=== PATIENT | male | born 1955 | race Caucasian/White ===

== ENCOUNTER 2016-08-04 16:43 | Inpatient (IN) | payer OTHER ==
[2016-08-04 18:07] LABS: Hematocrit 35 % (42-52); Hemoglobin 11.7 g/dl (14.0-18.0); Mean Corpuscular HGB Conc 34 g/dl (31-36); Mean Corpuscular Hemoglobin 32 pg (27-31); Mean Corpuscular Volume 94 fL (80-94); Mean Platelet Volume 9 um3 (7.4-10.4); Red Blood Count 3.69 10^6/ul (4.0-5.4); Red Cell Distribution Width 13 % (10.5-15); White Blood Count 7.7 10^3/ul (3.5-10.8)
[2016-08-04 18:10] LABS: Urine Bilirubin Negative (Negative); Urine Glucose 3+(>=500 mg/dL) (Negative); Urine Nitrite Negative (Negative)
[2016-08-04 18:18] LABS: ALT 22 U/L (7-52); Albumin 4.3 g/dL (3.2-5.2); Alkaline Phosphatase 81 U/L (34-104); BUN/Creatinine Ratio 24.7 (8-20); Blood Urea Nitrogen 20 mg/dL (6-24); CO2 Carbon Dioxide 20 mmol/L (22-32); Chloride 103 mmol/L (101-111); EGFR African American 123.8 (>60); EGFR Non-African American 96.2 (>60); Globulin 2.8 g/dL (2-4); Glucose 410 mg/dL (70-100); Sodium 131 mmol/L (133-145); Total Protein 7.1 g/dL (6.4-8.9)
[2016-08-04 18:26] LABS: Benzodiazepine Urine Screen None Detected (None Detect)
[2016-08-04 18:43] LABS: Acetaminophen < 15 mcg/mL; Alcohol < 10 mg/dL (<10); Salicylate < 2.50 mg/dL (<30)
[2016-08-04 18:53] LABS: TSH (Thyroid Stimulating Horm) 1.73 mcIU/mL (0.34-5.60)
[2016-08-04] MEDS ORDERED: Ziprasidone IM INJ* 20 MG/ML VIAL ONE (20:10)
[2016-08-04] MEDS ORDERED: Ziprasidone IM INJ* 20 MG/ML VIAL IM ONE (20:44)
--- NOTE | 2016-08-04 22:17 | ED ---
Nikolai Blas Billy, scribed for Audie Agustin MD on 08/04/16 at 1849 . Psychiatric Complaint - HPI Summary HPI Summary: Patient is a 61 year-old male BIBA to [facility] after the police were called on him due to his manic behavior. He complains of insomnia and believes he needs to have his medication adjusted. No SI/HI. - History Of Current Complaint Chief Complaint: EDMentalHealth Time Seen by Provider: 08/04/16 16:47 Hx Obtained From: Patient, EMS Onset/Duration: Still Present Timing: Constant Severity Initially: Moderate Severity Currently: Moderate Character: Manic Aggravating Factor(s): Nothing Alleviating Factor(s): Nothing Associated Signs And Symptoms: Positive: Sleep Disturbance Has Suicidal: Denies: Thoughts, With A Plan Has Homicidal: Denies: Thoughts, With A Plan - Allergies/Home Medications Allergies/Adverse Reactions: Allergies Allergy/AdvReac Type Severity Reaction Status Date / Time Benztropine Allergy Unknown Unknown Verified 07/29/15 08:01 Reaction Details Bupropion Allergy Unknown Unknown Verified 07/29/15 08:01 Reaction Details Diazepam Allergy Unknown Unknown Verified 07/29/15 08:01 Reaction Details Fluoxetine Allergy Unknown Unknown Verified 07/29/15 08:01 Reaction Details Fluphenazine Allergy Unknown Unknown Verified 07/29/15 08:01 Reaction Details Haloperidol Allergy Unknown Unknown Verified 07/29/15 08:01 Reaction Details Thiothixene Allergy Unknown Unknown Verified 07/29/15 08:01 Reaction Details Trihexyphenidyl Allergy Unknown Unknown Verified 07/29/15 08:01 Reaction Details Carbamazepine AdvReac Unknown Unknown Verified 07/29/15 08:01 Reaction Details PMH/Surg Hx/FS Hx/Imm Hx Endocrine/Hematology History: Reports: Hx Diabetes, Other Endocrine/ Hematological Disorders - Impaired fasting glucose Denies: Hx Anticoagulant Therapy, Hx Thyroid Disease Cardiovascular History: Reports: Hx Angina, Hx Hypertension Denies: Hx Pacemaker/ICD Respiratory History: Denies: Hx Asthma, Hx Chronic Obstructive Pulmonary Disease (COPD) GI History: Reports: Hx Gastroesophageal Reflux Disease Denies: Hx Ulcer Comment Only: Other GI Disorders - Chronic constipation History: Reports: Hx Acute Renal Failure - secondary to lithium carbonate, Hx Benign Prostatic Hyperplasia, Other Problems/Disorders - Urinary incontinence Denies: Hx Renal Disease Musculoskeletal History: Denies: Hx Gout Sensory History: Denies: Hx Hearing Aid Neurological History: Reports: Hx Headaches, Hx Seizures - hx of medication induced seizures Denies: Hx Dementia Psychiatric History: Reports: Hx Depression, Hx Panic Disorder - sometimes, Hx Inpatient Treatment, Hx Community Mental Health Tx, Hx Schizophrenia, Hx Bipolar Disorder, Hx of Violent Episodes Against Others Denies: Hx Eating Disorder, Hx Substance Abuse - Surgical History Surgery Procedure, Year, and Place: RIGHT wrist, ring finger on right hand, penis as a baby. 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 Substance Use Type: Reports: None Smoking Status (MU): Light Every Day Tobacco Smoker Type: Cigarettes Amount Used/How Often: 4-5/day Have You Smoked in the Last Year: Yes - states that he smoked a cigarette a few days ago Review of Systems Neurological: Other - "insomnia" Positive: Other - manic All Other Systems Reviewed And Are Negative: Yes Physical Exam Triage Information Reviewed: Yes Vital Signs On Initial Exam: Vital Signs - On Arrival Temp Pulse Resp BP Pulse Ox 97.9 F 109 20 195/92 99 08/04/16 17:00 08/04/16 17:00 08/04/16 17:00 08/04/16 17:00 08/04/16 17:00 Vital Signs Reviewed: Yes Appearance: Positive: Well-Appearing, No Pain Distress Skin: Positive: Warm, Skin Color Reflects Adequate Perfusion, Dry Head/Face: Positive: Normal Head/Face Inspection Eyes: Positive: Normal ENT: Positive: Normal ENT inspection Neck: Positive: Supple, Nontender Respiratory/Lung Sounds: Positive: Clear to Auscultation, Breath Sounds Present Cardiovascular: Positive: RRR Abdomen Description: Positive: Nontender, Soft Musculoskeletal: Positive: Normal Neurological: Positive: Normal Psychiatric: Positive: Affect/Mood Appropriate Diagnostics - Vital Signs Vital Signs Temp Pulse Resp BP Pulse Ox 08/04/16 22:02 97.9 F 98 20 184/84 08/04/16 17:00 97.9 F 109 20 195/92 99 - Laboratory Lab Results: Lab Results 12/29/16 12/29/16 12/29/16 Range/Units 17:20 17:20 17:43 WBC 7.7 (3.5-10.8) 10^3/ul RBC 3.69 L (4.0-5.4) 10^6/ul Hgb 11.7 L (14.0-18.0) g/dl Hct 35 L (42-52) % MCV 94 (80-94) fL MCH 32 H (27-31) pg MCHC 34 (31-36) g/dl RDW 13 (10.5-15) % Plt Count 201 (150-450) 10^3/ul MPV 9 (7.4-10.4) um3 Neut % (Auto) 65.6 (38-83) % Lymph % (Auto) 22.4 L (25-47) % Mccormick % (Auto) 10.0 H (1-9) % Eos % (Auto) 1.4 (0-6) % Baso % (Auto) 0.6 (0-2) % Absolute Neuts (auto) 5.0 (1.5-7.7) 10^3/ul Absolute Lymphs (auto) 1.7 (1.0-4.8) 10^3/ul Absolute Monos (auto) 0.8 (0-0.8) 10^3/ul Absolute Eos (auto) 0.1 (0-0.6) 10^3/ul Absolute Basos (auto) 0 (0-0.2) 10^3/ul Absolute Nucleated RBC 0 10^3/ul Nucleated RBC % 0 Sodium (133-145) mmol/L Potassium Chloride (101-111) mmol/L Carbon Dioxide (22-32) mmol/L Anion Gap BUN (6-24) mg/dL Creatinine (0.67-1.17) mg/dL Est GFR ( Amer) (>60) Est GFR (Non-Af Amer) (>60) BUN/Creatinine Ratio (8-20) Glucose (70-100) mg/dL Calcium (8.6-10.3) mg/dL Total Bilirubin (0.2-1.0) mg/dL AST ALT (7-52) U/L Alkaline Phosphatase (34-104) U/L Total Protein (6.4-8.9) g/dL Albumin (3.2-5.2) g/dL Globulin (2-4) g/dL Albumin/Globulin Ratio (1-3) TSH Urine Color Yellow Urine Appearance Clear Urine pH 5.0 (5-9) Ur Specific [place] 1.020 (1.010-1.030) Urine Protein Negative (Negative) Urine Ketones Trace H (Negative) Urine Blood Negative (Negative) Urine Nitrate Negative (Negative) Urine Bilirubin Negative (Negative) Urine Urobilinogen Negative (Negative) Ur Leukocyte Esterase Negative (Negative) Urine Glucose 3+(>=500 mg/dl) H (Negative) Salicylates (<30) mg/dL Urine Opiates Screen None detected (None Detect) Acetaminophen mcg/mL Ur Barbiturates Screen None detected (None Detect) Ur Phencyclidine Scrn None detected (None Detect) Ur Amphetamines Screen None detected (None Detect) U Benzodiazepines Scrn None detected (None Detect) Urine Cocaine Screen None detected (None Detect) U Cannabinoids Screen None detected (None Detect) Serum Alcohol (<10) mg/dL 08/04/16 Range/Units 17:43 WBC (3.5-10.8) 10^3/ul RBC (4.0-5.4) 10^6/ul Hgb (14.0-18.0) g/dl Hct (42-52) % MCV (80-94) fL MCH (27-31) pg MCHC (31-36) g/dl RDW (10.5-15) % Plt Count (150-450) 10^3/ul MPV (7.4-10.4) um3 Neut % (Auto) (38-83) % Lymph % (Auto) (25-47) % Mccormick % (Auto) (1-9) % Eos % (Auto) (0-6) % Baso % (Auto) (0-2) % Absolute Neuts (auto) (1.5-7.7) 10^3/ul Absolute Lymphs (auto) (1.0-4.8) 10^3/ul Absolute Monos (auto) (0-0.8) 10^3/ul Absolute Eos (auto) (0-0.6) 10^3/ul Absolute Basos (auto) (0-0.2) 10^3/ul Absolute Nucleated RBC 10^3/ul Nucleated RBC % Sodium 131 L (133-145) mmol/L Potassium TNP Chloride 103 (101-111) mmol/L Carbon Dioxide 20 L (22-32) mmol/L Anion Gap TNP BUN 20 (6-24) mg/dL Creatinine 0.81 (0.67-1.17) mg/dL Est GFR ( Amer) 123.8 (>60) Est GFR (Non-Af Amer) 96.2 (>60) BUN/Creatinine Ratio 24.7 H (8-20) Glucose 410 H (70-100) mg/dL Calcium 9.0 (8.6-10.3) mg/dL Total Bilirubin 0.20 (0.2-1.0) mg/dL AST TNP ALT 22 (7-52) U/L Alkaline Phosphatase 81 (34-104) U/L Total Protein 7.1 (6.4-8.9) g/dL Albumin 4.3 (3.2-5.2) g/dL Globulin 2.8 (2-4) g/dL Albumin/Globulin Ratio 1.5 (1-3) TSH Pending Urine Color Urine Appearance Urine pH (5-9) Ur Specific [place] (1.010-1.030) Urine Protein (Negative) Urine Ketones (Negative) Urine Blood (Negative) Urine Nitrate (Negative) Urine Bilirubin (Negative) Urine Urobilinogen (Negative) Ur Leukocyte Esterase (Negative) Urine Glucose (Negative) Salicylates < 2.50 (<30) mg/dL Urine Opiates Screen (None Detect) Acetaminophen < 15 mcg/mL Ur Barbiturates Screen (None Detect) Ur Phencyclidine Scrn (None Detect) Ur Amphetamines Screen (None Detect) U Benzodiazepines Scrn (None Detect) Urine Cocaine Screen (None Detect) U Cannabinoids Screen (None Detect) Serum Alcohol < 10 (<10) mg/dL Result Diagrams: 08/04/16 17:43 08/04/16 19:25 Lab Statement: Any lab studies that have been ordered have been reviewed, and results considered in the medical decision making process. Course/Dx - Differential Dx/Clinical Impression Provider Diagnosis: Psychosis Discharge - Discharge Plan Condition: Stable Disposition: ADMITTED TO [facility] documentation as recorded by the Nikolai mercer Billy accurately reflects the service I personally performed and the decisions made by , Audie Agustin MD.
[2016-08-05] MEDS ORDERED: Acetaminophen TAB* 325 MG PO PRN (00:46)
[2016-08-05] MEDS ORDERED: Al Hydrox/Mg Hydrox/Simet LIQ* 30 ML UDC PO PRN (00:46)
[2016-08-05] MEDS ORDERED: Loperamide CAP* 2 MG PO PRN (01:26)
[2016-08-05] MEDS: amLODIPine TAB* 5 MG PO SCH (08:46)
[2016-08-05] MEDS: Atorvastatin* 20 MG TAB PO SCH (08:46)
[2016-08-05] MEDS: glipiZIDE TAB.XL* 5 MG PO SCH (08:47)
[2016-08-05] MEDS: Omeprazole CAP* 20 MG PO SCH (08:47)
[2016-08-05] MEDS: Lisinopril TAB* 10 MG PO SCH (08:47)
[2016-08-05] MEDS: Divalproex DR TAB(*) 500 MG PO SCH ×2 (08:47→20:15)
[2016-08-05] MEDS: Nicotine PATCH 14 MG/24 HR* PATCH TRANSDERM SCH (08:48)
[2016-08-05] MEDS: Vitamin THERAPEUTIC TAB PO SCH (08:48)
[2016-08-05] MEDS ORDERED: Sertraline* 50 MG TAB PO SCH (09:00)
[2016-08-05] MEDS ORDERED: Influenza VAC *QUAD* 2016-17* 0.5 ML SYRINGE IM ONE (09:00)
[2016-08-05] MEDS: Ibuprofen TAB* 600 MG PO PRN (14:25)
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
[2016-08-05] MEDS: clonazePAM TAB(*) 0.5 MG PO SCH (20:14)
[2016-08-05] MEDS: OLANzapine TAB* 2.5 MG PO SCH (20:15)
[2016-08-05] MEDS: CloZAPine TAB* 100 MG TAB PO SCH (20:15)
[2016-08-05] MEDS ORDERED: CloZAPine TAB* 100 MG TAB PO SCH (21:00)
[2016-08-05] MEDS: Nicotine Patch Removal NOTE PATCH OFF SCH (22:22)
[2016-08-06] MEDS: Nicotine PATCH 14 MG/24 HR* PATCH TRANSDERM SCH (08:25)
[2016-08-06] MEDS: Vitamin THERAPEUTIC TAB PO SCH (08:26)
[2016-08-06] MEDS: glipiZIDE TAB.XL* 5 MG PO SCH (08:26)
[2016-08-06] MEDS: amLODIPine TAB* 5 MG PO SCH (08:26)
[2016-08-06] MEDS: Atorvastatin* 20 MG TAB PO SCH (08:27)
[2016-08-06] MEDS: Lisinopril TAB* 10 MG PO SCH (08:27)
[2016-08-06] MEDS: Omeprazole CAP* 20 MG PO SCH (08:27)
[2016-08-06] MEDS: Divalproex DR TAB(*) 500 MG PO SCH ×2 (08:27→18:10)
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
[2016-08-06] MEDS: CloZAPine TAB* 100 MG TAB PO SCH (18:08)
[2016-08-06] MEDS: clonazePAM TAB(*) 0.5 MG PO SCH (18:09)
[2016-08-06] MEDS: OLANzapine TAB* 2.5 MG PO SCH (18:10)
[2016-08-06] MEDS: Nicotine Patch Removal NOTE PATCH OFF SCH (19:34)
[2016-08-06] MEDS: LORazepam TAB(*) 1 MG PO PRN (19:55)
[2016-08-06] MEDS ORDERED: LORazepam TAB(*) 1 MG ONE (19:56)
[2016-08-07] MEDS: Nicotine PATCH 14 MG/24 HR* PATCH TRANSDERM SCH (08:55)
[2016-08-07] MEDS: Divalproex DR TAB(*) 500 MG PO SCH ×3 (08:56→20:23)
[2016-08-07] MEDS: Lisinopril TAB* 10 MG PO SCH (08:57)
[2016-08-07] MEDS: Omeprazole CAP* 20 MG PO SCH (08:57)
[2016-08-07] MEDS: Atorvastatin* 20 MG TAB PO SCH (08:57)
[2016-08-07] MEDS: glipiZIDE TAB.XL* 5 MG PO SCH (08:57)
[2016-08-07] MEDS: amLODIPine TAB* 5 MG PO SCH (08:57)
[2016-08-07] MEDS: Vitamin THERAPEUTIC TAB PO SCH (08:57)
[2016-08-07] MEDS: clonazePAM TAB(*) 0.5 MG PO SCH ×2 (09:33→20:23)
[2016-08-07] MEDS: OLANzapine TAB* 2.5 MG PO SCH ×2 (09:34→20:23)
[2016-08-07] MEDS: CloZAPine TAB* 100 MG TAB PO SCH ×2 (09:34→20:23)
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
[2016-08-07] MEDS: Ibuprofen TAB* 600 MG PO PRN (17:36)
[2016-08-07] MEDS: Nicotine Patch Removal NOTE PATCH OFF SCH (21:01)
[2016-08-08] MEDS: Nicotine PATCH 14 MG/24 HR* PATCH TRANSDERM SCH (08:56)
[2016-08-08] MEDS: Omeprazole CAP* 20 MG PO SCH (08:57)
[2016-08-08] MEDS: amLODIPine TAB* 5 MG PO SCH (08:57)
[2016-08-08] MEDS: Divalproex DR TAB(*) 500 MG PO SCH ×2 (08:57→20:24)
[2016-08-08] MEDS: glipiZIDE TAB.XL* 5 MG PO SCH (08:57)
[2016-08-08] MEDS: Lisinopril TAB* 10 MG PO SCH (08:57)
[2016-08-08] MEDS: Vitamin THERAPEUTIC TAB PO SCH (08:57)
[2016-08-08] MEDS: Atorvastatin* 20 MG TAB PO SCH (08:57)
[2016-08-08] MEDS: Ibuprofen TAB* 600 MG PO PRN (13:33)
--- NOTE | 2016-08-08 15:03 | PN ---
Subjective - Subjective Service Type: 35511 Hosp care 15 min low complexity Subjective: Patient remains hyperverbal and non-sequitur, although less severely since admission. He has no evidence of violence or agitation since the weekend and appears to be tolerating his medications well. Objective - Appearance Appearance: Obese Dysmorphic Features: No Hygiene: Mal-odorous Grooming: Disheveled - Behavior Psychomotor Activities: Normal Exhibits Abnormal Movement: No - Attitude and Relatedness Attitude and Relatedness: Psychotically Related Eye Contact: Fair - Speech Quality: Pressured Latencies: Normal Quantity: Copious - Mood Patient's Decription of Mood: "Fine" - Affect Observed Affect: Labile Affect Consistent with: Dysphoria - Thought Process Patient's Thought Process: Loose Associations Thought Content: Yes Paranoid Ideation, No Passive Wish, No Suicidal Planning, No Homicidal Ideation - Sensorium Experiencing Hallucinations: No, Sensorium is Clear Type of Hallucinations: Visual: No, Auditory: No, Command: No - Level of Consciousness Level of Consciousness: Alert Orientation: Yes Intact, Yes Orientated to Time, Yes Orientated to Place, Yes Orientated to Person - Impulse Control Impulse Control: Poor - Insight and Judgement Insight and Judgement: Impaired - Group Participation Particating in Group Activities: Yes - Medication Management Medication Management Adherence: Yes Assessment - Assessment Merits Inpatient Hospitalization: For Immediate Safety, For Stabilization Inpatient DSM-IV Dx: Bipolar Kelsey, severe with psychotic features Clinical Impression: 61 y.o. single white male with a history of chronic and low-functioning bipolar disorder admitted due to increasing agitation and aggression in the likely context of some recent changes in his medication. Plan - Plan Treatment Plan: Name: LISANDRA MENDOZA Birthdate: 1955 [id number] We have resumed medication with some changes. Zoloft was discontinued and clozapine was increased from 400 to 500mg PO qhs. Depakote level (76) is therapeutic. Will need updated CBC tomorrow. For now we will discontinue olanzapine and increase clozapine to 600mg PO qhs. Await med effect. Continued Medication Management: Different Medication Medications: Current Medications Acetaminophen (Tylenol Tab*) 650 mg PO Q4H PRN PRN Reason: PAIN or TEMP > 101 F Al Hydrox/Mg Hydrox/Simethicone (Maalox Plus*) 30 ml PO Q4H PRN PRN Reason: INDIGESTION Amlodipine Besylate (Norvasc Tab*) 5 mg PO DAILY [facility] Last Admin: 08/08/16 08:57 Dose: 5 mg Atorvastatin Calcium (Lipitor*) 20 mg PO DAILY [facility] Last Admin: 08/08/16 08:57 Dose: 20 mg Clonazepam (Klonopin Tab(*)) 0.5 mg PO BEDTIME [facility] Last Admin: 08/07/16 20:23 Dose: 0.5 mg Divalproex Sodium (Depakote Dr Tab(*)) 1,000 mg PO BID [facility] Last Admin: 08/08/16 08:57 Dose: 1,000 mg Glipizide (Glucotrol Xl*) 5 mg PO DAILY [facility] Last Admin: 08/08/16 08:57 Dose: 5 mg Ibuprofen (Motrin Tab*) 600 mg PO Q8H PRN PRN Reason: PAIN Last Admin: 08/08/16 13:33 Dose: 600 mg Lisinopril (Prinivil Tab*) 20 mg PO QAM [facility] Last Admin: 08/08/16 08:57 Dose: 20 mg Loperamide HCl (Imodium Cap*) 2 mg PO DAILY PRN PRN Reason: DIARRHEA Lorazepam (Ativan Tab(*)) 2 mg PO Q6H PRN PRN Reason: AGITATION Last Admin: 08/06/16 19:55 Dose: 2 mg Multivitamins (Theragran Tab*) 1 tab PO DAILY [facility] Last Admin: 08/08/16 08:57 Dose: 1 tab Nicotine (Nicotine Patch 14 Mg/24 Hr*) 1 patch TRANSDERM DAILY [facility] Last Admin: 08/08/16 08:56 Dose: 1 patch Omeprazole (Prilosec Cap*) 40 mg PO DAILY [facility] Last Admin: 08/08/16 08:57 Dose: 40 mg Pharmacy Profile Note (Nicotine Patch Removal Note*) 1 note PATCH OFF 2100 [facility] Last Admin: 08/07/16 21:01 Dose: 1 note - Discharge Plan Discharge Plan: Inpatient Hospitalization
[2016-08-08] MEDS: clonazePAM TAB(*) 0.5 MG PO SCH (20:24)
[2016-08-08] MEDS: Nicotine Patch Removal NOTE PATCH OFF SCH (20:27)
[2016-08-08] MEDS ORDERED: CloZAPine TAB* 100 MG TAB PO SCH (21:00)
[2016-08-09 08:19] LABS: Hematocrit 38 % (42-52); Hemoglobin 12.5 g/dl (14.0-18.0); Mean Corpuscular HGB Conc 33 g/dl (31-36); Mean Corpuscular Hemoglobin 31 pg (27-31); Mean Corpuscular Volume 94 fL (80-94); Mean Platelet Volume 9 um3 (7.4-10.4); Red Blood Count 4.02 10^6/ul (4.0-5.4); Red Cell Distribution Width 13 % (10.5-15)
[2016-08-09] MEDS: Divalproex DR TAB(*) 500 MG PO SCH ×2 (09:27→19:02)
[2016-08-09] MEDS: Atorvastatin* 20 MG TAB PO SCH (09:27)
[2016-08-09] MEDS: Omeprazole CAP* 20 MG PO SCH (09:27)
[2016-08-09] MEDS: Vitamin THERAPEUTIC TAB PO SCH (09:28)
[2016-08-09] MEDS: Lisinopril TAB* 10 MG PO SCH (09:28)
[2016-08-09] MEDS: amLODIPine TAB* 5 MG PO SCH (09:28)
[2016-08-09] MEDS: Nicotine PATCH 14 MG/24 HR* PATCH TRANSDERM SCH (11:13)
[2016-08-09] MEDS: glipiZIDE TAB.XL* 5 MG PO SCH (11:13)
--- NOTE | 2016-08-09 11:42 | PN ---
[facility]: Group Therapy Note - Service Type Service Type: 17893 Group Psychotherapy - Cognitive Behavioral Group Therapy ( CBT):Patient presented in CBT programming as disorganized and disruptive in discussion and needed repeated redirection to attend to presented materials.
--- NOTE | 2016-08-09 15:54 | PN ---
Subjective - Subjective Service Type: 58775 Hosp care 15 min low complexity Subjective: The patient remains disorganized and disruptive on the unit but there hasn't been any further violence. He appears to be tolerating the recent changes in his medications well. I exchanged voicemail messages with Dr. Vinicio Duran, the patient's outpatient psychiatrist, who indicates that they had been weening him off olanzapine due to increases recently in his HgbA1c. Objective - Appearance Appearance: Obese Dysmorphic Features: No Hygiene: Dirty Grooming: Disheveled - Behavior Psychomotor Activities: Normal Exhibits Abnormal Movement: No - Attitude and Relatedness Attitude and Relatedness: Psychotically Related Eye Contact: Good - Speech Quality: Pressured Latencies: Short Quantity: Copious - Mood Patient's Decription of Mood: "Great" - Affect Observed Affect: Labile Affect Consistent with: Dysphoria - Thought Process Patient's Thought Process: Disorganized Thought Content: Yes Paranoid Ideation, No Passive Wish, No Suicidal Planning, No Homicidal Ideation - Sensorium Experiencing Hallucinations: Yes Type of Hallucinations: Visual: No, Auditory: Yes, Command: No - Level of Consciousness Level of Consciousness: Alert Orientation: Yes Intact, Yes Orientated to Time, Yes Orientated to Place, Yes Orientated to Person - Impulse Control Impulse Control: Poor - Insight and Judgement Insight and Judgement: Impaired - Group Participation Particating in Group Activities: Yes - Medication Management Medication Management Adherence: Yes Assessment - Assessment Merits Inpatient Hospitalization: For Immediate Safety, For Stabilization Inpatient DSM-IV Dx: Bipolar Kelsey, severe with psychotic features Clinical Impression: 61 y.o. single white male with a history of chronic and low-functioning bipolar disorder admitted due to increasing agitation and aggression in the likely context of some recent changes in his medication. Plan - Plan Treatment Plan: Name: LISANDRA MENDOZA Birthdate: 1955 [id number] We have resumed medication with some changes. Zoloft and olanzapine were discontinued and clozapine was increased from 400 to 600mg PO qhs. Depakote level (76) is therapeutic. Will check HgbA1c, lipid panel and fasting glucose tomorrow AM. Await med effect. Continued Medication Management: Different Medication Medications: Current Medications Acetaminophen (Tylenol Tab*) 650 mg PO Q4H PRN PRN Reason: PAIN or TEMP > 101 F Al Hydrox/Mg Hydrox/Simethicone (Maalox Plus*) 30 ml PO Q4H PRN PRN Reason: INDIGESTION Amlodipine Besylate (Norvasc Tab*) 5 mg PO DAILY [facility] Last Admin: 08/09/16 09:28 Dose: 5 mg Atorvastatin Calcium (Lipitor*) 20 mg PO DAILY [facility] Last Admin: 08/09/16 09:27 Dose: 20 mg Clonazepam (Klonopin Tab(*)) 0.5 mg PO BEDTIME [facility] Last Admin: 08/08/16 20:24 Dose: 0.5 mg Clozapine (Clozapine Tab*) 600 mg PO BEDTIME [facility] Last Admin: 08/08/16 20:24 Dose: 600 mg Divalproex Sodium (Depakote Dr Tab(*)) 1,000 mg PO BID [facility] Last Admin: 08/09/16 09:27 Dose: 1,000 mg Glipizide (Glucotrol Xl*) 5 mg PO DAILY [facility] Last Admin: 08/09/16 11:13 Dose: 5 mg Ibuprofen (Motrin Tab*) 600 mg PO Q8H PRN PRN Reason: PAIN Last Admin: 08/08/16 13:33 Dose: 600 mg Lisinopril (Prinivil Tab*) 20 mg PO QAM [facility] Last Admin: 08/09/16 09:28 Dose: 20 mg Loperamide HCl (Imodium Cap*) 2 mg PO DAILY PRN PRN Reason: DIARRHEA Lorazepam (Ativan Tab(*)) 2 mg PO Q6H PRN PRN Reason: AGITATION Last Admin: 08/06/16 19:55 Dose: 2 mg Multivitamins (Theragran Tab*) 1 tab PO DAILY [facility] Last Admin: 08/09/16 09:28 Dose: 1 tab Nicotine (Nicotine Patch 14 Mg/24 Hr*) 1 patch TRANSDERM DAILY [facility] Last Admin: 08/09/16 11:13 Dose: Not Given Omeprazole (Prilosec Cap*) 40 mg PO DAILY [facility] Last Admin: 08/09/16 09:27 Dose: 40 mg Pharmacy Profile Note (Nicotine Patch Removal Note*) 1 note PATCH OFF 2100 [facility] Last Admin: 08/08/16 20:27 Dose: 1 note Throat Lozenges (Chloraseptic Chong*) 1 chong PO Q6H PRN PRN Reason: SORE THROAT - Discharge Plan Discharge Plan: Inpatient Hospitalization Lab Results - Lab Results Lab Results: 08/09/16 08:10 WBC 9.0 RBC 4.02 Hgb 12.5 L Hct 38 L MCV 94 MCH 31 MCHC 33 RDW 13 Plt Count 193 MPV 9 Neut % (Auto) 63.6 Lymph % (Auto) 23.5 L [place] % (Auto) 10.3 H Eos % (Auto) 1.8 Baso % (Auto) 0.8 Absolute Neuts (auto) 5.7 Absolute Lymphs (auto) 2.1 Absolute Monos (auto) 0.9 H Absolute Eos (auto) 0.2 Absolute Basos (auto) 0.1 Absolute Nucleated RBC 0 Nucleated RBC % 0
[2016-08-09] MEDS: LORazepam TAB(*) 1 MG PO PRN (16:52)
[2016-08-09] MEDS: Nicotine Patch Removal NOTE PATCH OFF SCH (19:01)
[2016-08-09] MEDS: clonazePAM TAB(*) 0.5 MG PO SCH (19:01)
[2016-08-09] MEDS: CloZAPine TAB* 100 MG TAB PO SCH (19:02)
[2016-08-10] MEDS: glipiZIDE TAB.XL* 5 MG PO SCH (08:37)
[2016-08-10] MEDS: amLODIPine TAB* 5 MG PO SCH (08:37)
[2016-08-10] MEDS: Omeprazole CAP* 20 MG PO SCH (08:37)
[2016-08-10] MEDS: Lisinopril TAB* 10 MG PO SCH (08:37)
[2016-08-10] MEDS: Atorvastatin* 20 MG TAB PO SCH (08:38)
[2016-08-10] MEDS: Vitamin THERAPEUTIC TAB PO SCH (08:38)
[2016-08-10 08:43] LABS: Albumin 4.2 g/dL (3.2-5.2); BUN/Creatinine Ratio 33.3 (8-20); Calcium 9.4 mg/dL (8.6-10.3); EGFR African American 129.3 (>60); EGFR Non-African American 100.5 (>60); HDL Cholesterol 35.5 mg/dL; Potassium 4.6 mmol/L (3.5-5.0); Total Bilirubin 0.3 mg/dL (0.2-1.0); Total Protein 7.2 g/dL (6.4-8.9)
[2016-08-10] MEDS: Nicotine PATCH 14 MG/24 HR* PATCH TRANSDERM SCH (08:43)
[2016-08-10] MEDS: Divalproex DR TAB(*) 500 MG PO SCH ×2 (09:18→19:04)
--- NOTE | 2016-08-10 14:55 | PN ---
Subjective - Subjective Service Type: [id number] Hosp care 15 min low complexity Subjective: The patient continues to be disorganized and non-sequitur, although he has displayed no violence towards others. "I'm furiously angry at Minerva Langston. We call her Miss Stanley because she's so happy all the time." I am told that members of the [facility] staff, who know him possibly the best in the community, will be coming in to assess whether he has returned to baseline. Objective - Appearance Appearance: Obese Dysmorphic Features: No Hygiene: Mal-odorous Grooming: Disheveled - Behavior Psychomotor Activities: Normal Exhibits Abnormal Movement: Yes - Attitude and Relatedness Attitude and Relatedness: Psychotically Related Eye Contact: Fair - Speech Quality: Pressured Latencies: Short Quantity: Copious - Mood Patient's Decription of Mood: "Okay" - Affect Observed Affect: Labile Affect Consistent with: Dysphoria - Thought Process Patient's Thought Process: Loose Associations Thought Content: Yes Paranoid Ideation, No Passive Wish, No Suicidal Planning, No Homicidal Ideation - Sensorium Experiencing Hallucinations: No, Sensorium is Clear Type of Hallucinations: Visual: No, Auditory: No, Command: No - Level of Consciousness Level of Consciousness: Alert Orientation: Yes Intact, Yes Orientated to Time, Yes Orientated to Place, Yes Orientated to Person - Impulse Control Impulse Control: Impaired - Insight and Judgement Insight and Judgement: Poor - Group Participation Particating in Group Activities: Yes - Medication Management Medication Management Adherence: Yes Assessment - Assessment Merits Inpatient Hospitalization: For Immediate Safety, For Stabilization Inpatient DSM-IV Dx: Bipolar Kelsey, severe with psychotic features Clinical Impression: 61 y.o. single white male with a history of chronic and low-functioning bipolar disorder admitted due to increasing agitation and aggression in the likely context of some recent changes in his medication. Plan - Plan Treatment Plan: Name: LISANDRA MENDOZA Birthdate: 1955 [id number] We have resumed medication with some changes. Zoloft and olanzapine were discontinued and clozapine was increased to 600mg PO qhs. Depakote level (76) is therapeutic. Await med effect. Continued Medication Management: Different Medication Medications: Current Medications Acetaminophen (Tylenol Tab*) 650 mg PO Q4H PRN PRN Reason: PAIN or TEMP > 101 F Al Hydrox/Mg Hydrox/Simethicone (Maalox Plus*) 30 ml PO Q4H PRN PRN Reason: INDIGESTION Amlodipine Besylate (Norvasc Tab*) 5 mg PO DAILY [facility] Last Admin: 08/10/16 08:37 Dose: 5 mg Atorvastatin Calcium (Lipitor*) 20 mg PO DAILY [facility] Last Admin: 08/10/16 08:38 Dose: 20 mg Clonazepam (Klonopin Tab(*)) 0.5 mg PO 1914 [facility] Last Admin: 08/09/16 19:01 Dose: 0.5 mg Clozapine (Clozapine Tab*) 600 mg PO 1914 [facility] Last Admin: 08/09/16 19:02 Dose: 600 mg Divalproex Sodium (Depakote Dr Tab(*)) 1,000 mg PO [facility] Last Admin: 08/10/16 09:18 Dose: 1,000 mg Glipizide (Glucotrol Xl*) 5 mg PO DAILY [facility] Last Admin: 08/10/16 08:37 Dose: 5 mg Ibuprofen (Motrin Tab*) 600 mg PO Q8H PRN PRN Reason: PAIN Last Admin: 08/08/16 13:33 Dose: 600 mg Lisinopril (Prinivil Tab*) 20 mg PO QAM [facility] Last Admin: 08/10/16 08:37 Dose: 20 mg Loperamide HCl (Imodium Cap*) 2 mg PO DAILY PRN PRN Reason: DIARRHEA Lorazepam (Ativan Tab(*)) 2 mg PO Q6H PRN PRN Reason: AGITATION Last Admin: 08/09/16 16:52 Dose: 2 mg Multivitamins (Theragran Tab*) 1 tab PO DAILY [facility] Last Admin: 08/10/16 08:38 Dose: 1 tab Nicotine (Nicotine Patch 14 Mg/24 Hr*) 1 patch TRANSDERM DAILY [facility] Last Admin: 08/10/16 08:43 Dose: Not Given Omeprazole (Prilosec Cap*) 40 mg PO DAILY [facility] Last Admin: 08/10/16 08:37 Dose: 40 mg Pharmacy Profile Note (Nicotine Patch Removal Note*) 1 note PATCH OFF 2100 [facility] Last Admin: 08/09/16 19:01 Dose: Not Given Throat Lozenges (Chloraseptic Chong*) 1 chong PO Q6H PRN PRN Reason: SORE THROAT - Discharge Plan Discharge Plan: Inpatient Hospitalization Lab Results - Lab Results Lab Results: 08/09/16 08/10/16 08/10/16 08:10 08:14 08:14 WBC 9.0 RBC 4.02 Hgb 12.5 L Hct 38 L MCV 94 MCH 31 MCHC 33 RDW 13 Plt Count 193 MPV 9 Neut % (Auto) 63.6 Lymph % (Auto) 23.5 L [place] % (Auto) 10.3 H Eos % (Auto) 1.8 Baso % (Auto) 0.8 Absolute Neuts (auto) 5.7 Absolute Lymphs (auto) 2.1 Absolute Monos (auto) 0.9 H Absolute Eos (auto) 0.2 Absolute Basos (auto) 0.1 Absolute Nucleated RBC 0 Nucleated RBC % 0 Sodium 135 Potassium 4.6 Chloride 104 Carbon Dioxide 22 Anion Gap 9 BUN 26 H Creatinine 0.78 Est GFR ( Amer) 129.3 Est GFR (Non-Af Amer) 100.5 BUN/Creatinine Ratio 33.3 H Glucose 141 H Hemoglobin A1c 7.5 H Calcium 9.4 Total Bilirubin 0.30 AST 14 ALT 21 Alkaline Phosphatase 72 Total Protein 7.2 Albumin 4.2 Globulin 3.0 Albumin/Globulin Ratio 1.4 Triglycerides 268 Cholesterol 149 LDL Cholesterol 60 HDL Cholesterol 35.5
[2016-08-10] MEDS: Ibuprofen TAB* 600 MG PO PRN (15:29)
[2016-08-10] MEDS: LORazepam TAB(*) 1 MG PO PRN (17:59)
[2016-08-10] MEDS: CloZAPine TAB* 100 MG TAB PO SCH (19:05)
[2016-08-10] MEDS: clonazePAM TAB(*) 0.5 MG PO SCH (19:06)
[2016-08-10] MEDS: Nicotine Patch Removal NOTE PATCH OFF SCH (20:18)
[2016-08-11] MEDS: Benzocaine/Menthol LOZ* 1 LOZENGE PO PRN (04:49)
[2016-08-11] MEDS: Omeprazole CAP* 20 MG PO SCH (08:28)
[2016-08-11] MEDS: Vitamin THERAPEUTIC TAB PO SCH (08:28)
[2016-08-11] MEDS: glipiZIDE TAB.XL* 5 MG PO SCH (08:28)
[2016-08-11] MEDS: Nicotine PATCH 14 MG/24 HR* PATCH TRANSDERM SCH ×2 (08:28→08:41)
[2016-08-11] MEDS: Lisinopril TAB* 10 MG PO SCH (08:29)
[2016-08-11] MEDS: amLODIPine TAB* 5 MG PO SCH (08:29)
[2016-08-11] MEDS: Atorvastatin* 20 MG TAB PO SCH (08:29)
[2016-08-11] MEDS: Divalproex DR TAB(*) 500 MG PO SCH ×2 (08:31→18:54)
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
[2016-08-11] MEDS: CloZAPine TAB* 100 MG TAB PO SCH ×2 (17:07→18:55)
[2016-08-11] MEDS: clonazePAM TAB(*) 0.5 MG PO SCH (18:56)
[2016-08-11] MEDS: Ibuprofen TAB* 600 MG PO PRN (18:57)
[2016-08-11] MEDS: LORazepam TAB(*) 1 MG PO PRN (18:58)
[2016-08-12] MEDS: Nicotine Patch Removal NOTE PATCH OFF SCH ×2 (01:47→20:30)
[2016-08-12] MEDS: Vitamin THERAPEUTIC TAB PO SCH (09:24)
[2016-08-12] MEDS: Lisinopril TAB* 10 MG PO SCH (09:25)
[2016-08-12] MEDS: Atorvastatin* 20 MG TAB PO SCH (09:25)
[2016-08-12] MEDS: Omeprazole CAP* 20 MG PO SCH (09:25)
[2016-08-12] MEDS: CloZAPine TAB* 100 MG TAB PO SCH ×2 (09:26→18:44)
[2016-08-12] MEDS: glipiZIDE TAB.XL* 5 MG PO SCH (09:27)
[2016-08-12] MEDS: Nicotine PATCH 14 MG/24 HR* PATCH TRANSDERM SCH (09:27)
[2016-08-12] MEDS: amLODIPine TAB* 5 MG PO SCH (10:00)
[2016-08-12] MEDS: Divalproex DR TAB(*) 500 MG PO SCH ×2 (10:02→18:44)
--- NOTE | 2016-08-12 13:07 | PN ---
Subjective - Subjective Service Type: [id number] Hosp care 15 min low complexity Subjective: Patient received a visit from a [place] [employer] representative yesterday afternoon but we have not yet heard how that went. He appears to be under behavioral control on our unit, albeit with continued hyperverbal, disorganized presentation. Objective - Appearance Appearance: Obese Dysmorphic Features: No Hygiene: Dirty Grooming: Disheveled - Behavior Psychomotor Activities: Normal Exhibits Abnormal Movement: No - Attitude and Relatedness Attitude and Relatedness: Cooperative Eye Contact: Fair - Speech Quality: Pressured Latencies: Short Quantity: Copious - Mood Patient's Decription of Mood: "Great" - Affect Observed Affect: Expansive Affect Consistent with: Euphoria - Thought Process Patient's Thought Process: Loose Associations Thought Content: Yes Paranoid Ideation, No Passive Wish, No Suicidal Planning, No Homicidal Ideation - Sensorium Experiencing Hallucinations: No, Sensorium is Clear Type of Hallucinations: Visual: No, Auditory: Yes, Command: No - Level of Consciousness Level of Consciousness: Alert Orientation: Yes Intact, Yes Orientated to Time, Yes Orientated to Place, Yes Orientated to Person - Impulse Control Impulse Control: Poor - Insight and Judgement Insight and Judgement: Impaired - Group Participation Particating in Group Activities: Yes - Medication Management Medication Management Adherence: Yes Assessment - Assessment Merits Inpatient Hospitalization: Consolidate Improvements, Pending Safe DC Plan Inpatient DSM-IV Dx: Bipolar Kelsey, severe with psychotic features Clinical Impression: 61 y.o. single white male with a history of chronic and low-functioning bipolar disorder admitted due to increasing agitation and aggression in the likely context of some recent changes in his medication. Plan - Plan Treatment Plan: Name: LISANDRA MENDOZA Birthdate: 1955 [id number] Patient still not at baseline. Now on increased clozapine 100mg PO qam and 600mg PO qhs. [place] to visit on Monday, 08/15. Continued Medication Management: Different Medication Medications: Current Medications Acetaminophen (Tylenol Tab*) 650 mg PO Q4H PRN PRN Reason: PAIN or TEMP > 101 F Al Hydrox/Mg Hydrox/Simethicone (Maalox Plus*) 30 ml PO Q4H PRN PRN Reason: INDIGESTION Amlodipine Besylate (Norvasc Tab*) 5 mg PO DAILY [facility] Last Admin: 08/12/16 10:00 Dose: 5 mg Atorvastatin Calcium (Lipitor*) 20 mg PO DAILY [facility] Last Admin: 08/12/16 09:25 Dose: 20 mg Clonazepam (Klonopin Tab(*)) 0.5 mg PO 1914 [facility] Last Admin: 08/11/16 18:56 Dose: 0.5 mg Clozapine (Clozapine Tab*) 600 mg PO 1914 [facility] Last Admin: 08/11/16 18:55 Dose: 600 mg Clozapine (Clozapine Tab*) 100 mg PO DAILY [facility] Last Admin: 08/12/16 09:26 Dose: 100 mg Divalproex Sodium (Depakote Dr Tab(*)) 1,000 mg PO 799,1914 [facility] Last Admin: 08/12/16 10:02 Dose: 1,000 mg Glipizide (Glucotrol Xl*) 5 mg PO DAILY [facility] Last Admin: 08/12/16 09:27 Dose: 5 mg Ibuprofen (Motrin Tab*) 600 mg PO Q8H PRN PRN Reason: PAIN Last Admin: 08/11/16 18:57 Dose: 600 mg Lisinopril (Prinivil Tab*) 20 mg PO [facility] Last Admin: 08/12/16 09:25 Dose: 20 mg Loperamide HCl (Imodium Cap*) 2 mg PO DAILY PRN PRN Reason: DIARRHEA Lorazepam (Ativan Tab(*)) 2 mg PO Q6H PRN PRN Reason: AGITATION Last Admin: 08/11/16 18:58 Dose: 2 mg Multivitamins (Theragran Tab*) 1 tab PO DAILY [facility] Last Admin: 08/12/16 09:24 Dose: 1 tab Nicotine (Nicotine Patch 14 Mg/24 Hr*) 1 patch TRANSDERM DAILY [facility] Last Admin: 08/12/16 09:27 Dose: 1 patch Omeprazole (Prilosec Cap*) 40 mg PO DAILY [facility] Last Admin: 08/12/16 09:25 Dose: 40 mg Pharmacy Profile Note (Nicotine Patch Removal Note*) 1 note PATCH OFF 2099 [facility] Last Admin: 08/12/16 01:47 Dose: Not Given Throat Lozenges (Chloraseptic Chong*) 1 chong PO Q6H PRN PRN Reason: SORE THROAT Last Admin: 08/11/16 04:49 Dose: 1 chong - Discharge Plan Discharge Plan: Inpatient Hospitalization
[2016-08-12] MEDS: clonazePAM TAB(*) 0.5 MG PO SCH (18:44)
[2016-08-12] MEDS: Ibuprofen TAB* 600 MG PO PRN (19:53)
[2016-08-12] MEDS: Benzocaine/Menthol LOZ* 1 LOZENGE PO PRN (20:29)
[2016-08-13] MEDS: Benzocaine/Menthol LOZ* 1 LOZENGE PO PRN (08:21)
[2016-08-13] MEDS: Nicotine PATCH 14 MG/24 HR* PATCH TRANSDERM SCH (09:27)
[2016-08-13] MEDS: Lisinopril TAB* 10 MG PO SCH (09:28)
[2016-08-13] MEDS: Atorvastatin* 20 MG TAB PO SCH (09:28)
[2016-08-13] MEDS: Vitamin THERAPEUTIC TAB PO SCH (09:28)
[2016-08-13] MEDS: amLODIPine TAB* 5 MG PO SCH (09:28)
[2016-08-13] MEDS: glipiZIDE TAB.XL* 5 MG PO SCH (09:29)
[2016-08-13] MEDS: Omeprazole CAP* 20 MG PO SCH (09:29)
[2016-08-13] MEDS: CloZAPine TAB* 100 MG TAB PO SCH ×2 (09:29→21:40)
[2016-08-13] MEDS: Divalproex DR TAB(*) 500 MG PO SCH ×2 (09:31→21:41)
[2016-08-13] MEDS: Ibuprofen TAB* 600 MG PO PRN (12:39)
[2016-08-13] MEDS: Nicotine Patch Removal NOTE PATCH OFF SCH (19:12)
[2016-08-13] MEDS: clonazePAM TAB(*) 0.5 MG PO SCH (21:41)
[2016-08-14] MEDS: Benzocaine/Menthol LOZ* 1 LOZENGE PO PRN ×2 (05:33→12:42)
[2016-08-14] MEDS: Nicotine PATCH 14 MG/24 HR* PATCH TRANSDERM SCH (09:16)
[2016-08-14] MEDS: Vitamin THERAPEUTIC TAB PO SCH (09:18)
[2016-08-14] MEDS: CloZAPine TAB* 100 MG TAB PO SCH ×2 (09:18→19:58)
[2016-08-14] MEDS: amLODIPine TAB* 5 MG PO SCH (09:19)
[2016-08-14] MEDS: glipiZIDE TAB.XL* 5 MG PO SCH (09:19)
[2016-08-14] MEDS: Omeprazole CAP* 20 MG PO SCH (09:20)
[2016-08-14] MEDS: Atorvastatin* 20 MG TAB PO SCH (09:20)
[2016-08-14] MEDS: Lisinopril TAB* 10 MG PO SCH (09:21)
[2016-08-14] MEDS: Divalproex DR TAB(*) 500 MG PO SCH ×2 (09:28→19:59)
[2016-08-14] MEDS: clonazePAM TAB(*) 0.5 MG PO SCH (19:58)
[2016-08-14] MEDS: Nicotine Patch Removal NOTE PATCH OFF SCH (20:30)
[2016-08-15] MEDS: Benzocaine/Menthol LOZ* 1 LOZENGE PO PRN ×2 (02:15→02:16)
[2016-08-15] MEDS: Nicotine Patch Removal NOTE PATCH OFF SCH ×2 (03:49→20:32)
[2016-08-15] MEDS: Nicotine PATCH 14 MG/24 HR* PATCH TRANSDERM SCH (08:24)
[2016-08-15] MEDS: Omeprazole CAP* 20 MG PO SCH (08:25)
[2016-08-15] MEDS: amLODIPine TAB* 5 MG PO SCH (08:25)
[2016-08-15] MEDS: Atorvastatin* 20 MG TAB PO SCH (08:25)
[2016-08-15] MEDS: Vitamin THERAPEUTIC TAB PO SCH (08:26)
[2016-08-15] MEDS: Lisinopril TAB* 10 MG PO SCH (08:26)
[2016-08-15] MEDS: CloZAPine TAB* 100 MG TAB PO SCH ×2 (08:26→20:34)
[2016-08-15] MEDS: glipiZIDE TAB.XL* 5 MG PO SCH (08:26)
[2016-08-15] MEDS: Divalproex DR TAB(*) 500 MG PO SCH ×2 (10:47→20:32)
--- NOTE | 2016-08-15 13:43 | PN ---
Subjective - Subjective Service Type: [id number] Hosp care 15 min low complexity Subjective: The patient continues to be edgy. Over the weekend he is alleged to have told staff at the nurse's station that he would be destructive on the unit if he didn 't receive a cough drop and a Q-tip. Today he remains hyperverbal, non- sequitur and irritable at times. He smells incontinent of urine. Objective - Appearance Appearance: Obese Dysmorphic Features: No Hygiene: Dirty Grooming: Disheveled - Behavior Psychomotor Activities: Normal Exhibits Abnormal Movement: No - Attitude and Relatedness Attitude and Relatedness: Irritable Eye Contact: Fair - Speech Quality: Pressured Latencies: Short Quantity: Copious - Mood Patient's Decription of Mood: "Irritable" - Affect Observed Affect: Labile Affect Consistent with: Dysphoria - Thought Process Patient's Thought Process: Loose Associations Thought Content: Yes Paranoid Ideation, No Passive Wish, No Suicidal Planning, No Homicidal Ideation - Sensorium Experiencing Hallucinations: Yes Type of Hallucinations: Visual: No, Auditory: Yes, Command: No - Level of Consciousness Level of Consciousness: Alert Orientation: Yes Intact, Yes Orientated to Time, Yes Orientated to Place, Yes Orientated to Person - Impulse Control Impulse Control: Impaired - Insight and Judgement Insight and Judgement: Poor - Group Participation Particating in Group Activities: No - Medication Management Medication Management Adherence: Yes Assessment - Assessment Merits Inpatient Hospitalization: For Immediate Safety, For Stabilization Inpatient DSM-IV Dx: Bipolar Kelsey, severe with psychotic features Clinical Impression: 61 y.o. single white male with a history of chronic and low-functioning bipolar disorder admitted due to increasing agitation and aggression in the likely context of some recent changes in his medication. Plan - Plan Treatment Plan: Name: LISANDRA MENDOZA Birthdate: 1955 [id number] Patient still not at baseline. We will increase clozapine to 200mg PO qam and 600mg PO qhs. [place] to visit this week. Continued Medication Management: Continue Outpt Medication Medications: Current Medications Acetaminophen (Tylenol Tab*) 650 mg PO Q4H PRN PRN Reason: PAIN or TEMP > 101 F Al Hydrox/Mg Hydrox/Simethicone (Maalox Plus*) 30 ml PO Q4H PRN PRN Reason: INDIGESTION Amlodipine Besylate (Norvasc Tab*) 5 mg PO DAILY [facility] Last Admin: 08/15/16 08:25 Dose: 5 mg Atorvastatin Calcium (Lipitor*) 20 mg PO DAILY [facility] Last Admin: 08/15/16 08:25 Dose: 20 mg Clonazepam (Klonopin Tab(*)) 0.5 mg PO 1914 [facility] Last Admin: 08/14/16 19:58 Dose: 0.5 mg Clozapine (Clozapine Tab*) 600 mg PO 1914 [facility] Last Admin: 08/14/16 19:58 Dose: 600 mg Clozapine (Clozapine Tab*) 100 mg PO DAILY [facility] Last Admin: 08/15/16 08:26 Dose: 100 mg Divalproex Sodium (Depakote Dr Tab(*)) 1,000 mg PO 799,1914 [facility] Last Admin: 08/15/16 10:47 Dose: 1,000 mg Glipizide (Glucotrol Xl*) 5 mg PO DAILY [facility] Last Admin: 08/15/16 08:26 Dose: 5 mg Ibuprofen (Motrin Tab*) 600 mg PO Q8H PRN PRN Reason: PAIN Last Admin: 08/13/16 12:39 Dose: 600 mg Lisinopril (Prinivil Tab*) 20 mg PO QAM [facility] Last Admin: 08/15/16 08:26 Dose: 20 mg Loperamide HCl (Imodium Cap*) 2 mg PO DAILY PRN PRN Reason: DIARRHEA Lorazepam (Ativan Tab(*)) 2 mg PO Q6H PRN PRN Reason: AGITATION Last Admin: 08/11/16 18:58 Dose: 2 mg Multivitamins (Theragran Tab*) 1 tab PO DAILY [facility] Last Admin: 08/15/16 08:26 Dose: 1 tab Nicotine (Nicotine Patch 14 Mg/24 Hr*) 1 patch TRANSDERM DAILY [facility] Last Admin: 08/15/16 08:24 Dose: 1 patch Omeprazole (Prilosec Cap*) 40 mg PO DAILY [facility] Last Admin: 08/15/16 08:25 Dose: 40 mg Pharmacy Profile Note (Nicotine Patch Removal Note*) 1 note PATCH OFF 2099 [facility] Last Admin: 08/14/16 20:30 Dose: 1 note Throat Lozenges (Chloraseptic Chong*) 1 chong PO Q6H PRN PRN Reason: SORE THROAT Last Admin: 08/15/16 02:15 Dose: 1 chong - Discharge Plan Discharge Plan: Inpatient Hospitalization
[2016-08-15] MEDS: Ibuprofen TAB* 600 MG PO PRN (16:39)
[2016-08-15] MEDS: clonazePAM TAB(*) 0.5 MG PO SCH (20:33)
[2016-08-16] MEDS: Atorvastatin* 20 MG TAB PO SCH (09:10)
[2016-08-16] MEDS: CloZAPine TAB* 100 MG TAB PO SCH ×2 (09:10→19:37)
[2016-08-16] MEDS: Omeprazole CAP* 20 MG PO SCH (09:11)
[2016-08-16] MEDS: amLODIPine TAB* 5 MG PO SCH (09:11)
[2016-08-16] MEDS: LORazepam TAB(*) 1 MG PO PRN (09:11)
[2016-08-16] MEDS: Nicotine PATCH 14 MG/24 HR* PATCH TRANSDERM SCH (09:11)
[2016-08-16] MEDS: Vitamin THERAPEUTIC TAB PO SCH (09:12)
[2016-08-16] MEDS: Lisinopril TAB* 10 MG PO SCH (09:12)
[2016-08-16] MEDS: glipiZIDE TAB.XL* 5 MG PO SCH (09:12)
[2016-08-16] MEDS: Divalproex DR TAB(*) 500 MG PO SCH ×2 (09:14→19:37)
[2016-08-16] MEDS: Benzocaine/Menthol LOZ* 1 LOZENGE PO PRN ×2 (09:46→17:32)
--- NOTE | 2016-08-16 12:32 | PN ---
Subjective - Subjective Service Type: [id number] Hosp care 15 min low complexity Subjective: The patient remains overtalkative and hypomanic, talking me about largely irrelevant topics from his past and saluting me while singing loudly in Yoruba. He appears to be tolerating his recent med changes well. Objective - Appearance Appearance: Obese Dysmorphic Features: No Hygiene: Mal-odorous Grooming: Disheveled - Behavior Psychomotor Activities: Normal Exhibits Abnormal Movement: No - Attitude and Relatedness Attitude and Relatedness: Cooperative Eye Contact: Fair - Speech Quality: Pressured Latencies: Short Quantity: Copious - Mood Patient's Decription of Mood: "Great" - Affect Observed Affect: Labile Affect Consistent with: Euphoria - Thought Process Patient's Thought Process: Disorganized Thought Content: No Passive Wish, No Suicidal Planning, No Homicidal Ideation, No Paranoid Ideation - Sensorium Type of Hallucinations: Visual: No, Auditory: No, Command: No - Level of Consciousness Level of Consciousness: Alert Orientation: Yes Intact, Yes Orientated to Time, Yes Orientated to Place, Yes Orientated to Person - Impulse Control Impulse Control: Tenuous - Insight and Judgement Insight and Judgement: Fair - Group Participation Particating in Group Activities: Yes - Medication Management Medication Management Adherence: Yes Assessment - Assessment Merits Inpatient Hospitalization: Consolid[facility] Improvements, For Discharge Planning Inpatient DSM-IV Dx: Bipolar Kelsey, severe with psychotic features Clinical Impression: 61 y.o. single white male with a history of chronic and low-functioning bipolar disorder admitted due to increasing agitation and aggression in the likely context of some recent changes in his medication. Plan - Plan Treatment Plan: Name: LISANDRA MENDOZA Birthdate: 1955 [id number] Patient remains somewhat hypomanic. We have increased clozapine to 200mg PO qam and 600mg PO qhs and will check a CBC today. [place] to visit this week so we can determine his baseline. Continued Medication Management: Continue Outpt Medication Medications: Current Medications Acetaminophen (Tylenol Tab*) 650 mg PO Q4H PRN PRN Reason: PAIN or TEMP > 101 F Al Hydrox/Mg Hydrox/Simethicone (Maalox Plus*) 30 ml PO Q4H PRN PRN Reason: INDIGESTION Amlodipine Besylate (Norvasc Tab*) 5 mg PO DAILY [facility] Last Admin: 08/16/16 09:11 Dose: 5 mg Atorvastatin Calcium (Lipitor*) 20 mg PO DAILY [facility] Last Admin: 08/16/16 09:10 Dose: 20 mg Clonazepam (Klonopin Tab(*)) 0.5 mg PO 1914 [facility] Last Admin: 08/15/16 20:33 Dose: 0.5 mg Clozapine (Clozapine Tab*) 600 mg PO 1914 [facility] Last Admin: 08/15/16 20:34 Dose: 600 mg Clozapine (Clozapine Tab*) 200 mg PO DAILY [facility] Last Admin: 08/16/16 09:10 Dose: 200 mg Divalproex Sodium (Depakote Dr Tab(*)) 1,000 mg PO 799,1914 [facility] Last Admin: 08/16/16 09:14 Dose: 1,000 mg Glipizide (Glucotrol Xl*) 5 mg PO DAILY [facility] Last Admin: 08/16/16 09:12 Dose: 5 mg Ibuprofen (Motrin Tab*) 600 mg PO Q8H PRN PRN Reason: PAIN Last Admin: 08/15/16 16:39 Dose: 600 mg Lisinopril (Prinivil Tab*) 20 mg PO [facility] Last Admin: 08/16/16 09:12 Dose: 20 mg Loperamide HCl (Imodium Cap*) 2 mg PO DAILY PRN PRN Reason: DIARRHEA Lorazepam (Ativan Tab(*)) 2 mg PO Q6H PRN PRN Reason: AGITATION Last Admin: 08/16/16 09:11 Dose: 2 mg Multivitamins (Theragran Tab*) 1 tab PO DAILY [facility] Last Admin: 08/16/16 09:12 Dose: 1 tab Nicotine (Nicotine Patch 14 Mg/24 Hr*) 1 patch TRANSDERM DAILY [facility] Last Admin: 08/16/16 09:11 Dose: 1 patch Omeprazole (Prilosec Cap*) 40 mg PO DAILY [facility] Last Admin: 08/16/16 09:11 Dose: 40 mg Pharmacy Profile Note (Nicotine Patch Removal Note*) 1 note PATCH OFF 2099 [facility] Last Admin: 08/15/16 20:32 Dose: 1 note Throat Lozenges (Chloraseptic Chong*) 1 chong PO Q6H PRN PRN Reason: SORE THROAT Last Admin: 08/16/16 09:46 Dose: 1 chong - Discharge Plan Discharge Plan: Inpatient Hospitalization
[2016-08-16 13:02] LABS: Hematocrit 38 % (42-52); Hemoglobin 12.4 g/dl (14.0-18.0); Mean Corpuscular HGB Conc 33 g/dl (31-36); Mean Corpuscular Hemoglobin 31 pg (27-31); Mean Corpuscular Volume 95 fL (80-94); Mean Platelet Volume 10 um3 (7.4-10.4); Red Cell Distribution Width 13 % (10.5-15); White Blood Count 8.7 10^3/ul (3.5-10.8)
[2016-08-16 13:05] LABS: Add Diff/Slide Review? Slide Review Added; Comments Flag Yes
[2016-08-16] MEDS: clonazePAM TAB(*) 0.5 MG PO SCH (20:10)
[2016-08-16] MEDS: Nicotine Patch Removal NOTE PATCH OFF SCH (20:51)
[2016-08-17] MEDS: Lisinopril TAB* 10 MG PO SCH (08:30)
[2016-08-17] MEDS: Atorvastatin* 20 MG TAB PO SCH (08:30)
[2016-08-17] MEDS: Nicotine PATCH 14 MG/24 HR* PATCH TRANSDERM SCH (08:30)
[2016-08-17] MEDS: Omeprazole CAP* 20 MG PO SCH (08:30)
[2016-08-17] MEDS: CloZAPine TAB* 100 MG TAB PO SCH ×2 (08:31→19:16)
[2016-08-17] MEDS: Vitamin THERAPEUTIC TAB PO SCH (08:31)
[2016-08-17] MEDS: glipiZIDE TAB.XL* 5 MG PO SCH (08:31)
[2016-08-17] MEDS: amLODIPine TAB* 5 MG PO SCH (08:31)
[2016-08-17] MEDS: Divalproex DR TAB(*) 500 MG PO SCH ×2 (08:37→19:16)
[2016-08-17] MEDS: Benzocaine/Menthol LOZ* 1 LOZENGE PO PRN (10:14)
--- NOTE | 2016-08-17 14:44 | PN ---
Subjective - Subjective Service Type: [id number] Hosp care 35 min high complexity Subjective: The patient is seen in a meeting along with [place] sales representative metals Audie, and inpatient SW Karyn. He presents as irritable, paranoid and overtalkative and Audie indicates that this is not the patient's baseline. The patient makes a number of comments that are concerning over the course of the session, including his belief that his outpatient psychiatrist, Dr. Duran, wants to have him imprisoned in correction. The assembled clinicians agree that discharge to home would not be in the patient's best interests and Audie agrees to come in next week to do a similar assessment. Objective - Appearance Appearance: Obese Dysmorphic Features: No Hygiene: Mal-odorous Grooming: Disheveled - Behavior Psychomotor Activities: Normal Exhibits Abnormal Movement: No - Attitude and Relatedness Attitude and Relatedness: Irritable Eye Contact: Poor - Speech Quality: Pressured Latencies: Short Quantity: Copious - Mood Patient's Decription of Mood: "Irritable" - Affect Observed Affect: Labile Affect Consistent with: Dysphoria - Thought Process Patient's Thought Process: Loose Associations Thought Content: Yes Paranoid Ideation, No Passive Wish, No Suicidal Planning, No Homicidal Ideation - Sensorium Experiencing Hallucinations: No, Sensorium is Clear Type of Hallucinations: Visual: No, Auditory: No, Command: No - Level of Consciousness Level of Consciousness: Alert Orientation: Yes Intact, Yes Orientated to Time, Yes Orientated to Place, Yes Orientated to Person - Impulse Control Impulse Control: Poor - Insight and Judgement Insight and Judgement: Impaired - Group Participation Particating in Group Activities: Yes - Medication Management Medication Management Adherence: Yes Assessment - Assessment Merits Inpatient Hospitalization: For Immediate Safety, For Stabilization Inpatient DSM-IV Dx: Bipolar Kelsey, severe with psychotic features Clinical Impression: 61 y.o. single white male with a history of chronic and low-functioning bipolar disorder admitted due to increasing agitation and aggression in the likely context of some recent changes in his medication. Plan - Plan Treatment Plan: Name: LISANDRA MENDOZA Birthdate: 1955 [id number] The patient remains paranoid and hypomanic. We will again increase clozapine, this time to 300mg PO qam and 600mg PO qhs and monitor for signs of improvement. [place] will revisit next week so we can determine whether he truly is improving. Continued Medication Management: Continue Outpt Medication Medications: Current Medications Acetaminophen (Tylenol Tab*) 650 mg PO Q4H PRN PRN Reason: PAIN or TEMP > 101 F Al Hydrox/Mg Hydrox/Simethicone (Maalox Plus*) 30 ml PO Q4H PRN PRN Reason: INDIGESTION Amlodipine Besylate (Norvasc Tab*) 5 mg PO DAILY [facility] Last Admin: 08/17/16 08:31 Dose: 5 mg Atorvastatin Calcium (Lipitor*) 20 mg PO DAILY [facility] Last Admin: 08/17/16 08:30 Dose: 20 mg Clonazepam (Klonopin Tab(*)) 0.5 mg PO 1914 [facility] Last Admin: 08/16/16 20:10 Dose: 0.5 mg Clozapine (Clozapine Tab*) 600 mg PO 1914 [facility] Last Admin: 08/16/16 19:37 Dose: 600 mg Clozapine (Clozapine Tab*) 300 mg PO DAILY [facility] Divalproex Sodium (Depakote Dr Tab(*)) 1,000 mg PO [facility] Last Admin: 08/17/16 08:37 Dose: 1,000 mg Glipizide (Glucotrol Xl*) 5 mg PO DAILY [facility] Last Admin: 08/17/16 08:31 Dose: 5 mg Ibuprofen (Motrin Tab*) 600 mg PO Q8H PRN PRN Reason: PAIN Last Admin: 08/15/16 16:39 Dose: 600 mg Lisinopril (Prinivil Tab*) 20 mg PO QAM [facility] Last Admin: 08/17/16 08:30 Dose: 20 mg Loperamide HCl (Imodium Cap*) 2 mg PO DAILY PRN PRN Reason: DIARRHEA Lorazepam (Ativan Tab(*)) 2 mg PO Q6H PRN PRN Reason: AGITATION Last Admin: 08/16/16 09:11 Dose: 2 mg Multivitamins (Theragran Tab*) 1 tab PO DAILY [facility] Last Admin: 08/17/16 08:31 Dose: 1 tab Nicotine (Nicotine Patch 14 Mg/24 Hr*) 1 patch TRANSDERM DAILY [facility] Last Admin: 08/17/16 08:30 Dose: 1 patch Omeprazole (Prilosec Cap*) 40 mg PO DAILY [facility] Last Admin: 08/17/16 08:30 Dose: 40 mg Pharmacy Profile Note (Nicotine Patch Removal Note*) 1 note PATCH OFF 2100 [facility] Last Admin: 08/16/16 20:51 Dose: 1 note Throat Lozenges (Chloraseptic Chong*) 1 chong PO Q6H PRN PRN Reason: SORE THROAT Last Admin: 08/17/16 10:14 Dose: 1 chong - Discharge Plan Discharge Plan: Inpatient Hospitalization
[2016-08-17] MEDS ORDERED: Magnesium Hydroxide LIQ* 30 ML UDC PO PRN (14:45)
[2016-08-17] MEDS: clonazePAM TAB(*) 0.5 MG PO SCH (19:16)
[2016-08-17] MEDS: Nicotine Patch Removal NOTE PATCH OFF SCH (23:20)
[2016-08-18] MEDS: Omeprazole CAP* 20 MG PO SCH (08:50)
[2016-08-18] MEDS: Lisinopril TAB* 10 MG PO SCH (08:51)
[2016-08-18] MEDS: Atorvastatin* 20 MG TAB PO SCH (08:51)
[2016-08-18] MEDS: CloZAPine TAB* 100 MG TAB PO SCH ×2 (08:51→19:20)
[2016-08-18] MEDS: amLODIPine TAB* 5 MG PO SCH (08:51)
[2016-08-18] MEDS: Vitamin THERAPEUTIC TAB PO SCH (08:52)
[2016-08-18] MEDS: LORazepam TAB(*) 1 MG PO PRN (08:52)
[2016-08-18] MEDS: Benzocaine/Menthol LOZ* 1 LOZENGE PO PRN (08:52)
[2016-08-18] MEDS: Nicotine PATCH 14 MG/24 HR* PATCH TRANSDERM SCH (08:52)
[2016-08-18] MEDS: glipiZIDE TAB.XL* 5 MG PO SCH (08:52)
[2016-08-18] MEDS: Divalproex DR TAB(*) 500 MG PO SCH ×2 (08:57→19:20)
--- NOTE | 2016-08-18 10:54 | PN ---
Subjective - Subjective Service Type: [id number] Hosp care 15 min low complexity Subjective: Patient continues to be irritable, hyperverbal and paranoid. Is tolerating clozapine increase without side effects thus far. Today is found laying down in his room after receiving a dose of prn oral ativan for agitated feelings this morning. The patient is disappointed that he was not discharged home after yesterdays meeting with [place]. Objective - Appearance Appearance: Obese Dysmorphic Features: No Hygiene: Dirty Grooming: Disheveled - Behavior Psychomotor Activities: Normal Exhibits Abnormal Movement: No - Attitude and Relatedness Attitude and Relatedness: Irritable Eye Contact: Poor - Speech Quality: Pressured Latencies: Short Quantity: Copious - Mood Patient's Decription of Mood: "Angry" - Affect Observed Affect: Labile Affect Consistent with: Dysphoria - Thought Process Patient's Thought Process: Loose Associations Thought Content: Yes Paranoid Ideation, No Passive Wish, No Suicidal Planning, No Homicidal Ideation - Sensorium Experiencing Hallucinations: Yes Type of Hallucinations: Visual: No, Auditory: Yes, Command: No - Level of Consciousness Level of Consciousness: Agitated Orientation: Yes Intact, Yes Orientated to Time, Yes Orientated to Place, Yes Orientated to Person - Impulse Control Impulse Control: Poor - Insight and Judgement Insight and Judgement: Impaired - Group Participation Particating in Group Activities: No - Medication Management Medication Management Adherence: Yes Assessment - Assessment Merits Inpatient Hospitalization: For Immediate Safety, For Stabilization Inpatient DSM-IV Dx: Bipolar Kelsey, severe with psychotic features Clinical Impression: 61 y.o. single white male with a history of chronic and low-functioning bipolar disorder admitted due to increasing agitation and aggression in the likely context of some recent changes in his medication. Plan - Plan Treatment Plan: Name: LISANDRA MENDOZA Birthdate: 1955 [id number] The patient remains paranoid and hypomanic. His clozapine dose stands at 300mg PO qam and 600mg PO qhs, having been increased yesterday, and we will continue to titrate this. [place] will revisit next week so we can determine whether he truly is improving. If no improvement noted by then we may be obligated to refer to the [facility]. Continued Medication Management: Different Medication Medications: Current Medications Acetaminophen (Tylenol Tab*) 650 mg PO Q4H PRN PRN Reason: PAIN or TEMP > 101 F Al Hydrox/Mg Hydrox/Simethicone (Maalox Plus*) 30 ml PO Q4H PRN PRN Reason: INDIGESTION Amlodipine Besylate (Norvasc Tab*) 5 mg PO DAILY [facility] Last Admin: 08/18/16 08:51 Dose: 5 mg Atorvastatin Calcium (Lipitor*) 20 mg PO DAILY [facility] Last Admin: 08/18/16 08:51 Dose: 20 mg Clonazepam (Klonopin Tab(*)) 0.5 mg PO 1914 [facility] Last Admin: 08/17/16 19:16 Dose: 0.5 mg Clozapine (Clozapine Tab*) 600 mg PO 1914 [facility] Last Admin: 08/17/16 19:16 Dose: 600 mg Clozapine (Clozapine Tab*) 300 mg PO DAILY [facility] Last Admin: 08/18/16 08:51 Dose: 300 mg Divalproex Sodium (Depakote Dr Tab(*)) 1,000 mg PO 799,1914 [facility] Last Admin: 08/18/16 08:57 Dose: 1,000 mg Glipizide (Glucotrol Xl*) 5 mg PO DAILY [facility] Last Admin: 08/18/16 08:52 Dose: 5 mg Ibuprofen (Motrin Tab*) 600 mg PO Q8H PRN PRN Reason: PAIN Last Admin: 08/15/16 16:39 Dose: 600 mg Lisinopril (Prinivil Tab*) 20 mg PO QAM [facility] Last Admin: 08/18/16 08:51 Dose: 20 mg Loperamide HCl (Imodium Cap*) 2 mg PO DAILY PRN PRN Reason: DIARRHEA Lorazepam (Ativan Tab(*)) 2 mg PO Q6H PRN PRN Reason: AGITATION Last Admin: 08/18/16 08:52 Dose: 2 mg Magnesium Hydroxide (Milk Of Magnesia Liq*) 30 ml PO Q6H PRN PRN Reason: CONSTIPATION Multivitamins (Theragran Tab*) 1 tab PO DAILY [facility] Last Admin: 08/18/16 08:52 Dose: 1 tab Nicotine (Nicotine Patch 14 Mg/24 Hr*) 1 patch TRANSDERM DAILY [facility] Last Admin: 08/18/16 08:52 Dose: 1 patch Omeprazole (Prilosec Cap*) 40 mg PO DAILY [facility] Last Admin: 08/18/16 08:50 Dose: 40 mg Pharmacy Profile Note (Nicotine Patch Removal Note*) 1 note PATCH OFF 2099 [facility] Last Admin: 08/17/16 23:20 Dose: Not Given Throat Lozenges (Chloraseptic Chong*) 1 chong PO Q6H PRN PRN Reason: SORE THROAT Last Admin: 08/18/16 08:52 Dose: 1 chong - Discharge Plan Discharge Plan: Inpatient Hospitalization
[2016-08-18] MEDS: clonazePAM TAB(*) 0.5 MG PO SCH (19:19)
[2016-08-18] MEDS: Nicotine Patch Removal NOTE PATCH OFF SCH (21:27)
[2016-08-19] MEDS: Vitamin THERAPEUTIC TAB PO SCH (09:37)
[2016-08-19] MEDS: amLODIPine TAB* 5 MG PO SCH (09:37)
[2016-08-19] MEDS: Lisinopril TAB* 10 MG PO SCH (09:38)
[2016-08-19] MEDS: Atorvastatin* 20 MG TAB PO SCH (09:38)
[2016-08-19] MEDS: glipiZIDE TAB.XL* 5 MG PO SCH (09:38)
[2016-08-19] MEDS: Omeprazole CAP* 20 MG PO SCH (09:38)
[2016-08-19] MEDS: CloZAPine TAB* 100 MG TAB PO SCH ×2 (09:39→18:48)
[2016-08-19] MEDS: Nicotine PATCH 14 MG/24 HR* PATCH TRANSDERM SCH (09:39)
[2016-08-19] MEDS: Divalproex DR TAB(*) 500 MG PO SCH ×2 (10:04→18:47)
[2016-08-19] MEDS: Benzocaine/Menthol LOZ* 1 LOZENGE PO PRN (11:23)
--- NOTE | 2016-08-19 12:07 | PN ---
Subjective - Subjective Service Type: [id number] Hosp care 15 min low complexity Subjective: The patient is hypomanic and telling me about various people in his life, including when he saw a childhood friend's mother naked in a pool and got sent home when he was a kid. His ramblings are non-sequential and largely irrelevant to our conversation. He continues to display urinary incontinence, having soiled several chairs and couches in the day area. Objective - Appearance Appearance: Obese Dysmorphic Features: No Hygiene: Mal-odorous Grooming: Disheveled - Behavior Psychomotor Activities: Normal Exhibits Abnormal Movement: No - Attitude and Relatedness Attitude and Relatedness: Psychotically Related Eye Contact: Good - Speech Quality: Pressured Latencies: Short Quantity: Copious - Mood Patient's Decription of Mood: "Okay" - Affect Observed Affect: Labile Affect Consistent with: Dysphoria - Thought Process Patient's Thought Process: Loose Associations Thought Content: Yes Paranoid Ideation, No Passive Wish, No Suicidal Planning, No Homicidal Ideation - Sensorium Experiencing Hallucinations: Yes Type of Hallucinations: Visual: No, Auditory: Yes, Command: No - Level of Consciousness Level of Consciousness: Alert Orientation: Yes Intact, Yes Orientated to Time, Yes Orientated to Place, Yes Orientated to Person - Impulse Control Impulse Control: Poor - Insight and Judgement Insight and Judgement: Impaired - Group Participation Particating in Group Activities: No - Medication Management Medication Management Adherence: Yes Assessment - Assessment Merits Inpatient Hospitalization: For Immediate Safety, For Stabilization Inpatient DSM-IV Dx: Bipolar Kelsey, severe with psychotic features Clinical Impression: 61 y.o. single white male with a history of chronic and low-functioning bipolar disorder admitted due to increasing agitation and aggression in the likely context of some recent changes in his medication. Plan - Plan Treatment Plan: Name: LISANDRA MENDOZA Birthdate: 1955 [id number] The patient remains paranoid and hypomanic. His clozapine dose stands at 300mg PO qam and 600mg PO qhs. We will increase clonazepam to 1mg PO BID. [place] will revisit next week so we can determine whether he truly is improving. If no improvement noted by then we may be obligated to refer to the [facility]. Continued Medication Management: Start Medication Medications: Current Medications Acetaminophen (Tylenol Tab*) 650 mg PO Q4H PRN PRN Reason: PAIN or TEMP > 101 F Al Hydrox/Mg Hydrox/Simethicone (Maalox Plus*) 30 ml PO Q4H PRN PRN Reason: INDIGESTION Amlodipine Besylate (Norvasc Tab*) 5 mg PO DAILY [facility] Last Admin: 08/19/16 09:37 Dose: 5 mg Atorvastatin Calcium (Lipitor*) 20 mg PO DAILY [facility] Last Admin: 08/19/16 09:38 Dose: 20 mg Clozapine (Clozapine Tab*) 600 mg PO 1914 [facility] Last Admin: 08/18/16 19:20 Dose: 600 mg Clozapine (Clozapine Tab*) 300 mg PO DAILY [facility] Last Admin: 08/19/16 09:39 Dose: 300 mg Divalproex Sodium (Depakote Dr Tab(*)) 1,000 mg PO 799,1914 [facility] Last Admin: 08/19/16 10:04 Dose: 1,000 mg Glipizide (Glucotrol Xl*) 5 mg PO DAILY [facility] Last Admin: 08/19/16 09:38 Dose: 5 mg Ibuprofen (Motrin Tab*) 600 mg PO Q8H PRN PRN Reason: PAIN Last Admin: 08/15/16 16:39 Dose: 600 mg Lisinopril (Prinivil Tab*) 20 mg PO QAM [facility] Last Admin: 08/19/16 09:38 Dose: 20 mg Loperamide HCl (Imodium Cap*) 2 mg PO DAILY PRN PRN Reason: DIARRHEA Lorazepam (Ativan Tab(*)) 2 mg PO Q6H PRN PRN Reason: AGITATION Last Admin: 08/18/16 08:52 Dose: 2 mg Magnesium Hydroxide (Milk Of Magnesia Liq*) 30 ml PO Q6H PRN PRN Reason: CONSTIPATION Multivitamins (Theragran Tab*) 1 tab PO DAILY [facility] Last Admin: 08/19/16 09:37 Dose: 1 tab Nicotine (Nicotine Patch 14 Mg/24 Hr*) 1 patch TRANSDERM DAILY [facility] Last Admin: 08/19/16 09:39 Dose: 1 patch Omeprazole (Prilosec Cap*) 40 mg PO DAILY [facility] Last Admin: 08/19/16 09:38 Dose: 40 mg Pharmacy Profile Note (Nicotine Patch Removal Note*) 1 note PATCH OFF 2099 [facility] Last Admin: 08/18/16 21:27 Dose: Not Given Throat Lozenges (Chloraseptic Chong*) 1 chong PO Q6H PRN PRN Reason: SORE THROAT Last Admin: 08/19/16 11:23 Dose: 1 chong - Discharge Plan Discharge Plan: Inpatient Hospitalization
[2016-08-19] MEDS: Nicotine Patch Removal NOTE PATCH OFF SCH (21:21)
[2016-08-19] MEDS: clonazePAM TAB(*) 1 MG PO SCH (21:35)
[2016-08-20] MEDS: Omeprazole CAP* 20 MG PO SCH (07:21)
[2016-08-20] MEDS: Divalproex DR TAB(*) 500 MG PO SCH ×2 (08:26→19:06)
[2016-08-20] MEDS: CloZAPine TAB* 100 MG TAB PO SCH ×2 (08:26→19:06)
[2016-08-20] MEDS: Atorvastatin* 20 MG TAB PO SCH (08:27)
[2016-08-20] MEDS: Vitamin THERAPEUTIC TAB PO SCH (08:28)
[2016-08-20] MEDS: glipiZIDE TAB.XL* 5 MG PO SCH (08:28)
[2016-08-20] MEDS: amLODIPine TAB* 5 MG PO SCH (08:28)
[2016-08-20] MEDS: Lisinopril TAB* 10 MG PO SCH (08:30)
[2016-08-20] MEDS: clonazePAM TAB(*) 1 MG PO SCH ×2 (08:33→19:07)
[2016-08-20] MEDS: Benzocaine/Menthol LOZ* 1 LOZENGE PO PRN (08:33)
[2016-08-20] MEDS: Ibuprofen TAB* 600 MG PO PRN (08:33)
[2016-08-20] MEDS: Nicotine PATCH 14 MG/24 HR* PATCH TRANSDERM SCH (08:34)
[2016-08-20] MEDS: Nicotine Patch Removal NOTE PATCH OFF SCH (19:14)
[2016-08-21] MEDS: Benzocaine/Menthol LOZ* 1 LOZENGE PO PRN ×2 (06:39→09:46)
[2016-08-21] MEDS: Divalproex DR TAB(*) 500 MG PO SCH ×2 (07:41→19:20)
[2016-08-21] MEDS: CloZAPine TAB* 100 MG TAB PO SCH ×2 (09:43→19:20)
[2016-08-21] MEDS: clonazePAM TAB(*) 1 MG PO SCH ×2 (09:44→20:52)
[2016-08-21] MEDS: Atorvastatin* 20 MG TAB PO SCH (09:44)
[2016-08-21] MEDS: Vitamin THERAPEUTIC TAB PO SCH (09:44)
[2016-08-21] MEDS: Omeprazole CAP* 20 MG PO SCH (09:44)
[2016-08-21] MEDS: Lisinopril TAB* 10 MG PO SCH (09:44)
[2016-08-21] MEDS: amLODIPine TAB* 5 MG PO SCH (09:44)
[2016-08-21] MEDS: glipiZIDE TAB.XL* 5 MG PO SCH (09:45)
[2016-08-21] MEDS: Nicotine PATCH 14 MG/24 HR* PATCH TRANSDERM SCH (09:48)
[2016-08-21] MEDS: Ibuprofen TAB* 600 MG PO PRN (13:30)
[2016-08-21] MEDS: LORazepam TAB(*) 1 MG PO PRN (19:21)
--- NOTE | 2016-08-22 08:04 | PN ---
Subjective - Subjective Service Type: [id number] Hosp care 15 min low complexity Subjective: Natacha says something marginally inappropriate every time I walk by. On interview he rambles, making comments like "you should win a [employer] prize." He asked about his blood test and talked about having a special blood type and being an organ donor. Objective - Appearance Appearance: Obese Hygiene: Mal-odorous Grooming: Fairly Well Kept - Behavior Psychomotor Activities: Normal - Attitude and Relatedness Attitude and Relatedness: Psychotically Related Eye Contact: Good - Speech Quality: Unpressured Latencies: Normal Quantity: Appropriate - Mood Patient's Decription of Mood: "Good" - Affect Observed Affect: Expansive Affect Consistent with: Euthymia - Thought Process Patient's Thought Process: Disorganized Thought Content: No Passive Wish, No Suicidal Planning, No Homicidal Ideation, No Paranoid Ideation - Sensorium Experiencing Hallucinations: No, Sensorium is Clear - Level of Consciousness Level of Consciousness: Alert - Impulse Control Impulse Control: Tenuous - Insight and Judgement Insight and Judgement: Poor Assessment - Assessment Merits Inpatient Hospitalization: For Stabilization, To Initiate Treatment, For Ongoing Evaluation, Consolidate Improvements, For Discharge Planning Inpatient DSM-IV Dx: Bipolar Kelsey, severe with psychotic features Clinical Impression: 61 y/o male with history of Bipolar disorder, psychosis, suicidal behavior and violence, with multiple prior psychiatric admissions. He was admitted due to concern over apparently decompensated manic symptoms with psychosis, agitation and aggression. Patient is low functioning at baseline but disorganization and intrusiveness may still point to decompensation. Medmgt. is with clozapine, Depakote, and benzodiazepines. Plan - Plan Treatment Plan: Name: NATACHA MENDOZA Birthdate: 1955 [id number] Medications: Current Medications Acetaminophen (Tylenol Tab*) 650 mg PO Q4H PRN PRN Reason: PAIN or TEMP > 101 F Last Admin: 08/20/16 15:28 Dose: 650 mg Al Hydrox/Mg Hydrox/Simethicone (Maalox Plus*) 30 ml PO Q4H PRN PRN Reason: INDIGESTION Amlodipine Besylate (Norvasc Tab*) 5 mg PO DAILY [facility] Last Admin: 08/21/16 09:44 Dose: 5 mg Atorvastatin Calcium (Lipitor*) 20 mg PO DAILY [facility] Last Admin: 08/21/16 09:44 Dose: 20 mg Clonazepam (Klonopin Tab(*)) 1 mg PO BID [facility] Last Admin: 08/21/16 20:52 Dose: 1 mg Clozapine (Clozapine Tab*) 600 mg PO 1914 [facility] Last Admin: 08/21/16 19:20 Dose: 600 mg Clozapine (Clozapine Tab*) 300 mg PO DAILY [facility] Last Admin: 08/21/16 09:43 Dose: 300 mg Divalproex Sodium (Depakote Dr Tab(*)) 1,000 mg PO 799,1914 [facility] Last Admin: 08/21/16 19:20 Dose: 1,000 mg Glipizide (Glucotrol Xl*) 5 mg PO DAILY [facility] Last Admin: 08/21/16 09:45 Dose: 5 mg Ibuprofen (Motrin Tab*) 600 mg PO Q8H PRN PRN Reason: PAIN Last Admin: 08/21/16 13:30 Dose: 600 mg Lisinopril (Prinivil Tab*) 20 mg PO QAM [facility] Last Admin: 08/21/16 09:44 Dose: 20 mg Loperamide HCl (Imodium Cap*) 2 mg PO DAILY PRN PRN Reason: DIARRHEA Lorazepam (Ativan Tab(*)) 2 mg PO Q6H PRN PRN Reason: AGITATION Last Admin: 08/21/16 19:21 Dose: 2 mg Magnesium Hydroxide (Milk Of Magnesia Liq*) 30 ml PO Q6H PRN PRN Reason: CONSTIPATION Multivitamins (Theragran Tab*) 1 tab PO DAILY [facility] Last Admin: 08/21/16 09:44 Dose: 1 tab Nicotine (Nicotine Patch 14 Mg/24 Hr*) 1 patch TRANSDERM DAILY [facility] Last Admin: 08/21/16 09:48 Dose: 1 patch Omeprazole (Prilosec Cap*) 40 mg PO DAILY [facility] Last Admin: 08/21/16 09:44 Dose: 40 mg Pharmacy Profile Note (Nicotine Patch Removal Note*) 1 note PATCH OFF 2099 [facility] Last Admin: 08/20/16 19:14 Dose: 1 note Throat Lozenges (Chloraseptic Chong*) 1 chong PO Q6H PRN PRN Reason: SORE THROAT Last Admin: 08/21/16 09:46 Dose: 1 chong - Discharge Plan Discharge Plan: Consider Longer Term Tx
[2016-08-22] MEDS: Nicotine PATCH 14 MG/24 HR* PATCH TRANSDERM SCH (08:52)
[2016-08-22] MEDS: Omeprazole CAP* 20 MG PO SCH (08:53)
[2016-08-22] MEDS: glipiZIDE TAB.XL* 5 MG PO SCH (08:53)
[2016-08-22] MEDS: clonazePAM TAB(*) 1 MG PO SCH ×2 (08:53→19:59)
[2016-08-22] MEDS: Lisinopril TAB* 10 MG PO SCH (08:53)
[2016-08-22] MEDS: amLODIPine TAB* 5 MG PO SCH (08:53)
[2016-08-22] MEDS: Atorvastatin* 20 MG TAB PO SCH (08:54)
[2016-08-22] MEDS: LORazepam TAB(*) 1 MG PO PRN (08:54)
[2016-08-22] MEDS: CloZAPine TAB* 100 MG TAB PO SCH ×2 (08:54→19:58)
[2016-08-22] MEDS: Divalproex DR TAB(*) 500 MG PO SCH ×2 (08:56→19:57)
[2016-08-22] MEDS: Vitamin THERAPEUTIC TAB PO SCH (10:16)
[2016-08-22] MEDS: Benzocaine/Menthol LOZ* 1 LOZENGE PO PRN (10:24)
[2016-08-22] MEDS: Nicotine Patch Removal NOTE PATCH OFF SCH (20:02)
[2016-08-23] MEDS: Benzocaine/Menthol LOZ* 1 LOZENGE PO PRN ×2 (05:14→16:48)
[2016-08-23] MEDS: Nicotine PATCH 14 MG/24 HR* PATCH TRANSDERM SCH (08:00)
[2016-08-23] MEDS: Lisinopril TAB* 10 MG PO SCH (08:00)
[2016-08-23] MEDS: Vitamin THERAPEUTIC TAB PO SCH (08:01)
[2016-08-23] MEDS: CloZAPine TAB* 100 MG TAB PO SCH ×2 (08:01→19:33)
[2016-08-23] MEDS: glipiZIDE TAB.XL* 5 MG PO SCH (08:01)
[2016-08-23] MEDS: Atorvastatin* 20 MG TAB PO SCH (08:01)
[2016-08-23] MEDS: Omeprazole CAP* 20 MG PO SCH (08:01)
[2016-08-23] MEDS: clonazePAM TAB(*) 1 MG PO SCH ×2 (08:01→19:33)
[2016-08-23] MEDS: amLODIPine TAB* 5 MG PO SCH (08:02)
[2016-08-23] MEDS: Divalproex DR TAB(*) 500 MG PO SCH ×2 (08:04→19:33)
--- NOTE | 2016-08-23 10:51 | PN ---
Subjective - Subjective Service Type: [id number] Hosp care 15 min low complexity Subjective: Natacha remains irritable and poorly organized, incontinent of urine and malodorous. Objective - Appearance Appearance: Obese Dysmorphic Features: No Hygiene: Mal-odorous Grooming: Disheveled - Behavior Psychomotor Activities: Normal Exhibits Abnormal Movement: No - Attitude and Relatedness Attitude and Relatedness: Psychotically Related Eye Contact: Poor - Speech Quality: Pressured Latencies: Short Quantity: Copious - Mood Patient's Decription of Mood: "Great" - Affect Observed Affect: Labile Affect Consistent with: Dysphoria - Thought Process Patient's Thought Process: Loose Associations Thought Content: Yes Paranoid Ideation, No Passive Wish, No Suicidal Planning, No Homicidal Ideation - Sensorium Experiencing Hallucinations: No, Sensorium is Clear Type of Hallucinations: Visual: No, Auditory: No, Command: No - Level of Consciousness Level of Consciousness: Alert Orientation: Yes Intact, Yes Orientated to Time, Yes Orientated to Place, Yes Orientated to Person - Impulse Control Impulse Control: Poor - Insight and Judgement Insight and Judgement: Impaired - Group Participation Particating in Group Activities: No - Medication Management Medication Management Adherence: Yes Assessment - Assessment Merits Inpatient Hospitalization: For Immediate Safety, For Stabilization Inpatient DSM-IV Dx: Bipolar Kelsey, severe with psychotic features Clinical Impression: 61 y.o. single white male with a history of chronic and low-functioning bipolar disorder admitted due to increasing agitation and aggression in the likely context of some recent changes in his medication. Plan - Plan Treatment Plan: Name: NATACHA MENDOZA Birthdate: 1955 [id number] The patient remains paranoid and hypomanic. We will increase clozapine to 400mg PO qAM and 600mg PO qhs. We'll check a routine CBC and a clozapine therapeutic blood level in the AM. [place] will revisit next week so we can determine whether he truly is improving. If no improvement noted by then we may be obligated to refer to the [facility]. Continued Medication Management: Different Medication Medications: Current Medications Acetaminophen (Tylenol Tab*) 650 mg PO Q4H PRN PRN Reason: PAIN or TEMP > 101 F Last Admin: 08/20/16 15:28 Dose: 650 mg Al Hydrox/Mg Hydrox/Simethicone (Maalox Plus*) 30 ml PO Q4H PRN PRN Reason: INDIGESTION Amlodipine Besylate (Norvasc Tab*) 5 mg PO DAILY [facility] Last Admin: 08/23/16 08:02 Dose: 5 mg Atorvastatin Calcium (Lipitor*) 20 mg PO DAILY [facility] Last Admin: 08/23/16 08:01 Dose: 20 mg Clonazepam (Klonopin Tab(*)) 1 mg PO BID [facility] Last Admin: 08/23/16 08:01 Dose: 1 mg Clozapine (Clozapine Tab*) 600 mg PO 1914 [facility] Last Admin: 08/22/16 19:58 Dose: 600 mg Clozapine (Clozapine Tab*) 400 mg PO DAILY [facility] Divalproex Sodium (Depakote Dr Tab(*)) 1,000 mg PO 799,1914 [facility] Last Admin: 08/23/16 08:04 Dose: 1,000 mg Glipizide (Glucotrol Xl*) 5 mg PO DAILY [facility] Last Admin: 08/23/16 08:01 Dose: 5 mg Ibuprofen (Motrin Tab*) 600 mg PO Q8H PRN PRN Reason: PAIN Last Admin: 08/21/16 13:30 Dose: 600 mg Lisinopril (Prinivil Tab*) 20 mg PO QAM [facility] Last Admin: 08/23/16 08:00 Dose: 20 mg Loperamide HCl (Imodium Cap*) 2 mg PO DAILY PRN PRN Reason: DIARRHEA Lorazepam (Ativan Tab(*)) 2 mg PO Q6H PRN PRN Reason: AGITATION Last Admin: 08/22/16 08:54 Dose: 2 mg Magnesium Hydroxide (Milk Of Magnesia Liq*) 30 ml PO Q6H PRN PRN Reason: CONSTIPATION Multivitamins (Theragran Tab*) 1 tab PO DAILY [facility] Last Admin: 08/23/16 08:01 Dose: 1 tab Nicotine (Nicotine Patch 14 Mg/24 Hr*) 1 patch TRANSDERM DAILY [facility] Last Admin: 08/23/16 08:00 Dose: 1 patch Omeprazole (Prilosec Cap*) 40 mg PO DAILY [facility] Last Admin: 08/23/16 08:01 Dose: 40 mg Pharmacy Profile Note (Nicotine Patch Removal Note*) 1 note PATCH OFF 2100 [facility] Last Admin: 08/22/16 20:02 Dose: 1 note Throat Lozenges (Chloraseptic Chong*) 1 chong PO Q6H PRN PRN Reason: SORE THROAT Last Admin: 08/23/16 05:14 Dose: 1 chong - Discharge Plan Discharge Plan: Inpatient Hospitalization
[2016-08-23] MEDS ORDERED: Divalproex ER TAB(*) 500 MG ONE (19:29)
[2016-08-23] MEDS: Nicotine Patch Removal NOTE PATCH OFF SCH ×2 (19:30→19:35)
[2016-08-24] MEDS: Nicotine Patch Removal NOTE PATCH OFF SCH ×2 (08:09→21:51)
[2016-08-24 08:17] LABS: Hematocrit 35 % (42-52); Hemoglobin 11.5 g/dl (14.0-18.0); Mean Corpuscular HGB Conc 33 g/dl (31-36); Mean Corpuscular Hemoglobin 31 pg (27-31); Mean Corpuscular Volume 94 fL (80-94); Mean Platelet Volume 10 um3 (7.4-10.4); Red Blood Count 3.71 10^6/ul (4.0-5.4); Red Cell Distribution Width 13 % (10.5-15); White Blood Count 9.1 10^3/ul (3.5-10.8)
[2016-08-24 08:18] LABS: Add Diff/Slide Review? Slide Review Added; Comments Flag Yes
[2016-08-24] MEDS: Omeprazole CAP* 20 MG PO SCH (09:00)
[2016-08-24] MEDS ORDERED: CloZAPine TAB* 100 MG TAB PO SCH (09:00)
[2016-08-24] MEDS: Atorvastatin* 20 MG TAB PO SCH (09:00)
[2016-08-24] MEDS: Vitamin THERAPEUTIC TAB PO SCH (09:01)
[2016-08-24] MEDS: Lisinopril TAB* 10 MG PO SCH (09:01)
[2016-08-24] MEDS: clonazePAM TAB(*) 1 MG PO SCH ×2 (09:01→21:54)
[2016-08-24] MEDS: glipiZIDE TAB.XL* 5 MG PO SCH (09:01)
[2016-08-24] MEDS: amLODIPine TAB* 5 MG PO SCH (09:01)
[2016-08-24] MEDS: Divalproex DR TAB(*) 500 MG PO SCH ×2 (09:05→21:54)
[2016-08-24] MEDS: Benzocaine/Menthol LOZ* 1 LOZENGE PO PRN ×2 (09:07→15:17)
[2016-08-24] MEDS: Nicotine PATCH 14 MG/24 HR* PATCH TRANSDERM SCH (10:22)
--- NOTE | 2016-08-24 13:52 | PN ---
Subjective - Subjective Service Type: [id number] Hosp care 15 min low complexity Subjective: Patient remains intrusive, knocking on the door of our morning treatment team and shouting things in Bahamian as he held his fingers up in a bilateral "Victory " sign as he looked through the glass. He complains of dizziness and sedation today and is noticeably hypersalivating. Objective - Appearance Appearance: Obese Dysmorphic Features: No Hygiene: Dirty Grooming: Disheveled - Behavior Psychomotor Activities: Abnormal-Increased Exhibits Abnormal Movement: No - Attitude and Relatedness Attitude and Relatedness: Psychotically Related Eye Contact: Good - Speech Quality: Pressured Latencies: Short Quantity: Copious - Mood Patient's Decription of Mood: "Upset" - Affect Observed Affect: Labile Affect Consistent with: Dysphoria - Thought Process Patient's Thought Process: Filght of Ideas Thought Content: Yes Paranoid Ideation, No Passive Wish, No Suicidal Planning, No Homicidal Ideation - Sensorium Experiencing Hallucinations: Yes Type of Hallucinations: Visual: No, Auditory: Yes, Command: No - Level of Consciousness Level of Consciousness: Alert Orientation: Yes Intact, Yes Orientated to Time, Yes Orientated to Place, Yes Orientated to Person - Impulse Control Impulse Control: Poor - Insight and Judgement Insight and Judgement: Impaired - Group Participation Particating in Group Activities: No - Medication Management Medication Management Adherence: Yes Assessment - Assessment Merits Inpatient Hospitalization: For Immediate Safety, For Stabilization Inpatient DSM-IV Dx: Bipolar Kelsey, severe with psychotic features Clinical Impression: 61 y.o. single white male with a history of chronic and low-functioning bipolar disorder admitted due to increasing agitation and aggression in the likely context of some recent changes in his medication. Plan - Plan Treatment Plan: Name: LISANDRA MENDOZA Birthdate: 1955 [id number] The patient remains paranoid and hypomanic. He is not tolerating clozapine and we will decrease this back down to 300mg PO qAM and 600mg PO qhs. We await the clozapine therapeutic blood level drawn this AM. [place] will revisit tomorrow (08/25) so we can determine whether he truly is improving. If no improvement noted by then we may be obligated to refer to the [facility]. Continued Medication Management: Different Medication Medications: Current Medications Acetaminophen (Tylenol Tab*) 650 mg PO Q4H PRN PRN Reason: PAIN or TEMP > 101 F Last Admin: 08/20/16 15:28 Dose: 650 mg Al Hydrox/Mg Hydrox/Simethicone (Maalox Plus*) 30 ml PO Q4H PRN PRN Reason: INDIGESTION Amlodipine Besylate (Norvasc Tab*) 5 mg PO DAILY [facility] Last Admin: 08/24/16 09:01 Dose: 5 mg Atorvastatin Calcium (Lipitor*) 20 mg PO DAILY [facility] Last Admin: 08/24/16 09:00 Dose: 20 mg Clonazepam (Klonopin Tab(*)) 1 mg PO BID [facility] Last Admin: 08/24/16 09:01 Dose: 1 mg Clozapine (Clozapine Tab*) 600 mg PO 1914 [facility] Last Admin: 08/23/16 19:33 Dose: 600 mg Clozapine (Clozapine Tab*) 300 mg PO DAILY [facility] Divalproex Sodium (Depakote Dr Tab(*)) 1,000 mg PO 0800,1914 [facility] Last Admin: 08/24/16 09:05 Dose: 1,000 mg Glipizide (Glucotrol Xl*) 5 mg PO DAILY [facility] Last Admin: 08/24/16 09:01 Dose: 5 mg Ibuprofen (Motrin Tab*) 600 mg PO Q8H PRN PRN Reason: PAIN Last Admin: 08/21/16 13:30 Dose: 600 mg Lisinopril (Prinivil Tab*) 20 mg PO QAM [facility] Last Admin: 08/24/16 09:01 Dose: 20 mg Loperamide HCl (Imodium Cap*) 2 mg PO DAILY PRN PRN Reason: DIARRHEA Lorazepam (Ativan Tab(*)) 2 mg PO Q6H PRN PRN Reason: AGITATION Last Admin: 08/22/16 08:54 Dose: 2 mg Magnesium Hydroxide (Milk Of Magnesia Liq*) 30 ml PO Q6H PRN PRN Reason: CONSTIPATION Multivitamins (Theragran Tab*) 1 tab PO DAILY [facility] Last Admin: 08/24/16 09:01 Dose: 1 tab Nicotine (Nicotine Patch 14 Mg/24 Hr*) 1 patch TRANSDERM DAILY [facility] Last Admin: 08/24/16 10:22 Dose: 1 patch Omeprazole (Prilosec Cap*) 40 mg PO DAILY [facility] Last Admin: 08/24/16 09:00 Dose: 40 mg Pharmacy Profile Note (Nicotine Patch Removal Note*) 1 note PATCH OFF 2100 [facility] Last Admin: 08/24/16 08:09 Dose: Not Given Throat Lozenges (Chloraseptic Chong*) 1 chong PO Q6H PRN PRN Reason: SORE THROAT Last Admin: 08/24/16 09:07 Dose: 1 chong - Discharge Plan Discharge Plan: Inpatient Hospitalization Lab Results - Lab Results Lab Results: 08/24/16 08:01 WBC 9.1 RBC 3.71 L Hgb 11.5 L Hct 35 L MCV 94 MCH 31 MCHC 33 RDW 13 Plt Count 206 MPV 10 Neut % (Auto) 65.1 Lymph % (Auto) 23.8 L Imperial % (Auto) 8.6 Eos % (Auto) 2.0 Baso % (Auto) 0.5 Absolute Neuts (auto) 5.9 Absolute Lymphs (auto) 2.2 Absolute Monos (auto) 0.8 Absolute Eos (auto) 0.2 Absolute Basos (auto) 0.1 Absolute Nucleated RBC 0 Nucleated RBC % 0
[2016-08-24] MEDS: CloZAPine TAB* 100 MG TAB PO SCH (21:54)
[2016-08-25] MEDS: Atorvastatin* 20 MG TAB PO SCH (09:18)
[2016-08-25] MEDS: Omeprazole CAP* 20 MG PO SCH (09:19)
[2016-08-25] MEDS: Vitamin THERAPEUTIC TAB PO SCH (09:19)
[2016-08-25] MEDS: clonazePAM TAB(*) 1 MG PO SCH ×2 (09:20→20:29)
[2016-08-25] MEDS: CloZAPine TAB* 100 MG TAB PO SCH ×2 (09:20→20:29)
[2016-08-25] MEDS: Lisinopril TAB* 10 MG PO SCH (09:21)
[2016-08-25] MEDS: amLODIPine TAB* 5 MG PO SCH (09:22)
[2016-08-25] MEDS: Divalproex DR TAB(*) 500 MG PO SCH ×2 (09:23→20:28)
[2016-08-25] MEDS: Nicotine PATCH 14 MG/24 HR* PATCH TRANSDERM SCH (09:24)
[2016-08-25] MEDS: glipiZIDE TAB.XL* 5 MG PO SCH (09:24)
[2016-08-25] MEDS: Benzocaine/Menthol LOZ* 1 LOZENGE PO PRN ×2 (09:26→16:26)
--- NOTE | 2016-08-25 12:37 | PN ---
Subjective - Subjective Service Type: [id number] Hosp care 15 min low complexity Subjective: The patient appears less tremulous and less hypersalivating today. He reports a decrease in dizziness since lowering clozapine. He remains somewhat intrusive on the unit and hyperverbal, awaiting a meeting with his outpatient employment evaluator/case manager to assess whether he is back at baseline. Objective - Appearance Appearance: Obese Dysmorphic Features: No Hygiene: Dirty Grooming: Disheveled - Behavior Psychomotor Activities: Abnormal-Decreased Exhibits Abnormal Movement: No - Attitude and Relatedness Attitude and Relatedness: Cooperative Eye Contact: Good - Speech Quality: Pressured Latencies: Short Quantity: Copious - Mood Patient's Decription of Mood: "Great" - Affect Observed Affect: Euphoric Affect Consistent with: Euphoria - Thought Process Patient's Thought Process: Loose Associations, Tangential Thought Content: Yes Paranoid Ideation, No Passive Wish, No Suicidal Planning, No Homicidal Ideation - Sensorium Experiencing Hallucinations: No, Sensorium is Clear Type of Hallucinations: Visual: No, Auditory: No, Command: No - Level of Consciousness Level of Consciousness: Alert Orientation: Yes Intact, Yes Orientated to Time, Yes Orientated to Place, Yes Orientated to Person - Impulse Control Impulse Control: Poor - Insight and Judgement Insight and Judgement: Impaired - Group Participation Particating in Group Activities: No - Medication Management Medication Management Adherence: Yes Assessment - Assessment Merits Inpatient Hospitalization: For Immediate Safety, For Stabilization Inpatient DSM-IV Dx: Bipolar Kelsey, severe with psychotic features Clinical Impression: 61 y.o. single white male with a history of chronic and low-functioning bipolar disorder admitted due to increasing agitation and aggression in the likely context of some recent changes in his medication. Plan - Plan Treatment Plan: Name: LISANDRA MENDOZA Birthdate: 1955 [id number] The patient remains paranoid and hypomanic. Clozapine dose is at 300mg PO qAM and 600mg PO qhs. We await the clozapine therapeutic blood level drawn on . [place] will revisit today (08/25) so we can determine whether he truly is improving. If no improvement noted by then we may be obligated to refer to the [facility]. Continued Medication Management: Continue Outpt Medication Medications: Current Medications Acetaminophen (Tylenol Tab*) 650 mg PO Q4H PRN PRN Reason: PAIN or TEMP > 101 F Last Admin: 08/20/16 15:28 Dose: 650 mg Al Hydrox/Mg Hydrox/Simethicone (Maalox Plus*) 30 ml PO Q4H PRN PRN Reason: INDIGESTION Amlodipine Besylate (Norvasc Tab*) 5 mg PO DAILY [facility] Last Admin: 08/25/16 09:22 Dose: 5 mg Atorvastatin Calcium (Lipitor*) 20 mg PO DAILY [facility] Last Admin: 08/25/16 09:18 Dose: 20 mg Clonazepam (Klonopin Tab(*)) 1 mg PO BID [facility] Last Admin: 08/25/16 09:20 Dose: 1 mg Clozapine (Clozapine Tab*) 600 mg PO 1914 [facility] Last Admin: 08/24/16 21:54 Dose: 600 mg Clozapine (Clozapine Tab*) 300 mg PO DAILY [facility] Last Admin: 08/25/16 09:20 Dose: 300 mg Divalproex Sodium (Depakote Dr Tab(*)) 1,000 mg PO 799,1914 [facility] Last Admin: 08/25/16 09:23 Dose: 1,000 mg Glipizide (Glucotrol Xl*) 5 mg PO DAILY [facility] Last Admin: 08/25/16 09:24 Dose: 5 mg Ibuprofen (Motrin Tab*) 600 mg PO Q8H PRN PRN Reason: PAIN Last Admin: 08/21/16 13:30 Dose: 600 mg Lisinopril (Prinivil Tab*) 20 mg PO QAM [facility] Last Admin: 08/25/16 09:21 Dose: 20 mg Loperamide HCl (Imodium Cap*) 2 mg PO DAILY PRN PRN Reason: DIARRHEA Lorazepam (Ativan Tab(*)) 2 mg PO Q6H PRN PRN Reason: AGITATION Last Admin: 08/22/16 08:54 Dose: 2 mg Magnesium Hydroxide (Milk Of Magnesia Liq*) 30 ml PO Q6H PRN PRN Reason: CONSTIPATION Multivitamins (Theragran Tab*) 1 tab PO DAILY [facility] Last Admin: 08/25/16 09:19 Dose: 1 tab Nicotine (Nicotine Patch 14 Mg/24 Hr*) 1 patch TRANSDERM DAILY [facility] Last Admin: 08/25/16 09:24 Dose: 1 patch Omeprazole (Prilosec Cap*) 40 mg PO DAILY [facility] Last Admin: 08/25/16 09:19 Dose: 40 mg Pharmacy Profile Note (Nicotine Patch Removal Note*) 1 note PATCH OFF 2099 [facility] Last Admin: 08/24/16 21:51 Dose: Not Given Throat Lozenges (Chloraseptic Chong*) 1 chong PO Q6H PRN PRN Reason: SORE THROAT Last Admin: 08/25/16 09:26 Dose: 1 chong - Discharge Plan Discharge Plan: Inpatient Hospitalization
[2016-08-25] MEDS: Nicotine Patch Removal NOTE PATCH OFF SCH (20:30)
[2016-08-26] MEDS: Nicotine PATCH 14 MG/24 HR* PATCH TRANSDERM SCH (09:15)
[2016-08-26] MEDS: Atorvastatin* 20 MG TAB PO SCH (09:16)
[2016-08-26] MEDS: Omeprazole CAP* 20 MG PO SCH (09:16)
[2016-08-26] MEDS: Vitamin THERAPEUTIC TAB PO SCH (09:17)
[2016-08-26] MEDS: Lisinopril TAB* 10 MG PO SCH (09:17)
[2016-08-26] MEDS: amLODIPine TAB* 5 MG PO SCH (09:17)
[2016-08-26] MEDS: CloZAPine TAB* 100 MG TAB PO SCH ×2 (09:17→19:48)
[2016-08-26] MEDS: clonazePAM TAB(*) 1 MG PO SCH ×2 (09:17→21:25)
[2016-08-26] MEDS: glipiZIDE TAB.XL* 5 MG PO SCH (09:18)
[2016-08-26] MEDS: Divalproex DR TAB(*) 500 MG PO SCH ×2 (09:20→19:48)
--- NOTE | 2016-08-26 12:08 | PN ---
Subjective - Subjective Service Type: 68570 Hosp care 15 min low complexity Subjective: Patient is awake and alert. He appears irritable and accuses me initially of threatening to send him to the [facility]. Later he becomes jovial and vigorously shakes my hand. He does understand that there is a possibility for d /c back to [facility] on Monday (08/29) if his behavior stays on track and he states that he will work on this. Objective - Appearance Appearance: Obese Dysmorphic Features: No Hygiene: Dirty Grooming: Disheveled - Behavior Psychomotor Activities: Normal Exhibits Abnormal Movement: No - Attitude and Relatedness Attitude and Relatedness: Irritable Eye Contact: Fair - Speech Quality: Pressured Latencies: Short Quantity: Copious - Mood Patient's Decription of Mood: "Irritable" - Affect Observed Affect: Labile Affect Consistent with: Dysphoria - Thought Process Patient's Thought Process: Tangential Thought Content: No Passive Wish, No Suicidal Planning, No Homicidal Ideation, No Paranoid Ideation - Sensorium Experiencing Hallucinations: No, Sensorium is Clear Type of Hallucinations: Visual: No, Auditory: No, Command: No - Level of Consciousness Level of Consciousness: Alert Orientation: Yes Intact, Yes Orientated to Time, Yes Orientated to Place, Yes Orientated to Person - Impulse Control Impulse Control: Poor - Insight and Judgement Insight and Judgement: Impaired - Group Participation Particating in Group Activities: Yes - Medication Management Medication Management Adherence: Yes Assessment - Assessment Merits Inpatient Hospitalization: For Immediate Safety, For Stabilization Inpatient DSM-IV Dx: Bipolar Kelsey, severe with psychotic features Clinical Impression: 61 y.o. single white male with a history of chronic and low-functioning bipolar disorder admitted due to increasing agitation and aggression in the likely context of some recent changes in his medication. Plan - Plan Treatment Plan: Name: LISANDRA MENDOZA Birthdate: 1955 [id number] The patient remains paranoid and hypomanic. Clozapine dose is at 300mg PO qAM and 600mg PO qhs. We await the clozapine therapeutic blood level drawn on . [facility] is willing to accept him home on Monday (08/29) as long as he remains in behavioral control over the weekend. Continued Medication Management: Continue Outpt Medication Medications: Current Medications Acetaminophen (Tylenol Tab*) 650 mg PO Q4H PRN PRN Reason: PAIN or TEMP > 101 F Last Admin: 08/20/16 15:28 Dose: 650 mg Al Hydrox/Mg Hydrox/Simethicone (Maalox Plus*) 30 ml PO Q4H PRN PRN Reason: INDIGESTION Amlodipine Besylate (Norvasc Tab*) 5 mg PO DAILY [facility] Last Admin: 08/26/16 09:17 Dose: 5 mg Atorvastatin Calcium (Lipitor*) 20 mg PO DAILY [facility] Last Admin: 08/26/16 09:16 Dose: 20 mg Clonazepam (Klonopin Tab(*)) 1 mg PO BID [facility] Last Admin: 08/26/16 09:17 Dose: 1 mg Clozapine (Clozapine Tab*) 600 mg PO 1914 [facility] Last Admin: 08/25/16 20:29 Dose: 600 mg Clozapine (Clozapine Tab*) 300 mg PO DAILY [facility] Last Admin: 08/26/16 09:17 Dose: 300 mg Divalproex Sodium (Depakote Dr Tab(*)) 1,000 mg PO 0800,1914 [facility] Last Admin: 08/26/16 09:20 Dose: 1,000 mg Glipizide (Glucotrol Xl*) 5 mg PO DAILY [facility] Last Admin: 08/26/16 09:18 Dose: 5 mg Ibuprofen (Motrin Tab*) 600 mg PO Q8H PRN PRN Reason: PAIN Last Admin: 08/21/16 13:30 Dose: 600 mg Lisinopril (Prinivil Tab*) 20 mg PO QAM [facility] Last Admin: 08/26/16 09:17 Dose: 20 mg Loperamide HCl (Imodium Cap*) 2 mg PO DAILY PRN PRN Reason: DIARRHEA Lorazepam (Ativan Tab(*)) 2 mg PO Q6H PRN PRN Reason: AGITATION Last Admin: 08/22/16 08:54 Dose: 2 mg Magnesium Hydroxide (Milk Of Magnesia Liq*) 30 ml PO Q6H PRN PRN Reason: CONSTIPATION Multivitamins (Theragran Tab*) 1 tab PO DAILY [facility] Last Admin: 08/26/16 09:17 Dose: 1 tab Nicotine (Nicotine Patch 14 Mg/24 Hr*) 1 patch TRANSDERM DAILY [facility] Last Admin: 08/26/16 09:15 Dose: 1 patch Omeprazole (Prilosec Cap*) 40 mg PO DAILY [facility] Last Admin: 08/26/16 09:16 Dose: 40 mg Pharmacy Profile Note (Nicotine Patch Removal Note*) 1 note PATCH OFF 2099 [facility] Last Admin: 08/25/16 20:30 Dose: Not Given Throat Lozenges (Chloraseptic Chong*) 1 chong PO Q6H PRN PRN Reason: SORE THROAT Last Admin: 08/25/16 16:26 Dose: 1 chong - Discharge Plan Discharge Plan: Inpatient Hospitalization
--- NOTE | 2016-08-26 13:21 | PN ---
MHU: Group Therapy Note - Service Type Service Type: [id number] Group Psychotherapy - Cognitive Behavioral Group Therapy ( CBT):Patient presented in CBT programming as disorganized and disruptive in discussion and needed repeated redirection to attend to presented materials.
[2016-08-26] MEDS: Benzocaine/Menthol LOZ* 1 LOZENGE PO PRN ×2 (15:54→21:26)
[2016-08-26] MEDS: Nicotine Patch Removal NOTE PATCH OFF SCH (21:26)
[2016-08-27] MEDS: Nicotine PATCH 14 MG/24 HR* PATCH TRANSDERM SCH (08:49)
[2016-08-27] MEDS: Omeprazole CAP* 20 MG PO SCH (08:50)
[2016-08-27] MEDS: Vitamin THERAPEUTIC TAB PO SCH (08:50)
[2016-08-27] MEDS: Atorvastatin* 20 MG TAB PO SCH (08:51)
[2016-08-27] MEDS: CloZAPine TAB* 100 MG TAB PO SCH ×2 (08:51→19:32)
[2016-08-27] MEDS: amLODIPine TAB* 5 MG PO SCH (08:51)
[2016-08-27] MEDS: clonazePAM TAB(*) 1 MG PO SCH ×2 (08:51→19:32)
[2016-08-27] MEDS: Lisinopril TAB* 10 MG PO SCH (08:52)
[2016-08-27] MEDS: glipiZIDE TAB.XL* 5 MG PO SCH (08:52)
[2016-08-27] MEDS: Benzocaine/Menthol LOZ* 1 LOZENGE PO PRN ×2 (08:54→14:23)
[2016-08-27] MEDS: Divalproex DR TAB(*) 500 MG PO SCH ×2 (09:22→19:31)
[2016-08-27] MEDS: Nicotine Patch Removal NOTE PATCH OFF SCH (19:33)
[2016-08-28 03:42] LABS: Clozapine 1330 ng/mL (>350); Norclozapine 375 ng/mL
[2016-08-28] MEDS: Benzocaine/Menthol LOZ* 1 LOZENGE PO PRN (07:17)
[2016-08-28] MEDS: Nicotine PATCH 14 MG/24 HR* PATCH TRANSDERM SCH (09:32)
[2016-08-28] MEDS: CloZAPine TAB* 100 MG TAB PO SCH ×2 (09:33→19:25)
[2016-08-28] MEDS: Lisinopril TAB* 10 MG PO SCH (09:33)
[2016-08-28] MEDS: glipiZIDE TAB.XL* 5 MG PO SCH (09:33)
[2016-08-28] MEDS: Omeprazole CAP* 20 MG PO SCH (09:33)
[2016-08-28] MEDS: amLODIPine TAB* 5 MG PO SCH (09:34)
[2016-08-28] MEDS: Vitamin THERAPEUTIC TAB PO SCH (09:34)
[2016-08-28] MEDS: Atorvastatin* 20 MG TAB PO SCH (09:34)
[2016-08-28] MEDS: clonazePAM TAB(*) 1 MG PO SCH ×2 (09:34→19:28)
[2016-08-28] MEDS: Divalproex DR TAB(*) 500 MG PO SCH ×2 (09:37→19:25)
[2016-08-28] MEDS: Nicotine Patch Removal NOTE PATCH OFF SCH (22:37)
[2016-08-29] MEDS: Benzocaine/Menthol LOZ* 1 LOZENGE PO PRN (05:40)
[2016-08-29 07:43] VITALS: BP 134/73
[2016-08-29] MEDS: Divalproex DR TAB(*) 500 MG PO SCH (09:08)
[2016-08-29] MEDS: Omeprazole CAP* 20 MG PO SCH (09:08)
[2016-08-29] MEDS: amLODIPine TAB* 5 MG PO SCH (09:09)
[2016-08-29] MEDS: clonazePAM TAB(*) 1 MG PO SCH (09:09)
[2016-08-29] MEDS: Atorvastatin* 20 MG TAB PO SCH (09:10)
[2016-08-29] MEDS: Lisinopril TAB* 10 MG PO SCH (09:10)
[2016-08-29] MEDS: Vitamin THERAPEUTIC TAB PO SCH (09:11)
[2016-08-29] MEDS: glipiZIDE TAB.XL* 5 MG PO SCH (09:12)
[2016-08-29] MEDS: Nicotine PATCH 14 MG/24 HR* PATCH TRANSDERM SCH (09:55)
[2016-08-29] MEDS: CloZAPine TAB* 100 MG TAB PO SCH (10:46)
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
== END 2016-08-29 14:00 | disposition home or self-care (01) | DRG 753 ==
LOC: ED 16:43 → BSU 21:56
PROVIDERS: ADMIT Psychiatry & Neurology Psychiatry; ATTEND Psychiatry & Neurology Psychiatry
PROC: GZHZZZZ Group Psychotherapy (ICD-10-PCS; principal; 2016-08-04)
DX: F30.2 Manic episode, severe with psychotic symptoms (principal); I10 Essential (primary) hypertension; E11.9 Type 2 diabetes mellitus without complications; Z78.1 Physical restraint status; E78.5 Hyperlipidemia, unspecified; D64.9 Anemia, unspecified; E66.9 Obesity, unspecified; K21.9 Gastro-esophageal reflux disease without esophagitis; Z79.84 Long term (current) use of oral hypoglycemic drugs; Z88.8 Allergy status to other drugs, medicaments and biological substances; Z81.8 Family history of other mental and behavioral disorders; Z56.0 Unemployment, unspecified; F41.0 Panic disorder [episodic paroxysmal anxiety]; Z82.49 Family history of ischemic heart disease and other diseases of the circulatory system; F17.210 Nicotine dependence, cigarettes, uncomplicated; N40.1 Benign prostatic hyperplasia with lower urinary tract symptoms; N39.498 Other specified urinary incontinence; Z68.31 Body mass index [BMI] 31.0-31.9, adult
CPT/HCPCS: 36415; 80053; 80061; 80159; 80164; 80301; 80320; 80329; 81003; 83036; 84443; 85025; 90686; 90853; 99222; 99231; 99232; 99233; 99238; 99406; A9270-GY; G0479; G0480; J3486

== ENCOUNTER 2016-09-02 11:46 | Inpatient (IN) | payer OTHER ==
[2016-09-02] MEDS ORDERED: Acetaminophen TAB* 325 MG PO ONE (12:06)
[2016-09-02] MEDS: NS 0.9% 1000 ML* 3,000 ML IV ONE ×3 (12:23→15:11)
[2016-09-02 12:39] LABS: Hematocrit 35 % (42-52); Hemoglobin 11.3 g/dl (14.0-18.0); Mean Corpuscular HGB Conc 33 g/dl (31-36); Mean Corpuscular Hemoglobin 31 pg (27-31); Mean Corpuscular Volume 94 fL (80-94); Mean Platelet Volume 10 um3 (7.4-10.4); Red Blood Count 3.67 10^6/ul (4.0-5.4); Red Cell Distribution Width 13 % (10.5-15)
[2016-09-02 12:40] LABS: Add Diff/Slide Review? Slide Review Added; Comments Flag Yes
[2016-09-02] MEDS ORDERED: Levofloxacin 750 MG IVPREMIX(* 750 MG/150 ML BAG IVPB ONE (12:42)
[2016-09-02 12:43] LABS: Urine Bilirubin Negative (Negative); Urine Glucose 3+(>=500 mg/dL) (Negative); Urine Nitrite Negative (Negative)
[2016-09-02 13:04] LABS: Troponin I 0.01 ng/mL (<0.04)
[2016-09-02 13:06] LABS: Albumin 4.3 g/dL (3.2-5.2); BUN/Creatinine Ratio 18.2 (8-20); C Reactive Protein 152.9 mg/L (< 5.00); Calcium 9.4 mg/dL (8.6-10.3); EGFR African American 112.5 (>60); EGFR Non-African American 87.5 (>60); Globulin 3.1 g/dL (2-4); Potassium 3.9 mmol/L (3.5-5.0); Total Bilirubin 0.4 mg/dL (0.2-1.0); Total Protein 7.4 g/dL (6.4-8.9)
--- NOTE | 2016-09-02 14:01 | RAD ---
INDICATION: Cough. Pneumonia. COMPARISON: March 10, 2016 TECHNIQUE: AP seated and lateral views were obtained. FINDINGS: Bones/Soft Tissues: There are no acute bony findings. Cardiomediastinal: The cardiomediastinal silhouette is normal. Lungs: There are no definitive infiltrates. The examination is mildly expiratory Pleura: There are no pleural effusions. Other: None IMPRESSION: MILD EXPIRATORY EXAMINATION. NO DEFINITIVE INFILTRATES.
[2016-09-02 14:03] LABS: Erythrocyte Sed Rate 33 mm/Hr (0-20)
--- NOTE | 2016-09-02 14:37 | ED ---
Luis Fernando Blas SooYoung, scribed for Braden Black MD on 09/02/16 at 1223 . Neurological HPI - HPI Summary HPI Summary: A 61 y/o M ADY presents to ED with c/o generalized weakness since July. Associated sx: diaphoresis, productive cough, incontinence, fever. Denies sore throat. Pt states on 07/30/16, he came to ED because he was diaphoretic and weak. Occasional smoker. Former EtOH. No drugs. He was also recently hospitalized for mental illness. - History of Current Complaint Chief Complaint: EDWeakness Stated Complaint: GENERAL WEAKNESS Hx Obtained From: Patient Onset/Duration: Still Present Timing: Constant Pain Intensity: 3 Pain Scale Used: 0-10 Numeric - Additional Pertinent History Primary Care Physician: CHANELLE - Allergy/Home Medications Allergies/Adverse Reactions: Allergies Allergy/AdvReac Type Severity Reaction Status Date / Time Benztropine Allergy Unknown Unknown Verified 08/15/16 17:06 Reaction Details Bupropion Allergy Unknown Unknown Verified 08/15/16 17:06 Reaction Details Fluoxetine Allergy Unknown Unknown Verified 08/15/16 17:06 Reaction Details Fluphenazine Allergy Unknown Unknown Verified 08/15/16 17:06 Reaction Details Haloperidol Allergy Unknown Unknown Verified 08/15/16 17:06 Reaction Details Thiothixene Allergy Unknown Unknown Verified 08/15/16 17:06 Reaction Details Trihexyphenidyl Allergy Unknown Unknown Verified 08/15/16 17:06 Reaction Details Diazepam AdvReac Mild See Comment Verified 08/15/16 17:06 Carbamazepine AdvReac Unknown Unknown Verified 08/15/16 17:06 Reaction Details Home Medications: Home Medications CloZAPine TAB* 300 mg PO QAM 09/02/16 [History Confirmed 09/02/16] CloZAPine TAB* 500 mg PO BEDTIME 09/02/16 [History Confirmed 09/02/16] PMH/Surg Hx/FS Hx/Imm Hx Previously Healthy: No Endocrine/Hematology History: Reports: Hx Diabetes, Other Endocrine/ Hematological Disorders - Impaired fasting glucose Denies: Hx Anticoagulant Therapy, Hx Thyroid Disease Cardiovascular History: Reports: Hx Angina, Hx Hypertension Denies: Hx Pacemaker/ICD Respiratory History: Denies: Hx Asthma, Hx Chronic Obstructive Pulmonary Disease (COPD) GI History: Reports: Hx Gastroesophageal Reflux Disease Denies: Hx Ulcer Comment Only: Other GI Disorders - Chronic constipation History: Reports: Hx Acute Renal Failure - secondary to lithium carbonate, Hx Benign Prostatic Hyperplasia, Other Problems/Disorders - Urinary incontinence Denies: Hx Renal Disease Musculoskeletal History: Denies: Hx Gout Sensory History: Denies: Hx Hearing Aid Neurological History: Reports: Hx Developmental Delay, Hx Headaches, Hx Seizures - hx of medication induced seizures Denies: Hx Dementia Psychiatric History: Reports: Hx Depression, Hx Panic Disorder, Hx Inpatient Treatment, Hx Community Mental Health Tx, Hx Schizophrenia, Hx Bipolar Disorder , Hx Suicide Attempt, Hx of Violent Episodes Against Others Denies: Hx Eating Disorder, Hx Substance Abuse - Surgical History Surgery Procedure, Year, and Place: RIGHT wrist, ring finger on right hand, penis as a baby. - Immunization History Date of Tetanus Vaccine: UNK Date of Influenza Vaccine: Fall 2011 Infectious Disease History: No Infectious Disease History: Denies: Hx Hepatitis, Hx Human Immunodeficiency Virus (HIV), History Other Infectious Disease, Traveled Outside the [place] in Last 30 Days - Family History Known Family History: Positive: Hypertension - Social History Occupation: Disabled Lives: Assisted Living Alcohol Use: None Substance Use Type: Reports: None Smoking Status (MU): Light Every Day Tobacco Smoker Type: Cigarettes Amount Used/How Often: 4-5/day Have You Smoked in the Last Year: Yes - states that he smoked a cigarette a few days ago Review of Systems Positive: Fever Negative: Sore Throat Positive: Cough Positive: Weakness All Other Systems Reviewed And Are Negative: Yes Physical Exam - Summary Physical Exam Summary: The patient is OBESE and in no acute distress and in no acute pain. The skin is warm and DIAPHORETIC and DECREASED SKIN TURGOR. HEENT: The head is normocephalic and atraumatic. The pupils are equal and reactive. The conjunctivae are clear and without drainage. Nares are patent and without drainage. Mouth reveals moist mucous membranes and the throat is without erythema and exudate. The external ears are intact. The ear canals are patent and without drainage. The tympanic membranes are intact. Neck is supple with full range of motion and non-tender. There are no carotid bruits. There is no neck vein distension. Respiratory: Chest is non-tender. RHONCHI AND WHEEZING. Cardiovascular: TACHYCARDIC. There is no murmur or rub auscultated. There is no peripheral edema and pulses are symmetrical and equal. Abdomen: The abdomen is soft and non-tender. There are normal bowel sounds heard in all four quadrants and there is no organomegaly palpated. Musculoskeletal: There is no back pain noted. Extremities are non-tender with full range of motion. 2 SEC CAPILLARY REFILL. There is no peripheral edema or calf tenderness elicited. Neurological: Patient is alert and oriented to person, place and time. The patient has symmetrical motor strength in all four extremities. Cranial nerves are grossly intact. Deep tendon reflexes are symmetrical and equal in all four extremities. Psychiatric: The patient has an appropriate affect and does not exhibit any anxiety or depression. Triage Information Reviewed: Yes Vital Signs On Initial Exam: Initial Vitals Temp Pulse Resp BP Pulse Ox 101.1 F 105 20 119/56 97 09/02/16 11:56 09/02/16 11:56 09/02/16 11:56 09/02/16 11:56 09/02/16 11:56 Vital Signs Reviewed: Yes Diagnostics - Vital Signs Vital Signs Temp Pulse Resp BP Pulse Ox 09/02/16 11:56 101.1 F 105 20 119/56 97 - Laboratory Lab Results: Lab Results 09/02/16 09/02/16 09/02/16 Range/Units 12:15 12:15 12:15 WBC 18.0 H (3.5-10.8) 10^3/ul RBC 3.67 L (4.0-5.4) 10^6/ul Hgb 11.3 L (14.0-18.0) g/dl Hct 35 L (42-52) % MCV 94 (80-94) fL MCH 31 (27-31) pg MCHC 33 (31-36) g/dl RDW 13 (10.5-15) % Plt Count 177 (150-450) 10^3/ul MPV 10 (7.4-10.4) um3 Neut % (Auto) 82.5 (38-83) % Lymph % (Auto) 8.5 L (25-47) % [place] % (Auto) 8.1 (1-9) % Eos % (Auto) 0 (0-6) % Baso % (Auto) 0.9 (0-2) % Absolute Neuts (auto) 14.9 H (1.5-7.7) 10^3/ul Absolute Lymphs (auto) 1.5 (1.0-4.8) 10^3/ul Absolute Monos (auto) 1.5 H (0-0.8) 10^3/ul Absolute Eos (auto) 0 (0-0.6) 10^3/ul Absolute Basos (auto) 0.2 (0-0.2) 10^3/ul Absolute Nucleated RBC 0 10^3/ul Nucleated RBC % 0 ESR 33 H (0-20) mm/Hr INR (Anticoag Therapy) 0.98 (0.89-1.11) APTT 27.5 (26.0-36.3) seconds Sodium (133-145) mmol/L Potassium (3.5-5.0) mmol/L Chloride (101-111) mmol/L Carbon Dioxide (22-32) mmol/L Anion Gap (2-11) mmol/L BUN (6-24) mg/dL Creatinine (0.67-1.17) mg/dL Est GFR ( Amer) (>60) Est GFR (Non-Af Amer) (>60) BUN/Creatinine Ratio (8-20) Glucose (70-100) mg/dL Lactic Acid (0.5-2.0) mmol/L Calcium (8.6-10.3) mg/dL Total Bilirubin (0.2-1.0) mg/dL AST (13-39) U/L ALT (7-52) U/L Alkaline Phosphatase (34-104) U/L Troponin I (<0.04) ng/mL C-Reactive Protein (< 5.00) mg/L Total Protein (6.4-8.9) g/dL Albumin (3.2-5.2) g/dL Globulin (2-4) g/dL Albumin/Globulin Ratio (1-3) Procalcitonin (<0.6) ng/mL Urine Color Yellow Urine Appearance Clear Urine pH 6.0 (5-9) Ur Specific [place] 1.010 (1.010-1.030) Urine Protein Negative (Negative) Urine Ketones Trace H (Negative) Urine Blood Negative (Negative) Urine Nitrate Negative (Negative) Urine Bilirubin Negative (Negative) Urine Urobilinogen Negative (Negative) Ur Leukocyte Esterase Negative (Negative) Urine Glucose 3+(>=500 mg/dl) H (Negative) Valproic Acid (50-100) mcg/mL 09/02/16 09/02/16 09/02/16 Range/Units 12:15 12:15 12:15 WBC (3.5-10.8) 10^3/ul RBC (4.0-5.4) 10^6/ul Hgb (14.0-18.0) g/dl Hct (42-52) % MCV (80-94) fL MCH (27-31) pg MCHC (31-36) g/dl RDW (10.5-15) % Plt Count (150-450) 10^3/ul MPV (7.4-10.4) um3 Neut % (Auto) (38-83) % Lymph % (Auto) (25-47) % [place] % (Auto) (1-9) % Eos % (Auto) (0-6) % Baso % (Auto) (0-2) % Absolute Neuts (auto) (1.5-7.7) 10^3/ul Absolute Lymphs (auto) (1.0-4.8) 10^3/ul Absolute Monos (auto) (0-0.8) 10^3/ul Absolute Eos (auto) (0-0.6) 10^3/ul Absolute Basos (auto) (0-0.2) 10^3/ul Absolute Nucleated RBC 10^3/ul Nucleated RBC % ESR (0-20) mm/Hr INR (Anticoag Therapy) (0.89-1.11) APTT (26.0-36.3) seconds Sodium 134 (133-145) mmol/L Potassium 3.9 (3.5-5.0) mmol/L Chloride 101 (101-111) mmol/L Carbon Dioxide 24 (22-32) mmol/L Anion Gap 9 (2-11) mmol/L BUN 16 (6-24) mg/dL Creatinine 0.88 (0.67-1.17) mg/dL Est GFR ( Amer) 112.5 (>60) Est GFR (Non-Af Amer) 87.5 (>60) BUN/Creatinine Ratio 18.2 (8-20) Glucose 163 H (70-100) mg/dL Lactic Acid 2.8 H* (0.5-2.0) mmol/L Calcium 9.4 (8.6-10.3) mg/dL Total Bilirubin 0.40 (0.2-1.0) mg/dL AST 14 (13-39) U/L ALT 22 (7-52) U/L Alkaline Phosphatase 61 (34-104) U/L Troponin I 0.01 (<0.04) ng/mL C-Reactive Protein 152.90 H (< 5.00) mg/L Total Protein 7.4 (6.4-8.9) g/dL Albumin 4.3 (3.2-5.2) g/dL Globulin 3.1 (2-4) g/dL Albumin/Globulin Ratio 1.4 (1-3) Procalcitonin 2.3 H (<0.6) ng/mL Urine Color Urine Appearance Urine pH (5-9) Ur Specific [place] (1.010-1.030) Urine Protein (Negative) Urine Ketones (Negative) Urine Blood (Negative) Urine Nitrate (Negative) Urine Bilirubin (Negative) Urine Urobilinogen (Negative) Ur Leukocyte Esterase (Negative) Urine Glucose (Negative) Valproic Acid 149.0 H (50-100) mcg/mL Result Diagrams: 09/02/16 12:15 09/02/16 12:15 Lab Statement: Any lab studies that have been ordered have been reviewed, and results considered in the medical decision making process. - Radiology CXR Xray Interpretation: No Acute Changes - IMPRESSION: MILD EXPIRATORY EXAM, NO DEFINITIVE INFILTRATES. Radiology Interpretation Completed By: Radiologist - EKG 1 EKG Rhythm: Atrial Fibrillation ST Segment: Non-Specific EKG Interpretation: nml axis Course/Dx - Course Assessment/Plan: MDM: Pt is a 61 y/o M with c/o general weakness. Associated sx : cough, diaphoresis, incontinence. Pt is afebrile, temp 101.6. Pt given fluids , APAP. UA results look normal, high urine glucose. Sinus tachy. Trop at 1215 is 0.01. Lactic acid is 2.8. CXR shows no acute findings. Consulted with hospitalist, will admit. - Differential Dx Differential Diagnoses Neuro: Positive: Hypovolemia, Metabolic Abnormality, Viral Syndrome, Other - pneumonia, valproic toxicity, uti, influenza, - Diagnoses Provider Diagnoses: Fever, Bronchitis, Valproic acid toxicity - Physician Notifications Discussed Care of Patient With: Spoke with Dr. Bah, hospitalist, will admit. Time Discussed With Above Provider: 14:27 Instructed by Provider To: Admit As Inpatient Discharge - Discharge Plan Condition: Stable Disposition: ADMITTED TO [facility] Referrals: No Primary Care Phys,NOPCP [Primary Care Provider] - The documentation as recorded by the Luis Fernando mercer SooYoung accurately reflects the service I personally performed and the decisions made by me, Braden Black MD.
[2016-09-02] MEDS ORDERED: Acetaminophen TAB* 325 MG PO PRN (15:18)
[2016-09-02] MEDS ORDERED: NS 0.9% 1000 ML* 1,000 ML IV SCH (15:30)
[2016-09-02] MEDS ORDERED: Dextrose 50% Syringe 50 ML* 25 GM/50 ML SYRINGE IV PUSH PRN (15:32)
[2016-09-02] MEDS: Azithromycin IV(*) 500 MG in NS 0.9% 250 ML* 250 ML IVPB SCH (16:16)
[2016-09-02] MEDS: cefTRIAXone VIAL(*) 1,000 MG in NS 0.9% 50 ML* 50 ML IVPB SCH (16:16)
[2016-09-02] MEDS: Insulin LISPRO* 1 UNITS UNIT SUBCUT SCH (18:28)
[2016-09-02] MEDS: Enoxaparin(*) 40 MG/0.4 ML SYR SUBCUT SCH (19:01)
[2016-09-02] MEDS: clonazePAM TAB(*) 1 MG PO SCH (20:28)
[2016-09-02] MEDS: CloZAPine TAB* 100 MG TAB PO SCH (20:29)
--- NOTE | 2016-09-02 22:23 | HP ---
ADMISSION HISTORY AND PHYSICAL: DATE OF ADMISSION: 09/02/16 PRIMARY CARE PROVIDER: Unknown. ADMITTING PROVIDER: ELIA Mendoza SUPERVISING PHYSICIAN: Taylor Bah DO * (DICTATED BY ELIA MENDOZA) CHIEF COMPLAINT: Cough and generalized weakness. HISTORY OF PRESENT ILLNESS: This is a 61-year-old gentleman with history of psychotic disorder, cxo-mfwbagv-requkmqqy diabetes, some cognitive impairment, chronic urinary incontinence, hypertension, and BPH who presented to the emergency department with complaints of generalized weakness and productive cough. The patient reports that his cough has been present for approximately 4 weeks. According to nursing notes at his residence, he has been more lethargic over the last couple of days. The patient denies abdominal pain, nausea, vomiting, or diarrhea. Denies any dyspnea. Denies urinary complaints. Again, he does have some chronic incontinence, sounds like mostly at nighttime and this is not a new complaint for him. He denies chest pain or palpitations. The patient was [facility] . He was admitted there for bipolar disorder with manic episode and severe psychotic features. The patient was admitted for approximately 3 weeks. There is no mention in discharge summary of any acute illness that occurred during his hospitalization. PAST MEDICAL HISTORY: 1. Cdu-iojebqu-wdufhymwf diabetes. 2. Chronic psychotic disorder secondary to bipolar disorder with frequent manic episodes. 3. Cognitive impairment. 4. Urinary incontinence. 5. Hypertension. 6. BPH. PAST SURGICAL HISTORY: None. HOME MEDICATIONS: 1. Lipitor 20 mg p.o. daily. 2. Clozapine 300 mg in the morning and 500 mg at bedtime. 3. Depakote 1000 mg p.o. b.i.d. 4. Ibuprofen 600 mg p.o. q.8 hours as needed. 5. Lisinopril 20 mg p.o. daily. 6. Imodium 2 mg p.o. daily as needed. 7. Multivitamin 1 tablet p.o. daily. 8. Nicotine patch 14 mg for 24 hours, apply transdermally daily. 9. Omeprazole 40 mg p.o. daily. 10. Amlodipine 5 mg p.o. daily. 11. Clonazepam 1 mg p.o. b.i.d. 12. Glipizide 5 mg p.o. daily. SOCIAL HISTORY: The patient is a resident at [facility]. He is a 1 pack per day smoker with a greater than 50-pack year smoking history. Denies regular alcohol consumption or illicit drug use. REVIEW OF SYSTEMS: As noted above in the HPI and otherwise negative. PHYSICAL EXAMINATION GENERAL: This is a 61-year-old gentleman who is in no acute distress. Slightly inappropriate in interaction. INITIAL VITAL SIGNS: Temperature 101.1 degrees Fahrenheit, pulse 105 beats per minute, respiratory rate 20 per minute, oxygen saturation 97% on room air, and blood pressure 119/56 mmHg. HEENT: Head is normocephalic, atraumatic. Mucous membranes are pink and moist. RESPIRATORY: The patient has some subtle rhonchorous sounds appreciated best in the right lower lobe of his lungs. No specific wheezing or crackles appreciated. CARDIOVASCULAR: Heart has regular rate and rhythm without murmurs, rubs, or gallops. ABDOMEN: Abdomen is soft and nontender to palpation. EXTREMITIES: No lower extremity edema. SKIN: Limited exam shows no concerning rashes or lesions. PSYCH: The patient is alert and appropriately oriented. Again, slightly inappropriate in conversation, but tangential in his thought. LABORATORY DATA: CBC shows a white blood cell count of 18,000; hemoglobin 11.3 g/dL; and a platelet count of 177,000. INR of 0.98 and PTT of 27.5. Comprehensive metabolic panel is largely unremarkable. Sodium of 134 mmol/L, potassium 3.9 mmol/L, serum bicarb of 24, BUN of 16, creatinine of 0.88, and estimated GFR of 87. Random glucose of 163 mg/dL. Lactic acid elevated at 2.8. Transaminases and total bilirubin are within normal limits. Troponin negative at 0.01. CRP elevated at 152. Procalcitonin is also elevated at 2.3. Urinalysis shows trace ketones and positive for glucose. Valproic acid level is significantly elevated at 149. DIAGNOSTIC STUDIES/IMAGING: EKG shows normal sinus rhythm, QTc of 450 milliseconds. Chest x-rays are of poor quality film. It looks like there maybe subtle right lower lobe infiltrates. ASSESSMENT AND PLAN: This is a 61-year-old gentleman with history of bipolar disorder and chronic psychosis as well as cognitive impairment and non-insulin- dependent diabetes who presents with cough and lethargy. Clinical evidence suggests pneumonia. 1. Presumed pneumonia - chest x-ray is of poor quality, but based on exam and personal review of chest x-ray, the patient likely has a right lower lobe pneumonia. We will empirically treat with ceftriaxone and azithromycin. Quinolones are avoided in an attempt to avoid QTc prolongation in the setting of multiple psychiatric medications. The patient is not hypoxic. Provide maintenance fluids. Plan to repeat lactic acid at the 4-hour bayron. Repeat CBC in the morning. 2. Valproic acid toxicity - the patient does not appear to be symptomatic. Valproic acid levels are at 150. We will plan to hold his valproic acid at this time. Repeat levels in the morning and resume at a lower dose. We will also plan to check serum clozapine levels as well. Ordered serum ammonia level. The patient does not appear acutely encephalopathic. He was slightly inappropriate in conversation, but I believe this is near his baseline, but regardless we will ensure that he does not have elevated ammonia levels associated with this elevated valproic acid. 3. Dzl-zgeudyc-cqtidcvff diabetes - check hemoglobin A1c. Hold glipizide during his hospitalization and cover with sliding scale lispro. 4. Chronic psychotic disorder secondary to bipolar disorder, manic type: Plan to continue his outpatient psychiatric medications with the exception of his Depakote, which will be held at this time, but plan to resume at a lower dose once serum levels fall. 5. Hypertension - continue antihypertensives at this time. 6. Benign prostatic hyperplasia with chronic urinary incontinence. 7. Code status - the patient is full code. 8. DVT prophylaxis - the patient is at moderate risk for DVT and will be placed on Lovenox subcu daily. 9. Health care proxy is listed as Tony Kenyon, who lives in [place]. DISPOSITION: The patient is being admitted for presumed pneumonia. ANTICIPATED LENGTH OF STAY: To be greater than 2 midnights. ELIA MENDOZA [id number]/[facility] #: [id number] LUIS
[2016-09-03 07:54] LABS: Hematocrit 30 % (42-52); Hemoglobin 9.9 g/dl (14.0-18.0); Mean Corpuscular HGB Conc 33 g/dl (31-36); Mean Corpuscular Hemoglobin 31 pg (27-31); Mean Corpuscular Volume 94 fL (80-94); Mean Platelet Volume 9 um3 (7.4-10.4); Red Blood Count 3.18 10^6/ul (4.0-5.4); Red Cell Distribution Width 13 % (10.5-15); White Blood Count 12.5 10^3/ul (3.5-10.8)
[2016-09-03 08:06] LABS: BUN/Creatinine Ratio 17.7 (8-20); Calcium 8.5 mg/dL (8.6-10.3); EGFR African American 127.4 (>60); EGFR Non-African American 99.1 (>60); Potassium 3.9 mmol/L (3.5-5.0)
[2016-09-03] MEDS: Insulin LISPRO* 1 UNITS UNIT SUBCUT SCH ×3 (08:37→17:42)
[2016-09-03] MEDS: clonazePAM TAB(*) 1 MG PO SCH ×2 (08:38→21:09)
[2016-09-03] MEDS: Omeprazole CAP* 20 MG PO SCH (08:40)
[2016-09-03] MEDS: Lisinopril TAB* 10 MG PO SCH (08:40)
[2016-09-03] MEDS: amLODIPine TAB* 5 MG PO SCH (08:40)
[2016-09-03] MEDS: Atorvastatin* 20 MG TAB PO SCH (08:41)
[2016-09-03] MEDS: CloZAPine TAB* 100 MG TAB PO SCH ×2 (08:41→21:11)
[2016-09-03] MEDS: Nicotine PATCH 14 MG/24 HR* PATCH TRANSDERM SCH (08:42)
[2016-09-03] MEDS: Divalproex DR TAB(*) 500 MG PO SCH ×2 (10:04→21:09)
[2016-09-03] MEDS: Albuterol/Ipratropium NEB.SOL* Albuterol 2.5 MG/Ipratropium 0.5 MG 3 ML INH SCH ×2 (14:45→19:08)
--- NOTE | 2016-09-03 15:42 | PN ---
Subjective Date of Service: 09/03/16 Interval History: pt feels "weak". c/o coughing a lot. Objective Active Medications: Acetaminophen (Tylenol Tab*) 650 mg PO Q4H PRN PRN Reason: FEVER/PAIN Albuterol/Ipratropium (Duoneb Neb.Mandy*) 1 neb INH [id number] AWAKE [facility] Last Admin: 09/03/16 14:45 Dose: 1 neb Amlodipine Besylate (Norvasc Tab*) 5 mg PO DAILY [facility] Last Admin: 09/03/16 08:40 Dose: 5 mg Atorvastatin Calcium (Lipitor*) 20 mg PO DAILY [facility] Last Admin: 09/03/16 08:41 Dose: 20 mg Clonazepam (Klonopin Tab(*)) 1 mg PO BID [facility] Last Admin: 09/03/16 08:38 Dose: 1 mg Clozapine (Clozapine Tab*) 300 mg PO QAM [facility] Last Admin: 09/03/16 08:41 Dose: 300 mg Clozapine (Clozapine Tab*) 500 mg PO BEDTIME [facility] Last Admin: 09/02/16 20:29 Dose: 500 mg Dextrose (D50w Syringe 50 Ml*) 12.5 gm IV PUSH .FOR FS < 60 - SS PRN PRN Reason: FS < 60 Divalproex Sodium (Depakote Dr Tab(*)) 1,000 mg PO BID [facility] Last Admin: 09/03/16 10:04 Dose: 1,000 mg Enoxaparin Sodium (Lovenox(*)) 40 mg SUBCUT Q24H [facility] Last Admin: 09/02/16 19:01 Dose: 40 mg Sodium Chloride (Ns 0.9% 1000 Ml*) 1,000 mls @ 100 mls/hr IV PER RATE [facility] Last Admin: 09/02/16 19:00 Dose: 100 mls/hr Ceftriaxone Sodium 1,000 mg/ (Sodium Chloride) 50 mls @ 200 mls/hr IVPB Q24H [facility] Last Admin: 09/02/16 16:16 Dose: 200 mls/hr Azithromycin 500 mg/ Sodium (Chloride) 250 mls @ 250 mls/hr IVPB Q24H [facility] Last Admin: 09/02/16 16:16 Dose: 250 mls/hr Insulin Human Lispro (Humalog*) 0 units SUBCUT [facility] PRN Reason: Protocol Last Admin: 09/03/16 11:51 Dose: Not Given Lisinopril (Prinivil Tab*) 20 mg PO QAM [facility] Last Admin: 09/03/16 08:40 Dose: 20 mg Nicotine (Nicotine Patch 14 Mg/24 Hr*) 1 patch TRANSDERM DAILY [facility] Last Admin: 09/03/16 08:42 Dose: 1 patch Omeprazole (Prilosec Cap*) 40 mg PO DAILY [facility] Last Admin: 09/03/16 08:40 Dose: 40 mg Pharmacy Profile Note (Nicotine Patch Removal Note*) 1 note PATCH OFF 2099 [facility] Vital Signs 09/02/16 09/02/16 09/02/16 16:00 16:30 17:00 Temperature Pulse Rate 89 89 90 Respiratory 17 19 17 Rate Blood Pressure 129/77 124/72 117/73 (mmHg) O2 Sat by Pulse 96 97 96 Oximetry 09/02/16 09/02/16 09/02/16 17:33 18:26 20:00 Temperature 99.8 F 98.4 F Pulse Rate 95 Respiratory 20 22 Rate Blood Pressure 81/29 (mmHg) O2 Sat by Pulse 98 90 Oximetry 09/02/16 09/02/16 09/02/16 20:28 22:28 23:51 Temperature 99.1 F Pulse Rate 100 Respiratory 18 22 36 Rate Blood Pressure 97/50 (mmHg) O2 Sat by Pulse 90 Oximetry 09/03/16 09/03/16 09/03/16 00:35 04:02 07:12 Temperature 97.8 F 98.5 F 98.0 F Pulse Rate 95 92 Respiratory 22 24 16 Rate Blood Pressure 132/71 136/66 (mmHg) O2 Sat by Pulse 94 93 Oximetry 09/03/16 09/03/16 09/03/16 08:00 08:38 10:38 Temperature Pulse Rate Respiratory 18 18 18 Rate Blood Pressure (mmHg) O2 Sat by Pulse 94 Oximetry 09/03/16 09/03/16 11:38 14:49 Temperature Pulse Rate 102 104 Respiratory 20 Rate Blood Pressure 126/56 (mmHg) O2 Sat by Pulse 91 94 Oximetry Oxygen Devices in Use Now: None Appearance: 61 yo M in nAd, aAox2, poor historian Eyes: No Scleral Icterus, PERRLA Ears/Nose/Mouth/Throat: NL Teeth, Lips, Gums, Mucous Membranes Moist Neck: NL Appearance and Movements; NL JVP, Trachea Midline Respiratory: Symmetrical Chest Expansion and Respiratory Effort, - - diffuse mid lung rhonchi and wheezes Cardiovascular: NL Sounds; No Murmurs; No JVD, RRR Abdominal: NL Sounds; No Tenderness; No Distention, No Hepatosplenomegaly Lymphatic: No Cervical Adenopathy Extremities: No Edema, No Clubbing, Cyanosis Skin: No Rash or Ulcers, No Nodules or Sclerosis Neurological: NL Muscle Strength and Tone Result Diagrams: 09/03/16 07:33 09/03/16 07:33 Additional Lab and Data: Lab Results 09/02/16 09/02/16 09/02/16 Range/Units 12:15 12:15 12:15 WBC 18.0 H (3.5-10.8) 10^3/ul RBC 3.67 L (4.0-5.4) 10^6/ul Hgb 11.3 L (14.0-18.0) g/dl Hct 35 L (42-52) % MCV 94 (80-94) fL MCH 31 (27-31) pg MCHC 33 (31-36) g/dl RDW 13 (10.5-15) % Plt Count 177 (150-450) 10^3/ul MPV 10 (7.4-10.4) um3 Neut % (Auto) 82.5 (38-83) % Lymph % (Auto) 8.5 L (25-47) % Tillman % (Auto) 8.1 (1-9) % Eos % (Auto) 0 (0-6) % Baso % (Auto) 0.9 (0-2) % Absolute Neuts (auto) 14.9 H (1.5-7.7) 10^3/ul Absolute Lymphs (auto) 1.5 (1.0-4.8) 10^3/ul Absolute Monos (auto) 1.5 H (0-0.8) 10^3/ul Absolute Eos (auto) 0 (0-0.6) 10^3/ul Absolute Basos (auto) 0.2 (0-0.2) 10^3/ul Absolute Nucleated RBC 0 10^3/ul Nucleated RBC % 0 ESR 33 H (0-20) mm/Hr INR (Anticoag Therapy) 0.98 (0.89-1.11) APTT 27.5 (26.0-36.3) seconds Sodium (133-145) mmol/L Potassium (3.5-5.0) mmol/L Chloride (101-111) mmol/L Carbon Dioxide (22-32) mmol/L Anion Gap (2-11) mmol/L BUN (6-24) mg/dL Creatinine (0.67-1.17) mg/dL Est GFR ( Amer) (>60) Est GFR (Non-Af Amer) (>60) BUN/Creatinine Ratio (8-20) Glucose (70-100) mg/dL Lactic Acid (0.5-2.0) mmol/L Calcium (8.6-10.3) mg/dL Total Bilirubin (0.2-1.0) mg/dL AST (13-39) U/L ALT (7-52) U/L Alkaline Phosphatase (34-104) U/L Troponin I (<0.04) ng/mL C-Reactive Protein (< 5.00) mg/L Total Protein (6.4-8.9) g/dL Albumin (3.2-5.2) g/dL Globulin (2-4) g/dL Albumin/Globulin Ratio (1-3) Procalcitonin (<0.6) ng/mL Urine Color Yellow Urine Appearance Clear Urine pH 6.0 (5-9) Ur Specific [place] 1.010 (1.010-1.030) Urine Protein Negative (Negative) Urine Ketones Trace H (Negative) Urine Blood Negative (Negative) Urine Nitrate Negative (Negative) Urine Bilirubin Negative (Negative) Urine Urobilinogen Negative (Negative) Ur Leukocyte Esterase Negative (Negative) Urine Glucose 3+(>=500 mg/dl) H (Negative) Valproic Acid (50-100) mcg/mL 09/02/16 09/02/16 09/02/16 Range/Units 12:15 12:15 12:15 WBC (3.5-10.8) 10^3/ul RBC (4.0-5.4) 10^6/ul Hgb (14.0-18.0) g/dl Hct (42-52) % MCV (80-94) fL MCH (27-31) pg MCHC (31-36) g/dl RDW (10.5-15) % Plt Count (150-450) 10^3/ul MPV (7.4-10.4) um3 Neut % (Auto) (38-83) % Lymph % (Auto) (25-47) % Tillman % (Auto) (1-9) % Eos % (Auto) (0-6) % Baso % (Auto) (0-2) % Absolute Neuts (auto) (1.5-7.7) 10^3/ul Absolute Lymphs (auto) (1.0-4.8) 10^3/ul Absolute Monos (auto) (0-0.8) 10^3/ul Absolute Eos (auto) (0-0.6) 10^3/ul Absolute Basos (auto) (0-0.2) 10^3/ul Absolute Nucleated RBC 10^3/ul Nucleated RBC % ESR (0-20) mm/Hr INR (Anticoag Therapy) (0.89-1.11) APTT (26.0-36.3) seconds Sodium 134 (133-145) mmol/L Potassium 3.9 (3.5-5.0) mmol/L Chloride 101 (101-111) mmol/L Carbon Dioxide 24 (22-32) mmol/L Anion Gap 9 (2-11) mmol/L BUN 16 (6-24) mg/dL Creatinine 0.88 (0.67-1.17) mg/dL Est GFR ( Amer) 112.5 (>60) Est GFR (Non-Af Amer) 87.5 (>60) BUN/Creatinine Ratio 18.2 (8-20) Glucose 163 H (70-100) mg/dL Lactic Acid 2.8 H* (0.5-2.0) mmol/L Calcium 9.4 (8.6-10.3) mg/dL Total Bilirubin 0.40 (0.2-1.0) mg/dL AST 14 (13-39) U/L ALT 22 (7-52) U/L Alkaline Phosphatase 61 (34-104) U/L Troponin I 0.01 (<0.04) ng/mL C-Reactive Protein 152.90 H (< 5.00) mg/L Total Protein 7.4 (6.4-8.9) g/dL Albumin 4.3 (3.2-5.2) g/dL Globulin 3.1 (2-4) g/dL Albumin/Globulin Ratio 1.4 (1-3) Procalcitonin 2.3 H (<0.6) ng/mL Urine Color Urine Appearance Urine pH (5-9) Ur Specific [place] (1.010-1.030) Urine Protein (Negative) Urine Ketones (Negative) Urine Blood (Negative) Urine Nitrate (Negative) Urine Bilirubin (Negative) Urine Urobilinogen (Negative) Ur Leukocyte Esterase (Negative) Urine Glucose (Negative) Valproic Acid 149.0 H (50-100) mcg/mL Microbiology and Other Data: Microbiology 09/02/16 17:50 Influenza Types A,B Antigen (HERBERT) - Final Nasopharyngeal Specimen received for Influenza A/B Molecular testing Assess/Plan/Problems-Billing Assessment: Mr Blake is a 60 yo M with h/o psychosis, DM2, seizures and HTN who lives in a [facility] for pt's with chronic psychiatric problems presented to the ER with c/o SOB. - Patient Problems (1) Pneumonia Comment: with fever, leukocytosis and bronchospasm. cont Azithro/Ceftriaxone cont duoneb (2) DM type 2 (diabetes mellitus, type 2) Comment: cont glipizide Cont ISS (3) HTN (hypertension) Status: Chronic Comment: BP has been under fair control. Continue current medication regimen. (4) Psychotic disorder Comment: Stable- Continue clozapine (5) Seizure disorder Comment: Depakote level was high- suspect because it as checked 4 hrs after the last PO dose, will restart it at 1000 mg BID, get a level in aM (6) DVT prophylaxis Comment: lovenox
[2016-09-03] MEDS: cefTRIAXone VIAL(*) 1,000 MG in NS 0.9% 50 ML* 50 ML IVPB SCH (15:44)
[2016-09-03] MEDS: Enoxaparin(*) 40 MG/0.4 ML SYR SUBCUT SCH (16:40)
[2016-09-03] MEDS: Azithromycin IV(*) 500 MG in NS 0.9% 250 ML* 250 ML IVPB SCH (16:42)
[2016-09-03] MEDS: glipiZIDE TAB.XL* 5 MG PO SCH (19:29)
[2016-09-03] MEDS: Nicotine Patch Removal NOTE PATCH OFF SCH (21:17)
[2016-09-04] MEDS: Albuterol/Ipratropium NEB.SOL* Albuterol 2.5 MG/Ipratropium 0.5 MG 3 ML INH SCH ×4 (01:22→19:16)
[2016-09-04] MEDS: amLODIPine TAB* 5 MG PO SCH (08:46)
[2016-09-04] MEDS: Lisinopril TAB* 10 MG PO SCH (08:46)
[2016-09-04] MEDS: clonazePAM TAB(*) 1 MG PO SCH ×2 (08:46→20:56)
[2016-09-04] MEDS: Divalproex DR TAB(*) 500 MG PO SCH ×2 (08:46→20:57)
[2016-09-04] MEDS: CloZAPine TAB* 100 MG TAB PO SCH ×2 (08:47→20:55)
[2016-09-04] MEDS: Atorvastatin* 20 MG TAB PO SCH (08:47)
[2016-09-04] MEDS: Omeprazole CAP* 20 MG PO SCH (08:48)
[2016-09-04] MEDS: Insulin LISPRO* 1 UNITS UNIT SUBCUT SCH ×3 (08:48→17:47)
[2016-09-04] MEDS: glipiZIDE TAB.XL* 5 MG PO SCH (08:48)
[2016-09-04] MEDS: Nicotine PATCH 14 MG/24 HR* PATCH TRANSDERM SCH (09:12)
--- NOTE | 2016-09-04 13:43 | PN ---
Subjective Date of Service: 09/04/16 Interval History: pt is sitting in a chair, c/o feeling very tired. SOB and cough are better Objective Active Medications: Acetaminophen (Tylenol Tab*) 650 mg PO Q4H PRN PRN Reason: FEVER/PAIN Albuterol/Ipratropium (Duoneb Neb.Mandy*) 1 neb INH [id number] AWAKE [facility] Last Admin: 09/04/16 12:15 Dose: 1 neb Amlodipine Besylate (Norvasc Tab*) 5 mg PO DAILY [facility] Last Admin: 09/04/16 08:46 Dose: 5 mg Atorvastatin Calcium (Lipitor*) 20 mg PO DAILY [facility] Last Admin: 09/04/16 08:47 Dose: 20 mg Clonazepam (Klonopin Tab(*)) 1 mg PO BID [facility] Last Admin: 09/04/16 08:46 Dose: 1 mg Clozapine (Clozapine Tab*) 300 mg PO QAM [facility] Last Admin: 09/04/16 08:47 Dose: 300 mg Clozapine (Clozapine Tab*) 500 mg PO BEDTIME [facility] Last Admin: 09/03/16 21:11 Dose: 500 mg Dextrose (D50w Syringe 50 Ml*) 12.5 gm IV PUSH .FOR FS < 60 - SS PRN PRN Reason: FS < 60 Divalproex Sodium (Depakote Dr Tab(*)) 1,000 mg PO BID [facility] Last Admin: 09/04/16 08:46 Dose: 1,000 mg Enoxaparin Sodium (Lovenox(*)) 40 mg SUBCUT Q24H [facility] Last Admin: 09/03/16 16:40 Dose: 40 mg Glipizide (Glucotrol Xl*) 5 mg PO DAILY WITH MEAL [facility] Last Admin: 09/04/16 08:48 Dose: 5 mg Ceftriaxone Sodium 1,000 mg/ (Sodium Chloride) 50 mls @ 200 mls/hr IVPB Q24H [facility] Last Admin: 09/03/16 15:44 Dose: 200 mls/hr Azithromycin 500 mg/ Sodium (Chloride) 250 mls @ 250 mls/hr IVPB Q24H [facility] Last Admin: 09/03/16 16:42 Dose: 250 mls/hr Insulin Human Lispro (Humalog*) 0 units SUBCUT AC [facility] PRN Reason: Protocol Last Admin: 09/04/16 12:59 Dose: 1 units Lisinopril (Prinivil Tab*) 20 mg PO QAM [facility] Last Admin: 09/04/16 08:46 Dose: 20 mg Nicotine (Nicotine Patch 14 Mg/24 Hr*) 1 patch TRANSDERM DAILY [facility] Last Admin: 09/04/16 09:12 Dose: 1 patch Omeprazole (Prilosec Cap*) 40 mg PO DAILY [facility] Last Admin: 09/04/16 08:48 Dose: 40 mg Pharmacy Profile Note (Nicotine Patch Removal Note*) 1 note PATCH OFF 2100 [facility] Last Admin: 09/03/16 21:17 Dose: 1 note Vital Signs 09/03/16 09/03/16 09/03/16 14:49 15:27 19:11 Temperature 98.1 F Pulse Rate 104 105 108 Respiratory 20 24 20 Rate Blood Pressure 137/73 (mmHg) O2 Sat by Pulse 94 94 97 Oximetry 09/03/16 09/03/16 09/03/16 19:31 20:00 21:09 Temperature 98.0 F Pulse Rate 107 Respiratory 20 20 20 Rate Blood Pressure 136/69 (mmHg) O2 Sat by Pulse 96 96 Oximetry 09/03/16 09/03/16 09/04/16 23:09 23:38 02:16 Temperature 97.9 F 98.8 F Pulse Rate 98 88 Respiratory 26 28 30 Rate Blood Pressure 129/65 129/73 (mmHg) O2 Sat by Pulse 93 97 Oximetry 09/04/16 09/04/16 09/04/16 04:55 07:19 08:29 Temperature Pulse Rate 90 87 86 Respiratory 27 16 14 Rate Blood Pressure 124/71 (mmHg) O2 Sat by Pulse 95 93 99 Oximetry 09/04/16 09/04/16 09/04/16 08:46 10:46 12:17 Temperature Pulse Rate 90 Respiratory 18 16 18 Rate Blood Pressure (mmHg) O2 Sat by Pulse 100 Oximetry 09/04/16 12:46 Temperature Pulse Rate Respiratory 22 Rate Blood Pressure (mmHg) O2 Sat by Pulse Oximetry Oxygen Devices in Use Now: Nasal Cannula - at 3 L Appearance: 61 yo m in NAD, appears fatigued, in NAD, poor historian, but AAOx3 Eyes: No Scleral Icterus, PERRLA Ears/Nose/Mouth/Throat: NL Teeth, Lips, Gums, Mucous Membranes Moist Neck: NL Appearance and Movements; NL JVP, Trachea Midline Respiratory: Symmetrical Chest Expansion and Respiratory Effort, - - scant b/l mid lung wheezes, upper lobes rhonchi-mild Cardiovascular: NL Sounds; No Murmurs; No JVD Abdominal: NL Sounds; No Tenderness; No Distention Lymphatic: No Cervical Adenopathy Extremities: No Edema Skin: No Rash or Ulcers, No Nodules or Sclerosis Neurological: Alert and Oriented x 3, NL Muscle Strength and Tone, - - gebe= neralized weakness Result Diagrams: 09/03/16 07:33 09/03/16 07:33 Additional Lab and Data: Lab Results 09/02/16 09/02/16 09/02/16 Range/Units 12:15 12:15 12:15 WBC 18.0 H (3.5-10.8) 10^3/ul RBC 3.67 L (4.0-5.4) 10^6/ul Hgb 11.3 L (14.0-18.0) g/dl Hct 35 L (42-52) % MCV 94 (80-94) fL MCH 31 (27-31) pg MCHC 33 (31-36) g/dl RDW 13 (10.5-15) % Plt Count 177 (150-450) 10^3/ul MPV 10 (7.4-10.4) um3 Neut % (Auto) 82.5 (38-83) % Lymph % (Auto) 8.5 L (25-47) % Baker % (Auto) 8.1 (1-9) % Eos % (Auto) 0 (0-6) % Baso % (Auto) 0.9 (0-2) % Absolute Neuts (auto) 14.9 H (1.5-7.7) 10^3/ul Absolute Lymphs (auto) 1.5 (1.0-4.8) 10^3/ul Absolute Monos (auto) 1.5 H (0-0.8) 10^3/ul Absolute Eos (auto) 0 (0-0.6) 10^3/ul Absolute Basos (auto) 0.2 (0-0.2) 10^3/ul Absolute Nucleated RBC 0 10^3/ul Nucleated RBC % 0 ESR 33 H (0-20) mm/Hr INR (Anticoag Therapy) 0.98 (0.89-1.11) APTT 27.5 (26.0-36.3) seconds Sodium (133-145) mmol/L Potassium (3.5-5.0) mmol/L Chloride (101-111) mmol/L Carbon Dioxide (22-32) mmol/L Anion Gap (2-11) mmol/L BUN (6-24) mg/dL Creatinine (0.67-1.17) mg/dL Est GFR ( Amer) (>60) Est GFR (Non-Af Amer) (>60) BUN/Creatinine Ratio (8-20) Glucose (70-100) mg/dL Lactic Acid (0.5-2.0) mmol/L Calcium (8.6-10.3) mg/dL Total Bilirubin (0.2-1.0) mg/dL AST (13-39) U/L ALT (7-52) U/L Alkaline Phosphatase (34-104) U/L Troponin I (<0.04) ng/mL C-Reactive Protein (< 5.00) mg/L Total Protein (6.4-8.9) g/dL Albumin (3.2-5.2) g/dL Globulin (2-4) g/dL Albumin/Globulin Ratio (1-3) Procalcitonin (<0.6) ng/mL Urine Color Yellow Urine Appearance Clear Urine pH 6.0 (5-9) Ur Specific [place] 1.010 (1.010-1.030) Urine Protein Negative (Negative) Urine Ketones Trace H (Negative) Urine Blood Negative (Negative) Urine Nitrate Negative (Negative) Urine Bilirubin Negative (Negative) Urine Urobilinogen Negative (Negative) Ur Leukocyte Esterase Negative (Negative) Urine Glucose 3+(>=500 mg/dl) H (Negative) Valproic Acid (50-100) mcg/mL 09/02/16 09/02/16 09/02/16 Range/Units 12:15 12:15 12:15 WBC (3.5-10.8) 10^3/ul RBC (4.0-5.4) 10^6/ul Hgb (14.0-18.0) g/dl Hct (42-52) % MCV (80-94) fL MCH (27-31) pg MCHC (31-36) g/dl RDW (10.5-15) % Plt Count (150-450) 10^3/ul MPV (7.4-10.4) um3 Neut % (Auto) (38-83) % Lymph % (Auto) (25-47) % Baker % (Auto) (1-9) % Eos % (Auto) (0-6) % Baso % (Auto) (0-2) % Absolute Neuts (auto) (1.5-7.7) 10^3/ul Absolute Lymphs (auto) (1.0-4.8) 10^3/ul Absolute Monos (auto) (0-0.8) 10^3/ul Absolute Eos (auto) (0-0.6) 10^3/ul Absolute Basos (auto) (0-0.2) 10^3/ul Absolute Nucleated RBC 10^3/ul Nucleated RBC % ESR (0-20) mm/Hr INR (Anticoag Therapy) (0.89-1.11) APTT (26.0-36.3) seconds Sodium 134 (133-145) mmol/L Potassium 3.9 (3.5-5.0) mmol/L Chloride 101 (101-111) mmol/L Carbon Dioxide 24 (22-32) mmol/L Anion Gap 9 (2-11) mmol/L BUN 16 (6-24) mg/dL Creatinine 0.88 (0.67-1.17) mg/dL Est GFR ( Amer) 112.5 (>60) Est GFR (Non-Af Amer) 87.5 (>60) BUN/Creatinine Ratio 18.2 (8-20) Glucose 163 H (70-100) mg/dL Lactic Acid 2.8 H* (0.5-2.0) mmol/L Calcium 9.4 (8.6-10.3) mg/dL Total Bilirubin 0.40 (0.2-1.0) mg/dL AST 14 (13-39) U/L ALT 22 (7-52) U/L Alkaline Phosphatase 61 (34-104) U/L Troponin I 0.01 (<0.04) ng/mL C-Reactive Protein 152.90 H (< 5.00) mg/L Total Protein 7.4 (6.4-8.9) g/dL Albumin 4.3 (3.2-5.2) g/dL Globulin 3.1 (2-4) g/dL Albumin/Globulin Ratio 1.4 (1-3) Procalcitonin 2.3 H (<0.6) ng/mL Urine Color Urine Appearance Urine pH (5-9) Ur Specific [place] (1.010-1.030) Urine Protein (Negative) Urine Ketones (Negative) Urine Blood (Negative) Urine Nitrate (Negative) Urine Bilirubin (Negative) Urine Urobilinogen (Negative) Ur Leukocyte Esterase (Negative) Urine Glucose (Negative) Valproic Acid 149.0 H (50-100) mcg/mL Microbiology and Other Data: Microbiology 09/02/16 17:50 Influenza Types A,B Antigen (HERBERT) - Final Nasopharyngeal Specimen received for Influenza A/B Molecular testing Assess/Plan/Problems-Billing Assessment: Mr Blake is a 60 yo M with h/o psychosis, DM2, seizures and HTN who lives in a structured community for pt's with chronic psychiatric problems presented to the ER with c/o SOB. - Patient Problems (1) Pneumonia Comment: with fever, leukocytosis and bronchospasm. cont Azithro/Ceftriaxone cont duoneb (2) DM type 2 (diabetes mellitus, type 2) Comment: cont glipizide Cont ISS (3) HTN (hypertension) Comment: BP has been under fair control. Continue current medication regimen. (4) Psychotic disorder Comment: Stable- Continue clozapine d/w pt's nurse that pt appears lethargic. He is AAOx3, but does appear tired. his valproic acid levels were WNL in AM. I suspect pt may be just tired due to his ongoing illness. there are no focal neuro deficits, ammonia was 32 on . (5) Seizure disorder Comment: Depakote level was high at admission- suspect because it as checked 4 hrs after the last PO dose. this aM levels back to norm. Cont Depakote BID at 1000 mg (6) DVT prophylaxis Comment: lovenox
[2016-09-04] MEDS: Enoxaparin(*) 40 MG/0.4 ML SYR SUBCUT SCH (15:45)
[2016-09-04] MEDS: Azithromycin IV(*) 500 MG in NS 0.9% 250 ML* 250 ML IVPB SCH (15:45)
[2016-09-04] MEDS: cefTRIAXone VIAL(*) 1,000 MG in NS 0.9% 50 ML* 50 ML IVPB SCH (17:46)
[2016-09-04] MEDS: Nicotine Patch Removal NOTE PATCH OFF SCH (21:00)
[2016-09-05] MEDS: Albuterol/Ipratropium NEB.SOL* Albuterol 2.5 MG/Ipratropium 0.5 MG 3 ML INH SCH ×2 (01:05→07:28)
[2016-09-05 07:10] LABS: Hematocrit 30 % (42-52); Mean Corpuscular HGB Conc 34 g/dl (31-36); Mean Corpuscular Hemoglobin 31 pg (27-31); Mean Corpuscular Volume 93 fL (80-94); Mean Platelet Volume 9 um3 (7.4-10.4); Red Cell Distribution Width 13 % (10.5-15)
[2016-09-05 07:24] LABS: BUN/Creatinine Ratio 17.5 (8-20); EGFR African American 125.6 (>60); EGFR Non-African American 97.6 (>60); Potassium 4.2 mmol/L (3.5-5.0)
[2016-09-05] MEDS: Insulin LISPRO* 1 UNITS UNIT SUBCUT SCH ×3 (09:57→17:08)
[2016-09-05] MEDS: CloZAPine TAB* 100 MG TAB PO SCH ×2 (10:04→21:13)
[2016-09-05] MEDS: Divalproex DR TAB(*) 500 MG PO SCH ×2 (10:04→21:12)
[2016-09-05] MEDS: Omeprazole CAP* 20 MG PO SCH (10:04)
[2016-09-05] MEDS: clonazePAM TAB(*) 1 MG PO SCH ×2 (10:04→21:12)
[2016-09-05] MEDS: amLODIPine TAB* 5 MG PO SCH (10:05)
[2016-09-05] MEDS: glipiZIDE TAB.XL* 5 MG PO SCH (10:05)
[2016-09-05] MEDS: Lisinopril TAB* 10 MG PO SCH (10:05)
[2016-09-05] MEDS: Atorvastatin* 20 MG TAB PO SCH (10:05)
[2016-09-05] MEDS ORDERED: Albuterol 2.5 MG/3 ML NEB.SOL* (0.083%) INH PRN (10:07)
[2016-09-05] MEDS: Nicotine PATCH 14 MG/24 HR* PATCH TRANSDERM SCH (10:08)
[2016-09-05] MEDS ORDERED: Senna TAB PO PRN (11:20)
[2016-09-05] MEDS ORDERED: Docusate CAP* 100 MG PO PRN (11:20)
[2016-09-05] MEDS: Polyethylene Glycol 3350* 17 GM PACKET PO SCH (13:05)
--- NOTE | 2016-09-05 13:59 | PN ---
Subjective Date of Service: 09/05/16 Interval History: Patient seen this morning. Says overall he is continuing to improve. Breathing easier. Still with productive cough. Has not felt fever/chills. Moved bowels this morning. Eating OK. Family History: Unchanged from Admission Social History: Unchanged from Admission Past Medical History: Unchanged from Admission Objective Active Medications: Acetaminophen (Tylenol Tab*) 650 mg PO Q4H PRN Albuterol (Ventolin 2.5 Mg/3 Ml Neb.Mandy*) 2.5 mg INH Q4H PRN Amlodipine Besylate (Norvasc Tab*) 5 mg PO DAILY [facility] Atorvastatin Calcium (Lipitor*) 20 mg PO DAILY [facility] Clonazepam (Klonopin Tab(*)) 1 mg PO BID [facility] Clozapine (Clozapine Tab*) 300 mg PO QAM [facility] Clozapine (Clozapine Tab*) 500 mg PO BEDTIME [facility] Dextrose (D50w Syringe 50 Ml*) 12.5 gm IV PUSH .FOR FS < 60 - SS PRN Divalproex Sodium (Depakote Dr Tab(*)) 1,000 mg PO BID [facility] Docusate Sodium (Colace Cap*) 100 mg PO BID PRN Enoxaparin Sodium (Lovenox(*)) 40 mg SUBCUT Q24H [facility] Glipizide (Glucotrol Xl*) 5 mg PO DAILY WITH MEAL [facility] Ceftriaxone Sodium 1,000 mg/ (Sodium Chloride) 50 mls @ 200 mls/hr IVPB Q24H [facility] Insulin Human Lispro (Humalog*) 0 units SUBCUT AC [facility] Lisinopril (Prinivil Tab*) 20 mg PO QAM [facility] Nicotine (Nicotine Patch 14 Mg/24 Hr*) 1 patch TRANSDERM DAILY [facility] Omeprazole (Prilosec Cap*) 40 mg PO DAILY [facility] Pharmacy Profile Note (Nicotine Patch Removal Note*) 1 note PATCH OFF 2100 [facility] Polyethylene Glycol/Electrolytes (Miralax*) 17 gm PO DAILY [facility] Senna (Senokot Tab*) 1 tab PO DAILY PRN Vital Signs 09/04/16 09/04/16 09/04/16 14:46 16:07 16:46 Temperature 97.8 F Pulse Rate 97 Respiratory 16 18 18 Rate Blood Pressure 132/64 (mmHg) O2 Sat by Pulse 96 Oximetry 09/04/16 09/04/16 09/05/16 22:56 23:55 07:34 Temperature 98.2 F Pulse Rate 94 91 Respiratory 22 24 20 Rate Blood Pressure 132/68 (mmHg) O2 Sat by Pulse 96 98 Oximetry 09/05/16 09/05/16 09/05/16 08:00 08:11 10:04 Temperature 98.4 F Pulse Rate 89 Respiratory 16 17 16 Rate Blood Pressure 135/70 (mmHg) O2 Sat by Pulse 97 97 Oximetry Oxygen Devices in Use Now: Nasal Cannula - at 3 L Appearance: Middle-aged, M, sitting in chair in NAD Eyes: No Scleral Icterus Ears/Nose/Mouth/Throat: Mucous Membranes Moist Neck: NL Appearance and Movements; NL JVP Respiratory: Symmetrical Chest Expansion and Respiratory Effort, - - BS somewhat distant throughout, do not appreciate and wheezes or rales Cardiovascular: NL Sounds; No Murmurs; No JVD, RRR Abdominal: NL Sounds; No Tenderness; No Distention Lymphatic: No Cervical Adenopathy Extremities: No Edema Skin: No Rash or Ulcers Neurological: Alert and Oriented x 3 Result Diagrams: 09/05/16 06:34 09/05/16 06:34 Microbiology and Other Data: Assess/Plan/Problems-Billing Assessment: Mr Blake is a 60 yo M with h/o psychosis, DM2, seizures and HTN who lives in a structured community for pt's with chronic psychiatric problems presented to the ER with c/o SOB found to have PNA - Patient Problems (1) Pneumonia Current Visit: Yes Comment: with fever, leukocytosis and bronchospasm. cont Ceftriaxone S/P 1.5 g Azithromycin, will stop cont duoneb Wean o2 (2) DM type 2 (diabetes mellitus, type 2) Current Visit: No Comment: cont glipizide Cont ISS (3) HTN (hypertension) Current Visit: No Comment: BP has been under fair control. Continue current medication regimen. (4) Psychotic disorder Current Visit: No Comment: Stable- Continue clozapine (5) Seizure disorder Current Visit: No Comment: Depakote level was high at admission- suspect because it as checked 4 hrs after the last PO dose. 09/04 recheck WNL. Cont Depakote BID at 1000 mg (6) DVT prophylaxis Current Visit: No Comment: lovenox
[2016-09-05] MEDS: Enoxaparin(*) 40 MG/0.4 ML SYR SUBCUT SCH (16:56)
[2016-09-05] MEDS: cefTRIAXone VIAL(*) 1,000 MG in NS 0.9% 50 ML* 50 ML IVPB SCH (16:56)
[2016-09-05] MEDS: Nicotine Patch Removal NOTE PATCH OFF SCH (21:16)
[2016-09-06 07:47] LABS: 7-Aminoclonazepam 28.5 ng/mL; Clonazepam 10.1 ng/mL
[2016-09-06] MEDS: Nicotine PATCH 14 MG/24 HR* PATCH TRANSDERM SCH (08:13)
[2016-09-06] MEDS: CloZAPine TAB* 100 MG TAB PO SCH ×2 (08:13→21:12)
[2016-09-06] MEDS: Divalproex DR TAB(*) 500 MG PO SCH ×2 (08:13→21:10)
[2016-09-06] MEDS: Lisinopril TAB* 10 MG PO SCH (08:14)
[2016-09-06] MEDS: Omeprazole CAP* 20 MG PO SCH (08:14)
[2016-09-06] MEDS: clonazePAM TAB(*) 1 MG PO SCH ×2 (08:14→21:10)
[2016-09-06] MEDS: glipiZIDE TAB.XL* 5 MG PO SCH (08:14)
[2016-09-06] MEDS: Atorvastatin* 20 MG TAB PO SCH (08:14)
[2016-09-06] MEDS: amLODIPine TAB* 5 MG PO SCH (08:14)
[2016-09-06] MEDS: Polyethylene Glycol 3350* 17 GM PACKET PO SCH (08:16)
[2016-09-06] MEDS: Insulin LISPRO* 1 UNITS UNIT SUBCUT SCH ×3 (09:01→16:55)
[2016-09-06 13:25] LABS: PCO2 Arterial 33 mmHg (35-45)
--- NOTE | 2016-09-06 14:40 | PN ---
Subjective Date of Service: 09/06/16 Interval History: Patient seen this morning. More lethargic today. Able to answer questions. Speech slightly more slurred than baseline. Falling asleep at times during interview. Reports cough and breathing is stable. No fever or chills. Family History: Unchanged from Admission Social History: Unchanged from Admission Past Medical History: Unchanged from Admission Objective Active Medications: Acetaminophen (Tylenol Tab*) 650 mg PO Q4H PRN PRN Reason: FEVER/PAIN Albuterol (Ventolin 2.5 Mg/3 Ml Neb.Mandy*) 2.5 mg INH Q4H PRN PRN Reason: SOB/WHEEZING Amlodipine Besylate (Norvasc Tab*) 5 mg PO DAILY [facility] Last Admin: 09/06/16 08:14 Dose: 5 mg Atorvastatin Calcium (Lipitor*) 20 mg PO DAILY [facility] Last Admin: 09/06/16 08:14 Dose: 20 mg Clonazepam (Klonopin Tab(*)) 1 mg PO BID [facility] Last Admin: 09/06/16 08:14 Dose: 1 mg Clozapine (Clozapine Tab*) 300 mg PO QAM [facility] Last Admin: 09/06/16 08:13 Dose: 300 mg Clozapine (Clozapine Tab*) 500 mg PO BEDTIME [facility] Last Admin: 09/05/16 21:13 Dose: 500 mg Dextrose (D50w Syringe 50 Ml*) 12.5 gm IV PUSH .FOR FS < 60 - SS PRN PRN Reason: FS < 60 Divalproex Sodium (Depakote Dr Tab(*)) 1,000 mg PO BID [facility] Last Admin: 09/06/16 08:13 Dose: 1,000 mg Docusate Sodium (Colace Cap*) 100 mg PO BID PRN PRN Reason: CONSTIPATION Enoxaparin Sodium (Lovenox(*)) 40 mg SUBCUT Q24H [facility] Last Admin: 09/05/16 16:56 Dose: 40 mg Glipizide (Glucotrol Xl*) 5 mg PO DAILY WITH MEAL [facility] Last Admin: 09/06/16 08:14 Dose: 5 mg Ceftriaxone Sodium 1,000 mg/ (Sodium Chloride) 50 mls @ 200 mls/hr IVPB Q24H [facility] Last Admin: 09/05/16 16:56 Dose: 200 mls/hr Insulin Human Lispro (Humalog*) 0 units SUBCUT AC [facility] PRN Reason: Protocol Last Admin: 09/06/16 12:28 Dose: 2 units Lisinopril (Prinivil Tab*) 20 mg PO QAM [facility] Last Admin: 09/06/16 08:14 Dose: 20 mg Nicotine (Nicotine Patch 14 Mg/24 Hr*) 1 patch TRANSDERM DAILY [facility] Last Admin: 09/06/16 08:13 Dose: 1 patch Omeprazole (Prilosec Cap*) 40 mg PO DAILY [facility] Last Admin: 09/06/16 08:14 Dose: 40 mg Pharmacy Profile Note (Nicotine Patch Removal Note*) 1 note PATCH OFF 2100 [facility] Last Admin: 09/05/16 21:16 Dose: 1 note Polyethylene Glycol/Electrolytes (Miralax*) 17 gm PO DAILY [facility] Last Admin: 09/06/16 08:16 Dose: Not Given Senna (Senokot Tab*) 1 tab PO DAILY PRN PRN Reason: CONSTIPATION Vital Signs 09/05/16 09/05/16 09/05/16 15:20 16:57 21:12 Temperature 96.7 F Pulse Rate 94 Respiratory 20 20 Rate Blood Pressure 133/66 (mmHg) O2 Sat by Pulse 97 98 Oximetry 09/05/16 09/05/16 09/06/16 23:12 23:26 02:58 Temperature Pulse Rate 103 Respiratory 18 24 18 Rate Blood Pressure 137/62 (mmHg) O2 Sat by Pulse 93 Oximetry 09/06/16 09/06/16 09/06/16 07:23 08:00 08:14 Temperature 99.6 F Pulse Rate 108 Respiratory 20 18 18 Rate Blood Pressure 134/56 (mmHg) O2 Sat by Pulse 93 93 Oximetry 09/06/16 09/06/16 09/06/16 08:48 10:14 11:27 Temperature Pulse Rate 88 108 Respiratory 16 16 Rate Blood Pressure (mmHg) O2 Sat by Pulse 94 93 Oximetry Oxygen Devices in Use Now: None Appearance: Middle-aged, M, laying in bed, lethargic but arousable Eyes: No Scleral Icterus Ears/Nose/Mouth/Throat: Mucous Membranes Moist Neck: NL Appearance and Movements; NL JVP Respiratory: Symmetrical Chest Expansion and Respiratory Effort, Clear to Auscultation Cardiovascular: NL Sounds; No Murmurs; No JVD, RRR Abdominal: NL Sounds; No Tenderness; No Distention Lymphatic: No Cervical Adenopathy Extremities: No Edema Skin: No Rash or Ulcers Neurological: - - Lethargic, arousable and answers questions appropriately, no focal deficits Result Diagrams: 09/05/16 06:34 09/05/16 06:34 Additional Lab and Data: Microbiology and Other Data: Assess/Plan/Problems-Billing Assessment: Mr Blake is a 60 yo M with h/o psychosis, DM2, seizures and HTN who lives in a structured community for pt's with chronic psychiatric problems presented to the ER with c/o SOB found to have PNA - Patient Problems (1) Pneumonia Current Visit: Yes Comment: with fever, leukocytosis and bronchospasm. cont Ceftriaxone S/P 1.5 g Azithromycin cont duoneb Wean o2 (2) Lethargy Current Visit: Yes Comment: ABG does not show CO2 retention. Previous lab work this admission normal. Spoke with Audie wylie Verden who expressed concerns about the patient's psych medication regimen from last admission contributing to lethargy. Spoke with Dr. Sky who will evaluate the patient in AM. Requested that we continue current dosing for now. (3) DM type 2 (diabetes mellitus, type 2) Current Visit: No Comment: cont glipizide Cont ISS (4) HTN (hypertension) Current Visit: No Comment: BP has been under fair control. Continue current medication regimen. (5) Psychotic disorder Current Visit: No Comment: Stable- Continue clozapine as above (6) Seizure disorder Current Visit: No Comment: Depakote level was high at admission- suspect because it as checked 4 hrs after the last PO dose. 09/04 recheck WNL. Cont Depakote BID at 1000 mg (7) DVT prophylaxis Current Visit: No Comment: lovenox
[2016-09-06] MEDS: cefTRIAXone VIAL(*) 1,000 MG in NS 0.9% 50 ML* 50 ML IVPB SCH (16:11)
[2016-09-06] MEDS: Enoxaparin(*) 40 MG/0.4 ML SYR SUBCUT SCH (16:12)
[2016-09-06] MEDS: Nicotine Patch Removal NOTE PATCH OFF SCH (21:14)
[2016-09-07] MEDS: Insulin LISPRO* 1 UNITS UNIT SUBCUT SCH ×3 (07:48→17:49)
[2016-09-07] MEDS: Polyethylene Glycol 3350* 17 GM PACKET PO SCH (08:15)
[2016-09-07] MEDS: clonazePAM TAB(*) 1 MG PO SCH (08:22)
[2016-09-07] MEDS: Omeprazole CAP* 20 MG PO SCH (08:22)
[2016-09-07] MEDS: amLODIPine TAB* 5 MG PO SCH (08:22)
[2016-09-07] MEDS: Nicotine PATCH 14 MG/24 HR* PATCH TRANSDERM SCH (08:23)
[2016-09-07] MEDS: Divalproex DR TAB(*) 500 MG PO SCH ×2 (08:23→22:40)
[2016-09-07] MEDS: Lisinopril TAB* 10 MG PO SCH (08:23)
[2016-09-07] MEDS: glipiZIDE TAB.XL* 5 MG PO SCH (08:23)
[2016-09-07] MEDS: Atorvastatin* 20 MG TAB PO SCH (08:23)
[2016-09-07] MEDS: CloZAPine TAB* 100 MG TAB PO SCH ×2 (08:23→22:40)
--- NOTE | 2016-09-07 10:46 | PN ---
Subjective Date of Service: 09/07/16 Interval History: Patient seen this morning. Still very lethargic. Says he feels a bit SOB and still coughing up "globs of white". No fever or chills. Had breakfast this morning. Family History: Unchanged from Admission Social History: Unchanged from Admission Past Medical History: Unchanged from Admission Objective Active Medications: Acetaminophen (Tylenol Tab*) 650 mg PO Q4H PRN Albuterol (Ventolin 2.5 Mg/3 Ml Neb.Mandy*) 2.5 mg INH Q4H PRN Amlodipine Besylate (Norvasc Tab*) 5 mg PO DAILY [facility] Atorvastatin Calcium (Lipitor*) 20 mg PO DAILY [facility] Clonazepam (Klonopin Tab(*)) 1 mg PO BID [facility] Clozapine (Clozapine Tab*) 300 mg PO QAM [facility] Clozapine (Clozapine Tab*) 500 mg PO BEDTIME [facility] Dextrose (D50w Syringe 50 Ml*) 12.5 gm IV PUSH .FOR FS < 60 - SS PRN Divalproex Sodium (Depakote Dr Tab(*)) 1,000 mg PO BID [facility] Docusate Sodium (Colace Cap*) 100 mg PO BID PRN Enoxaparin Sodium (Lovenox(*)) 40 mg SUBCUT Q24H [facility] Glipizide (Glucotrol Xl*) 5 mg PO DAILY WITH MEAL [facility] Ceftriaxone Sodium 1,000 mg/ (Sodium Chloride) 50 mls @ 200 mls/hr IVPB Q24H [facility] Insulin Human Lispro (Humalog*) 0 units SUBCUT AC [facility] Lisinopril (Prinivil Tab*) 20 mg PO QAM [facility] Nicotine (Nicotine Patch 14 Mg/24 Hr*) 1 patch TRANSDERM DAILY [facility] Omeprazole (Prilosec Cap*) 40 mg PO DAILY [facility] Pharmacy Profile Note (Nicotine Patch Removal Note*) 1 note PATCH OFF 2100 [facility] Polyethylene Glycol/Electrolytes (Miralax*) 17 gm PO DAILY [facility] Senna (Senokot Tab*) 1 tab PO DAILY PRN Vital Signs 09/06/16 09/06/16 09/06/16 11:27 15:57 21:10 Temperature 97.2 F Pulse Rate 108 107 Respiratory 20 18 Rate Blood Pressure 133/66 (mmHg) O2 Sat by Pulse 93 94 Oximetry 09/06/16 09/06/16 09/07/16 23:06 23:10 00:20 Temperature 98.8 F Pulse Rate 110 100 Respiratory 20 18 24 Rate Blood Pressure 124/56 (mmHg) O2 Sat by Pulse 95 97 Oximetry 09/07/16 09/07/16 09/07/16 01:15 06:42 07:13 Temperature 97.4 F Pulse Rate 97 Respiratory 18 22 18 Rate Blood Pressure 128/71 (mmHg) O2 Sat by Pulse 97 Oximetry Oxygen Devices in Use Now: None Appearance: Middle-aged, M, sitting in chair, slumped to the R, arousable Eyes: No Scleral Icterus Ears/Nose/Mouth/Throat: Mucous Membranes Moist Neck: NL Appearance and Movements; NL JVP Respiratory: Symmetrical Chest Expansion and Respiratory Effort, - - Somewhat diminished in bases but otherwise clear, no wheezing or ronchi Cardiovascular: NL Sounds; No Murmurs; No JVD, RRR Abdominal: NL Sounds; No Tenderness; No Distention Lymphatic: No Cervical Adenopathy Extremities: No Edema Skin: No Rash or Ulcers Neurological: - - Lethargic but arousable, oriented x3, no focal deficits Result Diagrams: 09/05/16 06:34 09/05/16 06:34 Additional Lab and Data: Microbiology and Other Data: Assess/Plan/Problems-Billing Assessment: Mr Blake is a 60 yo M with h/o psychosis, DM2, seizures and HTN who lives in a structured community for pt's with chronic psychiatric problems presented to the ER with c/o SOB found to have PNA - Patient Problems (1) Pneumonia Current Visit: Yes Comment: with fever, leukocytosis and bronchospasm. cont Ceftriaxone (Day 6) S/P 1.5 g Azithromycin cont duoneb Off O2 (2) Lethargy Current Visit: Yes Comment: Continues to be lethargic today. Psych to evaluate need for medication adjustments. (3) DM type 2 (diabetes mellitus, type 2) Current Visit: No Comment: cont glipizide Cont ISS (4) HTN (hypertension) Current Visit: No Comment: BP has been under fair control. Continue current medication regimen. (5) Psychotic disorder Current Visit: No Comment: Stable- Continue clozapine as above (6) Seizure disorder Current Visit: No Comment: Depakote level was high at admission- suspect because it as checked 4 hrs after the last PO dose. 09/04 recheck WNL. Cont Depakote BID at 1000 mg (7) DVT prophylaxis Current Visit: No Comment: lovenox
--- NOTE | 2016-09-07 11:57 | CONSULT ---
Identification - Patient Identification Reason for Psychiatric Consultation: Other - Obtunded behavior -: Patient is a 61 year old, M admitted on 09/02/16. - MHU Identification Employment Status: Disabled Hx Psychiatric Hospitalization: Yes History - Objective HPI: The patient is a 61 y.o. single, white, disabled male with a history of chronic bipolarity, recently treated on the [facility] for acute sangita, who is seen for consultation on the 4-N unit, where he is currently hospitalized for acute pneumonia, due to concerns for somnolent, obtunded cognitive status. The primary team is aware that we recently increased his clozapine and clonazepam due to his manic presentation and they are concerned these medications may be contributing to his low levels of arousal. At the time of his recent discharge , on August 29, 2016, his clozapine dose was 300mg in the morning and 600mg at night, while his clonazepam was 1mg PO BID. Dr. Vinicio Duran, the patient's psychiatrist at [facility], reduced evening clozapine to 500mg, presumably due to sedation. On exam the patient is asleep in a chair. He is easily arousable and greets me by name, demonstrating an intact short-term memory. He states "This pneumonia has really kicked my butt. I can hardly walk. Have you talked to Melisa [his mother]?" The patient denies AH, VH, SI or HI. He says he returned to the [facility] after his recent discharge and started feeling ill shortly thereafter. He denies any formal mental health complaints at this time. Lab Results: Laboratory Tests 09/02/16 09/02/16 09/02/16 16:00 17:00 17:55 WBC RBC Hgb Hct MCV MCH MCHC RDW Plt Count MPV Neut % (Auto) Lymph % (Auto) Mccracken % (Auto) Eos % (Auto) Baso % (Auto) Absolute Neuts (auto) Absolute Lymphs (auto) Absolute Monos (auto) Absolute Eos (auto) Absolute Basos (auto) Absolute Nucleated RBC Nucleated RBC % ABG pH ABG pCO2 ABG pO2 ABG HCO3 ABG O2 Saturation ABG Base Excess Sodium Potassium Chloride Carbon Dioxide Anion Gap BUN Creatinine Est GFR ( Amer) Est GFR (Non-Af Amer) BUN/Creatinine Ratio Glucose POC Glucose (mg/dL) Lactic Acid 1.0 Calcium Ammonia 32 Valproic Acid Influenza A (Rapid) Negative Influenza B (Rapid) Negative 09/02/16 09/03/16 09/03/16 18:19 07:33 07:33 WBC 12.5 H RBC 3.18 L Hgb 9.9 L Hct 30 L MCV 94 MCH 31 MCHC 33 RDW 13 Plt Count 154 MPV 9 Neut % (Auto) 79.1 Lymph % (Auto) 11.7 L Mccracken % (Auto) 8.4 Eos % (Auto) 0.7 Baso % (Auto) 0.1 Absolute Neuts (auto) 9.9 H Absolute Lymphs (auto) 1.5 Absolute Monos (auto) 1.0 H Absolute Eos (auto) 0.1 Absolute Basos (auto) 0 Absolute Nucleated RBC 0 Nucleated RBC % 0 ABG pH ABG pCO2 ABG pO2 ABG HCO3 ABG O2 Saturation ABG Base Excess Sodium 138 Potassium 3.9 Chloride 109 Carbon Dioxide 20 L Anion Gap 9 BUN 14 Creatinine 0.79 Est GFR ( Amer) 127.4 Est GFR (Non-Af Amer) 99.1 BUN/Creatinine Ratio 17.7 Glucose 140 H POC Glucose (mg/dL) 102 Lactic Acid Calcium 8.5 L Ammonia Valproic Acid 50.0 Influenza A (Rapid) Influenza B (Rapid) 09/03/16 09/03/16 09/03/16 07:41 11:28 17:08 WBC RBC Hgb Hct MCV MCH MCHC RDW Plt Count MPV Neut % (Auto) Lymph % (Auto) Mccracken % (Auto) Eos % (Auto) Baso % (Auto) Absolute Neuts (auto) Absolute Lymphs (auto) Absolute Monos (auto) Absolute Eos (auto) Absolute Basos (auto) Absolute Nucleated RBC Nucleated RBC % ABG pH ABG pCO2 ABG pO2 ABG HCO3 ABG O2 Saturation ABG Base Excess Sodium Potassium Chloride Carbon Dioxide Anion Gap BUN Creatinine Est GFR ( Amer) Est GFR (Non-Af Amer) BUN/Creatinine Ratio Glucose POC Glucose (mg/dL) 158 H 138 H 153 H Lactic Acid Calcium Ammonia Valproic Acid Influenza A (Rapid) Influenza B (Rapid) 09/04/16 09/04/16 09/04/16 05:43 07:39 11:31 WBC RBC Hgb Hct MCV MCH MCHC RDW Plt Count MPV Neut % (Auto) Lymph % (Auto) Mccracken % (Auto) Eos % (Auto) Baso % (Auto) Absolute Neuts (auto) Absolute Lymphs (auto) Absolute Monos (auto) Absolute Eos (auto) Absolute Basos (auto) Absolute Nucleated RBC Nucleated RBC % ABG pH ABG pCO2 ABG pO2 ABG HCO3 ABG O2 Saturation ABG Base Excess Sodium Potassium Chloride Carbon Dioxide Anion Gap BUN Creatinine Est GFR ( Amer) Est GFR (Non-Af Amer) BUN/Creatinine Ratio Glucose POC Glucose (mg/dL) 155 H 172 H Lactic Acid Calcium Ammonia Valproic Acid 79.0 Influenza A (Rapid) Influenza B (Rapid) 09/04/16 09/05/16 09/05/16 17:38 06:34 06:34 WBC 8.0 RBC 3.20 L Hgb 10.0 L Hct 30 L MCV 93 MCH 31 MCHC 34 RDW 13 Plt Count 185 MPV 9 Neut % (Auto) Lymph % (Auto) Mccracken % (Auto) Eos % (Auto) Baso % (Auto) Absolute Neuts (auto) Absolute Lymphs (auto) Absolute Monos (auto) Absolute Eos (auto) Absolute Basos (auto) Absolute Nucleated RBC Nucleated RBC % ABG pH ABG pCO2 ABG pO2 ABG HCO3 ABG O2 Saturation ABG Base Excess Sodium 142 Potassium 4.2 Chloride 111 Carbon Dioxide 25 Anion Gap 6 BUN 14 Creatinine 0.80 Est GFR ( Amer) 125.6 Est GFR (Non-Af Amer) 97.6 BUN/Creatinine Ratio 17.5 Glucose 130 H POC Glucose (mg/dL) 119 H Lactic Acid Calcium 9.0 Ammonia Valproic Acid Influenza A (Rapid) Influenza B (Rapid) 09/05/16 09/05/16 09/05/16 07:41 12:04 16:59 WBC RBC Hgb Hct MCV MCH MCHC RDW Plt Count MPV Neut % (Auto) Lymph % (Auto) Mccracken % (Auto) Eos % (Auto) Baso % (Auto) Absolute Neuts (auto) Absolute Lymphs (auto) Absolute Monos (auto) Absolute Eos (auto) Absolute Basos (auto) Absolute Nucleated RBC Nucleated RBC % ABG pH ABG pCO2 ABG pO2 ABG HCO3 ABG O2 Saturation ABG Base Excess Sodium Potassium Chloride Carbon Dioxide Anion Gap BUN Creatinine Est GFR ( Amer) Est GFR (Non-Af Amer) BUN/Creatinine Ratio Glucose POC Glucose (mg/dL) 148 H 168 H 150 H Lactic Acid Calcium Ammonia Valproic Acid Influenza A (Rapid) Influenza B (Rapid) 09/06/16 09/06/16 09/06/16 08:13 12:00 13:10 WBC RBC Hgb Hct MCV MCH MCHC RDW Plt Count MPV Neut % (Auto) Lymph % (Auto) Mccracken % (Auto) Eos % (Auto) Baso % (Auto) Absolute Neuts (auto) Absolute Lymphs (auto) Absolute Monos (auto) Absolute Eos (auto) Absolute Basos (auto) Absolute Nucleated RBC Nucleated RBC % ABG pH 7.46 H ABG pCO2 33 L ABG pO2 64 L ABG HCO3 24.9 ABG O2 Saturation 91.6 L ABG Base Excess 0.2 Sodium Potassium Chloride Carbon Dioxide Anion Gap BUN Creatinine Est GFR ( Amer) Est GFR (Non-Af Amer) BUN/Creatinine Ratio Glucose POC Glucose (mg/dL) 238 H 215 H Lactic Acid Calcium Ammonia Valproic Acid Influenza A (Rapid) Influenza B (Rapid) 09/06/16 09/07/16 16:20 07:41 WBC RBC Hgb Hct MCV MCH MCHC RDW Plt Count MPV Neut % (Auto) Lymph % (Auto) Mccracken % (Auto) Eos % (Auto) Baso % (Auto) Absolute Neuts (auto) Absolute Lymphs (auto) Absolute Monos (auto) Absolute Eos (auto) Absolute Basos (auto) Absolute Nucleated RBC Nucleated RBC % ABG pH ABG pCO2 ABG pO2 ABG HCO3 ABG O2 Saturation ABG Base Excess Sodium Potassium Chloride Carbon Dioxide Anion Gap BUN Creatinine Est GFR ( Amer) Est GFR (Non-Af Amer) BUN/Creatinine Ratio Glucose POC Glucose (mg/dL) 171 H 141 H Lactic Acid Calcium Ammonia Valproic Acid Influenza A (Rapid) Influenza B (Rapid) Exam Appearance: Well Developed/Nourished Hygiene: Normal Grooming: Disheveled Psychomotor Activities: Abnormal-Decreased Exhibits Abnormal Movement: No Attitude and Relatedness: Cooperative Eye Contact: Good - Speech Quality: Unpressured Latencies: Normal Quantity: Terse Patient's Decription of Mood: "Fine" Observed Affect: Fair Affect Consistent with: Euthymia Patient's Thought Process: Coherent Thought Content: No Passive Wish, No Suicidal Planning, No Homicidal Ideation, No Paranoid Ideation Experiencing Hallucinations: No, Sensorium is Clear Type of Hallucinations: Visual: No, Auditory: No, Command: No Level of Consciousness: Lethargic Orientation: Yes Intact, Yes Orientated to Time, Yes Orientated to Place, Yes Orientated to Person Impulse Control: Intact Insight and Judgement: Fair Impression - Impression Clinical Impression: 61 y.o. single, white, disabled male with a history of chronic bipolar disorder , recently discharged from the [facility] on 08/29/16 following several weeks of inpatient stabilization for acute sangita, who is now hospitalized medically for pneumonia. The patient appears overly sedated and lethargic. He is pending rehab placement. Merits Inpatient Hospitalization: No Plan - Treatment Plan Treatment Plan: We recommend decrease in Klonopin and Clozaril dosing. Clonazepam is reduced to 0.5mg PO BID and clozapine is reduced to 200mg PO qam and 500mg PO qhs. Psychiatry is in support of plan to transfer to rehab. He would not benefit from psychiatric inpatient treatment at this time. Patient's outpatient psychiatric care remains in place at [facility]. Continued Medication Management: Continue Outpt Medication Medications: Current Medications Acetaminophen (Tylenol Tab*) 650 mg PO Q4H PRN PRN Reason: FEVER/PAIN Albuterol (Ventolin 2.5 Mg/3 Ml Neb.Mandy*) 2.5 mg INH Q4H PRN PRN Reason: SOB/WHEEZING Amlodipine Besylate (Norvasc Tab*) 5 mg PO DAILY [facility] Last Admin: 09/07/16 08:22 Dose: 5 mg Atorvastatin Calcium (Lipitor*) 20 mg PO DAILY [facility] Last Admin: 09/07/16 08:23 Dose: 20 mg Clonazepam (Klonopin Tab(*)) 1 mg PO BID [facility] Last Admin: 09/07/16 08:22 Dose: 1 mg Clozapine (Clozapine Tab*) 300 mg PO QAM [facility] Last Admin: 09/07/16 08:23 Dose: 300 mg Clozapine (Clozapine Tab*) 500 mg PO BEDTIME [facility] Last Admin: 09/06/16 21:12 Dose: 500 mg Dextrose (D50w Syringe 50 Ml*) 12.5 gm IV PUSH .FOR FS < 60 - SS PRN PRN Reason: FS < 60 Divalproex Sodium (Depakote Dr Tab(*)) 1,000 mg PO BID [facility] Last Admin: 09/07/16 08:23 Dose: 1,000 mg Docusate Sodium (Colace Cap*) 100 mg PO BID PRN PRN Reason: CONSTIPATION Enoxaparin Sodium (Lovenox(*)) 40 mg SUBCUT Q24H [facility] Last Admin: 09/06/16 16:12 Dose: 40 mg Glipizide (Glucotrol Xl*) 5 mg PO DAILY WITH MEAL [facility] Last Admin: 09/07/16 08:23 Dose: 5 mg Ceftriaxone Sodium 1,000 mg/ (Sodium Chloride) 50 mls @ 200 mls/hr IVPB Q24H [facility] Last Admin: 09/06/16 16:11 Dose: 200 mls/hr Insulin Human Lispro (Humalog*) 0 units SUBCUT AC [facility] PRN Reason: Protocol Last Admin: 09/07/16 07:48 Dose: Not Given Lisinopril (Prinivil Tab*) 20 mg PO QAM [facility] Last Admin: 09/07/16 08:23 Dose: 20 mg Nicotine (Nicotine Patch 14 Mg/24 Hr*) 1 patch TRANSDERM DAILY [facility] Last Admin: 09/07/16 08:23 Dose: 1 patch Omeprazole (Prilosec Cap*) 40 mg PO DAILY [facility] Last Admin: 09/07/16 08:22 Dose: 40 mg Pharmacy Profile Note (Nicotine Patch Removal Note*) 1 note PATCH OFF 2100 [facility] Last Admin: 09/06/16 21:14 Dose: 1 note Polyethylene Glycol/Electrolytes (Miralax*) 17 gm PO DAILY [facility] Last Admin: 09/07/16 08:15 Dose: Not Given Senna (Senokot Tab*) 1 tab PO DAILY PRN PRN Reason: CONSTIPATION - Discharge Plan Discharge Plan: Outpatient Follow Up Outpatient Program: [facility]
[2016-09-07 12:49] LABS: Clozapine 1990 ng/mL (>350); Norclozapine 431 ng/mL
[2016-09-07] MEDS: cefTRIAXone VIAL(*) 1,000 MG in NS 0.9% 50 ML* 50 ML IVPB SCH (16:23)
[2016-09-07] MEDS: Enoxaparin(*) 40 MG/0.4 ML SYR SUBCUT SCH (16:23)
[2016-09-07] MEDS: clonazePAM TAB(*) 0.5 MG PO SCH (22:40)
[2016-09-07] MEDS: Nicotine Patch Removal NOTE PATCH OFF SCH (22:46)
[2016-09-08] MEDS: Insulin LISPRO* 1 UNITS UNIT SUBCUT SCH ×3 (07:55→17:12)
[2016-09-08] MEDS: Nicotine PATCH 14 MG/24 HR* PATCH TRANSDERM SCH (08:48)
[2016-09-08] MEDS: Divalproex DR TAB(*) 500 MG PO SCH ×2 (08:49→21:43)
[2016-09-08] MEDS: Atorvastatin* 20 MG TAB PO SCH (08:49)
[2016-09-08] MEDS: clonazePAM TAB(*) 0.5 MG PO SCH ×2 (08:49→21:43)
[2016-09-08] MEDS: Polyethylene Glycol 3350* 17 GM PACKET PO SCH ×2 (08:49→08:56)
[2016-09-08] MEDS: Omeprazole CAP* 20 MG PO SCH (08:49)
[2016-09-08] MEDS: Lisinopril TAB* 10 MG PO SCH (08:49)
[2016-09-08] MEDS: CloZAPine TAB* 100 MG TAB PO SCH ×2 (08:50→21:42)
[2016-09-08] MEDS: amLODIPine TAB* 5 MG PO SCH (08:50)
[2016-09-08] MEDS: glipiZIDE TAB.XL* 5 MG PO SCH (08:50)
--- NOTE | 2016-09-08 09:58 | DCNOTE ---
Patient seen this morning. Mentation much improved. Evaluated by Dr. Sky yesterday. Still with mild cough, no fever, chills or SOB. On exam, talkative, alert, RRR, s1 and s2 present, no m/g/r, lungs CTA B/L, no w /r/r Called patient's residence and left a message for Audie who was not available. Discharge to [facility] today.
[2016-09-08] MEDS: cefTRIAXone VIAL(*) 1,000 MG in NS 0.9% 50 ML* 50 ML IVPB SCH (10:37)
--- NOTE | 2016-09-08 10:49 | DS ---
DATE OF ADMISSION: 09/02/2016. DATE OF DISCHARGE: 09/08/2016. PRIMARY CARE PHYSICIAN: Unknown. PRINCIPAL DISCHARGE DIAGNOSIS: Community-acquired pneumonia. SECONDARY DIAGNOSES: Bipolar disease with frequent manic episodes, diabetes, cognitive impairment, urinary incontinence, hypertension, benign prostatic hypertrophy. STUDIES DURING HOSPITALIZATION: Chest x-ray: Impression: Mild expiratory examination. No definit bran infiltrates. DISCHARGE MEDICATION REGIMEN: 1. Clozapine 200 mg by mouth in the morning, 500 mg by mouth at bedtime. 2. Colace 100 mg by mouth two times daily as needed for constipation. 3. Clonazepam 0.5 mg by mouth two times daily. 4. Atorvastatin 20 mg by mouth daily. 5. Loperamide 2 mg by mouth daily as needed for diarrhea. 6. Depakote 1000 mg by mouth two times daily. 7. Ibuprofen 600 mg by mouth every 8 hours as needed for pain. 8. Lisinopril 20 mg by mouth daily. 9. Multivitamin one tab daily. 10. Nicotine patch 14 mg transdermal daily. 11. Omeprazole 40 mg by mouth daily. 12. Amlodipine 5 mg by mouth daily. 13. Glipizide 5 mg by mouth daily. CONSULTANTS DURING HOSPITALIZATION: Dr. Elder Sky, Psychiatry. HISTORY OF PRESENT ILLNESS AND HOSPITAL SUMMARY: Please see the full history and physical by ELIA Sinclair for full details. Briefly, Mr. Blake is a 61-year- old male with a past medical histo ry as above who presented to the hospital with weakness and productive cough. He was found to be feb rile with a leukocytosis here and was diagnosed with pneumonia. He was started on IV antibiotics janeth huerta received his full course in the hospital. His respiratory symptoms improved. He was able to be w eaned off of oxygen and his white count normalized. On the days toward the end of the hospitalizati on, he became more lethargic. I spoke with one of the staff at [facility] named Audie huerta was concerned about recent psychiatric medication changes on his last admission. Dr. Sky was co nsulted and evaluated the patient and decreased his Clozapine from a total of 800 mg daily to 700 mg daily, and also decreased his Clonazepam from 1 mg by mouth two times daily to 0.5 mg by mouth two times daily. The patient's lethargy resolved. His seemed back to his baseline. He will be dischar wally to rehab facility for subacute rehab. Total time spent on this discharge was 45 minutes. This is a summary of the hospitalization, please see the full medical record for further details. [id number]/CPS #: [id number]
[2016-09-08] MEDS: Enoxaparin(*) 40 MG/0.4 ML SYR SUBCUT SCH (17:14)
[2016-09-08] MEDS: Nicotine Patch Removal NOTE PATCH OFF SCH (21:44)
[2016-09-09] MEDS: Atorvastatin* 20 MG TAB PO SCH (07:50)
[2016-09-09] MEDS: CloZAPine TAB* 100 MG TAB PO SCH (07:50)
[2016-09-09] MEDS: Lisinopril TAB* 10 MG PO SCH (07:51)
[2016-09-09] MEDS: Omeprazole CAP* 20 MG PO SCH (07:51)
[2016-09-09] MEDS: clonazePAM TAB(*) 0.5 MG PO SCH (07:51)
[2016-09-09] MEDS: glipiZIDE TAB.XL* 5 MG PO SCH (07:51)
[2016-09-09] MEDS: Divalproex DR TAB(*) 500 MG PO SCH (07:51)
[2016-09-09] MEDS: amLODIPine TAB* 5 MG PO SCH (07:51)
[2016-09-09] MEDS: Nicotine PATCH 14 MG/24 HR* PATCH TRANSDERM SCH (07:55)
[2016-09-09] MEDS: Polyethylene Glycol 3350* 17 GM PACKET PO SCH (07:59)
[2016-09-09] MEDS: Insulin LISPRO* 1 UNITS UNIT SUBCUT SCH (08:00)
[2016-09-09 08:09] VITALS: BP 149/80
[2016-09-09] MEDS: cefTRIAXone VIAL(*) 1,000 MG in NS 0.9% 50 ML* 50 ML IVPB SCH (09:17)
== END 2016-09-09 11:05 | DRG 139 ==
LOC: ED 11:46 → UNDOADMIN 15:18 → MED 15:18
PROVIDERS: ADMIT Hospitalist; ATTEND Hospitalist
DX: J18.8 Other pneumonia, unspecified organism (principal); F31.89 Other bipolar disorder; I10 Essential (primary) hypertension; E11.9 Type 2 diabetes mellitus without complications; G31.84 Mild cognitive impairment of uncertain or unknown etiology; N40.1 Benign prostatic hyperplasia with lower urinary tract symptoms; N39.498 Other specified urinary incontinence; F17.210 Nicotine dependence, cigarettes, uncomplicated; T42.6X5A Adverse effect of other antiepileptic and sedative-hypnotic drugs, initial encounter; Y92.239 Unspecified place in hospital as the place of occurrence of the external cause; G40.909 Epilepsy, unspecified, not intractable, without status epilepticus; Z79.1 Long term (current) use of non-steroidal anti-inflammatories (NSAID); Z79.899 Other long term (current) drug therapy; Z79.84 Long term (current) use of oral hypoglycemic drugs
CPT/HCPCS: 36415; 36600; 71020; 80048; 80053; 80159; 80164; 80346; 81003; 82140; 82803; 83036; 83605; 84145; 84484; 85025; 85027; 85610; 85652; 85730; 86140; 87040; 87502; 93005; 94640; 94760; 99406; A9270-GY; G0480; J0456; J0696; J1650

== ENCOUNTER 2016-11-24 02:15 | Emergency (ER) | payer OTHER ==
[2016-11-24 05:51] VITALS: BP 140/75
[2016-11-24 06:38] LABS: Red Blood Count 3.48 10^6/ul (4.0-5.4); White Blood Count 7.2 10^3/ul (3.5-10.8)
[2016-11-24 06:39] LABS: Hematocrit 33 % (42-52); Hemoglobin 10.9 g/dl (14.0-18.0); Mean Corpuscular HGB Conc 34 g/dl (31-36); Mean Corpuscular Hemoglobin 31 pg (27-31); Mean Corpuscular Volume 94 fL (80-94); Mean Platelet Volume 10 um3 (7.4-10.4); Red Cell Distribution Width 14 % (10.5-15)
[2016-11-24 06:50] LABS: BUN/Creatinine Ratio 23.5 (8-20); EGFR African American 117.1 (>60); Potassium 4.3 mmol/L (3.5-5.0)
[2016-11-24 06:51] LABS: Albumin 4.2 g/dL (3.2-5.2); Calcium 9.2 mg/dL (8.6-10.3); Globulin 2.5 g/dL (2-4); Magnesium 2.1 mg/dL (1.9-2.7); Phosphorus 4.1 mg/dL (2.5-5.0); Total Protein 6.7 g/dL (6.4-8.9)
[2016-11-24 06:52] LABS: HDL Cholesterol 33.8 mg/dL; Total Bilirubin 0.3 mg/dL (0.2-1.0)
--- NOTE | 2016-12-06 15:55 | ED ---
Roopa, DoctorCharmaine, scribed for Yesenia Caldwell MD on 11/24/16 at 0522 . HPI Chest Pain - HPI Summary HPI Summary: 61 year old male arrived to [facility] with chest pain starting 2-3 hours [employer]. Was given NTG x 1 and ASA by EMS, pain now 2/10. Pt is also unable to urinate and is experiencing chills; no PMHx of SC. - History of Current Complaint Hx Obtained From: Patient Onset/Duration: Started Hours Ago, Resolved Timing: Constant Initial Severity: Moderate Pain Intensity: 2 Pain Scale Used: 0-10 Numeric Chest Pain Location: Diffuse Chest Pain Radiates: No Character: Burning Aggravating Factor(s): Nothing Alleviating Factor(s): Nothing Associated Signs and Symptoms: Positive: Chest Pain, Chills, Other: - unable to urinate - Additional Pertinent History Primary Care Physician: [id number] - Allergy/Home Medications Allergies/Adverse Reactions: Allergies Allergy/AdvReac Type Severity Reaction Status Date / Time Benztropine Allergy Unknown Unknown Verified 08/15/16 17:06 Reaction Details Bupropion Allergy Unknown Unknown Verified 08/15/16 17:06 Reaction Details Fluoxetine Allergy Unknown Unknown Verified 08/15/16 17:06 Reaction Details Fluphenazine Allergy Unknown Unknown Verified 08/15/16 17:06 Reaction Details Haloperidol Allergy Unknown Unknown Verified 08/15/16 17:06 Reaction Details Thiothixene Allergy Unknown Unknown Verified 08/15/16 17:06 Reaction Details Trihexyphenidyl Allergy Unknown Unknown Verified 08/15/16 17:06 Reaction Details Diazepam AdvReac Mild See Comment Verified 08/15/16 17:06 Carbamazepine AdvReac Unknown Unknown Verified 08/15/16 17:06 Reaction Details PMH/Surg Hx/FS Hx/Imm Hx Endocrine/Hematology History: Reports: Hx Diabetes Denies: Hx Anticoagulant Therapy, Hx Thyroid Disease Cardiovascular History: Reports: Hx Angina, Hx Hypertension Denies: Hx Pacemaker/ICD Respiratory History: Denies: Hx Asthma, Hx Chronic Obstructive Pulmonary Disease (COPD) GI History: Reports: Hx Gastroesophageal Reflux Disease Denies: Hx Ulcer Comment Only: Other GI Disorders - Chronic constipation History: Reports: Hx Acute Renal Failure - secondary to lithium carbonate, Hx Benign Prostatic Hyperplasia, Other Problems/Disorders - Urinary incontinence Denies: Hx Renal Disease Musculoskeletal History: Denies: Hx Gout Sensory History: Denies: Hx Hearing Aid Neurological History: Reports: Hx Developmental Delay, Hx Headaches, Hx Seizures - hx of medication induced seizures Denies: Hx Dementia Psychiatric History: Reports: Hx Depression, Hx Panic Disorder, Hx Inpatient Treatment, Hx Community Mental Health Tx, Hx Schizophrenia, Hx Bipolar Disorder , Hx Suicide Attempt, Hx of Violent Episodes Against Others Denies: Hx Eating Disorder, Hx Substance Abuse - Surgical History Surgery Procedure, Year, and Place: RIGHT wrist, ring finger on right hand, penis as a baby. - Immunization History Date of Tetanus Vaccine: UNK Date of Influenza Vaccine: Fall 2011 Infectious Disease History: Denies: Hx Hepatitis, Hx Human Immunodeficiency Virus (HIV), History Other Infectious Disease, Traveled Outside the [place] in Last 30 Days - Family History Known Family History: Positive: Hypertension, Other - Alcoholism - Social History Alcohol Use: unk Substance Use Type: Reports: None Smoking Status (MU): Light Every Day Tobacco Smoker Type: Cigarettes Amount Used/How Often: 4-5/day Have You Smoked in the Last Year: Yes - states that he smoked a cigarette a few days ago Review of Systems Positive: Chills. Negative: Fever Positive: Chest Pain Respiratory: Negative Positive: other - unable to urinate Neurological: Negative Psychological: Normal All Other Systems Reviewed And Are Negative: Yes Physical Exam Triage Information Reviewed: Yes Vital Signs On Initial Exam: Initial Vitals Temp Pulse Resp BP 97.9 F 90 16 140/75 11/24/16 05:50 11/24/16 05:50 11/24/16 05:50 11/24/16 05:50 Vital Signs Reviewed: Yes Appearance: Positive: No Pain Distress, Well-Nourished, Ill-Appearing Skin: Positive: Warm, Skin Color Reflects Adequate Perfusion, Dry Head/Face: Positive: Normal Head/Face Inspection ENT: Positive: Normal ENT inspection, Hearing grossly normal. Negative: Muffled /hoarse voice Neck: Positive: Supple, Nontender Respiratory/Lung Sounds: Positive: Clear to Auscultation, Breath Sounds Present Cardiovascular: Positive: RRR, Pulses are Symmetrical in both Upper and Lower Extremities. Negative: Murmur Abdomen Description: Positive: Nontender, Soft. Negative: Distended, Guarding Bowel Sounds: Positive: Present Musculoskeletal: Positive: Normal, Strength/ROM Intact. Negative: Edema Left, Edema Right Neurological: Positive: Sensory/Motor Intact, Alert, Oriented to Person Place, Time. Negative: Facial Droop, Focal Deficit @, Slurred Speech Psychiatric: Positive: Normal Diagnostics - Vital Signs Vital Signs Temp Pulse Resp BP 11/24/16 05:50 97.9 F 90 16 140/75 - Laboratory Lab Results: Lab Results 11/24/16 11/24/16 11/24/16 Range/Units 02:35 02:35 02:35 WBC 7.2 (3.5-10.8) 10^3/ul RBC 3.48 L (4.0-5.4) 10^6/ul Hgb 10.9 L (14.0-18.0) g/dl Hct 33 L (42-52) % MCV 94 (80-94) fL MCH 31 (27-31) pg MCHC 34 (31-36) g/dl RDW 14 (10.5-15) % Plt Count 173 (150-450) 10^3/ul MPV 10 (7.4-10.4) um3 Neut % (Auto) 51.1 (38-83) % Lymph % (Auto) 37.1 (25-47) % Dukes % (Auto) 9.7 H (1-9) % Eos % (Auto) 1.6 (0-6) % Baso % (Auto) 0.5 (0-2) % Absolute Neuts (auto) 3.7 (1.5-7.7) 10^3/ul Absolute Lymphs (auto) 2.7 (1.0-4.8) 10^3/ul Absolute Monos (auto) 0.7 (0-0.8) 10^3/ul Absolute Eos (auto) 0.1 (0-0.6) 10^3/ul Absolute Basos (auto) 0 (0-0.2) 10^3/ul Absolute Nucleated RBC 0 10^3/ul Nucleated RBC % 0.2 INR (Anticoag Therapy) 0.98 (0.89-1.11) APTT 30.0 (26.0-36.3) seconds Sodium 136 (133-145) mmol/L Potassium 4.3 (3.5-5.0) mmol/L Chloride 105 (101-111) mmol/L Carbon Dioxide 22 (22-32) mmol/L Anion Gap 9 (2-11) mmol/L BUN 20 (6-24) mg/dL Creatinine 0.85 (0.67-1.17) mg/dL Est GFR ( Amer) 117.1 (>60) Est GFR (Non-Af Amer) 91.0 (>60) BUN/Creatinine Ratio 23.5 H (8-20) Glucose 108 H (70-100) mg/dL Calcium 9.2 (8.6-10.3) mg/dL Phosphorus 4.1 (2.5-5.0) mg/dL Magnesium 2.1 (1.9-2.7) mg/dL Total Bilirubin 0.30 (0.2-1.0) mg/dL AST 15 (13-39) U/L ALT 17 (7-52) U/L Alkaline Phosphatase 60 (34-104) U/L Lactate Dehydrogenase 158 (140-271) U/L Troponin I 0.00 (<0.04) ng/mL Total Protein 6.7 (6.4-8.9) g/dL Albumin 4.2 (3.2-5.2) g/dL Globulin 2.5 (2-4) g/dL Albumin/Globulin Ratio 1.7 (1-3) Triglycerides 272 mg/dL Cholesterol 116 mg/dL LDL Cholesterol 28 mg/dL HDL Cholesterol 33.8 mg/dL Result Diagrams: 11/24/16 02:35 11/24/16 02:35 Lab Statement: Any lab studies that have been ordered have been reviewed, and results considered in the medical decision making process. - EKG 0233 EKG Rhythm: Sinus Rhythm EKG Interpretation: normal SHALA CT, normal axis 22, no acute changes Re-Evaluation - Re-Evaluation First Eval Re-Evaluation Time: 05:00 Change: Improved - chest pain resolved, able to urinate. Pt wants to go home. Troponin neg. Chest Pain Course/Dx - Course Course Of Treatment: pt with CP, relieved with NTG, flat troponin, stable angina , hx GERD, hx chills, CXR neg, EKG unchanged. Had inability to urinate on psychiatric meds, able to urinate in ED. Lives in supervised setting. Stable for discharge, and agrees with discharge. - Chest Pain Differential Diagnosis/HQI/PQRI: Acute SC, Angina, Chest Wall, GI Disease, Lower Respiratory Infection - Diagnoses Provider Diagnoses: Chest pain - Critical Care Time Critical Care Time: 30-74 min - 30 mins Discharge - Discharge Plan Condition: Stable Disposition: HOME Referrals: No Primary Care Phys,NOPCP [Primary Care Provider] - [facility] [Outside] The documentation as recorded by the Doctor mercer Tahera accurately reflects the service I personally performed and the decisions made by , Yesenia Caldwell MD.
== END 2016-11-24 05:50 | disposition home or self-care (01) ==
LOC: ED 02:15
DX: R07.9 Chest pain, unspecified (principal); F17.210 Nicotine dependence, cigarettes, uncomplicated; E11.9 Type 2 diabetes mellitus without complications
CPT/HCPCS: 36415; 80053; 80061; 83615; 83735; 84100; 84484; 85025; 85610; 85730; 93005; 99284

== ENCOUNTER 2017-02-19 18:34 | Inpatient (IN) | payer OTHER ==
[2017-02-19 19:10] LABS: Urine Bilirubin Negative (Negative); Urine Glucose Negative (Negative); Urine Nitrite Negative (Negative)
[2017-02-19 19:28] LABS: Benzodiazepine Urine Screen None Detected (None Detect)
[2017-02-19 19:38] LABS: Hematocrit 35 % (42-52); Hemoglobin 11.7 g/dl (14.0-18.0); Mean Corpuscular HGB Conc 33 g/dl (31-36); Mean Corpuscular Hemoglobin 32 pg (27-31); Mean Corpuscular Volume 96 fL (80-94); Mean Platelet Volume 9 um3 (7.4-10.4); Red Blood Count 3.66 10^6/ul (4.0-5.4); Red Cell Distribution Width 13 % (10.5-15); White Blood Count 8.8 10^3/ul (3.5-10.8)
[2017-02-19 19:59] LABS: ALT 17 U/L (7-52); AST 11 U/L (13-39); Albumin 4.8 g/dL (3.2-5.2); Alkaline Phosphatase 64 U/L (34-104); Anion Gap 9 mmol/L (2-11); BUN/Creatinine Ratio 26.8 (8-20); Blood Urea Nitrogen 22 mg/dL (6-24); CO2 Carbon Dioxide 25 mmol/L (22-32); Calcium 9.9 mg/dL (8.6-10.3); Chloride 102 mmol/L (101-111); EGFR Non-African American 94.9 (>60); Glucose 109 mg/dL (70-100); Potassium 4.2 mmol/L (3.5-5.0); Sodium 136 mmol/L (133-145); Total Protein 7.8 g/dL (6.4-8.9)
[2017-02-19 20:07] LABS: Acetaminophen < 15 mcg/mL; Alcohol < 10 mg/dL (<10); Salicylate < 2.50 mg/dL (<30)
[2017-02-19 20:18] LABS: TSH (Thyroid Stimulating Horm) 2.87 mcIU/mL (0.34-5.60)
[2017-02-19] MEDS ORDERED: Calcium Carbonate CHEW TAB* 500 MG (TUMS) PO ONE (20:55)
[2017-02-19] MEDS ORDERED: LORazepam INJ* 2 MG/ML 1 ML VIAL IM ONE (22:02)
[2017-02-19] MEDS ORDERED: Haloperidol INJ IV/IM* 5 MG/ML AMP IM ONE (22:02)
[2017-02-19] MEDS ORDERED: diPHENhydraMINE IV* 50 MG/ML 1 ml VIAL (BENADRYL) IM ONE (22:02)
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
[2017-02-20] MEDS ORDERED: Nicotine GUM* 2 MG PO PRN (03:28)
[2017-02-20] MEDS ORDERED: Mouth Piece, Nicotine* 1 EACH CARTRIDGE INH SCH (03:28)
[2017-02-20] MEDS ORDERED: Acetaminophen TAB* 325 MG PO PRN (03:28)
[2017-02-20] MEDS ORDERED: Al Hydrox/Mg Hydrox/Simet LIQ* 30 ML UDC PO PRN (03:28)
[2017-02-20] MEDS ORDERED: Nicotine Inhaler* 10 MG AMP INH PRN (03:28)
[2017-02-20] MEDS ORDERED: Docusate CAP* 100 MG PO PRN (03:33)
[2017-02-20] MEDS: Ibuprofen TAB* 600 MG PO PRN ×2 (04:08→15:24)
[2017-02-20] MEDS: Omeprazole CAP* 20 MG PO SCH (09:28)
[2017-02-20] MEDS: Atorvastatin* 20 MG TAB PO SCH (09:29)
[2017-02-20] MEDS: CloZAPine TAB* 100 MG TAB PO SCH ×2 (09:29→21:28)
[2017-02-20] MEDS: glipiZIDE TAB* 5 MG PO SCH (09:29)
[2017-02-20] MEDS: amLODIPine TAB* 5 MG PO SCH (09:29)
[2017-02-20] MEDS: Divalproex DR TAB(*) 500 MG PO SCH ×2 (09:29→21:27)
[2017-02-20] MEDS: Vitamin THERAPEUTIC TAB PO SCH (09:30)
[2017-02-20] MEDS: Nicotine PATCH 21 MG/24 HR* PATCH TRANSDERM SCH (09:30)
[2017-02-20] MEDS ORDERED: chlorproMAZINE INJ* 25 MG/ML 2 ML (50 MG) IM ONE (16:28)
[2017-02-20] MEDS ORDERED: LORazepam INJ* 2 MG/ML 1 ML VIAL IM ONE (16:35)
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
[2017-02-20] MEDS: clonazePAM TAB(*) 0.5 MG PO SCH (21:27)
[2017-02-20] MEDS: Nicotine Patch Removal NOTE PATCH OFF SCH (21:33)
[2017-02-21] MEDS: Nicotine PATCH 21 MG/24 HR* PATCH TRANSDERM SCH (09:57)
[2017-02-21] MEDS: Omeprazole CAP* 20 MG PO SCH (09:58)
[2017-02-21] MEDS: glipiZIDE TAB* 5 MG PO SCH (09:59)
[2017-02-21] MEDS: CloZAPine TAB* 100 MG TAB PO SCH ×2 (09:59→21:19)
[2017-02-21] MEDS: Vitamin THERAPEUTIC TAB PO SCH (10:01)
[2017-02-21] MEDS: Divalproex DR TAB(*) 500 MG PO SCH ×2 (10:01→21:19)
[2017-02-21] MEDS: Atorvastatin* 20 MG TAB PO SCH (10:02)
[2017-02-21] MEDS: amLODIPine TAB* 5 MG PO SCH (10:02)
[2017-02-21] MEDS: clonazePAM TAB(*) 0.5 MG PO SCH ×2 (10:03→21:19)
[2017-02-21] MEDS: Ibuprofen TAB* 600 MG PO PRN ×2 (10:48→19:46)
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
[2017-02-21] MEDS: Nicotine Patch Removal NOTE PATCH OFF SCH (21:18)
[2017-02-22] MEDS: Omeprazole CAP* 20 MG PO SCH (07:14)
[2017-02-22 09:17] LABS: HDL Cholesterol 40.7 mg/dL
[2017-02-22] MEDS: Nicotine PATCH 21 MG/24 HR* PATCH TRANSDERM SCH (09:32)
[2017-02-22] MEDS: amLODIPine TAB* 5 MG PO SCH (09:32)
[2017-02-22] MEDS: CloZAPine TAB* 100 MG TAB PO SCH ×2 (09:33→20:18)
[2017-02-22] MEDS: Vitamin THERAPEUTIC TAB PO SCH (09:33)
[2017-02-22] MEDS: Divalproex DR TAB(*) 500 MG PO SCH ×2 (09:33→20:18)
[2017-02-22] MEDS: Atorvastatin* 20 MG TAB PO SCH (09:33)
[2017-02-22] MEDS: clonazePAM TAB(*) 0.5 MG PO SCH ×2 (09:34→20:18)
[2017-02-22] MEDS: glipiZIDE TAB* 5 MG PO SCH (09:34)
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
[2017-02-22] MEDS: Ibuprofen TAB* 600 MG PO PRN (14:50)
[2017-02-22] MEDS: Nicotine Patch Removal NOTE PATCH OFF SCH (20:19)
[2017-02-23] MEDS: Omeprazole CAP* 20 MG PO SCH (07:40)
[2017-02-23] MEDS: Nicotine PATCH 21 MG/24 HR* PATCH TRANSDERM SCH (07:41)
[2017-02-23] MEDS: Divalproex DR TAB(*) 500 MG PO SCH (09:28)
[2017-02-23] MEDS: Vitamin THERAPEUTIC TAB PO SCH (09:29)
[2017-02-23] MEDS: Atorvastatin* 20 MG TAB PO SCH (09:29)
[2017-02-23] MEDS: amLODIPine TAB* 5 MG PO SCH (09:29)
[2017-02-23] MEDS: clonazePAM TAB(*) 0.5 MG PO SCH (09:29)
[2017-02-23] MEDS: glipiZIDE TAB* 5 MG PO SCH (09:29)
[2017-02-23] MEDS: CloZAPine TAB* 100 MG TAB PO SCH (09:30)
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
[2017-02-24] MEDS: Divalproex DR TAB(*) 500 MG PO SCH ×2 (01:01→08:21)
[2017-02-24] MEDS: clonazePAM TAB(*) 0.5 MG PO SCH ×2 (01:02→08:21)
[2017-02-24] MEDS: CloZAPine TAB* 100 MG TAB PO SCH ×2 (01:02→08:21)
[2017-02-24] MEDS: Nicotine Patch Removal NOTE PATCH OFF SCH (01:03)
[2017-02-24 07:42] VITALS: BP 134/75
[2017-02-24] MEDS: Atorvastatin* 20 MG TAB PO SCH (08:20)
[2017-02-24] MEDS: Omeprazole CAP* 20 MG PO SCH (08:21)
[2017-02-24] MEDS: amLODIPine TAB* 5 MG PO SCH (08:22)
[2017-02-24] MEDS: glipiZIDE TAB* 5 MG PO SCH (08:22)
[2017-02-24] MEDS: Vitamin THERAPEUTIC TAB PO SCH (08:22)
[2017-02-24] MEDS: Nicotine PATCH 21 MG/24 HR* PATCH TRANSDERM SCH (08:22)
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
== END 2017-02-24 12:00 | disposition home or self-care (01) | DRG 750 ==
LOC: ED 18:34 → BSU 02-20 02:27
PROVIDERS: ADMIT Psychiatry & Neurology Psychiatry; ATTEND Psychiatry & Neurology Psychiatry
DX: F25.0 Schizoaffective disorder, bipolar type (principal); I10 Essential (primary) hypertension; E11.9 Type 2 diabetes mellitus without complications; D64.9 Anemia, unspecified; E78.5 Hyperlipidemia, unspecified; F31.9 Bipolar disorder, unspecified; N40.1 Benign prostatic hyperplasia with lower urinary tract symptoms; K21.9 Gastro-esophageal reflux disease without esophagitis; R32 Unspecified urinary incontinence; F41.0 Panic disorder [episodic paroxysmal anxiety]; Z91.5 Personal history of self-harm; R62.50 Unspecified lack of expected normal physiological development in childhood; Z82.49 Family history of ischemic heart disease and other diseases of the circulatory system; Z79.84 Long term (current) use of oral hypoglycemic drugs; Z72.0 Tobacco use; Z88.5 Allergy status to narcotic agent; Z88.8 Allergy status to other drugs, medicaments and biological substances; Z81.8 Family history of other mental and behavioral disorders; Z56.0 Unemployment, unspecified; Z81.1 Family history of alcohol abuse and dependence
CPT/HCPCS: 36415; 80053; 80061; 80164; 80307; 80320; 80329; 81003; 83036; 84443; 85025; 86703; 99222; 99231; 99238; A9270-GY; G0480; J1200; J1630; J2060

== ENCOUNTER 2017-04-24 10:19 | Emergency (ER) | payer OTHER ==
[2017-04-24] MEDS ORDERED: NS 0.9% 1000 ML* 1,000 ML IV ONE (11:00)
[2017-04-24 11:09] LABS: Hematocrit 32 % (42-52); Hemoglobin 10.6 g/dl (14.0-18.0); Mean Corpuscular HGB Conc 34 g/dl (31-36); Mean Corpuscular Hemoglobin 32 pg (27-31); Mean Corpuscular Volume 96 fL (80-94); Mean Platelet Volume 9 um3 (7.4-10.4); Red Cell Distribution Width 13 % (10.5-15); White Blood Count 9.2 10^3/ul (3.5-10.8)
[2017-04-24 11:12] LABS: Add Diff/Slide Review? Slide Review Added; Comments Flag Yes
[2017-04-24 11:28] LABS: ALT 13 U/L (7-52); AST 12 U/L (13-39); Albumin 4.3 g/dL (3.2-5.2); Alkaline Phosphatase 69 U/L (34-104); BUN/Creatinine Ratio 33.7 (8-20); Blood Urea Nitrogen 32 mg/dL (6-24); C Reactive Protein 3.57 mg/L (< 5.00); CO2 Carbon Dioxide 22 mmol/L (22-32); Calcium 9.5 mg/dL (8.6-10.3); Chloride 105 mmol/L (101-111); Creatine Kinase 92 U/L (10-223); EGFR Non-African American 80.1 (>60); Globulin 2.8 g/dL (2-4); Glucose 162 mg/dL (70-100); Magnesium 2.3 mg/dL (1.9-2.7); Sodium 136 mmol/L (133-145); Total Protein 7.1 g/dL (6.4-8.9)
[2017-04-24 11:36] LABS: Anion Gap 9 mmol/L (2-11); Potassium 5.2 mmol/L (3.5-5.0)
[2017-04-24 11:51] LABS: Alcohol < 10 mg/dL (<10)
[2017-04-24 12:01] LABS: TSH (Thyroid Stimulating Horm) 1.41 mcIU/mL (0.34-5.60)
[2017-04-24 12:12] LABS: Urine Bilirubin Negative (Negative); Urine Glucose 1+(50 mg/dL) (Negative); Urine Nitrite Negative (Negative)
[2017-04-24 13:43] VITALS: BP 123/67
--- NOTE | 2017-04-24 13:49 | ED ---
Ana Blas Alfonso, scribed for Audie Agustin MD on 04/24/17 at 1103 . Syncope/Near Syncope - HPI Summary HPI Summary: This patient is a 61 year old M BIBA to [facility] s/p a syncopal episode earlier today. Per EMS, the [place] a heavy winter coat. The patient rates the pain 0/10 in severity. Symptoms alleviated by spontaneous resolution. EMS reports head trauma, and diaphoresis. Patient reports dizziness. PMHx includes bipolar disorder, schizophrenia, HTN, and DM. - History Of Current Complaint Chief Complaint: EDDizziness Time Seen by Provider: 04/24/17 10:39 Hx Obtained From: Patient, EMS Onset/Duration: Sudden Onset, Lasting Hours, Resolved Timing: Constant Activity At Onset: Exertion - walking to the post office in warm weather wearing a heavy winter coat. Associated Head Trauma: Yes Alleviating Factor(s): Spontaneous Resolution Associated Signs And Symptoms: Other - head trauma, diaphoresis, and dizziness Frequency: Episodes x___ - 1 - Allergies/Home Medications Allergies/Adverse Reactions: Allergies Allergy/AdvReac Type Severity Reaction Status Date / Time Benztropine Allergy Unknown Unknown Verified 04/24/17 10:25 Reaction Details Bupropion Allergy Unknown Unknown Verified 04/24/17 10:25 Reaction Details Fluoxetine Allergy Unknown Unknown Verified 04/24/17 10:25 Reaction Details Fluphenazine Allergy Unknown Unknown Verified 04/24/17 10:25 Reaction Details Haloperidol Allergy Unknown Unknown Verified 04/24/17 10:25 Reaction Details Thiothixene Allergy Unknown Unknown Verified 04/24/17 10:25 Reaction Details Trihexyphenidyl Allergy Unknown Unknown Verified 04/24/17 10:25 Reaction Details Diazepam AdvReac Mild See Comment Verified 04/24/17 10:25 Carbamazepine AdvReac Unknown Unknown Verified 04/24/17 10:25 Reaction Details PMH/Surg Hx/FS Hx/Imm Hx Endocrine/Hematology History: Reports: Hx Diabetes, Other Endocrine/ Hematological Disorders - Impaired fasting glucose Denies: Hx Anticoagulant Therapy, Hx Thyroid Disease Cardiovascular History: Reports: Hx Angina, Hx Hypertension Denies: Hx Pacemaker/ICD Respiratory History: Denies: Hx Asthma, Hx Chronic Obstructive Pulmonary Disease (COPD) GI History: Reports: Hx Gastroesophageal Reflux Disease Denies: Hx Ulcer Comment Only: Other GI Disorders - Chronic constipation History: Reports: Hx Acute Renal Failure - secondary to lithium carbonate, Hx Benign Prostatic Hyperplasia, Other Problems/Disorders - Urinary incontinence Denies: Hx Renal Disease Musculoskeletal History: Denies: Hx Gout Sensory History: Reports: Hx Contacts or Glasses Denies: Hx Hearing Aid Opthamlomology History: Reports: Hx Contacts or Glasses Neurological History: Reports: Hx Developmental Delay, Hx Headaches, Hx Seizures - hx of medication induced seizures Denies: Hx Dementia Psychiatric History: Reports: Hx Depression, Hx Panic Disorder, Hx Inpatient Treatment, Hx Community Mental Health Tx, Hx Schizophrenia, Hx Bipolar Disorder , Hx Suicide Attempt, Hx of Violent Episodes Against Others Denies: Hx Eating Disorder, Hx Substance Abuse - Surgical History Surgery Procedure, Year, and Place: RIGHT wrist, ring finger on right hand, penis as a baby. - Immunization History Date of Tetanus Vaccine: UNK Date of Influenza Vaccine: Fall 2011 Infectious Disease History: No Infectious Disease History: Denies: Hx Hepatitis, Hx Human Immunodeficiency Virus (HIV), History Other Infectious Disease, Traveled Outside the US in Last 30 Days - Family History Known Family History: Positive: Hypertension, Other - Alcoholism - Social History Alcohol Use: None Substance Use Type: Reports: None Smoking Status (MU): Light Every Day Tobacco Smoker Type: Cigarettes Amount Used/How Often: 4-5/day Have You Smoked in the Last Year: Yes Review of Systems Positive: Skin Diaphoresis. Negative: Fever Neurological: Other - dizziness, head trauma Positive: Syncope All Other Systems Reviewed And Are Negative: Yes Physical Exam Triage Information Reviewed: Yes Vital Signs On Initial Exam: Initial Vitals Temp Pulse Resp BP Pulse Ox 98.2 F 107 14 121/74 96 04/24/17 10:23 04/24/17 10:23 04/24/17 10:23 04/24/17 10:23 04/24/17 10:23 Vital Signs Reviewed: Yes Appearance: Positive: Well-Appearing, No Pain Distress Skin: Positive: Warm, Skin Color Reflects Adequate Perfusion, Dry Head/Face: Positive: Normal Head/Face Inspection Eyes: Positive: Normal, Other: - No nystagmus ENT: Positive: Normal ENT inspection Neck: Positive: Supple, Nontender Respiratory/Lung Sounds: Positive: Clear to Auscultation, Breath Sounds Present Cardiovascular: Positive: Tachycardia Abdomen Description: Positive: Nontender, Soft Bowel Sounds: Positive: Present Musculoskeletal: Positive: Normal Neurological: Positive: Normal, Sensory/Motor Intact, Alert, Oriented to Person Place, Time Psychiatric: Positive: Affect/Mood Appropriate Diagnostics - Vital Signs Vital Signs Temp Pulse Resp BP Pulse Ox 04/24/17 10:23 98.2 F 107 14 121/74 96 - Laboratory Lab Results: Lab Results 04/24/17 04/24/17 04/24/17 Range/Units 10:56 10:56 10:56 WBC 9.2 (3.5-10.8) 10^3/ul RBC 3.30 L (4.0-5.4) 10^6/ul Hgb 10.6 L (14.0-18.0) g/dl Hct 32 L (42-52) % MCV 96 H (80-94) fL MCH 32 H (27-31) pg MCHC 34 (31-36) g/dl RDW 13 (10.5-15) % Plt Count 189 (150-450) 10^3/ul MPV 9 (7.4-10.4) um3 Neut % (Auto) 69.7 (38-83) % Lymph % (Auto) 18.0 L (25-47) % Phillips % (Auto) 9.6 H (1-9) % Eos % (Auto) 2.1 (0-6) % Baso % (Auto) 0.6 (0-2) % Absolute Neuts (auto) 6.4 (1.5-7.7) 10^3/ul Absolute Lymphs (auto) 1.7 (1.0-4.8) 10^3/ul Absolute Monos (auto) 0.9 H (0-0.8) 10^3/ul Absolute Eos (auto) 0.2 (0-0.6) 10^3/ul Absolute Basos (auto) 0.1 (0-0.2) 10^3/ul Absolute Nucleated RBC 0 10^3/ul Nucleated RBC % 0 Sodium 136 (133-145) mmol/L Potassium 5.2 H (3.5-5.0) mmol/L Chloride 105 (101-111) mmol/L Carbon Dioxide 22 (22-32) mmol/L Anion Gap 9 (2-11) mmol/L BUN 32 H (6-24) mg/dL Creatinine 0.95 (0.67-1.17) mg/dL Est GFR ( Amer) 103.0 (>60) Est GFR (Non-Af Amer) 80.1 (>60) BUN/Creatinine Ratio 33.7 H (8-20) Glucose 162 H (70-100) mg/dL Lactic Acid 3.0 H* (0.5-2.0) mmol/L Calcium 9.5 (8.6-10.3) mg/dL Magnesium 2.3 (1.9-2.7) mg/dL Total Bilirubin 0.20 (0.2-1.0) mg/dL AST 12 L (13-39) U/L ALT 13 (7-52) U/L Alkaline Phosphatase 69 (34-104) U/L Total Creatine Kinase 92 (10-223) U/L Troponin I 0.00 (<0.04) ng/mL C-Reactive Protein 3.57 (< 5.00) mg/L Total Protein 7.1 (6.4-8.9) g/dL Albumin 4.3 (3.2-5.2) g/dL Globulin 2.8 (2-4) g/dL Albumin/Globulin Ratio 1.5 (1-3) TSH 1.41 (0.34-5.60) mcIU/mL Urine Color Urine Appearance Urine pH (5-9) Ur Specific [place] (1.010-1.030) Urine Protein (Negative) Urine Ketones (Negative) Urine Blood (Negative) Urine Nitrate (Negative) Urine Bilirubin (Negative) Urine Urobilinogen (Negative) Ur Leukocyte Esterase (Negative) Urine Glucose (Negative) Serum Alcohol < 10 (<10) mg/dL 04/24/17 Range/Units 11:47 WBC (3.5-10.8) 10^3/ul RBC (4.0-5.4) 10^6/ul Hgb (14.0-18.0) g/dl Hct (42-52) % MCV (80-94) fL MCH (27-31) pg MCHC (31-36) g/dl RDW (10.5-15) % Plt Count (150-450) 10^3/ul MPV (7.4-10.4) um3 Neut % (Auto) (38-83) % Lymph % (Auto) (25-47) % Phillips % (Auto) (1-9) % Eos % (Auto) (0-6) % Baso % (Auto) (0-2) % Absolute Neuts (auto) (1.5-7.7) 10^3/ul Absolute Lymphs (auto) (1.0-4.8) 10^3/ul Absolute Monos (auto) (0-0.8) 10^3/ul Absolute Eos (auto) (0-0.6) 10^3/ul Absolute Basos (auto) (0-0.2) 10^3/ul Absolute Nucleated RBC 10^3/ul Nucleated RBC % Sodium (133-145) mmol/L Potassium (3.5-5.0) mmol/L Chloride (101-111) mmol/L Carbon Dioxide (22-32) mmol/L Anion Gap (2-11) mmol/L BUN (6-24) mg/dL Creatinine (0.67-1.17) mg/dL Est GFR ( Amer) (>60) Est GFR (Non-Af Amer) (>60) BUN/Creatinine Ratio (8-20) Glucose (70-100) mg/dL Lactic Acid (0.5-2.0) mmol/L Calcium (8.6-10.3) mg/dL Magnesium (1.9-2.7) mg/dL Total Bilirubin (0.2-1.0) mg/dL AST (13-39) U/L ALT (7-52) U/L Alkaline Phosphatase (34-104) U/L Total Creatine Kinase (10-223) U/L Troponin I (<0.04) ng/mL C-Reactive Protein (< 5.00) mg/L Total Protein (6.4-8.9) g/dL Albumin (3.2-5.2) g/dL Globulin (2-4) g/dL Albumin/Globulin Ratio (1-3) TSH (0.34-5.60) mcIU/mL Urine Color Yellow Urine Appearance Clear Urine pH 6.0 (5-9) Ur Specific [place] 1.013 (1.010-1.030) Urine Protein Negative (Negative) Urine Ketones Trace H (Negative) Urine Blood Negative (Negative) Urine Nitrate Negative (Negative) Urine Bilirubin Negative (Negative) Urine Urobilinogen Negative (Negative) Ur Leukocyte Esterase Negative (Negative) Urine Glucose 1+(50 mg/dl) H (Negative) Serum Alcohol (<10) mg/dL Result Diagrams: 04/24/17 10:56 04/24/17 10:56 Lab Statement: Any lab studies that have been ordered have been reviewed, and results considered in the medical decision making process. - EKG 1125 Cardiac Rate: NL - BPM 99 EKG Rhythm: Sinus Rhythm EKG Interpretation: NAD Course/Dx Course Of Treatment: Mr. Blake presented to the ED by EMS after fainting. It is a hot day and he was ealking to the store wearing a heavy jacket. He was found to be dehydrated and was rehydrated with improvement in his vitals (he had been tachycardic). He is clearly pretty manic here today but he is at his baseline. - Diagnoses Provider Diagnoses: Dehydration, Syncope Discharge - Discharge Plan Condition: Stable Disposition: HOME Patient Education Materials: Dehydration (ED) Referrals: [facility] [place] [facility]IAN REFERRAL [Outside] - 3 Days The documentation as recorded by the Ana mercer Alfonso accurately reflects the service I personally performed and the decisions made by me, Audie Agustin MD.
== END 2017-04-24 13:43 | disposition home or self-care (01) ==
LOC: ED 10:19
DX: E86.0 Dehydration (principal); R55 Syncope and collapse; F17.210 Nicotine dependence, cigarettes, uncomplicated
CPT/HCPCS: 36415; 80053; 80320; 81003; 82550; 83605; 83735; 84443; 84484; 85025; 86140; 93005; 96360; 99284; G0480

== ENCOUNTER 2017-06-23 15:25 | Emergency (ER) | payer OTHER ==
[2017-06-23 15:32] VITALS: BP 134/68
[2017-06-23 16:47] LABS: Hematocrit 35 % (42-52); Hemoglobin 12.1 g/dl (14.0-18.0); Mean Corpuscular HGB Conc 34 g/dl (31-36); Mean Corpuscular Hemoglobin 32 pg (27-31); Mean Corpuscular Volume 94 fL (80-94); Mean Platelet Volume 9 um3 (7.4-10.4); Red Blood Count 3.76 10^6/ul (4.0-5.4); Red Cell Distribution Width 13 % (10.5-15); White Blood Count 9.3 10^3/ul (3.5-10.8)
[2017-06-23 16:53] LABS: Urine Bilirubin Negative (Negative); Urine Glucose Negative (Negative); Urine Nitrite Negative (Negative)
[2017-06-23 17:00] LABS: ALT 17 U/L (7-52); AST 13 U/L (13-39); Alkaline Phosphatase 59 U/L (34-104); Anion Gap 8 mmol/L (2-11); BUN/Creatinine Ratio 18.1 (8-20); Blood Urea Nitrogen 25 mg/dL (6-24); CO2 Carbon Dioxide 22 mmol/L (22-32); Calcium 9.5 mg/dL (8.6-10.3); Chloride 103 mmol/L (101-111); EGFR African American 66.9 (>60); Glucose 128 mg/dL (70-100); Potassium 4.1 mmol/L (3.5-5.0); Sodium 133 mmol/L (133-145); Total Protein 7.3 g/dL (6.4-8.9)
[2017-06-23 17:03] LABS: Benzodiazepine Urine Screen None Detected (None Detect)
[2017-06-23 17:25] LABS: Acetaminophen < 15 mcg/mL; Alcohol < 10 mg/dL (<10); Salicylate < 2.50 mg/dL (<30)
[2017-06-23 17:40] LABS: TSH (Thyroid Stimulating Horm) 1.65 mcIU/mL (0.34-5.60)
[2017-06-23 18:37] LABS: Albumin 4.6 g/dL (3.2-5.2); Globulin 2.7 g/dL (2-4); Lipase 25 U/L (11.0-82.0)
--- NOTE | 2017-06-23 20:41 | ED ---
Vel Blas Gabriel, scribed for Perico Jewell MD on 06/23/17 at 1557 . Psychiatric Complaint - HPI Summary HPI Summary: This patient is a 61 year old M BIBA to [facility] for a mental health evaluation. He states he is hearing space voices and that the president has been sending him letters. He denies any SI. LEVEL 5 CAVEAT: HPI limited due to patient being delusional and responding irrationally. - History Of Current Complaint Chief Complaint: EDMentalHealth Time Seen by Provider: 06/23/17 15:35 Hx Obtained From: Patient, EMS Onset/Duration: Still Present Timing: Constant Has Suicidal: Denies: Thoughts - Allergies/Home Medications Allergies/Adverse Reactions: Allergies Allergy/AdvReac Type Severity Reaction Status Date / Time Benztropine Allergy Unknown Unknown Verified 04/24/17 10:25 Reaction Details Bupropion Allergy Unknown Unknown Verified 04/24/17 10:25 Reaction Details Fluoxetine Allergy Unknown Unknown Verified 04/24/17 10:25 Reaction Details Fluphenazine Allergy Unknown Unknown Verified 04/24/17 10:25 Reaction Details Haloperidol Allergy Unknown Unknown Verified 04/24/17 10:25 Reaction Details Thiothixene Allergy Unknown Unknown Verified 04/24/17 10:25 Reaction Details Trihexyphenidyl Allergy Unknown Unknown Verified 04/24/17 10:25 Reaction Details Diazepam AdvReac Mild See Comment Verified 04/24/17 10:25 Carbamazepine AdvReac Unknown Unknown Verified 04/24/17 10:25 Reaction Details Home Medications: Home Medications Al Hydrox/Mg Hydrox/Simet LIQ* [Maalox Plus*] 30 ml PO Q6H PRN 06/23/17 [ History Confirmed 06/23/17] CloZAPine TAB* 100 mg PO QAM 06/23/17 [History Confirmed 06/23/17] Lisinopril TAB* [Prinivil TAB*] 20 mg PO DAILY 06/23/17 [History Confirmed 06/23] Nicotine PATCH 14 MG/24 HR* 14 mg TRANSDERM DAILY 06/23/17 [History Confirmed ] Omeprazole CAP* [Prilosec CAP* 20 MG] 40 mg PO QAM 06/23/17 [History Confirmed 06/23/17] PMH/Surg Hx/FS Hx/Imm Hx Previously Healthy: No Endocrine/Hematology History: Reports: Hx Diabetes, Other Endocrine/ Hematological Disorders - Impaired fasting glucose Denies: Hx Anticoagulant Therapy, Hx Thyroid Disease Cardiovascular History: Reports: Hx Angina, Hx Hypertension Denies: Hx Pacemaker/ICD Respiratory History: Denies: Hx Asthma, Hx Chronic Obstructive Pulmonary Disease (COPD) GI History: Reports: Hx Gastroesophageal Reflux Disease Denies: Hx Ulcer Comment Only: Other GI Disorders - Chronic constipation History: Reports: Hx Acute Renal Failure - secondary to lithium carbonate, Hx Benign Prostatic Hyperplasia, Other Problems/Disorders - Urinary incontinence Denies: Hx Renal Disease Musculoskeletal History: Denies: Hx Gout Sensory History: Reports: Hx Contacts or Glasses Denies: Hx Hearing Aid Opthamlomology History: Reports: Hx Contacts or Glasses Neurological History: Reports: Hx Developmental Delay, Hx Headaches, Hx Seizures - hx of medication induced seizures Denies: Hx Dementia Psychiatric History: Reports: Hx Depression, Hx Panic Disorder, Hx Inpatient Treatment, Hx Community Mental Health Tx, Hx Schizophrenia, Hx Bipolar Disorder , Hx Suicide Attempt, Hx of Violent Episodes Against Others Denies: Hx Eating Disorder, Hx Substance Abuse - Surgical History Surgery Procedure, Year, and Place: RIGHT wrist, ring finger on right hand, penis as a baby. - Immunization History Date of Tetanus Vaccine: UNK Date of Influenza Vaccine: Fall 2011 Infectious Disease History: No Infectious Disease History: Denies: Hx Hepatitis, Hx Human Immunodeficiency Virus (HIV), History Other Infectious Disease, Traveled Outside the [place] in Last 30 Days - Family History Known Family History: Positive: None, Hypertension, Other - Alcoholism - Social History Alcohol Use: None Substance Use Type: Reports: None Smoking Status (MU): Light Every Day Tobacco Smoker Type: Cigarettes Amount Used/How Often: 4-5/day Have You Smoked in the Last Year: Yes - Additional Comments History Additional Comments: LEVEL 5 CAVEAT: Medical history limited due to patient being delusional and responding irrationally Review of Systems - ROS Summary Review of Systems Summary: LEVEL 5 CAVEAT: ROS limited due to patient being delusional and responding irrationally Negative: Fever Psychological: Other - NEGATIVE: SI All Other Systems Reviewed And Are Negative: No Physical Exam Triage Information Reviewed: Yes Vital Signs On Initial Exam: Initial Vitals Temp Pulse Resp BP Pulse Ox 98.1 F 110 20 134/68 98 06/23/17 15:28 06/23/17 15:28 06/23/17 15:28 06/23/17 15:28 06/23/17 15:28 Vital Signs Reviewed: Yes Completion Of Physical Exam Limited Due To: Level 5 Appearance: Positive: Well-Appearing, No Pain Distress Skin: Positive: Warm Head/Face: Positive: Normal Head/Face Inspection Eyes: Positive: EOMI ENT: Positive: Normal ENT inspection Respiratory/Lung Sounds: Positive: Clear to Auscultation, Breath Sounds Present Cardiovascular: Positive: RRR. Negative: Murmur Abdomen Description: Positive: Nontender Musculoskeletal: Positive: Strength/ROM Intact Neurological: Positive: Sensory/Motor Intact, Alert, Oriented to Person Place, Time, CN Intact II-III Psychiatric: Positive: Anxious, Other - The patient is very delusional with stating president camron is sending him letters x 3 and that he refused the letters so they came for him and brought him here. He is paranoid. Diagnostics - Vital Signs Vital Signs Temp Pulse Resp BP Pulse Ox 06/23/17 15:28 98.1 F 110 20 134/68 98 - Laboratory Result Diagrams: 06/23/17 16:35 06/23/17 16:35 Lab Statement: Any lab studies that have been ordered have been reviewed, and results considered in the medical decision making process. - EKG 16:53 Cardiac Rate: NL EKG Rhythm: Sinus Tachycardia - 102 BPM EKG Interpretation: Normal MA,QRS, QT, No STEMI Course/Dx - Course Course Of Treatment: 61 yr old with UTI, and cleared medically by Internal medicine consult. They do not feel she needs medical admisison. She is psychotic, talking to things and behaving bizzare fashion. psych eval pending. - Differential Dx/Clinical Impression Provider Diagnosis: UTI (urinary tract infection), Psychosis Discharge - Discharge Plan Condition: Good Disposition: HOME Patient Education Materials: Schizoaffective Disorder (ED) Referrals: Abdulaziz Carranza MD [Primary Care Provider] - Additional Instructions: Per completion of a mental health evaluation, you are cleared for release and do not require inpatient psychiatric hospitalization at this time. Please go to nearest emergency room or call 911 if safety concerns arise or condition worsens. Important Phone Numbers: [facility]~~ ph:[phone] Suicide Prevention and Crisis Services~~~~~~~~~~~~~~~~~~~~~~~ ph:[phone] National Suicide Prevention Lifeline~~~~~~~~~~~~~~~~~~~~~~~ ~~ ph:800-273- TALK (8255) [facility]~~~~~~~~~~~~~~~~~~ ~~ ph:[phone] Alcoholics Anonymous~~~~~~~~~~~~~~~~~~~~~~~~~~~~~~~~~~~~~~~~~~~~~~~~~ ph: [facility]~~~~~~ ~~ ph:[phone] [facility] ph:[phone] Pt is to continue care with [facility] and [facility] services. The documentation as recorded by the Vel mercer Gabriel accurately reflects the service I personally performed and the decisions made by Best chavez Walter, MD.
== END 2017-06-23 19:56 | disposition home or self-care (01) ==
LOC: ED 15:25
DX: N39.0 Urinary tract infection, site not specified (principal); F29 Unspecified psychosis not due to a substance or known physiological condition; Z88.8 Allergy status to other drugs, medicaments and biological substances; E11.9 Type 2 diabetes mellitus without complications; J44.9 Chronic obstructive pulmonary disease, unspecified; I20.9 Angina pectoris, unspecified; I10 Essential (primary) hypertension; Z79.899 Other long term (current) drug therapy; F17.210 Nicotine dependence, cigarettes, uncomplicated
CPT/HCPCS: 36415; 80053; 80307; 80320; 80329; 81003; 83690; 84443; 84484; 85025; 93005; 99285; G0480

== ENCOUNTER 2017-07-05 09:37 | Emergency (ER) | payer OTHER ==
[2017-07-05 10:58] LABS: Urine Bacteria Absent (Absent); Urine Bilirubin Negative (Negative); Urine Glucose 2+(150 mg/dL) (Negative); Urine Nitrite Negative (Negative)
[2017-07-05 11:10] LABS: Hematocrit 34 % (42-52); Hemoglobin 11.2 g/dl (14.0-18.0); Mean Corpuscular HGB Conc 33 g/dl (31-36); Mean Corpuscular Hemoglobin 32 pg (27-31); Mean Corpuscular Volume 95 fL (80-94); Mean Platelet Volume 9 um3 (7.4-10.4); Red Blood Count 3.52 10^6/ul (4.0-5.4); Red Cell Distribution Width 14 % (10.5-15); White Blood Count 7.2 10^3/ul (3.5-10.8)
[2017-07-05 11:26] LABS: ALT 15 U/L (7-52); AST 15 U/L (13-39); Albumin 4.3 g/dL (3.2-5.2); Alkaline Phosphatase 59 U/L (34-104); Anion Gap 5 mmol/L (2-11); BUN/Creatinine Ratio 26.3 (8-20); Blood Urea Nitrogen 21 mg/dL (6-24); CO2 Carbon Dioxide 25 mmol/L (22-32); Calcium 9.4 mg/dL (8.6-10.3); Chloride 105 mmol/L (101-111); EGFR African American 125.6 (>60); EGFR Non-African American 97.6 (>60); Globulin 2.8 g/dL (2-4); Glucose 126 mg/dL (70-100); Potassium 4.7 mmol/L (3.5-5.0); Sodium 135 mmol/L (133-145); Total Protein 7.1 g/dL (6.4-8.9)
[2017-07-05 11:27] LABS: Acetaminophen < 15 mcg/mL; Alcohol < 10 mg/dL (<10); Salicylate < 2.50 mg/dL (<30)
[2017-07-05 11:39] LABS: TSH (Thyroid Stimulating Horm) 1.98 mcIU/mL (0.34-5.60)
[2017-07-05] MEDS ORDERED: LORazepam TAB(*) 1 MG PO ONE (11:46)
[2017-07-05] MEDS ORDERED: diPHENhydraMINE PO* 25 MG PO ONE (11:47)
[2017-07-05 11:48] LABS: Benzodiazepine Urine Screen None Detected (None Detect)
[2017-07-05] MEDS: Haloperidol TAB* 5 MG PO ONE ×2 (11:54→11:56)
[2017-07-05] MEDS ORDERED: Ziprasidone IM INJ* 20 MG/ML VIAL IM ONE (12:30)
[2017-07-05] MEDS ORDERED: Ibuprofen TAB* 600 MG PO ONE (20:08)
--- NOTE | 2017-07-05 20:22 | ED ---
Campbell Blas Nilda, scribed for Kaylie Jefferson MD on 07/05/17 at 1121 . Psychiatric Complaint - HPI Summary HPI Summary: This patient is a 61 year old M BIBA to [facility] accompanied by security with a chief complaint of constant auditory hallucinations today. Per security, pt has been depressed about fathers . Symptoms aggravated by recent stressor and alleviated by nothing. Patient reports feeling shaky, and that voices are incomprehensible. PMHx includes Schizoaffective Disorder, paranoia, and epileptic seizures. - History Of Current Complaint Chief Complaint: EDMentalHealth Hx Obtained From: Patient, Other: - security Onset/Duration: Sudden Onset, Still Present Timing: Constant Character: Depressed Aggravating Factor(s): Recent Stress Alleviating Factor(s): Nothing Associated Signs And Symptoms: Positive: Hallucinating - auditory Related History: Positive For: Prior Psychiatric Issues - Schizo Affective Disorder, paranoia, epileptic seizures - Allergies/Home Medications Allergies/Adverse Reactions: Allergies Allergy/AdvReac Type Severity Reaction Status Date / Time Benztropine Allergy Unknown Unknown Verified 04/24/17 10:25 Reaction Details Bupropion Allergy Unknown Unknown Verified 04/24/17 10:25 Reaction Details Fluoxetine Allergy Unknown Unknown Verified 04/24/17 10:25 Reaction Details Fluphenazine Allergy Unknown Unknown Verified 04/24/17 10:25 Reaction Details Haloperidol Allergy Unknown Unknown Verified 04/24/17 10:25 Reaction Details Thiothixene Allergy Unknown Unknown Verified 04/24/17 10:25 Reaction Details Trihexyphenidyl Allergy Unknown Unknown Verified 04/24/17 10:25 Reaction Details Diazepam AdvReac Mild See Comment Verified 04/24/17 10:25 Carbamazepine AdvReac Unknown Unknown Verified 04/24/17 10:25 Reaction Details Home Medications: Home Medications Ibuprofen TAB* [Motrin TAB* 600 MG] 600 mg PO Q6HR 07/05/17 [History Confirmed 07/05/17] PMH/Surg Hx/FS Hx/Imm Hx Endocrine/Hematology History: Reports: Hx Diabetes, Other Endocrine/ Hematological Disorders - Impaired fasting glucose Denies: Hx Anticoagulant Therapy, Hx Thyroid Disease Cardiovascular History: Reports: Hx Angina, Hx Hypertension Denies: Hx Pacemaker/ICD Respiratory History: Denies: Hx Asthma, Hx Chronic Obstructive Pulmonary Disease (COPD) GI History: Reports: Hx Gastroesophageal Reflux Disease Denies: Hx Ulcer Comment Only: Other GI Disorders - Chronic constipation History: Reports: Hx Acute Renal Failure - secondary to lithium carbonate, Hx Benign Prostatic Hyperplasia, Other Problems/Disorders - Urinary incontinence Denies: Hx Renal Disease Musculoskeletal History: Denies: Hx Gout Sensory History: Reports: Hx Contacts or Glasses Denies: Hx Hearing Aid Opthamlomology History: Reports: Hx Contacts or Glasses Neurological History: Reports: Hx Developmental Delay, Hx Headaches, Hx Seizures - hx of medication induced seizures Denies: Hx Dementia Psychiatric History: Reports: Hx Depression, Hx Panic Disorder, Hx Inpatient Treatment, Hx Community Mental Health Tx, Hx Schizophrenia, Hx Bipolar Disorder , Hx Suicide Attempt, Hx of Violent Episodes Against Others Denies: Hx Eating Disorder, Hx Substance Abuse - Surgical History Surgery Procedure, Year, and Place: RIGHT wrist, ring finger on right hand, penis as a baby. - Immunization History Date of Tetanus Vaccine: UNK Date of Influenza Vaccine: Fall 2011 Infectious Disease History: No Infectious Disease History: Denies: Hx Hepatitis, Hx Human Immunodeficiency Virus (HIV), History Other Infectious Disease, Traveled Outside the US in Last 30 Days - Family History Known Family History: Positive: None, Hypertension, Other - Alcoholism - Social History Alcohol Use: None Substance Use Type: Reports: None Smoking Status (MU): Current Some Day Smoker Type: Cigarettes Amount Used/How Often: 4-5/day Have You Smoked in the Last Year: Yes Review of Systems Neurological: Other - feeling "shaky" Psychological: Other - auditory hallucinations Positive: Depressed All Other Systems Reviewed And Are Negative: Yes Physical Exam - Summary Physical Exam Summary: General: Well appearing, no pain distress Skin: Warm, Skin Color Reflects Adequate Perfusion, Dry Eyes: EOMI, GALINDO ENT: Pharynx normal, TMs normal Neck: Supple, nontender Respiratory: CTA, breath sounds present, no rhonchi, no wheezes, no rales Cardiovascular: RRR, no murmur, no rub, no gallop Abdomen: Soft, nontender, Non-distended, no guarding, no rebound Bowel: Present Musculoskeletal: JULIENNE, No edema Neuro: Sensory/motor intact, A&Ox3, CN intact 2-12 Psych: Tangential affect Triage Information Reviewed: Yes Vital Signs On Initial Exam: Initial Vitals Temp Pulse Resp BP Pulse Ox 98.5 F 103 16 149/84 98 07/05/17 10:08 07/05/17 10:08 07/05/17 10:08 07/05/17 10:08 07/05/17 10:08 Vital Signs Reviewed: Yes - [place] Coma Scale Coma Scale Total: 15 Diagnostics - Vital Signs Vital Signs Temp Pulse Resp BP Pulse Ox 07/05/17 10:08 98.5 F 103 16 149/84 98 - Laboratory Lab Results: Lab Results 07/05/17 07/05/17 Range/Units 10:04 10:52 WBC 7.2 (3.5-10.8) 10^3/ul RBC 3.52 L (4.0-5.4) 10^6/ul Hgb 11.2 L (14.0-18.0) g/dl Hct 34 L (42-52) % MCV 95 H (80-94) fL MCH 32 H (27-31) pg MCHC 33 (31-36) g/dl RDW 14 (10.5-15) % Plt Count 200 (150-450) 10^3/ul MPV 9 (7.4-10.4) um3 Neut % (Auto) 64.5 (38-83) % Lymph % (Auto) 20.9 L (25-47) % [place] % (Auto) 12.5 H (1-9) % Eos % (Auto) 1.3 (0-6) % Baso % (Auto) 0.8 (0-2) % Absolute Neuts (auto) 4.7 (1.5-7.7) 10^3/ul Absolute Lymphs (auto) 1.5 (1.0-4.8) 10^3/ul Absolute Monos (auto) 0.9 H (0-0.8) 10^3/ul Absolute Eos (auto) 0.1 (0-0.6) 10^3/ul Absolute Basos (auto) 0.1 (0-0.2) 10^3/ul Absolute Nucleated RBC 0.01 10^3/ul Nucleated RBC % 0.1 Urine Color Yellow Urine Appearance Clear Urine pH 7.0 (5-9) Ur Specific [place] 1.013 (1.010-1.030) Urine Protein Negative (Negative) Urine Ketones Negative (Negative) Urine Blood 2+ H (Negative) Urine Nitrate Negative (Negative) Urine Bilirubin Negative (Negative) Urine Urobilinogen Negative (Negative) Ur Leukocyte Esterase Negative (Negative) Urine WBC (Auto) Trace(0-5/hpf) (Absent) Urine RBC (Auto) Trace(0-2/hpf) (Absent) Urine Bacteria Absent (Absent) Urine Glucose 2+(150 mg/dl) H (Negative) Result Diagrams: 07/05/17 10:52 07/05/17 10:52 Lab Statement: Any lab studies that have been ordered have been reviewed, and results considered in the medical decision making process. Course/Dx - Course Assessment/Plan: Pt is medically cleared for [facility] at 11:00. Pt is s/o pending shift change awaiting [facility]. pt is awaiting either transfer or a bed opening at [facility] [place], case will be signed out to Dr. Schofield - Differential Dx/Clinical Impression Provider Diagnosis: Psychotic disorder Discharge - Discharge Plan Condition: Stable Disposition: OTHER Discharge Disposition Comment: s/o pending MHE. Referrals: Abdulaziz Carranza MD [Primary Care Provider] - The documentation as recorded by the Campbell mercer Nilda accurately reflects the service I personally performed and the decisions made by , Kaylie Jefferson MD.
[2017-07-06] MEDS ORDERED: Nicotine PATCH 14 MG/24 HR* PATCH TRANSDERM ONE (01:27)
[2017-07-06] MEDS ORDERED: diPHENhydraMINE PO* 50 MG PO ONE (01:28)
[2017-07-06] MEDS ORDERED: LORazepam TAB(*) 1 MG PO ONE (03:06)
[2017-07-06] MEDS ORDERED: LORazepam TAB(*) 1 MG ONE (03:09)
[2017-07-06] MEDS ORDERED: CloZAPine TAB* 100 MG TAB PO ONE (03:16)
[2017-07-06] MEDS ORDERED: Divalproex DR TAB(*) 500 MG PO ONE (03:17)
[2017-07-06 10:03] VITALS: BP 128/56
[2017-07-06] MEDS ORDERED: Haloperidol TAB* 5 MG PO ONE (11:25)
[2017-07-06] MEDS ORDERED: ALPRAZolam TAB* 0.5 MG PO ONE (11:25)
--- NOTE | 2017-07-06 12:27 | PN ---
ED Flex Patient Progress Note Subjective: This is a 61 year-old M who is pending transfer to another [facility] secondary to ____psychosis . Pt offers no complaints at this time. Just finished lunch w/o difficulty. Objective: Vitals: General NAD, Alert and oriented Heart: S1/S2, rrr Lungs: CTA B/L, breathing easily HEENT: oral mucosa moist AB: soft, + BS, NTTP SUZETTE: FROM UE's and LE's NEURO: CN II-XII grossly intact PSYCH: tangential thoughts, paranoid comments - "President Brandy sent me three letters about mail tampering", comfortable and in good spirits Assessment: Psychosis Plan: Pending [facility] Vital Signs Temp Pulse Resp BP Pulse Ox 97.8 F 88 16 128/56 99 07/06/17 10:02 07/06/17 10:02 07/06/17 10:02 07/06/17 10:02 07/06/17 10:02 Lab Results - Entire Visit 07/05/17 07/05/17 07/05/17 10:52 10:52 10:04 WBC 7.2 RBC 3.52 L Hgb 11.2 L Hct 34 L MCV 95 H MCH 32 H MCHC 33 RDW 14 Plt Count 200 MPV 9 Neut % (Auto) 64.5 Lymph % (Auto) 20.9 L [place] % (Auto) 12.5 H Eos % (Auto) 1.3 Baso % (Auto) 0.8 Absolute Neuts (auto) 4.7 Absolute Lymphs (auto) 1.5 Absolute Monos (auto) 0.9 H Absolute Eos (auto) 0.1 Absolute Basos (auto) 0.1 Absolute Nucleated RBC 0.01 Nucleated RBC % 0.1 Sodium 135 Potassium 4.7 Chloride 105 Carbon Dioxide 25 Anion Gap 5 BUN 21 Creatinine 0.80 Est GFR ( Amer) 125.6 Est GFR (Non-Af Amer) 97.6 BUN/Creatinine Ratio 26.3 H Glucose 126 H Calcium 9.4 Total Bilirubin 0.30 AST 15 ALT 15 Alkaline Phosphatase 59 Total Protein 7.1 Albumin 4.3 Globulin 2.8 Albumin/Globulin Ratio 1.5 TSH 1.98 Urine Color Yellow Urine Appearance Clear Urine pH 7.0 Ur Specific [place] 1.013 Urine Protein Negative Urine Ketones Negative Urine Blood 2+ H Urine Nitrate Negative Urine Bilirubin Negative Urine Urobilinogen Negative Ur Leukocyte Esterase Negative Urine WBC (Auto) Trace(0-5/hpf) Urine RBC (Auto) Trace(0-2/hpf) Urine Bacteria Absent Urine Glucose 2+(150 mg/dl) H Salicylates < 2.50 Urine Opiates Screen Acetaminophen < 15 Ur Barbiturates Screen Ur Phencyclidine Scrn Ur Amphetamines Screen U Benzodiazepines Scrn Urine Cocaine Screen U Cannabinoids Screen Serum Alcohol < 10 07/05/17 10:04 WBC RBC Hgb Hct MCV MCH MCHC RDW Plt Count MPV Neut % (Auto) Lymph % (Auto) [place] % (Auto) Eos % (Auto) Baso % (Auto) Absolute Neuts (auto) Absolute Lymphs (auto) Absolute Monos (auto) Absolute Eos (auto) Absolute Basos (auto) Absolute Nucleated RBC Nucleated RBC % Sodium Potassium Chloride Carbon Dioxide Anion Gap BUN Creatinine Est GFR ( Amer) Est GFR (Non-Af Amer) BUN/Creatinine Ratio Glucose Calcium Total Bilirubin AST ALT Alkaline Phosphatase Total Protein Albumin Globulin Albumin/Globulin Ratio TSH Urine Color Urine Appearance Urine pH Ur Specific [place] Urine Protein Urine Ketones Urine Blood Urine Nitrate Urine Bilirubin Urine Urobilinogen Ur Leukocyte Esterase Urine WBC (Auto) Urine RBC (Auto) Urine Bacteria Urine Glucose Salicylates Urine Opiates Screen None detected Acetaminophen Ur Barbiturates Screen None detected Ur Phencyclidine Scrn None detected Ur Amphetamines Screen None detected U Benzodiazepines Scrn None detected Urine Cocaine Screen None detected U Cannabinoids Screen None detected Serum Alcohol
== END 2017-07-06 12:24 | disposition home or self-care (01) ==
LOC: ED 09:37
DX: F23 Brief psychotic disorder (principal); R44.0 Auditory hallucinations
CPT/HCPCS: 36415; 80053; 80307; 80320; 80329; 81003; 81015; 84443; 85025; 93005; 96372; 99285; A9270-GY; G0480; J3486

== ENCOUNTER 2018-02-21 14:50 | Emergency (ER) | payer OTHER ==
--- NOTE | 2018-02-21 15:46 | ED ---
Dizziness - HPI Summary HPI Summary: This patient is a 62 year old M presenting to [facility] with a chief complaint of dizziness since 1400. Pt was in unge at [facility] when he experienced this dizzy spell. Pt denies CP, as well as smoking, and using drugs or alcohol. - History Of Current Complaint Chief Complaint: EDDizziness Stated Complaint: DIZZY Time Seen by Provider: 02/21/18 15:26 Hx Obtained From: Patient Onset/Duration: Still Present Timing: Constant Severity Initially: Mild Severity Currently: Mild Character: Dizzy Aggravating Factor(s): Nothing Alleviating Factor(s): Nothing Associated Signs And Symptoms: Positive: Unsteady Gait. Negative: Chest Pain - Allergies/Home Medications Allergies/Adverse Reactions: Allergies Allergy/AdvReac Type Severity Reaction Status Date / Time benztropine [From Cogentin] Allergy Unknown Verified 02/21/18 15:26 Reaction Details bupropion Allergy Unknown Verified 02/21/18 15:26 Reaction Details carbamazepine Allergy Unknown Verified 02/21/18 15:26 Reaction Details diazepam Allergy See Comment Verified 02/21/18 15:26 fluoxetine Allergy Unknown Verified 02/21/18 15:26 Reaction Details fluphenazine Allergy Unknown Verified 02/21/18 15:26 Reaction Details haloperidol Allergy Unknown Verified 02/21/18 15:26 Reaction Details thiothixene Allergy Unknown Verified 02/21/18 15:26 Reaction Details trihexyphenidyl Allergy Unknown Verified 02/21/18 15:26 Reaction Details MS Diazepam [Diazepam] AdvReac Mild See Comment Verified 04/24/17 10:25 MS Carbamazepine AdvReac Unknown Unknown Verified 04/24/17 10:25 [Carbamazepine] Reaction Details Home Medications: Home Medications Acetaminophen TAB* [Tylenol TAB*] 650 mg PO Q6H PRN 02/21/18 [History Confirmed 02/21/18] Aspirin EC TAB* [Ecotrin EC Low Dose 81 MG*] 81 mg PO DAILY 02/21/18 [History Confirmed 02/21/18] Atropine 1% OPHTH.SIGIFREDO* 2 drop SL BID 02/21/18 [History Confirmed 02/21/18] [place] Carbonate TAB* 300 mg PO BID 02/21/18 [History Confirmed 02/21/18] Oxybutynin XL TAB* [Ditropan XL TAB*] 5 mg PO DAILY 02/21/18 [History Confirmed 02/21/18] risperiDONE TAB* [RisperDAL*] 4 mg PO BEDTIME 02/21/18 [History Confirmed ] PMH/Surg Hx/FS Hx/Imm Hx Endocrine/Hematology History: Reports: Hx Diabetes, Other Endocrine/ Hematological Disorders - Impaired fasting glucose Denies: Hx Anticoagulant Therapy, Hx Thyroid Disease Cardiovascular History: Reports: Hx Angina, Hx Hypertension Denies: Hx Pacemaker/ICD Respiratory History: Denies: Hx Asthma, Hx Chronic Obstructive Pulmonary Disease (COPD) GI History: Reports: Hx Gastroesophageal Reflux Disease Denies: Hx Ulcer Comment Only: Other GI Disorders - Chronic constipation History: Reports: Hx Acute Renal Failure - secondary to lithium carbonate, Hx Benign Prostatic Hyperplasia, Other Problems/Disorders - Urinary incontinence Denies: Hx Renal Disease Musculoskeletal History: Denies: Hx Gout Sensory History: Reports: Hx Contacts or Glasses Denies: Hx Hearing Aid Opthamlomology History: Reports: Hx Contacts or Glasses Neurological History: Reports: Hx Developmental Delay, Hx Headaches, Hx Seizures - hx of medication induced seizures Denies: Hx Dementia Psychiatric History: Reports: Hx Depression, Hx Panic Disorder, Hx Inpatient Treatment, Hx Community Mental Health Tx, Hx Schizophrenia, Hx Bipolar Disorder , Hx Suicide Attempt, Hx of Violent Episodes Against Others Denies: Hx Eating Disorder, Hx Substance Abuse - Surgical History Surgery Procedure, Year, and Place: RIGHT wrist, ring finger on right hand, penis as a baby. - Immunization History Date of Tetanus Vaccine: UNK Date of Influenza Vaccine: Fall 2011 Infectious Disease History: No Infectious Disease History: Denies: Hx Hepatitis, Hx Human Immunodeficiency Virus (HIV), History Other Infectious Disease, Traveled Outside the [place] in Last 30 Days - Family History Known Family History: Positive: None, Hypertension, Other - Alcoholism - Social History Alcohol Use: None Substance Use Type: Reports: None Smoking Status (MU): Current Some Day Smoker Type: Cigarettes Amount Used/How Often: 4-5/day Have You Smoked in the Last Year: Yes Review of Systems Negative: Fever Negative: Chest Pain Positive: frequency Neurological: Other - dizziness All Other Systems Reviewed And Are Negative: Yes Physical Exam - Summary Physical Exam Summary: Appearance: Well appearing, no pain distress, tremors, unable to ambulate Skin: warm, dry, reflects adequate perfusion Head/face: normal Eyes: EOMI, GALINDO ENT: normal Neck: supple, non-tender Respiratory: CTA, breath sounds present Cardiovascular: RRR, pulses symmetrical Abdomen: non-tender, soft Bowel: present Musculoskeletal: normal, strength/ROM intact Neuro: normal, sensory motor intact, A&Ox3 Triage Information Reviewed: Yes Vital Signs On Initial Exam: Initial Vitals Temp Pulse Resp BP Pulse Ox 99 F 95 20 144/78 98 02/21/18 15:18 02/21/18 15:18 02/21/18 15:18 02/21/18 15:18 02/21/18 15:18 Vital Signs Reviewed: Yes Diagnostics - Vital Signs Vital Signs Temp Pulse Resp BP Pulse Ox 02/21/18 15:18 99 F 95 20 144/78 98 - Laboratory Result Diagrams: 02/21/18 17:09 02/21/18 17:09 Lab Statement: Any lab studies that have been ordered have been reviewed, and results considered in the medical decision making process. - Radiology CXR Xray Interpretation: No Acute Changes Radiology Interpretation Completed By: Radiologist - No active disease - CT Brain CT Interpretation: No Acute Changes CT Interpretation Completed By: Radiologist - Mild cortical atrophy. No acute intracranial findings. - EKG 1657 Cardiac Rate: NL - 93 EKG Rhythm: Sinus Rhythm ST Segment: Normal EKG Interpretation: no acute changes. EKG Comparison: No Significant Change Dizzy Course/Dx - Course Course Of Treatment: A 62-year-old M presents to the ED with a CC of dizziness since 1400. (+). (-). Background. A CXR was (-). An EKG reveals nl sinus rythym at 93 BPM, no acute changes. A CT brain showed mild cortical atrophy. In the ED course, pt was given - Diagnoses Provider Diagnoses: Dizziness Discharge - Sign-Out/Discharge Documenting (check all that apply): Patient Departure - discharge - Discharge Plan Condition: Stable Disposition: HOME Patient Education Materials: Dizziness (ED) Referrals: Abdulaziz Carranza MD [Primary Care Provider] - 3 Days Additional Instructions: Hold lithium for 3 days, then resume after consulting with PCP. RETURN TO THE EMERGENCY DEPARTMENT FOR ANY NEW OR WORSENING SYMPTOMS. - Billing Disposition and Condition Condition: STABLE Disposition: Home
--- NOTE | 2018-02-21 17:03 | RAD ---
INDICATION: Dizziness COMPARISON: MRI brain July 01, 2015 TECHNIQUE: Noncontrast axial source images were acquired from the skull base to the vertex. FINDINGS: Ventricles/sulci: There is cortical atrophy with compensatory dilatation of the CSF spaces. Brain parenchyma: There is no focal parenchymal finding, evidence of intracranial mass, or intracranial mass effect. Intracranial hemorrhage:None. Extra-axial spaces: There are no abnormal extra axial fluid collections or evidence of extra-axial mass. Calvarium: There is no calvarial fracture or other calvarial abnormality. Scalp: There is no evidence of scalp or extracalvarial soft tissue abnormality. Paranasal sinuses/mastoid: The paranasal sinuses and mastoid air cells are clear. Other: None. IMPRESSION: Mild cortical atrophy. No acute intracranial findings.
--- NOTE | 2018-02-21 17:04 | RAD ---
INDICATION: Dizziness COMPARISON: September 02, 2016 TECHNIQUE: PA and lateral dual-energy views were obtained. FINDINGS: Bones/Soft Tissues: There are no acute bony findings. Cardiomediastinal: The cardiomediastinal silhouette is normal. Lungs: There are no infiltrates. Pleura: There are no pleural effusions. Other: None IMPRESSION: NO ACTIVE DISEASE.
[2018-02-21 17:16] LABS: ABS Basophils 0 10^3/ul (0-0.2); ABS Eosinophils 0.1 10^3/ul (0-0.6); ABS Lymphocytes 2.2 10^3/ul (1.0-4.8); ABS Neutrophils 8.2 10^3/ul (1.5-7.7); ABS Nucleated RBC 0 10^3/ul; Eosinophil % 1.2 % (0-6); Hematocrit 34 % (42-52); Hemoglobin 11.3 g/dl (14.0-18.0); Lymphocyte % 18.9 % (25-47); Mean Corpuscular HGB Conc 33 g/dl (31-36); Mean Corpuscular Hemoglobin 32 pg (27-31); Mean Corpuscular Volume 97 fL (80-94); Mean Platelet Volume 8.4 um3 (7.4-10.4); Nucleated Red Blood Cells % 0.1; Platelet Count 223 10^3/ul (150-450); Red Blood Count 3.53 10^6/ul (4.00-5.40); Red Cell Distribution Width 13 % (10.5-15); White Blood Count 11.6 10^3/ul (3.5-10.8)
[2018-02-21 17:34] LABS: EGFR Non-African American 59.8 (>60)
[2018-02-21 17:38] LABS: Urine Appearance Clear; Urine Blood Negative (Negative); Urine Color Yellow; Urine Ketones Trace (Negative); Urine Protein Negative (Negative); Urine Red Blood Cell Trace(0-2/hpf) (Absent); Urine Specific Gravity 1.015 (1.010-1.030); Urine Urobilinogen Negative (Negative); Urine White Blood Cell Trace(0-5/hpf) (Absent)
[2018-02-21 18:03] LABS: Lithium 1.22 mmol/L (0.6-1.2)
[2018-02-21 20:06] VITALS: BP 138/82
== END 2018-02-21 20:05 | disposition home or self-care (01) ==
LOC: ED 14:50
DX: R42 Dizziness and giddiness (principal); F17.210 Nicotine dependence, cigarettes, uncomplicated; Z88.3 Allergy status to other anti-infective agents; Z88.8 Allergy status to other drugs, medicaments and biological substances
CPT/HCPCS: 36415; 70450; 71045; 80053; 80178; 81003; 81015; 82550; 83605; 83735; 83880; 84443; 84484; 85025; 85610; 85730; 87086; 93005; 99282

== ENCOUNTER 2018-03-31 13:59 | Emergency (ER) | payer OTHER ==
[2018-03-31 15:24] LABS: Hematocrit 34 % (42-52); Hemoglobin 11.6 g/dl (14.0-18.0); Mean Corpuscular HGB Conc 34 g/dl (31-36); Mean Corpuscular Hemoglobin 33 pg (27-31); Mean Corpuscular Volume 96 fL (80-94); Mean Platelet Volume 8.5 um3 (7.4-10.4); Platelet Count 241 10^3/ul (150-450); Red Blood Count 3.55 10^6/ul (4.00-5.40); Red Cell Distribution Width 13 % (10.5-15); White Blood Count 8.4 10^3/ul (3.5-10.8)
--- NOTE | 2018-03-31 15:33 | ED ---
HPI Chest Pain - HPI Summary HPI Summary: This patient is a 62 year old M BIBA to [facility] with a chief complaint of sharp constant chest pain and SOB since this morning. Patient reports left leg pain. Pain is 3/10 in severity. Denies history of blood clots. Denies recent stress test or echo. PMHx includes bipolar disorder. Patient states he is taking medication regularly. Patient given ASA and Nitro by EMS, according to triage note. - History of Current Complaint Chief Complaint: EDChestPainROMI Time Seen by Provider: 03/31/18 14:28 Hx Obtained From: Patient Onset/Duration: Started Hours Ago Timing: Constant Pain Intensity: 3 Pain Scale Used: 0-10 Numeric Character: Sharp/Stabbing Alleviating Factor(s): Nothing Associated Signs and Symptoms: Positive: Chest Pain, Shortness of Breath, Calf Pain/Swelling - Additional Pertinent History Primary Care Physician: CHANELLE - Allergy/Home Medications Allergies/Adverse Reactions: Allergies Allergy/AdvReac Type Severity Reaction Status Date / Time benztropine [From Cogentin] Allergy Unknown Verified 02/21/18 15:26 Reaction Details bupropion Allergy Unknown Verified 02/21/18 15:26 Reaction Details carbamazepine Allergy Unknown Verified 02/21/18 15:26 Reaction Details diazepam Allergy See Comment Verified 02/21/18 15:26 fluoxetine Allergy Unknown Verified 02/21/18 15:26 Reaction Details fluphenazine Allergy Unknown Verified 02/21/18 15:26 Reaction Details haloperidol Allergy Unknown Verified 02/21/18 15:26 Reaction Details metformin Allergy Unknown Verified 03/31/18 14:25 Reaction Details thiothixene Allergy Unknown Verified 02/21/18 15:26 Reaction Details trihexyphenidyl Allergy Unknown Verified 02/21/18 15:26 Reaction Details PMH/Surg Hx/FS Hx/Imm Hx Endocrine/Hematology History: Reports: Hx Diabetes, Other Endocrine/ Hematological Disorders - Impaired fasting glucose Denies: Hx Anticoagulant Therapy, Hx Thyroid Disease Cardiovascular History: Reports: Hx Angina, Hx Hypertension Denies: Hx Pacemaker/ICD Respiratory History: Denies: Hx Asthma, Hx Chronic Obstructive Pulmonary Disease (COPD) GI History: Reports: Hx Gastroesophageal Reflux Disease Denies: Hx Ulcer Comment Only: Other GI Disorders - Chronic constipation History: Reports: Hx Acute Renal Failure - secondary to lithium carbonate, Hx Benign Prostatic Hyperplasia, Other Problems/Disorders - Urinary incontinence Denies: Hx Renal Disease Musculoskeletal History: Denies: Hx Gout Sensory History: Reports: Hx Contacts or Glasses Denies: Hx Hearing Aid Opthamlomology History: Reports: Hx Contacts or Glasses Neurological History: Reports: Hx Developmental Delay, Hx Headaches, Hx Seizures - hx of medication induced seizures Denies: Hx Dementia Psychiatric History: Reports: Hx Depression, Hx Panic Disorder, Hx Inpatient Treatment, Hx Community Mental Health Tx, Hx Schizophrenia, Hx Bipolar Disorder , Hx Suicide Attempt, Hx of Violent Episodes Against Others Denies: Hx Eating Disorder, Hx Substance Abuse - Surgical History Surgery Procedure, Year, and Place: RIGHT wrist, ring finger on right hand, penis as a baby. - Immunization History Date of Tetanus Vaccine: UNK Date of Influenza Vaccine: Fall 2011 Infectious Disease History: No Infectious Disease History: Denies: Hx Hepatitis, Hx Human Immunodeficiency Virus (HIV), History Other Infectious Disease, Traveled Outside the [place] in Last 30 Days - Family History Known Family History: Positive: Hypertension, Other - Alcoholism - Social History Alcohol Use: None Substance Use Type: Reports: None Smoking Status (MU): Current Some Day Smoker Type: Cigarettes Amount Used/How Often: 4-5/day Have You Smoked in the Last Year: Yes Review of Systems Positive: Chest Pain Positive: Shortness Of Breath Positive: Myalgia - left leg, Edema All Other Systems Reviewed And Are Negative: Yes Physical Exam - Summary Physical Exam Summary: GENERAL: Patient is a well developed and nourished male who is lying comfortable in the stretcher. Patient is not in any acute respiratory distress. HEAD AND FACE: Normocephalic EYES: PERRLA, EOMI x 2. EARS: Hearing grossly intact. MOUTH: Oropharynx within normal limits. NECK: Supple, trachea is midline, no adenopathy, no JVD, no carotid bruit. CHEST: Symmetric, no tenderness at palpation LUNGS: Clear to auscultation bilaterally. No wheezing or crackles. CVS: Regular rate and rhythm, S1 and S2 present, no murmurs or gallops appreciated. ABDOMEN: Soft, non-tender. Bowel sounds are normal. No abdominal abnormal pulsations. EXTREMITIES: Full ROM in all major joints, no cyanosis or clubbing. Left leg is red, warm, tender and swollen, worse than right NEURO: Alert and oriented x 3. No acute neurological deficits. Speech is normal and follows commands. SKIN: Dry and warm Triage Information Reviewed: Yes Vital Signs On Initial Exam: Initial Vitals Pulse Resp BP Pulse Ox 108 28 142/73 99 03/31/18 14:14 03/31/18 14:14 03/31/18 14:14 03/31/18 14:14 Vital Signs Reviewed: Yes Diagnostics - Vital Signs Vital Signs Temp Pulse Resp BP Pulse Ox 03/31/18 15:14 27 156/80 03/31/18 15:00 19 03/31/18 14:44 14 134/85 03/31/18 14:25 98.9 F 98 20 142/73 97 03/31/18 14:14 108 28 142/73 99 - Laboratory Lab Results: Lab Results 03/31/18 Range/Units 15:13 WBC 8.4 (3.5-10.8) 10^3/ul RBC 3.55 L (4.00-5.40) 10^6/ul Hgb 11.6 L (14.0-18.0) g/dl Hct 34 L (42-52) % MCV 96 H (80-94) fL MCH 33 H (27-31) pg MCHC 34 (31-36) g/dl RDW 13 (10.5-15) % Plt Count 241 (150-450) 10^3/ul MPV 8.5 (7.4-10.4) um3 Neut % (Auto) Pending Lymph % (Auto) Pending [place] % (Auto) Pending Eos % (Auto) Pending Baso % (Auto) Pending Absolute Neuts (auto) Pending Absolute Lymphs (auto) Pending Absolute Monos (auto) Pending Absolute Eos (auto) Pending Absolute Basos (auto) Pending Absolute Nucleated RBC Pending Nucleated RBC % Pending Result Diagrams: 03/31/18 15:13 03/31/18 15:13 Lab Statement: Any lab studies that have been ordered have been reviewed, and results considered in the medical decision making process. - Radiology CXR Radiology Interpretation Completed By: Radiologist - No evidence for acute intrathoracic disease. ED Physician has reviewed this report. - EKG 1512 Cardiac Rate: NL - 95 BPM EKG Rhythm: Sinus Rhythm - Additional Comments Diagnostic Additional Comments: A Lower Extremity Venous Doppler reveals, as per radiologist: #. No visualized LEFT lower extremity deep venous thrombosis. Assessment of the peroneal calf veins is limited with only one of the peroneal veins visible. #. Small LEFT popliteal cyst. ED Physician has reviewed this report. Re-Evaluation - Re-Evaluation First Re-Evaluation Time: 18:34 Comment: Patient is still having chest pain. Chest Pain Course/Dx - Course Course Of Treatment: 62 year old M BIBA to [facility] with a chief complaint of sharp constant chest pain and SOB since this morning. patient was given ASA and Nitro by EMS. A CXR and EKG are unremarkable. Venous Doppler Study is negative for DVT, revealing a left popliteal cyst. Patient is given Toradol. Bloodwork is unremarkable two negative tropinin's are obtained. Patient will be signed out to Dr. Juarez awaiting a third troponin. - Diagnoses Provider Diagnoses: Chest pain Discharge - Sign-Out/Discharge Documenting (check all that apply): Sign-Out Patient Signing out patient TO: Audie Juarez - awaiting troponin - Discharge Plan Condition: Good Disposition: HOME Prescriptions: Famotidine TAB* [Pepcid 20 MG TAB*] 20 mg PO BID #20 tab Patient Education Materials: Gastroesophageal Reflux Disease (ED) Referrals: Abdulaziz Carranza MD [Primary Care Provider] - - Billing Disposition and Condition Condition: GOOD Disposition: Home - Attestation Statements Document Initiated by Scribe: Yes Documenting Scribe: Carla Santiago Provider For Whom Jagruti is Documenting (Include Credential): Amelia Starr MD Scribe Attestation: Carla Blas, scribed for Amelia Starr MD on 04/02/18 at 0747. Scribe Documentation Reviewed: Yes Provider Attestation: The documentation as recorded by the Carla mercer accurately reflects the service I personally performed and the decisions made by me, Amelia Starr MD
[2018-03-31 15:41] LABS: EGFR Non-African American 104.8 (>60)
[2018-03-31 15:50] LABS: ABS Basophils 0.1 10^3/ul (0-0.2); ABS Eosinophils 0.1 10^3/ul (0-0.6); ABS Monocytes 0.9 10^3/ul (0-0.8); ABS Neutrophils 5.3 10^3/ul (1.5-7.7); ABS Nucleated RBC 0 10^3/ul; Eosinophil % 1.1 % (0-6); Lymphocyte % 24.3 % (25-47); Nucleated Red Blood Cells % 0.2
--- NOTE | 2018-03-31 15:50 | RAD ---
Indication: Chest pain. Comparison: February 21, 2018 Technique: Upright AP 1506 hours Report: Clear lungs and pleural spaces. Negative for pneumothorax. The heart, pulmonary vasculature, and mediastinal contours are unremarkable. Unremarkable osseous structures and soft tissue contours. IMPRESSION: #. No evidence for acute intrathoracic disease.
--- NOTE | 2018-03-31 17:04 | RAD ---
INDICATION: LEFT lower extremity edema. COMPARISON: No relevant prior exams available on the [facility] PACS for comparison. TECHNIQUE: Cotto scale, color Doppler, and spectral analysis of the deep veins of the LEFT lower extremity. Vessel compression, phasicity, and augmentation assessed. REPORT: The LEFT common femoral, great saphenous, profunda femoral, femoral, popliteal, and posterior tibial veins are patent. Only one of the peroneal veins couldn't be visualized with flow demonstrated on color Doppler with normal venous waveform. The second peroneal vein could not be visualized limiting assessment. Small LEFT popliteal cyst visualized measuring up to 2.8 x 1.5 x 4.9 cm. Patency of the RIGHT common femoral vein documented. IMPRESSION: #. No visualized LEFT lower extremity deep venous thrombosis. Assessment of the peroneal calf veins is limited with only one of the peroneal veins visible. #. Small LEFT popliteal cyst.
[2018-03-31] MEDS ORDERED: Ketorolac INJ* 30 MG/ML 1 ML VIAL IV PUSH ONE (18:35)
[2018-03-31] MEDS ORDERED: Famotidine IV* 10 MG/ML 2 ML (20 mg) IV SLOW PU ONE (21:45)
[2018-03-31] MEDS ORDERED: Lidocaine 2% VISCOUS* 15 ML UDC PO ONE (21:46)
[2018-03-31] MEDS ORDERED: Al Hydrox/Mg Hydrox/Simet LIQ* 30 ML UDC PO ONE (21:46)
--- NOTE | 2018-04-01 00:58 | ED ---
Progress - Progress Note Progress Note: Patient was signed out from Dr. Starr to Dr. Juarez upon provider shift change pending 3rd troponin. Re-Evaluation - Re-Evaluation First Re-Evaluation Time: 18:34 Comment: Patient is still having chest pain. Course/Dx - Course Course Of Treatment: 62 year old M BIBA to [facility] with a chief complaint of sharp constant chest pain and SOB since this morning. patient was given ASA and Nitro by EMS. A CXR and EKG are unremarkable. Venous Doppler Study is negative for DVT, revealing a left popliteal cyst. Patient is given Toradol. Bloodwork is unremarkable two negative tropinin's are obtained. Patient will be signed out to Dr. Juarez awaiting a third troponin. - Diagnoses Provider Diagnoses: Chest pain Discharge - Sign-Out/Discharge Documenting (check all that apply): Patient Departure - Discharge Plan Condition: Good Disposition: HOME Prescriptions: Famotidine TAB* [Pepcid 20 MG TAB*] 20 mg PO BID #20 tab Patient Education Materials: Gastroesophageal Reflux Disease (ED) Referrals: Abdulaziz Carranza MD [Primary Care Provider] - - Attestation Statements Document Initiated by Scribe: Yes Documenting Scribe: Selin Keller Provider For Whom Scribe is Documenting (Include Credential): Audie Juarez MD Scribe Attestation: Selin Blas, scribed for Audie Juarez MD on 04/01/18 at 0057.
[2018-04-01 01:28] VITALS: BP 135/82
== END 2018-04-01 01:29 | disposition home or self-care (01) ==
LOC: ED 13:59
DX: R07.9 Chest pain, unspecified (principal); R06.02 Shortness of breath; M71.22 Synovial cyst of popliteal space [Baker], left knee; F17.210 Nicotine dependence, cigarettes, uncomplicated; Z88.8 Allergy status to other drugs, medicaments and biological substances
CPT/HCPCS: 36415; 71045; 80053; 83605; 83735; 83880; 84484; 85025; 85610; 85730; 93005; 96374; 96375; 99285; A9270-GY; J1885

== ENCOUNTER 2018-04-10 14:25 | Emergency (ER) | payer OTHER ==
--- NOTE | 2018-04-10 16:50 | ED ---
HPI Chest Pain - HPI Summary HPI Summary: This patient is a 62 year old M presenting to [facility] with a chief complaint of left-sided CP since 03/31/18. He endorses constipation, diffuse abd pain, and PMHx HTN. Pt started on Pepcid after his most recent ED visit last week. - History of Current Complaint Chief Complaint: EDChestPainROMI Time Seen by Provider: 04/10/18 16:14 Hx Obtained From: Patient Onset/Duration: Started Weeks Ago, Atraumatic, Still Present Timing: Constant Initial Severity: Severe Current Severity: Severe Pain Intensity: 10 Pain Scale Used: 0-10 Numeric Chest Pain Location: Left Anterior, Left Lateral Chest Pain Radiates: Yes Chest Pain Radiates To:: Epigastric Aggravating Factor(s): Nothing Alleviating Factor(s): Nothing Associated Signs and Symptoms: Positive: Chest Pain, Abdominal Pain, Other: - constipation. Negative: Fever - Additional Pertinent History Primary Care Physician: CHANELLE - Allergy/Home Medications Allergies/Adverse Reactions: Allergies Allergy/AdvReac Type Severity Reaction Status Date / Time benztropine [From Cogentin] Allergy Unknown Verified 02/21/18 15:26 Reaction Details bupropion Allergy Unknown Verified 02/21/18 15:26 Reaction Details carbamazepine Allergy Unknown Verified 02/21/18 15:26 Reaction Details diazepam Allergy See Comment Verified 02/21/18 15:26 fluoxetine Allergy Unknown Verified 02/21/18 15:26 Reaction Details fluphenazine Allergy Unknown Verified 02/21/18 15:26 Reaction Details haloperidol Allergy Unknown Verified 02/21/18 15:26 Reaction Details metformin Allergy Unknown Verified 03/31/18 14:25 Reaction Details thiothixene Allergy Unknown Verified 02/21/18 15:26 Reaction Details trihexyphenidyl Allergy Unknown Verified 02/21/18 15:26 Reaction Details PMH/Surg Hx/FS Hx/Imm Hx Endocrine/Hematology History: Reports: Hx Diabetes, Other Endocrine/ Hematological Disorders - Impaired fasting glucose Denies: Hx Anticoagulant Therapy, Hx Thyroid Disease Cardiovascular History: Reports: Hx Angina, Hx Hypertension Denies: Hx Pacemaker/ICD Respiratory History: Denies: Hx Asthma, Hx Chronic Obstructive Pulmonary Disease (COPD) GI History: Reports: Hx Gastroesophageal Reflux Disease Denies: Hx Ulcer Comment Only: Other GI Disorders - Chronic constipation History: Reports: Hx Acute Renal Failure - secondary to lithium carbonate, Hx Benign Prostatic Hyperplasia, Other Problems/Disorders - Urinary incontinence Denies: Hx Renal Disease Musculoskeletal History: Denies: Hx Gout Sensory History: Reports: Hx Contacts or Glasses Denies: Hx Hearing Aid Opthamlomology History: Reports: Hx Contacts or Glasses EENT History: Denies: Hx Deafness Neurological History: Reports: Hx Developmental Delay, Hx Headaches, Hx Seizures - hx of medication induced seizures Denies: Hx Dementia Psychiatric History: Reports: Hx Depression, Hx Panic Disorder, Hx Inpatient Treatment, Hx Community Mental Health Tx, Hx Schizophrenia, Hx Bipolar Disorder , Hx Suicide Attempt, Hx of Violent Episodes Against Others Denies: Hx Eating Disorder, Hx Substance Abuse - Surgical History Surgery Procedure, Year, and Place: RIGHT wrist, ring finger on right hand, penis as a baby. - Immunization History Date of Tetanus Vaccine: UNK Date of Influenza Vaccine: Fall 2011 Infectious Disease History: No Infectious Disease History: Denies: Hx Hepatitis, Hx Human Immunodeficiency Virus (HIV), History Other Infectious Disease, Traveled Outside the [place] in Last 30 Days - Family History Known Family History: Positive: Hypertension, Other - Alcoholism - Social History Occupation: Disabled Lives: Assisted Living Alcohol Use: None Substance Use Type: Reports: None Smoking Status (MU): Current Some Day Smoker Type: Cigarettes Amount Used/How Often: 4-5/day Have You Smoked in the Last Year: Yes Review of Systems Negative: Fever Positive: Chest Pain Positive: Abdominal Pain, Other - constipation Positive: no symptoms reported All Other Systems Reviewed And Are Negative: Yes Physical Exam - Summary Physical Exam Summary: Appearance: The patient is well-nourished in no acute distress and in no acute pain. Skin: The skin is warm and dry and skin color reflects adequate perfusion. HEENT: The head is normocephalic and atraumatic. The pupils are equal and reactive. The conjunctivae are clear and without drainage. Nares are patent and without drainage. Mouth reveals moist mucous membranes and the throat is without erythema and exudate. The external ears are intact. The ear canals are patent and without drainage. The tympanic membranes are intact. Neck: The neck is supple with full range of motion and non-tender. There are no carotid bruits. There is no neck vein distension. Respiratory: Chest is non-tender. Lungs are clear to auscultation and breath sounds are symmetrical and equal. Cardiovascular: Heart is regular rate and rhythm. There is no murmur or rub auscultated. There is no peripheral edema and pulses are symmetrical and equal. Abdomen: The abdomen is soft and non-tender. There are normal bowel sounds heard in all four quadrants and there is no organomegaly palpated. Musculoskeletal: There is no back tenderness noted. Extremities are non-tender with full range of motion. There is good capillary refill. There is no peripheral edema or calf tenderness elicited. Neurological: Patient is alert and oriented to person, place and time. The patient has symmetrical motor strength in all four extremities. Cranial nerves are grossly intact. Deep tendon reflexes are symmetrical and equal in all four extremities. Psychiatric: The patient has an appropriate affect and does not exhibit any anxiety or depression. The patient shows a pressured speech pattern. Triage Information Reviewed: Yes Vital Signs On Initial Exam: Initial Vitals Temp Pulse Resp BP Pulse Ox 98 F 111 20 163/87 100 04/10/18 14:30 04/10/18 14:30 04/10/18 14:30 04/10/18 14:30 04/10/18 14:30 Vital Signs Reviewed: Yes Diagnostics - Vital Signs Vital Signs Temp Pulse Resp BP Pulse Ox 04/10/18 14:30 98 F 111 20 163/87 100 - Laboratory Result Diagrams: 04/10/18 17:23 04/10/18 18:51 Lab Statement: Any lab studies that have been ordered have been reviewed, and results considered in the medical decision making process. - EKG 1436 Cardiac Rate: Tachycardia - 108 EKG Rhythm: Sinus Tachycardia ST Segment: Normal Ectopy: None EKG Interpretation: No STEMI Re-Evaluation - Re-Evaluation First Eval Re-Evaluation Time: 19:18 Change: Unchanged Comment: Pt notes his pain is no better. Asked about slurring speech, attributes it to his meds. Chest Pain Course/Dx - Course Course Of Treatment: Mr. Blake is well-known to me as a patient in the emergency department. He frequently presents complaining of chest pain as he did today. Today he is more vague complaining of breath abdominal pain and chest pain. His speech pattern is also different since the last time I've seen him and seems more pressured and perhaps slurred. When asked about this he states that this is his medications and it is not unusual. His workup as usual was unremarkable including a delayed troponin. I recommended a follow-up with his PCP. - Diagnoses Provider Diagnoses: Chest pain Discharge - Sign-Out/Discharge Documenting (check all that apply): Patient Departure - discharge - Discharge Plan Condition: Stable Disposition: HOME Patient Education Materials: Chest Pain (ED) Referrals: Abdulaziz Carranza MD [Primary Care Provider] - 3 Days Additional Instructions: Return to the emergency department for any new or worsening symptoms. - Billing Disposition and Condition Condition: STABLE Disposition: Home - Attestation Statements Document Initiated by Jagruti: Yes Documenting Scribe: Justice Gonzalez Provider For Whom Jagruti is Documenting (Include Credential): Dr. Audie Agustin MD Scribe Attestation: IJustice scribed for Dr. Audie Agustin MD on 04/10/18 at 2211. Scribe Documentation Reviewed: Yes Provider Attestation: The documentation as recorded by the Justice mercer accurately reflects the service I personally performed and the decisions made by me, Dr. Audie Agustin MD
[2018-04-10 17:01] LABS: Urine Appearance Clear; Urine Blood Negative (Negative); Urine Color Yellow; Urine Ketones Trace (Negative); Urine Protein Negative (Negative); Urine Red Blood Cell Absent (Absent); Urine Specific Gravity 1.013 (1.010-1.030); Urine Urobilinogen Negative (Negative); Urine White Blood Cell 1+(6-10/hpf) (Absent)
[2018-04-10 17:33] LABS: ABS Basophils 0 10^3/ul (0-0.2); ABS Eosinophils 0.1 10^3/ul (0-0.6); ABS Lymphocytes 2.1 10^3/ul (1.0-4.8); ABS Monocytes 0.9 10^3/ul (0-0.8); ABS Neutrophils 5.6 10^3/ul (1.5-7.7); ABS Nucleated RBC 0 10^3/ul; Hematocrit 36 % (42-52); Hemoglobin 12.3 g/dl (14.0-18.0); Mean Corpuscular HGB Conc 35 g/dl (31-36); Mean Corpuscular Hemoglobin 33 pg (27-31); Mean Corpuscular Volume 96 fL (80-94); Mean Platelet Volume 8.9 um3 (7.4-10.4); Nucleated Red Blood Cells % 0.1; Platelet Count 209 10^3/ul (150-450); Red Blood Count 3.74 10^6/ul (4.00-5.40); Red Cell Distribution Width 13 % (10.5-15); White Blood Count 8.7 10^3/ul (3.5-10.8)
[2018-04-10 22:21] VITALS: BP 138/90
== END 2018-04-10 22:20 | disposition home or self-care (01) ==
LOC: ED 14:25
DX: R07.9 Chest pain, unspecified (principal); R10.9 Unspecified abdominal pain; R00.0 Tachycardia, unspecified; I10 Essential (primary) hypertension; F17.210 Nicotine dependence, cigarettes, uncomplicated; Z79.899 Other long term (current) drug therapy
CPT/HCPCS: 36415; 80053; 80164; 80307; 80320; 80329; 81003; 81015; 84443; 84484; 85025; 87077; 87086; 93005; 99282; G0480

== ENCOUNTER 2018-05-03 11:08 | Emergency (ER) | payer OTHER ==
[2018-05-03] MEDS ORDERED: Tetan/Diph/Pertus SYR(Tdap)* 0.5 ML SYR(BOOSTRIX) use SYR IM ONE (12:01)
--- NOTE | 2018-05-03 12:05 | ED ---
Dizziness - HPI Summary HPI Summary: This patient is a 62 year old M presenting to [facility] with a chief complaint of fall and associated head injury this AM. Pt notes he fell secondary to dizziness. He notes a recent medication change. Per pts pharmacy, the patient has not refilled several of his meds in over 30 days and has thus run out or has not been taking them routinely. - History Of Current Complaint Chief Complaint: EDFacialInjury Stated Complaint: FALL Time Seen by Provider: 05/03/18 11:44 Hx Obtained From: Patient Onset/Duration: Still Present Timing: Constant Severity Initially: Mild Severity Currently: Mild Character: Dizzy Aggravating Factor(s): Nothing Alleviating Factor(s): Nothing Associated Signs And Symptoms: Positive: Unsteady Gait, Change In Medication, Other: - per pt pharmacy, med-noncompliance.. Negative: Fever - Allergies/Home Medications Allergies/Adverse Reactions: Allergies Allergy/AdvReac Type Severity Reaction Status Date / Time benztropine [From Cogentin] Allergy Unknown Verified 05/03/18 11:36 Reaction Details bupropion Allergy Unknown Verified 05/03/18 11:36 Reaction Details carbamazepine Allergy Unknown Verified 05/03/18 11:36 Reaction Details diazepam Allergy See Comment Verified 05/03/18 11:36 fluoxetine Allergy Unknown Verified 05/03/18 11:36 Reaction Details fluphenazine Allergy Unknown Verified 05/03/18 11:36 Reaction Details haloperidol Allergy Unknown Verified 05/03/18 11:36 Reaction Details metformin Allergy Unknown Verified 05/03/18 11:36 Reaction Details thiothixene Allergy Unknown Verified 05/03/18 11:36 Reaction Details trihexyphenidyl Allergy Unknown Verified 05/03/18 11:36 Reaction Details Home Medications: Home Medications Keflex 500 CAP* 1 tab PO TID 05/03/18 [History Confirmed 05/03/18] Trospium Chloride [Trospium Chloride ER] 20 mg PO BID 05/03/18 [History Confirmed 05/03/18] PMH/Surg Hx/FS Hx/Imm Hx Endocrine/Hematology History: Reports: Hx Diabetes, Other Endocrine/ Hematological Disorders - Impaired fasting glucose Denies: Hx Anticoagulant Therapy, Hx Thyroid Disease Cardiovascular History: Reports: Hx Angina, Hx Hypertension Denies: Hx Pacemaker/ICD Respiratory History: Denies: Hx Asthma, Hx Chronic Obstructive Pulmonary Disease (COPD) GI History: Reports: Hx Gastroesophageal Reflux Disease Denies: Hx Ulcer Comment Only: Other GI Disorders - Chronic constipation History: Reports: Hx Acute Renal Failure - secondary to lithium carbonate, Hx Benign Prostatic Hyperplasia, Other Problems/Disorders - Urinary incontinence Denies: Hx Renal Disease Musculoskeletal History: Denies: Hx Gout Sensory History: Reports: Hx Contacts or Glasses Denies: Hx Deafness, Hx Hearing Aid Opthamlomology History: Reports: Hx Contacts or Glasses Neurological History: Reports: Hx Developmental Delay, Hx Headaches, Hx Seizures - hx of medication induced seizures Denies: Hx Dementia Psychiatric History: Reports: Hx Depression, Hx Panic Disorder, Hx Inpatient Treatment, Hx Community Mental Health Tx, Hx Schizophrenia, Hx Bipolar Disorder , Hx Suicide Attempt, Hx of Violent Episodes Against Others Denies: Hx Eating Disorder, Hx Substance Abuse - Surgical History Surgery Procedure, Year, and Place: RIGHT wrist, ring finger on right hand, penis as a baby. - Immunization History Date of Tetanus Vaccine: UNK Date of Influenza Vaccine: Fall 2011 Infectious Disease History: No Infectious Disease History: Denies: Hx Hepatitis, Hx Human Immunodeficiency Virus (HIV), History Other Infectious Disease, Traveled Outside the [place] in Last 30 Days - Family History Known Family History: Positive: Hypertension, Other - Alcoholism - Social History Occupation: Disabled Alcohol Use: None Substance Use Type: Reports: None Smoking Status (MU): Current Some Day Smoker Type: Cigarettes Amount Used/How Often: 4-5/day Have You Smoked in the Last Year: Yes Review of Systems Negative: Fever Positive: no symptoms reported Positive: Other - abrasions to right side of face and forehead Neurological: Other - dizziness Positive: Headache - where abrasions are, Syncope - fall All Other Systems Reviewed And Are Negative: Yes Physical Exam - Summary Physical Exam Summary: Appearance: Well appearing, no pain distress Skin: warm, dry, reflects adequate perfusion. Abrasion over right side of face and right eyebrow. Head/face: normal Eyes: EOMI, GALINDO ENT: normal Neck: supple, non-tender Respiratory: CTA, breath sounds present Cardiovascular: RRR, pulses symmetrical Abdomen: non-tender, soft Bowel: present Musculoskeletal: normal, strength/ROM intact Neuro: normal, sensory motor intact, A&Ox3 Triage Information Reviewed: Yes Vital Signs On Initial Exam: Initial Vitals Temp Pulse Resp BP Pulse Ox 98 F 119 20 130/72 95 05/03/18 11:10 05/03/18 11:10 05/03/18 11:10 05/03/18 11:10 05/03/18 11:10 Vital Signs Reviewed: Yes Diagnostics - Vital Signs Vital Signs Temp Pulse Resp BP Pulse Ox 05/03/18 11:10 98 F 119 20 130/72 95 - Laboratory Result Diagrams: 05/03/18 12:08 05/03/18 12:08 Lab Statement: Any lab studies that have been ordered have been reviewed, and results considered in the medical decision making process. - CT Brain CT Interpretation Completed By: Radiologist - No CT evidence for traumatic brain injury. Mild involutional change. Dr. Ahmadi has reviewed this report. C-spine CT Interpretation Completed By: Radiologist - NO EVIDENCE FOR FRACTURE OR SUBLUXATION. MILD TO MODERATE CERVICAL SPONDYLOSIS. Dr. Ahmadi has reviewed this report. - EKG 1201 Cardiac Rate: Tachycardia - 106 EKG Rhythm: Sinus Tachycardia ST Segment: Normal Ectopy: None EKG Interpretation: No acute changes. Dizzy Course/Dx - Course Course Of Treatment: A 62-year-old M presents to the ED with a CC of dizziness and associated fall this AM. (+) dizziness, facial pain secondary to right sided facial and forehead abrasions. Fell while walking to his mailbox. He endorses recent med change. Per pt pharmacy, pt has been non-compliant with some of his meds and has not refilled them in over [address] brain reveals no CT evidence for traumatic brain injury. Mild involutional change. A CT C- spine reveals NO EVIDENCE FOR FRACTURE OR SUBLUXATION. MILD TO MODERATE CERVICAL SPONDYLOSIS. An EKG reveals sinus tachycardia at 106 BPM with no acute changes. In the ED course, pt had ct of head and labs wnl and will dc home. - Diagnoses Differential Diagnosis/HQI/PQRI: Other - fall/head injury Provider Diagnoses: Fall, Abrasion of face, Head injury Discharge - Sign-Out/Discharge Documenting (check all that apply): Patient Departure - discharge - Discharge Plan Condition: Stable Disposition: HOME Patient Education Materials: Fall Prevention for Older Adults (ED), Head Injury (ED), Abrasion (ED) Referrals: Abdulaziz Carranza MD [Primary Care Provider] - 3 Days Additional Instructions: Return to the emergency department for any new or worsening symptoms. - Billing Disposition and Condition Condition: STABLE Disposition: Home - Attestation Statements Document Initiated by Jagruti: Yes Documenting Scribe: Justice Gonzalez Provider For Whom Jagruti is Documenting (Include Credential): Dr. Fito Ahmadi MD Scribe Attestation: Justice Blas scribed for Dr. Fito Ahmadi MD on 05/03/18 at 1321. Scribe Documentation Reviewed: Yes Provider Attestation: The documentation as recorded by the Justice mercer accurately reflects the service I personally performed and the decisions made by me, Dr. Fito Ahmadi MD
[2018-05-03 12:22] LABS: ABS Basophils 0.1 10^3/ul (0-0.2); ABS Eosinophils 0.1 10^3/ul (0-0.6); ABS Lymphocytes 1.4 10^3/ul (1.0-4.8); ABS Monocytes 0.9 10^3/ul (0-0.8); ABS Neutrophils 5.6 10^3/ul (1.5-7.7); ABS Nucleated RBC 0 10^3/ul; Hematocrit 33 % (42-52); Hemoglobin 11.3 g/dl (14.0-18.0); Lymphocyte % 17.3 % (25-47); Mean Corpuscular HGB Conc 34 g/dl (31-36); Mean Corpuscular Hemoglobin 32 pg (27-31); Mean Corpuscular Volume 95 fL (80-94); Mean Platelet Volume 8.4 um3 (7.4-10.4); Nucleated Red Blood Cells % 0.1; Platelet Count 232 10^3/ul (150-450); Red Blood Count 3.53 10^6/ul (4.00-5.40); Red Cell Distribution Width 13 % (10.5-15); White Blood Count 8.1 10^3/ul (3.5-10.8)
--- NOTE | 2018-05-03 12:44 | RAD ---
Indication: Fall. Bruise to the RIGHT eye and cheek. Comparison: February 21, 2018 CT. Technique: Noncontrast CT vertex of skull through foramen magnum. Report: Mild prominence of the cerebral sulci and mild prominence of the cerebellar fissures. Unremarkable basal cisterns. Negative for tracy matter white matter obscuration, intra or extra-axial hemorrhage, or mass effect. Unremarkable orbital contents. Negative for calvarial or skull base fracture or suspicious focal osseous lesion. Mild soft tissue swelling at the RIGHT malar eminence. Unremarkable scalp. IMPRESSION: #. No CT evidence for traumatic brain injury. #. Mild involutional change.
[2018-05-03 12:46] LABS: EGFR Non-African American 98.7 (>60)
--- NOTE | 2018-05-03 12:47 | RAD ---
INDICATION: Trauma, fall. COMPARISON: Comparison is made with a prior CT of the cervical spine from June 30, 2015. TECHNIQUE: Contiguous axial sections were obtained from the skull base through the T1 vertebra. Images were reconstructed in the sagittal and coronal planes. FINDINGS: VERTEBRA: The vertebra are in normal alignment. No prevertebral soft tissue swelling or fracture is seen. C2-C3: No significant disc bulge or herniation is noted. No spinal canal or neural foraminal narrowing is seen. C3-C4: No significant disc bulge or herniation is noted. No spinal canal or neural foraminal narrowing is seen. C4-C5: There is mild posterior uncinate process spurring. No spinal canal narrowing is seen. There is mild neural foraminal narrowing on the left side. C5-C6: No significant disc bulge or herniation is noted. No spinal canal or neural foraminal narrowing is seen. C6-C7: There is osseous fusion of the C6 and C7 vertebral bodies with posterior uncinate process spurring causing mild to moderate spinal canal narrowing. There is mild neural foraminal narrowing on the right side and moderate neural foraminal narrowing on the left side. LUNG APICES: The lung apices appear clear. IMPRESSION: 1. NO EVIDENCE FOR FRACTURE OR SUBLUXATION. 2. MILD TO MODERATE CERVICAL SPONDYLOSIS DESCRIBED.
[2018-05-03 13:18] VITALS: BP 141/88
== END 2018-05-03 13:40 | disposition home or self-care (01) ==
LOC: ED 11:08
DX: S09.90XA Unspecified injury of head, initial encounter (principal); S00.81XA Abrasion of other part of head, initial encounter; W19.XXXA Unspecified fall, initial encounter; Y92.9 Unspecified place or not applicable; R42 Dizziness and giddiness; R00.0 Tachycardia, unspecified; M47.812 Spondylosis without myelopathy or radiculopathy, cervical region; F17.210 Nicotine dependence, cigarettes, uncomplicated; Z23 Encounter for immunization; Z79.899 Other long term (current) drug therapy; Z88.8 Allergy status to other drugs, medicaments and biological substances
CPT/HCPCS: 36415; 70450; 72125; 80053; 84484; 85025; 90471; 90715; 93005; 99282

== ENCOUNTER 2018-06-02 18:59 | Emergency (ER) | payer OTHER ==
--- NOTE | 2018-06-02 19:42 | ED ---
Head Injury - HPI Summary HPI Summary: The pt is a 62 y/o male presenting to [facility] c/o an occipital head injury s/p a fall from his bed today morning. He hit the floor injuring the back of his head and RUE. The pt notes a fever, chronic dental cavity, WRIGHT, RUE pain, and neck stiffness but denies LOC, N/V/D and new jaw or dental pain. - History Of Current Complaint Chief Complaint: EDHeadInjury Stated Complaint: FALL Time Seen by Provider: 06/02/18 19:16 Hx Obtained From: Patient Mechanism Of Injury: Fall From Height Of: - Bed Onset/Duration: Started Hours Ago, Still Present Severity Initially: Mild Pain Intensity: 2 Pain Scale Used: 0-10 Numeric Location of Head Injury: Occipital - Allergies/Home Medications Allergies/Adverse Reactions: Allergies Allergy/AdvReac Type Severity Reaction Status Date / Time benztropine [From Cogentin] Allergy Unknown Verified 05/03/18 11:36 Reaction Details bupropion Allergy Unknown Verified 05/03/18 11:36 Reaction Details carbamazepine Allergy Unknown Verified 05/03/18 11:36 Reaction Details diazepam Allergy See Comment Verified 05/03/18 11:36 fluoxetine Allergy Unknown Verified 05/03/18 11:36 Reaction Details fluphenazine Allergy Unknown Verified 05/03/18 11:36 Reaction Details haloperidol Allergy Unknown Verified 05/03/18 11:36 Reaction Details metformin Allergy Unknown Verified 05/03/18 11:36 Reaction Details thiothixene Allergy Unknown Verified 05/03/18 11:36 Reaction Details trihexyphenidyl Allergy Unknown Verified 05/03/18 11:36 Reaction Details PMH/Surg Hx/FS Hx/Imm Hx Previously Healthy: No Endocrine/Hematology History: Reports: Hx Diabetes, Other Endocrine/ Hematological Disorders - Impaired fasting glucose Denies: Hx Anticoagulant Therapy, Hx Thyroid Disease Cardiovascular History: Reports: Hx Angina, Hx Hypertension Denies: Hx Pacemaker/ICD Respiratory History: Denies: Hx Asthma, Hx Chronic Obstructive Pulmonary Disease (COPD) GI History: Reports: Hx Gastroesophageal Reflux Disease Denies: Hx Ulcer Comment Only: Other GI Disorders - Chronic constipation History: Reports: Hx Acute Renal Failure - secondary to lithium carbonate, Hx Benign Prostatic Hyperplasia, Other Problems/Disorders - Urinary incontinence Denies: Hx Renal Disease Musculoskeletal History: Denies: Hx Gout Sensory History: Reports: Hx Contacts or Glasses Denies: Hx Deafness, Hx Hearing Aid Opthamlomology History: Reports: Hx Contacts or Glasses Neurological History: Reports: Hx Developmental Delay, Hx Headaches, Hx Seizures - seizure d/o Denies: Hx Dementia Psychiatric History: Reports: Hx Depression, Hx Panic Disorder, Hx Inpatient Treatment, Hx Community Mental Health Tx, Hx Schizophrenia, Hx Bipolar Disorder , Hx Suicide Attempt, Hx of Violent Episodes Against Others Denies: Hx Eating Disorder, Hx Substance Abuse - Cancer History Cancer Type, Location and Year: None reported - Surgical History Surgery Procedure, Year, and Place: RIGHT wrist, ring finger on right hand, penis as a baby. - Immunization History Date of Tetanus Vaccine: UNK Date of Influenza Vaccine: Fall 2011 Infectious Disease History: No Infectious Disease History: Denies: Hx Hepatitis, Hx Human Immunodeficiency Virus (HIV), History Other Infectious Disease, Traveled Outside the in Last 30 Days - Family History Known Family History: Positive: Hypertension, Other - Alcoholism - Social History Occupation: Unemployed, Disabled Lives: Alone Alcohol Use: unable to determine Substance Use Type: Reports: None Smoking Status (MU): Current Some Day Smoker Type: Cigarettes Amount Used/How Often: 4-5/day Have You Smoked in the Last Year: Yes Review of Systems Constitutional: Negative - LOC Positive: Fever ENT: Negative - New dental or jaw pain, Other - Positive: Occipital Head injury , neck stiffness, chronic dental cavity Negative: Vomiting, Diarrhea, Nausea Musculoskeletal: Other - Positve: Fall, RUE pain All Other Systems Reviewed And Are Negative: Yes Physical Exam - Summary Physical Exam Summary: General: well-appearing, no pain distress Skin: warm, color reflects adequate perfusion, dry Head: Contusion on the occipital head Eyes: EOMI, GALINDO ENT: normal Neck: supple, nontender Respiratory: CTA, breath sounds present Cardiovascular: RRR Abdomen: soft, nontender Bowel: present Musculoskeletal: normal, strength/ROM intact Neurological: sensory/motor intact, A&O x3 Psychological: affect/mood appropriate GCS: 15 Triage Information Reviewed: Yes Vital Signs On Initial Exam: Initial Vitals Temp Pulse Resp BP Pulse Ox 98.3 F 96 18 114/71 97 06/02/18 19:10 06/02/18 19:10 06/02/18 19:10 06/02/18 19:10 06/02/18 19:10 Vital Signs Reviewed: Yes Diagnostics - Vital Signs Vital Signs Temp Pulse Resp BP Pulse Ox 06/02/18 19:10 98.3 F 96 18 114/71 97 - Laboratory Lab Statement: Any lab studies that have been ordered have been reviewed, and results considered in the medical decision making process. - CT Brain CT CT Interpretation Completed By: Radiologist - IMPRESSION: 1. No acute intracranial abnormality. 2. No change from the comparison study done on 2017. The ED physician reviewed this radiology report. Cervical Spine CT CT Interpretation Completed By: Radiologist - IMPRESSION: 1. Diffuse degenerative changes. 2. No acute fracture, subluxation, or aggressive osseous lesion. 3. No change from the comparison study done on 05/03/2018. The ED physician reviewed this radiology report. Head Injury Course/Dx Course Of Treatment: Medications reviewed. Allergies noted. DISCUSSED RESULTS WITH THE PATIENT. F/U PMD PRN; RETURN TO ED IF WORSE. - Diagnoses Provider Diagnoses: Head injury Discharge - Sign-Out/Discharge Documenting (check all that apply): Patient Departure - Discharge Plan Condition: Stable Disposition: HOME Patient Education Materials: Head Injury (ED) Referrals: Abdulaziz Carranza MD [Primary Care Provider] - Additional Instructions: FOLLOW UP WITH YOUR DOCTOR IF NOT COMPLETELY IMPROVED. RETURN TO THE EMERGENCY DEPARTMENT FOR ANY WORSENING OF YOUR CONDITION OR QUESTIONS OR CONCERNS. - Billing Disposition and Condition Condition: STABLE Disposition: Home - Attestation Statements Document Initiated by Jagruti: Yes Documenting Scribe: Josefina Almodovar Provider For Whom Jagruti is Documenting (Include Credential): Dr. Theodore Vigil MD Scribe Attestation: Josefina Blas scribed for Dr. Theodore Vigil MD on 06/02/18 at 2124. Scribe Documentation Reviewed: Yes Provider Attestation: The documentation as recorded by the Josefina mercer accurately reflects the service I personally performed and the decisions made by me, Dr. Theodore Vigil MD
--- NOTE | 2018-06-02 20:34 | RAD ---
EXAM: CT Head Without Intravenous Contrast EXAM DATE/TIME: 06/02/2018 7:49 PM CLINICAL HISTORY: 62 years old, male; Injury or trauma; Fall; Additional info: Feel, struck back of head TECHNIQUE: Axial computed tomography images of the head/brain without intravenous contrast. All CT scans at this facility use at least one of these dose optimization techniques: automated exposure control; mA and/or kV adjustment per patient size (includes targeted exams where dose is matched to clinical indication); or iterative reconstruction. COMPARISON: BRAIN WO CT BRAIN WO 05/03/2018 12:20 PM FINDINGS: Brain: Chronic ischemic changes. Diffuse atrophy. No mass, acute hemorrhage, or edema. Ventricles: Compensatory ventriculomegaly. Bones/joints: Normal. No acute fracture. Sinuses: Normal as visualized. No acute sinusitis. Mastoid air cells: Normal as visualized. No mastoid effusion. Soft tissues: Normal. IMPRESSION: 1. No acute intracranial abnormality. 2. No change from the comparison study. To contact [facility] with a general question: [facility] - [phone] For direct physician to physician contact: Physician Hotline - [phone] [facility] ([facility] Facility ID #[id number])
--- NOTE | 2018-06-02 20:38 | RAD ---
EXAM: CT Cervical Spine Without Intravenous Contrast EXAM DATE/TIME: 06/02/2018 7:50 PM CLINICAL HISTORY: 62 years old, male; Injury or trauma; Fall; Initial encounter; Abrasion TECHNIQUE: Axial computed tomography images of the cervical spine without intravenous contrast. All CT scans at this facility use at least one of these dose optimization techniques: automated exposure control; mA and/or kV adjustment per patient size (includes targeted exams where dose is matched to clinical indication); or iterative reconstruction. Coronal and sagittal reformatted images were created and reviewed. COMPARISON: FRANCO Archuleta WO CT SPINE CERVICAL W/O 05/03/2018 12:20 PM FINDINGS: Vertebrae: Degenerative changes of the cervical spine at multiple levels with prominent anterior osteophyte formation. Incomplete fusion of C6 and C7 with prominent posterior osteophyte. No acute fracture or subluxation. Discs/Spinal canal/Neural foramina: No spinal stenosis. No neural foraminal narrowing. Soft tissues: Unremarkable. Vasculature: Atherosclerotic calcification. IMPRESSION: 1. Diffuse degenerative changes. 2. No acute fracture, subluxation, or aggressive osseous lesion. 3. No change from the comparison study. To contact [facility] with a general question: Operations [facility] - [phone] For direct physician to physician contact: Physician Hotline - [phone] [facility] ([facility] Facility ID #[id number])
[2018-06-02 21:47] VITALS: BP 107/76
== END 2018-06-03 00:04 | disposition home or self-care (01) ==
LOC: ED 18:59
DX: S09.90XA Unspecified injury of head, initial encounter (principal); W06.XXXA Fall from bed, initial encounter; Y92.003 Bedroom of unspecified non-institutional (private) residence as the place of occurrence of the external cause; R50.9 Fever, unspecified; K02.9 Dental caries, unspecified; Z88.8 Allergy status to other drugs, medicaments and biological substances; Z72.0 Tobacco use
CPT/HCPCS: 70450; 72125; 99283

== ENCOUNTER 2018-07-04 17:39 | Inpatient (IN) | payer OTHER ==
[2018-07-04] MEDS ORDERED: Nicotine Inhaler* 10 MG AMP INH PRN (19:28)
[2018-07-04 19:51] LABS: ABS Basophils 0.1 10^3/ul (0-0.2); ABS Eosinophils 0.1 10^3/ul (0-0.6); ABS Lymphocytes 2.4 10^3/ul (1.0-4.8); ABS Monocytes 0.9 10^3/ul (0-0.8); ABS Neutrophils 4.6 10^3/ul (1.5-7.7); ABS Nucleated RBC 0 10^3/ul; Eosinophil % 1.2 %; Hematocrit 32 % (42-52); Hemoglobin 10.8 g/dl (14.0-18.0); Lymphocyte % 29.2 %; Mean Corpuscular HGB Conc 34 g/dl (31-36); Mean Corpuscular Hemoglobin 32 pg (27-31); Mean Corpuscular Volume 94 fL (80-94); Mean Platelet Volume 8.2 fL (7.4-10.4); Nucleated Red Blood Cells % 0.1; Platelet Count 227 10^3/ul (150-450); Red Blood Count 3.38 10^6/ul (4.00-5.40); Red Cell Distribution Width 14 % (10.5-15); White Blood Count 8.1 10^3/ul (3.5-10.8)
[2018-07-04 20:20] LABS: EGFR Non-African American 78.9 (>60)
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
[2018-07-04] MEDS ORDERED: LORazepam TAB(*) 1 MG PO ONE (21:42)
[2018-07-04] MEDS ORDERED: risperiDONE TAB* 1 MG PO ONE (21:42)
[2018-07-04] MEDS ORDERED: Acetaminophen TAB* 325 MG PO ONE (21:42)
--- NOTE | 2018-07-04 22:19 | ED ---
Progress - Progress Note Progress Note: Pt was signed out by Dr. Mancera to Dr. Juarez, awaiting mental health evaluation. Re-Evaluation - Re-Evaluation First Eval Re-Evaluation Time: 20:00 Change: Unchanged Comment: cleared for MHE. Course/Dx - Course Course Of Treatment: The patient was signed out by Dr. Mancera to Dr. Juarez awaiting MHE. The mental health photoresist contact printer stated that the patient will be discharged home. - Diagnoses Provider Diagnoses: Schizoaffective disorder, bipolar type - Provider Notifications Time Discussed With Above Provider: 21:30 Instructed by Provider To: Admit As Inpatient Discharge - Sign-Out/Discharge Documenting (check all that apply): Patient Departure - discharge, Receiving Sign-Out Signing out patient TO: Audie Juarez Receiving patient FROM: Abdi Mancera - Discharge Plan Condition: Improved Disposition: HOME - Billing Disposition and Condition Condition: IMPROVED Disposition: Home - Attestation Statements Document Initiated by Scribe: Yes Documenting Scribe: Ammon Reveles Provider For Whom Jagruti is Documenting (Include Credential): Audie Juarez MD Scribe Attestation: Ammon Blas scribed for Audie Juarez MD on 07/11/18 at 0955. Scribe Documentation Reviewed: Yes Provider Attestation: The documentation as recorded by the Ammon mercer accurately reflects the service I personally performed and the decisions made by Audie chavez MD Status of Scribe Document: Viewed
[2018-07-05] MEDS ORDERED: Mouth Piece, Nicotine* 1 EACH CARTRIDGE INH ONE ×2 (01:00→05:00)
[2018-07-05] MEDS ORDERED: Nicotine GUM* 2 MG PO PRN (04:22)
[2018-07-05] MEDS ORDERED: Nicotine Inhaler* 10 MG AMP INH PRN (04:22)
[2018-07-05] MEDS ORDERED: Al Hydrox/Mg Hydrox/Simet LIQ* 30 ML UDC PO PRN (04:22)
[2018-07-05] MEDS: Divalproex DR TAB(*) 500 MG PO SCH ×2 (09:37→22:43)
[2018-07-05] MEDS: Lisinopril TAB* 10 MG PO SCH (09:37)
[2018-07-05] MEDS: Vitamin THERAPEUTIC TAB PO SCH (09:38)
[2018-07-05] MEDS: Aspirin 81 mg CHEW TAB* 81 MG TAB.CHEW PO SCH (09:38)
[2018-07-05] MEDS: Omeprazole CAP* 20 MG PO SCH (09:38)
[2018-07-05] MEDS: Atorvastatin* 10 MG TAB PO SCH (09:38)
[2018-07-05] MEDS: Polyethylene Glycol 3350* 17 GM PACKET PO SCH (09:42)
[2018-07-05] MEDS: Acetaminophen TAB* 325 MG PO PRN (12:36)
[2018-07-05] MEDS: CloZAPine TAB* 100 MG TAB PO SCH ×2 (13:50→22:42)
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
[2018-07-05] MEDS: risperiDONE TAB* 2 MG PO SCH (22:43)
[2018-07-05] MEDS: Docusate CAP* 100 MG PO SCH (23:13)
[2018-07-06] MEDS: Lisinopril TAB* 10 MG PO SCH (09:22)
[2018-07-06] MEDS: Atorvastatin* 10 MG TAB PO SCH (09:22)
[2018-07-06] MEDS: CloZAPine TAB* 100 MG TAB PO SCH ×2 (09:22→20:58)
[2018-07-06] MEDS: Divalproex DR TAB(*) 500 MG PO SCH ×2 (09:22→20:54)
[2018-07-06] MEDS: Omeprazole CAP* 20 MG PO SCH (09:22)
[2018-07-06] MEDS: Vitamin THERAPEUTIC TAB PO SCH (09:23)
[2018-07-06] MEDS: Aspirin 81 mg CHEW TAB* 81 MG TAB.CHEW PO SCH (09:23)
[2018-07-06] MEDS: Polyethylene Glycol 3350* 17 GM PACKET PO SCH (09:25)
[2018-07-06] MEDS: Acetaminophen TAB* 325 MG PO PRN (11:52)
--- NOTE | 2018-07-06 14:16 | PN ---
Subjective - Subjective Date of Service: 07/06/18 Service Type: 41947 Hosp care 15 min low complexity Subjective: Lisandra is in good spirits and is holding court in the conference room, where his peers appear delighted by his charming nature. There have been no episodes of agitation or acting out since yesterday morning and he is tolerating the resumption of clozapine well. He denies SI or HI. His thought process is non- sequitur and easily changes from topic to unrelated topic. Objective - Appearance Appearance: Obese Dysmorphic Features: No Hygiene: Normal Grooming: Fairly Well Kept - Behavior Psychomotor Activities: Normal Exhibits Abnormal Movement: No - Attitude and Relatedness Attitude and Relatedness: Cooperative Eye Contact: Fair - Speech Quality: Unpressured Latencies: Normal Quantity: Copious - Mood Patient's Decription of Mood: "Good" - Affect Observed Affect: Good Affect Consistent with: Euthymia - Thought Process Patient's Thought Process: Over Inclusive Thought Content: Yes Paranoid Ideation, No Passive Wish, No Suicidal Planning, No Homicidal Ideation - Sensorium Experiencing Hallucinations: No, Sensorium is Clear Type of Hallucinations: Visual: No, Auditory: No, Command: No - Level of Consciousness Level of Consciousness: Alert Orientation: Yes Intact, Yes Orientated to Time, Yes Orientated to Place, Yes Orientated to Person - Impulse Control Impulse Control: Poor - Insight and Judgement Insight and Judgement: Impaired - Group Participation Particating in Group Activities: Yes - Medication Management Medication Management Adherence: Yes Assessment - Assessment Merits Inpatient Hospitalization: For Immediate Safety, For Stabilization Inpatient DSM-V Dx: F25.0 Clinical Impression: 62 y.o. single, white male with a history of schizoaffective disorder, bipolar type taken to the hospital involuntarily by residential staff at [place], where he was agitated, disorganized, paranoid and threatening in the context of recent discontinuation of clozapine therapy, perhaps one week earlier. It appears the stoppage of clozapine occurred for administrative reasons when the patient was discharged from [facility] one week ago, following several months of sub-acute rehabilitation. MHU: Problem List - Patient Problems (1) Schizoaffective disorder, bipolar type Current Visit: Yes Status: Acute Priority: High Code(s): F25.0 - SCHIZOAFFECTIVE DISORDER, BIPOLAR TYPE SNOMED Code(s): 12137562 Plan - Plan Treatment Plan: Name: LISANDRA MENDOZA Birthdate: 1955 [id number] The patient has been resumed on clozapine and the dose is currently 200mg PO BID. Target dose will be a return to 100mg PO qam and 400mg PO qhs. Will discharge patient back to [place] once psychiatrically stable. Continued Medication Management: Continue Outpt Medication Medications: Current Medications Acetaminophen (Tylenol Tab*) 650 mg PO Q4H PRN PRN Reason: PAIN or TEMP > 101 F Last Admin: 07/06/18 11:52 Dose: 650 mg Al Hydrox/Mg Hydrox/Simethicone (Maalox Plus*) 30 ml PO Q4H PRN PRN Reason: INDIGESTION Aspirin (Aspirin 81 Mg Chew Tab*) 81 mg PO DAILY [facility] Last Admin: 07/06/18 09:23 Dose: 81 mg Atorvastatin Calcium (Lipitor*) 30 mg PO DAILY [facility] Last Admin: 07/06/18 09:22 Dose: 30 mg Clozapine (Clozapine Tab*) 200 mg PO BID [facility] Divalproex Sodium (Depakote Dr Tab(*)) 1,000 mg PO BID [facility] Last Admin: 07/06/18 09:22 Dose: 1,000 mg Docusate Sodium (Colace Cap*) 200 mg PO BEDTIME [facility] Last Admin: 07/05/18 23:13 Dose: 200 mg Lisinopril (Prinivil Tab*) 20 mg PO DAILY [facility] Last Admin: 07/06/18 09:22 Dose: 20 mg Multivitamins (Theragran Tab*) 1 tab PO DAILY [facility] Last Admin: 07/06/18 09:23 Dose: 1 tab Nicotine (Nicotine Inhaler*) 10 mg INH Q2H PRN PRN Reason: CRAVING Nicotine Polacrilex (Nicotine Gum*) 2 mg PO Q2H PRN PRN Reason: CRAVING Omeprazole (Prilosec Cap*) 20 mg PO DAILY [facility] Last Admin: 07/06/18 09:22 Dose: 20 mg Polyethylene Glycol/Electrolytes (Miralax*) 17 gm PO DAILY [facility] Last Admin: 07/06/18 09:25 Dose: Not Given Risperidone (Risperdal*) 4 mg PO BEDTIME [facility] Last Admin: 07/05/18 22:43 Dose: 4 mg - Discharge Plan Discharge Plan: Inpatient Hospitalization Lab Results - Lab Results Lab Results: 07/04/18 07/04/18 07/04/18 19:41 19:41 19:41 WBC 8.1 RBC 3.38 L Hgb 10.8 L Hct 32 L MCV 94 MCH 32 H MCHC 34 RDW 14 Plt Count 227 MPV 8.2 Neut % (Auto) 57.4 Lymph % (Auto) 29.2 Coffee % (Auto) 11.0 Eos % (Auto) 1.2 Baso % (Auto) 1.2 Absolute Neuts (auto) 4.6 Absolute Lymphs (auto) 2.4 Absolute Monos (auto) 0.9 H Absolute Eos (auto) 0.1 Absolute Basos (auto) 0.1 Absolute Nucleated RBC 0 Nucleated RBC % 0.1 Sodium 137 Potassium 4.3 Chloride 105 Carbon Dioxide 22 Anion Gap 10 BUN 24 Creatinine 0.96 Est GFR ( Amer) 95.4 Est GFR (Non-Af Amer) 78.9 BUN/Creatinine Ratio 25.0 H Glucose 179 H Hemoglobin A1c 9.7 H Calcium 9.7 Total Bilirubin 0.30 AST 15 ALT 16 Alkaline Phosphatase 56 Total Protein 7.3 Albumin 4.5 Globulin 2.8 Albumin/Globulin Ratio 1.6 Triglycerides Cholesterol LDL Cholesterol HDL Cholesterol TSH 1.91 Salicylates < 2.50 Acetaminophen < 15 Serum Alcohol < 10 07/06/18 07/06/18 06:53 06:53 WBC RBC Hgb Hct MCV MCH MCHC RDW Plt Count MPV Neut % (Auto) Lymph % (Auto) Coffee % (Auto) Eos % (Auto) Baso % (Auto) Absolute Neuts (auto) Absolute Lymphs (auto) Absolute Monos (auto) Absolute Eos (auto) Absolute Basos (auto) Absolute Nucleated RBC Nucleated RBC % Sodium Potassium Chloride Carbon Dioxide Anion Gap BUN Creatinine Est GFR ( Amer) Est GFR (Non-Af Amer) BUN/Creatinine Ratio Glucose Hemoglobin A1c 9.1 H Calcium Total Bilirubin AST ALT Alkaline Phosphatase Total Protein Albumin Globulin Albumin/Globulin Ratio Triglycerides 258 Cholesterol 131 LDL Cholesterol 50 HDL Cholesterol 29.7 TSH Salicylates Acetaminophen Serum Alcohol
[2018-07-06] MEDS: Docusate CAP* 100 MG PO SCH (20:54)
[2018-07-06] MEDS: risperiDONE TAB* 2 MG PO SCH (20:55)
[2018-07-07] MEDS: Omeprazole CAP* 20 MG PO SCH (08:40)
[2018-07-07] MEDS: CloZAPine TAB* 100 MG TAB PO SCH ×2 (08:40→19:47)
[2018-07-07] MEDS: Lisinopril TAB* 10 MG PO SCH (08:40)
[2018-07-07] MEDS: Aspirin 81 mg CHEW TAB* 81 MG TAB.CHEW PO SCH (08:40)
[2018-07-07] MEDS: Polyethylene Glycol 3350* 17 GM PACKET PO SCH (08:41)
[2018-07-07] MEDS: Vitamin THERAPEUTIC TAB PO SCH (08:41)
[2018-07-07] MEDS: Atorvastatin* 10 MG TAB PO SCH (08:41)
[2018-07-07] MEDS: Divalproex DR TAB(*) 500 MG PO SCH ×2 (08:41→19:46)
--- NOTE | 2018-07-07 17:34 | PN ---
Subjective - Subjective Date of Service: 07/07/18 Service Type: [id number] Hosp care 15 min low complexity Subjective: Lisandra appears to be in good mood and bright today. Says he is feeling much better today. There was no reports or evidence of confusion or disorientation. Reports of experiencing both auditory and visual hallucinations without any specifications. However, he doesn't appear to be in any distress rather somewhat euphoric. Tolerating Clozapine titration well. Serum levels are still low. Objective - Appearance Appearance: Healthy Appearing Dysmorphic Features: No Hygiene: Mal-odorous Grooming: Disheveled - Behavior Psychomotor Activities: Normal Exhibits Abnormal Movement: No - Attitude and Relatedness Attitude and Relatedness: Cooperative Eye Contact: Good - Speech Quality: Pressured Latencies: Short Quantity: Copious - Mood Patient's Decription of Mood: "Great" - Affect Observed Affect: Euphoric Affect Consistent with: Euphoria - Thought Process Patient's Thought Process: Coherent, Loose Associations, Filght of Ideas, Circumstantial Thought Content: No Passive Wish, No Suicidal Planning, No Homicidal Ideation, No Paranoid Ideation - Sensorium Experiencing Hallucinations: Yes Type of Hallucinations: Visual: Yes, Auditory: Yes, Command: No - Level of Consciousness Level of Consciousness: Alert Orientation: Yes Intact, Yes Orientated to Time, Yes Orientated to Place, Yes Orientated to Person - Impulse Control Impulse Control: Tenuous - Insight and Judgement Insight and Judgement: Poor - Group Participation Particating in Group Activities: Yes - Medication Management Medication Management Adherence: Yes Assessment - Assessment Merits Inpatient Hospitalization: For Immediate Safety, For Stabilization, For Discharge Planning Inpatient DSM-V Dx: F25.0 Clinical Impression: 62 y.o. single, white male with a history of schizoaffective disorder, bipolar type taken to the hospital involuntarily by residential staff at [place], where he was agitated, disorganized, paranoid and threatening in the context of recent discontinuation of clozapine therapy, perhaps one week earlier. It appears the stoppage of clozapine occurred for administrative reasons when the patient was discharged from [facility] one week ago, following several months of sub-acute rehabilitation. Plan - Plan Treatment Plan: Name: LISANDRA MENDOZA Birthdate: 1955 [id number] The patient has been resumed on clozapine and the dose is currently 200mg PO BID. Target dose will be a return to 100mg PO qam and 400mg PO qhs. Will discharge patient back to [place] once psychiatrically stable. Continued Medication Management: Continue Outpt Medication Medications: Current Medications Acetaminophen (Tylenol Tab*) 650 mg PO Q4H PRN PRN Reason: PAIN or TEMP > 101 F Last Admin: 07/06/18 11:52 Dose: 650 mg Al Hydrox/Mg Hydrox/Simethicone (Maalox Plus*) 30 ml PO Q4H PRN PRN Reason: INDIGESTION Aspirin (Aspirin 81 Mg Chew Tab*) 81 mg PO DAILY [facility] Last Admin: 07/07/18 08:40 Dose: 81 mg Atorvastatin Calcium (Lipitor*) 30 mg PO DAILY [facility] Last Admin: 07/07/18 08:41 Dose: 30 mg Clozapine (Clozapine Tab*) 200 mg PO BID [facility] Last Admin: 07/07/18 08:40 Dose: 200 mg Divalproex Sodium (Depakote Dr Tab(*)) 1,000 mg PO BID [facility] Last Admin: 07/07/18 08:41 Dose: 1,000 mg Docusate Sodium (Colace Cap*) 200 mg PO BEDTIME [facility] Last Admin: 07/06/18 20:54 Dose: 200 mg Lisinopril (Prinivil Tab*) 20 mg PO DAILY [facility] Last Admin: 07/07/18 08:40 Dose: 20 mg Multivitamins (Theragran Tab*) 1 tab PO DAILY [facility] Last Admin: 07/07/18 08:41 Dose: 1 tab Nicotine (Nicotine Inhaler*) 10 mg INH Q2H PRN PRN Reason: CRAVING Nicotine Polacrilex (Nicotine Gum*) 2 mg PO Q2H PRN PRN Reason: CRAVING Omeprazole (Prilosec Cap*) 20 mg PO DAILY [facility] Last Admin: 07/07/18 08:40 Dose: 20 mg Polyethylene Glycol/Electrolytes (Miralax*) 17 gm PO DAILY [facility] Last Admin: 07/07/18 08:41 Dose: 17 gm Risperidone (Risperdal*) 4 mg PO BEDTIME [facility] Last Admin: 07/06/18 20:55 Dose: 4 mg - Discharge Plan Discharge Plan: Outpatient Follow Up Outpatient Program: [facility]
[2018-07-07] MEDS: Docusate CAP* 100 MG PO SCH (19:46)
[2018-07-07] MEDS: risperiDONE TAB* 2 MG PO SCH (19:47)
[2018-07-08] MEDS: Acetaminophen TAB* 325 MG PO PRN ×2 (06:39→15:56)
[2018-07-08] MEDS: Divalproex DR TAB(*) 500 MG PO SCH ×2 (08:46→20:14)
[2018-07-08] MEDS: Omeprazole CAP* 20 MG PO SCH (08:46)
[2018-07-08] MEDS: Aspirin 81 mg CHEW TAB* 81 MG TAB.CHEW PO SCH (08:46)
[2018-07-08] MEDS: Lisinopril TAB* 10 MG PO SCH (08:47)
[2018-07-08] MEDS: Atorvastatin* 10 MG TAB PO SCH (08:47)
[2018-07-08] MEDS: CloZAPine TAB* 100 MG TAB PO SCH ×2 (08:47→20:14)
[2018-07-08] MEDS: Vitamin THERAPEUTIC TAB PO SCH (08:47)
[2018-07-08] MEDS: Polyethylene Glycol 3350* 17 GM PACKET PO SCH (10:40)
[2018-07-08] MEDS: Docusate CAP* 100 MG PO SCH (20:13)
[2018-07-08] MEDS: risperiDONE TAB* 2 MG PO SCH (20:14)
[2018-07-09] MEDS: Polyethylene Glycol 3350* 17 GM PACKET PO SCH (09:19)
[2018-07-09] MEDS: Atorvastatin* 10 MG TAB PO SCH (09:19)
[2018-07-09] MEDS: Vitamin THERAPEUTIC TAB PO SCH (09:20)
[2018-07-09] MEDS: Omeprazole CAP* 20 MG PO SCH (09:21)
[2018-07-09] MEDS: Lisinopril TAB* 10 MG PO SCH (09:22)
[2018-07-09] MEDS: CloZAPine TAB* 100 MG TAB PO SCH (09:23)
[2018-07-09] MEDS: Divalproex DR TAB(*) 500 MG PO SCH ×2 (09:24→21:07)
[2018-07-09] MEDS: Aspirin 81 mg CHEW TAB* 81 MG TAB.CHEW PO SCH (09:25)
--- NOTE | 2018-07-09 16:38 | PN ---
Subjective - Subjective Date of Service: 07/09/18 Service Type: [id number] Hosp care 15 min low complexity Subjective: Lisandra is laughing, singing to peers in the milieu and in generally good overall spirits. He denies SI or HI or thoughts of harming others. He is tolerating the resumption of clozapine therapy well. Objective - Appearance Appearance: Obese Dysmorphic Features: No Hygiene: Normal Grooming: Fairly Well Kept - Behavior Psychomotor Activities: Normal Exhibits Abnormal Movement: Yes - Attitude and Relatedness Attitude and Relatedness: Cooperative Eye Contact: Good - Speech Quality: Unpressured Latencies: Normal Quantity: Copious - Mood Patient's Decription of Mood: "Great" - Affect Observed Affect: Expansive Affect Consistent with: Euthymia - Thought Process Patient's Thought Process: Disorganized Thought Content: No Passive Wish, No Suicidal Planning, No Homicidal Ideation, No Paranoid Ideation - Sensorium Experiencing Hallucinations: No, Sensorium is Clear Type of Hallucinations: Visual: No, Auditory: No, Command: No - Level of Consciousness Level of Consciousness: Alert Orientation: Yes Intact, Yes Orientated to Time, Yes Orientated to Place, Yes Orientated to Person - Impulse Control Impulse Control: Tenuous - Insight and Judgement Insight and Judgement: Fair - Group Participation Particating in Group Activities: Yes - Medication Management Medication Management Adherence: Yes Assessment - Assessment Merits Inpatient Hospitalization: Consolidate Improvements, Pending Safe DC Plan Inpatient DSM-V Dx: F25.0 Clinical Impression: 62 y.o. single, white male with a history of schizoaffective disorder, bipolar type taken to the hospital involuntarily by residential staff at [place], where he was agitated, disorganized, paranoid and threatening in the context of recent discontinuation of clozapine therapy, perhaps one week earlier. It appears the stoppage of clozapine occurred for administrative reasons when the patient was discharged from [facility] one week ago, following several months of sub-acute rehabilitation. Plan - Plan Treatment Plan: Name: LISANDRA MENDOZA Birthdate: 1955 [id number] The patient has been resumed on clozapine and the dose is currently 200mg PO BID. Target dose will be a return to 100mg PO qam and 400mg PO qhs. Will discharge patient back to [place] tomorrow, July 10. Continued Medication Management: Continue Outpt Medication Medications: Current Medications Acetaminophen (Tylenol Tab*) 650 mg PO Q4H PRN PRN Reason: PAIN or TEMP > 101 F Last Admin: 07/08/18 15:56 Dose: 650 mg Al Hydrox/Mg Hydrox/Simethicone (Maalox Plus*) 30 ml PO Q4H PRN PRN Reason: INDIGESTION Aspirin (Aspirin 81 Mg Chew Tab*) [facility] mg PO [facility] Last Admin: 07/09/18 09:25 Dose: 81 mg Atorvastatin Calcium (Lipitor*) 30 mg PO DAILY [facility] Last Admin: 07/09/18 09:19 Dose: 30 mg Clozapine (Clozapine Tab*) 100 mg PO [facility] Clozapine (Clozapine Tab*) 400 mg PO BEDTIME [facility] Divalproex Sodium (Depakote Dr Tab(*)) 1,000 mg PO BID [facility] Last Admin: 07/09/18 09:24 Dose: 1,000 mg Docusate Sodium (Colace Cap*) 200 mg PO BEDTIME [facility] Last Admin: 07/08/18 20:13 Dose: 200 mg Lisinopril (Prinivil Tab*) 20 mg PO DAILY [facility] Last Admin: 07/09/18 09:22 Dose: 20 mg Multivitamins (Theragran Tab*) 1 tab PO DAILY [facility] Last Admin: 07/09/18 09:20 Dose: 1 tab Nicotine (Nicotine Inhaler*) 10 mg INH Q2H PRN PRN Reason: CRAVING Nicotine Polacrilex (Nicotine Gum*) 2 mg PO Q2H PRN PRN Reason: CRAVING Omeprazole (Prilosec Cap*) 20 mg PO DAILY [facility] Last Admin: 07/09/18 09:21 Dose: 20 mg Polyethylene Glycol/Electrolytes (Miralax*) 17 gm PO DAILY [facility] Last Admin: 07/09/18 09:19 Dose: 17 gm Risperidone (Risperdal*) 4 mg PO BEDTIME [facility] Last Admin: 07/08/18 20:14 Dose: 4 mg - Discharge Plan Discharge Plan: Outpatient Follow Up Outpatient Program: [facility] Lab Results - Lab Results Lab Results: 07/04/18 20:27 Clozapine <25 Clozapine &Norclozapine Unable to calculate Norclozapine <25
[2018-07-09] MEDS: Acetaminophen TAB* 325 MG PO PRN (16:51)
[2018-07-09] MEDS: risperiDONE TAB* 2 MG PO SCH (21:00)
[2018-07-09] MEDS ORDERED: CloZAPine TAB* 100 MG TAB PO SCH (21:00)
[2018-07-09] MEDS: Docusate CAP* 100 MG PO SCH (21:05)
[2018-07-10 08:34] VITALS: BP 154/90
[2018-07-10] MEDS: Polyethylene Glycol 3350* 17 GM PACKET PO SCH (08:35)
[2018-07-10] MEDS: Aspirin 81 mg CHEW TAB* 81 MG TAB.CHEW PO SCH (08:36)
[2018-07-10] MEDS: Atorvastatin* 10 MG TAB PO SCH (08:37)
[2018-07-10] MEDS: Vitamin THERAPEUTIC TAB PO SCH (08:37)
[2018-07-10] MEDS: Lisinopril TAB* 10 MG PO SCH (08:37)
[2018-07-10] MEDS: Omeprazole CAP* 20 MG PO SCH (08:37)
[2018-07-10] MEDS: Divalproex DR TAB(*) 500 MG PO SCH (08:37)
[2018-07-10] MEDS ORDERED: CloZAPine TAB* 100 MG TAB PO SCH (09:00)
[2018-07-10] MEDS: Acetaminophen TAB* 325 MG PO PRN (12:55)
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
== END 2018-07-10 14:51 | disposition home or self-care (01) | DRG 750 ==
LOC: ED 17:39 → BSU 07-05 03:19
PROVIDERS: ADMIT Psychiatry & Neurology Psychiatry; ATTEND Psychiatry & Neurology Psychiatry
DX: F25.0 Schizoaffective disorder, bipolar type (principal); E78.5 Hyperlipidemia, unspecified; I10 Essential (primary) hypertension; N40.1 Benign prostatic hyperplasia with lower urinary tract symptoms; N39.498 Other specified urinary incontinence; K21.9 Gastro-esophageal reflux disease without esophagitis; E11.9 Type 2 diabetes mellitus without complications; Z79.84 Long term (current) use of oral hypoglycemic drugs; Z79.1 Long term (current) use of non-steroidal anti-inflammatories (NSAID); Z79.82 Long term (current) use of aspirin; Z79.899 Other long term (current) drug therapy; Z88.8 Allergy status to other drugs, medicaments and biological substances; Z81.8 Family history of other mental and behavioral disorders; E66.9 Obesity, unspecified; Z68.28 Body mass index [BMI] 28.0-28.9, adult
CPT/HCPCS: 36415; 80053; 80061; 80159; 80320; 80329; 83036; 84443; 85025; 99222; 99231; 99283; A9270-GY; G0480

== ENCOUNTER → 2018-11-30 10:12 | Emergency (ER) | payer OTHER ==
[~2018-11-30 10:12] MED LIST: Acetaminophen TAB* 325 MG PO ONE
--- NOTE | 2018-11-30 11:00 | ED ---
Psychiatric Complaint - HPI Summary HPI Summary: Pt is a 63 y/o M presenting to the ED brought in by EMS for wandering downtown. The pt states he woke up in the morning, got breakfast, then got lost in town going to the bank due to dizziness. At bedside, the pt is rambling about hearing space voices and seeing UFOs, and states he does not want to go into the mental health unit. He c/o hearing voices and having sleep interruptions. - History Of Current Complaint Chief Complaint: EDPsychosocial Time Seen by Provider: 11/30/18 10:40 Hx Obtained From: Patient Onset/Duration: Sudden Onset, Lasting Minutes Timing: Minutes Severity Initially: Moderate Severity Currently: None Aggravating Factor(s): Nothing Alleviating Factor(s): Nothing Associated Signs And Symptoms: Positive: Hallucinating, Paranoid Behavior Related History: Positive For: Prior Psychiatric Issues - Allergies/Home Medications Allergies/Adverse Reactions: Allergies Allergy/AdvReac Type Severity Reaction Status Date / Time benztropine [From Cogentin] Allergy Unknown Verified 07/04/18 18:29 Reaction Details bupropion Allergy Unknown Verified 07/04/18 18:29 Reaction Details carbamazepine Allergy Unknown Verified 07/04/18 18:29 Reaction Details diazepam Allergy See Comment Verified 07/04/18 18:29 fluoxetine Allergy Unknown Verified 07/04/18 18:29 Reaction Details fluphenazine Allergy Unknown Verified 07/04/18 18:29 Reaction Details haloperidol Allergy Unknown Verified 07/04/18 18:29 Reaction Details metformin Allergy Unknown Verified 07/04/18 18:29 Reaction Details thiothixene Allergy Unknown Verified 07/04/18 18:29 Reaction Details trihexyphenidyl Allergy Unknown Verified 07/04/18 18:29 Reaction Details Home Medications: Home Medications Atorvastatin* [Lipitor*] 20 mg PO DAILY 11/30/18 [History Confirmed 11/30/18] CloZAPine TAB* 100 mg PO QAM 11/30/18 [History Confirmed 11/30/18] Docusate CAP* [Colace Cap*] 100 mg PO BID PRN 11/30/18 [History Confirmed ] Lisinopril TAB* [Prinivil TAB*] 10 mg PO DAILY 11/30/18 [History Confirmed 11/30] Loperamide CAP* [Imodium CAP*] 2 mg PO QID PRN 11/30/18 [History Confirmed 11/30] Magnesium CITRATE* [Citrate of Magnesia*] 10 ml PO DAILY PRN 11/30/18 [History Confirmed 11/30/18] Metformin ER (NF) 500 mg PO DAILY 11/30/18 [History Confirmed 11/30/18] Multivitamins/Minerals TAB* [Theragran/minerals TAB*] 1 tab PO DAILY 11/30/18 [ History Confirmed 11/30/18] Naproxen TAB* [Naprosyn 250 mg TAB*] 500 mg PO BID 11/30/18 [History Confirmed 11/30/18] Omeprazole CAP (NF) [Prilosec CAP* 20 MG] 20 mg PO DAILY 11/30/18 [History Confirmed 11/30/18] glipiZIDE TAB.XL* [Glucotrol XL*] 10 mg PO DAILY 11/30/18 [History Confirmed ] PMH/Surg Hx/FS Hx/Imm Hx Previously Healthy: No Endocrine/Hematology History: Reports: Hx Diabetes, Hx Anemia, Other Endocrine/ Hematological Disorders - Impaired fasting glucose Denies: Hx Anticoagulant Therapy, Hx Thyroid Disease Cardiovascular History: Reports: Hx Angina, Hx Hypertension Denies: Hx Pacemaker/ICD Respiratory History: Denies: Hx Asthma, Hx Chronic Obstructive Pulmonary Disease (COPD) GI History: Reports: Hx Gastroesophageal Reflux Disease Denies: Hx Ulcer Comment Only: Other GI Disorders - Chronic constipation History: Reports: Hx Acute Renal Failure - secondary to lithium carbonate, Hx Benign Prostatic Hyperplasia, Other Problems/Disorders - Urinary incontinence Denies: Hx Renal Disease Musculoskeletal History: Denies: Hx Gout Sensory History: Reports: Hx Contacts or Glasses Denies: Hx Deafness, Hx Hearing Aid Opthamlomology History: Reports: Hx Contacts or Glasses Neurological History: Reports: Hx Developmental Delay, Hx Headaches, Hx Seizures - seizure d/o Denies: Hx Dementia Psychiatric History: Reports: Hx Depression, Hx Panic Disorder, Hx Inpatient Treatment, Hx Community Mental Health Tx, Hx Schizophrenia, Hx Bipolar Disorder , Hx Suicide Attempt, Hx of Violent Episodes Against Others Denies: Hx Eating Disorder, Hx Substance Abuse - Cancer History Cancer Type, Location and Year: None reported - Surgical History Surgery Procedure, Year, and Place: RIGHT wrist, ring finger on right hand, penis as a baby. - Immunization History Date of Tetanus Vaccine: UNK Date of Influenza Vaccine: Fall 2011 Infectious Disease History: No Infectious Disease History: Denies: Hx Hepatitis, Hx Human Immunodeficiency Virus (HIV), History Other Infectious Disease, Traveled Outside the [place] in Last 30 Days - Family History Known Family History: Positive: Hypertension, Other - Alcoholism - Social History Alcohol Use: None Hx Substance Use: No Substance Use Type: Reports: None Hx Tobacco Use: Yes Smoking Status (MU): Current Some Day Smoker Type: Cigarettes Amount Used/How Often: 4-5/day Have You Smoked in the Last Year: Yes Review of Systems Positive: Other - sleep interruptions Neurological: Other - dizziness Positive: Other - hallucinations All Other Systems Reviewed And Are Negative: Yes Physical Exam - Summary Physical Exam Summary: Appearance: The patient is well-nourished in no acute distress and in no acute pain. Skin: The skin is warm and dry and skin color reflects adequate perfusion. HEENT: The head is normocephalic and atraumatic. The pupils are equal and reactive. The conjunctivae are clear and without drainage. Nares are patent and without drainage. Mouth reveals moist mucous membranes and the throat is without erythema and exudate. The external ears are intact. The ear canals are patent and without drainage. The tympanic membranes are intact. Neck: The neck is supple with full range of motion and non-tender. There are no carotid bruits. There is no neck vein distension. Respiratory: Chest is non-tender. Lungs are clear to auscultation and breath sounds are symmetrical and equal. Cardiovascular: Heart is regular rate and rhythm. There is no murmur or rub auscultated. There is no peripheral edema and pulses are symmetrical and equal. Abdomen: The abdomen is soft and non-tender. There are normal bowel sounds heard in all four quadrants and there is no organomegaly palpated. Musculoskeletal: There is no back tenderness noted. Extremities are non-tender with full range of motion. There is good capillary refill. There is no peripheral edema or calf tenderness elicited. Neurological: Patient is alert and oriented to person, place and time. The patient has symmetrical motor strength in all four extremities. Cranial nerves are grossly intact. Deep tendon reflexes are symmetrical and equal in all four extremities. Psychiatric: The patient has an appropriate affect and does not exhibit any anxiety or depression. Triage Information Reviewed: Yes Vital Signs On Initial Exam: Initial Vitals Temp Pulse Resp BP Pulse Ox 98.6 F 102 16 155/93 98 11/30/18 10:14 11/30/18 10:14 11/30/18 10:14 11/30/18 10:14 11/30/18 10:14 Vital Signs Reviewed: Yes Diagnostics - Vital Signs Vital Signs Temp Pulse Resp BP Pulse Ox 11/30/18 10:14 98.6 F 102 16 155/93 98 - Laboratory Lab Statement: Any lab studies that have been ordered have been reviewed, and results considered in the medical decision making process. Course/Dx - Course Course Of Treatment: Mr. Blake apparently got lost while walking around town today and some passerby's were concern for him and called the ambulance. He has schizoaffective disorder and they've seen him multiple times. He seems to be at his baseline to my evaluation but I asked the mental health information technology specialist to confirm his safety. They felt that he was safe to go back to his living situation. - Differential Dx/Clinical Impression Provider Diagnosis: Schizoaffective disorder Discharge - Sign-Out/Discharge Documenting (check all that apply): Patient Departure Patient Received Moderate/Deep Sedation with Procedure: No - Discharge Plan Condition: Stable Disposition: HOME Referrals: Abdulaziz Carranza MD [Primary Care Provider] - - Billing Disposition and Condition Condition: STABLE Disposition: Home - Attestation Statements Document Initiated by [email or web address]: Yes Documenting Scribe: Karley Carpenter Provider For Whom Jagruti is Documenting (Include Credential): Audie Agustin MD. Scribe Attestation: Karley Blas, scribed for Audie Agustin MD. on 11/30/18 at 1501. Scribe Documentation Reviewed: Yes Provider Attestation: The documentation as recorded by the [email or web address] accurately reflects the service I personally performed and the decisions made by me, Audie Agustin MD. Status of Scribe Document: Viewed
[2018-11-30 12:45] VITALS: BP 147/95
== END | disposition home or self-care (01) ==
LOC: ED 10:12
DX: F20.9 Schizophrenia, unspecified (principal); I10 Essential (primary) hypertension; I20.9 Angina pectoris, unspecified; K21.9 Gastro-esophageal reflux disease without esophagitis; R62.50 Unspecified lack of expected normal physiological development in childhood; F17.210 Nicotine dependence, cigarettes, uncomplicated
CPT/HCPCS: 99282; A9270-GY

== ENCOUNTER 2018-12-01 09:21 | Emergency (ER) | payer OTHER ==
--- NOTE | 2018-12-01 10:21 | ED ---
HPI Diabetic - HPI Summary HPI Summary: Patient is a 63-year-old male with history of schizophrenia presenting to the ED with the concern of taking his glipizide medication this morning and some last evening. He was sent here by [facility] after they called [employer] control. He denies any symptoms. He was seen yesterday after wandering downtown. He states he has been hearing voices, but denies any SI or HI. The voices are not telling him to do anything, but states they are "funny voices." He denies any other symptoms at this time. He states he is unsure when he took his glipizide medication, but does not believe he took it last night and instead took this morning. - History Of Current Complaint Chief Complaint: EDOverdose Time Seen by Provider: 12/01/18 09:36 Hx Obtained From: Patient Onset/Duration: Sudden Onset Timing: Constant Severity Initially: Moderate Severity Currently: Moderate Character: Alert Associated Signs & Symptoms: Negative Related History: Compliant - Risk Factors Cardiac Risk Factors: Negative CVA Risk Factor: Negative Serious Bact. Infect. Risk Factors (Meningitis/Sepsis/UTI): Negative - Allergies/Home Medications Allergies/Adverse Reactions: Allergies Allergy/AdvReac Type Severity Reaction Status Date / Time benztropine [From Cogentin] Allergy Unknown Verified 12/01/18 09:31 Reaction Details bupropion Allergy Unknown Verified 12/01/18 09:31 Reaction Details carbamazepine Allergy Unknown Verified 12/01/18 09:31 Reaction Details diazepam Allergy See Comment Verified 12/01/18 09:31 fluoxetine Allergy Unknown Verified 12/01/18 09:31 Reaction Details fluphenazine Allergy Unknown Verified 12/01/18 09:31 Reaction Details haloperidol Allergy Unknown Verified 12/01/18 09:31 Reaction Details metformin Allergy Unknown Verified 12/01/18 09:31 Reaction Details thiothixene Allergy Unknown Verified 12/01/18 09:31 Reaction Details trihexyphenidyl Allergy Unknown Verified 12/01/18 09:31 Reaction Details PMH/Surg Hx/FS Hx/Imm Hx Previously Healthy: Yes Endocrine/Hematology History: Reports: Hx Diabetes, Hx Anemia, Other Endocrine/ Hematological Disorders - Impaired fasting glucose Denies: Hx Anticoagulant Therapy, Hx Thyroid Disease Cardiovascular History: Reports: Hx Angina, Hx Hypertension Denies: Hx Pacemaker/ICD Respiratory History: Denies: Hx Asthma, Hx Chronic Obstructive Pulmonary Disease (COPD) GI History: Reports: Hx Gastroesophageal Reflux Disease Denies: Hx Ulcer Comment Only: Other GI Disorders - Chronic constipation History: Reports: Hx Acute Renal Failure - secondary to lithium carbonate, Hx Benign Prostatic Hyperplasia, Other Problems/Disorders - Urinary incontinence Denies: Hx Renal Disease Musculoskeletal History: Denies: Hx Gout Sensory History: Reports: Hx Contacts or Glasses Denies: Hx Deafness, Hx Hearing Aid Opthamlomology History: Reports: Hx Contacts or Glasses Neurological History: Reports: Hx Developmental Delay, Hx Headaches, Hx Seizures - seizure d/o Denies: Hx Dementia Psychiatric History: Reports: Hx Depression, Hx Panic Disorder, Hx Inpatient Treatment, Hx Community Mental Health Tx, Hx Schizophrenia, Hx Bipolar Disorder , Hx Suicide Attempt, Hx of Violent Episodes Against Others Denies: Hx Eating Disorder, Hx Substance Abuse - Cancer History Cancer Type, Location and Year: None reported - Surgical History Surgery Procedure, Year, and Place: RIGHT wrist, ring finger on right hand, penis as a baby. - Immunization History Date of Tetanus Vaccine: UNK Date of Influenza Vaccine: Fall 2011 Hx Pertussis Vaccination: No Immunizations Up to Date: Yes Infectious Disease History: No Infectious Disease History: Denies: Hx Hepatitis, Hx Human Immunodeficiency Virus (HIV), History Other Infectious Disease, Traveled Outside the US in Last 30 Days - Family History Known Family History: Positive: Hypertension, Other - Alcoholism - Social History Occupation: Unemployed, Disabled Lives: Jail Alcohol Use: None Alcohol Amount: hx of alcohol abuse per pt Hx Substance Use: No Substance Use Type: Reports: None Hx Tobacco Use: Yes Smoking Status (MU): Current Some Day Smoker Type: Cigarettes Amount Used/How Often: 4-5/day Have You Smoked in the Last Year: Yes Review of Systems Constitutional: Negative Negative: Fever, Chills, Skin Diaphoresis Negative: Palpitations, Chest Pain Negative: Shortness Of Breath, Cough Genitourinary: Negative Positive: no symptoms reported, see HPI Negative: Arthralgia, Myalgia Negative: Rash, Bruising Neurological: Negative All Other Systems Reviewed And Are Negative: Yes Physical Exam Triage Information Reviewed: Yes Vital Signs On Initial Exam: Initial Vitals Temp Pulse Resp BP Pulse Ox 98 F 111 16 160/90 100 12/01/18 09:24 12/01/18 09:24 12/01/18 09:24 12/01/18 09:24 12/01/18 09:24 Vital Signs Reviewed: Yes Appearance: Positive: Well-Appearing, Well-Nourished Skin: Positive: Warm, Skin Color Reflects Adequate Perfusion Eyes: Positive: EOMI, GALINDO, Conjunctiva Clear Respiratory/Lung Sounds: Positive: Clear to Auscultation, Breath Sounds Present Cardiovascular: Positive: RRR, Pulses are Symmetrical in both Upper and Lower Extremities Musculoskeletal: Positive: Normal, Strength/ROM Intact Neurological: Positive: Sensory/Motor Intact Psychiatric: Positive: Normal, Affect/Mood Appropriate AVPU Assessment: Alert - Michael Coma Scale Best Eye Response: 4 - Spontaneous Best Motor Response: 6 - Obeys Commands Best Verbal Response: 5 - Oriented Coma Scale Total: 15 Diagnostics - Vital Signs Vital Signs Temp Pulse Resp BP Pulse Ox 12/01/18 09:24 98 F 111 16 160/90 100 - Laboratory Lab Results: Lab Results 12/01/18 Range/Units 09:43 POC Glucose (mg/dL) 167 H (70-100) mg/dL Lab Statement: Any lab studies that have been ordered have been reviewed, and results considered in the medical decision making process. Diabetic Course/Dx - Course Course Of Treatment: Patient appears well, nontoxic. Afebrile. Vital signs are stable. POC glucose fingerstick obtained which was 167. Patient encouraged not to take his dose of glipizide this evening, but resume his normal dose of medications tomorrow. He continues to deny any SI or HI. He will be discharged back to [place]. - Diagnoses Provider Diagnoses: Medication administered in error Discharge - Sign-Out/Discharge Documenting (check all that apply): Patient Departure Patient Received Moderate/Deep Sedation with Procedure: No - Discharge Plan Condition: Stable Disposition: HOME Referrals: Abdulaziz Carranza MD [Primary Care Provider] - Additional Instructions: Do not take your Glipizide medication tonight Begin this tomorrow as scheduled - Billing Disposition and Condition Condition: STABLE Disposition: Home
[2018-12-01 10:34] VITALS: BP 155/103
== END 2018-12-01 10:33 | disposition home or self-care (01) ==
LOC: ED 09:21
DX: T38.3X4A Poisoning by insulin and oral hypoglycemic [antidiabetic] drugs, undetermined, initial encounter (principal); Y92.9 Unspecified place or not applicable; F20.9 Schizophrenia, unspecified; E11.9 Type 2 diabetes mellitus without complications; D64.9 Anemia, unspecified; F17.210 Nicotine dependence, cigarettes, uncomplicated
CPT/HCPCS: 99282

== ENCOUNTER 2019-03-05 16:10 | Emergency (ER) | payer OTHER ==
[2019-03-05 17:45] LABS: ABS Eosinophils 0.1 10^3/ul (0-0.6); ABS Lymphocytes 2.3 10^3/ul (1.0-4.8); ABS Monocytes 0.8 10^3/ul (0-0.8); ABS Neutrophils 4.9 10^3/ul (1.5-7.7); Eosinophil % 1.7 %; Hematocrit 35 % (42-52); Hemoglobin 12.2 g/dL (14.0-18.0); Lymphocyte % 28.3 %; Mean Corpuscular HGB Conc 34 g/dL (31-36); Mean Corpuscular Hemoglobin 32 pg (27-31); Mean Corpuscular Volume 93 fL (80-94); Mean Platelet Volume 9.2 fL (7.4-10.4); Nucleated Red Blood Cells % 0.1; Platelet Count 213 10^3/uL (150-450); Red Cell Distribution Width 13 % (10-15); White Blood Count 8.2 10^3/uL (3.5-10.8)
[2019-03-05 17:47] LABS: Albumin 4.7 g/dL (3.2-5.2); Albumin/Globulin Ratio 1.6 (1-3); BUN/Creatinine Ratio 25.3 (8-20); C Reactive Protein 2.54 mg/L (<8.01); Calcium 9.8 mg/dL (8.6-10.3); EGFR African American 101.2 (>60); EGFR Non-African American 83.6 (>60); Total Bilirubin 0.2 mg/dL (0.2-1.0); Total Protein 7.7 g/dL (6.4-8.9)
[2019-03-05 18:20] LABS: Urine Appearance Cloudy; Urine Bacteria Absent (Absent); Urine Bilirubin Negative (Negative); Urine Blood Negative (Negative); Urine Color Yellow; Urine Glucose Negative (Negative); Urine Ketones Trace (Negative); Urine Nitrite Negative (Negative); Urine Protein Negative (Negative); Urine Red Blood Cell Trace(0-2/hpf) (Absent); Urine Specific Gravity 1.013 (1.010-1.030); Urine Squamous Epithelial Cell Present (Absent); Urine Urobilinogen Negative (Negative); Urine White Blood Cell 3+(>20/hpf) (Absent)
[2019-03-05 18:30] LABS: Potassium 4.5 mmol/L (3.5-5.0)
--- NOTE | 2019-03-05 20:28 | ED ---
GI/ HPI - HPI Summary HPI Summary: This pt is a 63 y/o male presenting to [facility] c/o constipation since 2 days ago. Pt reports he has hx of constipation for which he takes medications. Denies vomiting, fever, dysuria. PMHx includes GERD for which he takes Prilosec, psychosis for which he takes Clozapine and Risperdal. He denies any SI or HI, states he sometimes has auditory hallucinations. Pt is hyperverbal and obtaining accurate history is difficult. - History of Current Complaint Chief Complaint: EDAbdPain Time Seen by Provider: 03/05/19 20:18 Stated Complaint: CONSTIPATION PER EMS Hx Obtained From: Patient Onset/Duration: Started Days Ago, Still Present Timing: Lasting Days Pain Intensity: 8 Associated Signs and Symptoms: Positive: Constipation. Negative: Vomiting, Fever, Dysuria, Chills Aggravating Factor(s): Nothing Alleviating Factor(s): Nothing - Additional Pertinent History Primary Care Physician: [id number] - Allergy/Home Medications Allergies/Adverse Reactions: Allergies Allergy/AdvReac Type Severity Reaction Status Date / Time benztropine [From Cogentin] Allergy Unknown Verified 03/05/19 16:16 Reaction Details bupropion Allergy Unknown Verified 03/05/19 16:16 Reaction Details carbamazepine Allergy Unknown Verified 03/05/19 16:16 Reaction Details diazepam Allergy See Comment Verified 03/05/19 16:16 fluoxetine Allergy Unknown Verified 03/05/19 16:16 Reaction Details fluphenazine Allergy Unknown Verified 03/05/19 16:16 Reaction Details haloperidol Allergy Unknown Verified 03/05/19 16:16 Reaction Details metformin Allergy Unknown Verified 03/05/19 16:16 Reaction Details thiothixene Allergy Unknown Verified 03/05/19 16:16 Reaction Details trihexyphenidyl Allergy Unknown Verified 03/05/19 16:16 Reaction Details PMH/Surg Hx/FS Hx/Imm Hx Endocrine/Hematology History: Reports: Hx Diabetes, Hx Anemia, Other Endocrine/ Hematological Disorders - Impaired fasting glucose Denies: Hx Anticoagulant Therapy, Hx Thyroid Disease Cardiovascular History: Reports: Hx Angina, Hx Hypertension Denies: Hx Pacemaker/ICD Respiratory History: Denies: Hx Asthma, Hx Chronic Obstructive Pulmonary Disease (COPD) GI History: Reports: Hx Gastroesophageal Reflux Disease Denies: Hx Ulcer Comment Only: Other GI Disorders - Chronic constipation History: Reports: Hx Acute Renal Failure - secondary to lithium carbonate, Hx Benign Prostatic Hyperplasia, Hx Kidney Stones, Other Problems/Disorders - Urinary incontinence Denies: Hx Renal Disease Musculoskeletal History: Denies: Hx Gout Sensory History: Reports: Hx Contacts or Glasses Denies: Hx Deafness, Hx Hearing Aid Opthamlomology History: Reports: Hx Contacts or Glasses Neurological History: Reports: Hx Developmental Delay, Hx Headaches, Hx Seizures - seizure d/o Denies: Hx Dementia Psychiatric History: Reports: Hx Depression, Hx Panic Disorder, Hx Inpatient Treatment, Hx Community Mental Health Tx, Hx Schizophrenia, Hx Bipolar Disorder , Hx Suicide Attempt, Hx of Violent Episodes Against Others Denies: Hx Eating Disorder, Hx Substance Abuse - Cancer History Cancer Type, Location and Year: None reported - Surgical History Surgery Procedure, Year, and Place: RIGHT wrist, ring finger on right hand, penis as a baby. - Immunization History Date of Tetanus Vaccine: UNK Date of Influenza Vaccine: Fall 2011 Infectious Disease History: No Infectious Disease History: Denies: Hx Hepatitis, Hx Human Immunodeficiency Virus (HIV), History Other Infectious Disease, Traveled Outside the [place] in Last 30 Days - Family History Known Family History: Positive: Hypertension, Other - Alcoholism - Social History Alcohol Use: None Alcohol Amount: hx of alcohol abuse per pt Hx Substance Use: No Substance Use Type: Reports: None Hx Tobacco Use: Yes Smoking Status (MU): Current Some Day Smoker Type: Cigarettes Amount Used/How Often: 4-5/day Have You Smoked in the Last Year: Yes Review of Systems Negative: Fever Gastrointestinal: Other - POSITIVE: constipation Negative: Vomiting Negative: dysuria Negative: Other - NEGATIVE: SI or HI All Other Systems Reviewed And Are Negative: Yes Physical Exam - Summary Physical Exam Summary: Constitutional: Well-developed, Well-nourished, Alert. (-) Distressed Skin: Warm, Dry HENT: Normocephalic; Atraumatic Eyes: Conjunctiva normal Neck: Musculoskeletal ROM normal neck. (-) JVD, (-) Stridor, (-) Nuchal rigidity Cardio: Rhythm regular, rate normal, Heart sounds normal; Intact distal pulses; Radial pulses are 2+ and symmetric. (-) Murmur Pulmonary/Chest wall: Effort normal. (-) Respiratory distress, (-) Wheezes, (-) Rales Abd: Soft, Moderately distended nontender abdomen, (-) Guarding, (-) Rebound Musculoskeletal: (-) Edema Neuro: Alert, Oriented x3 Psych: Hyperverbal. Triage Information Reviewed: Yes Vital Signs On Initial Exam: Initial Vitals Temp Pulse Resp BP Pulse Ox 98.9 F 104 14 153/86 97 03/05/19 16:11 03/05/19 16:11 03/05/19 16:11 03/05/19 16:11 03/05/19 16:11 Vital Signs Reviewed: Yes Diagnostics - Vital Signs Vital Signs Temp Pulse Resp BP Pulse Ox 03/05/19 18:14 98.5 F 99 16 165/84 100 03/05/19 16:11 98.9 F 104 14 153/86 97 - Laboratory Lab Results: Lab Results 03/05/19 03/05/19 03/05/19 Range/Units 16:57 16:57 18:00 WBC 8.2 (3.5-10.8) 10^3/uL RBC 3.80 L (4.18-5.48) 10^6 /uL Hgb 12.2 L (14.0-18.0) g/dL Hct 35 L (42-52) % MCV 93 (80-94) fL MCH 32 H (27-31) pg MCHC 34 (31-36) g/dL RDW 13 (10-15) % Plt Count 213 (150-450) 10^3/uL MPV 9.2 (7.4-10.4) fL Neut % (Auto) 59.6 % Lymph % (Auto) 28.3 % Oliver % (Auto) 10.1 % Eos % (Auto) 1.7 % Baso % (Auto) 0.3 % Absolute Neuts (auto) 4.9 (1.5-7.7) 10^3/ul Absolute Lymphs (auto) 2.3 (1.0-4.8) 10^3/ul Absolute Monos (auto) 0.8 (0-0.8) 10^3/ul Absolute Eos (auto) 0.1 (0-0.6) 10^3/ul Absolute Basos (auto) 0.0 (0-0.2) 10^3/ul Absolute Nucleated RBC 0.0 10^3/ul Nucleated RBC % 0.1 Sodium 137 (135-145) mmol/L Potassium 4.5 (3.5-5.0) mmol/L Chloride 103 (101-111) mmol/L Carbon Dioxide 26 (22-32) mmol/L Anion Gap 8 (2-11) mmol/L BUN 23 (6-24) mg/dL Creatinine 0.91 (0.67-1.17) mg/dL Est GFR ( Amer) 101.2 (>60) Est GFR (Non-Af Amer) 83.6 (>60) BUN/Creatinine Ratio 25.3 H (8-20) Glucose 158 H (70-100) mg/dL Calcium 9.8 (8.6-10.3) mg/dL Total Bilirubin 0.20 (0.2-1.0) mg/dL AST 13 (13-39) U/L ALT 20 (7-52) U/L Alkaline Phosphatase 70 (34-104) U/L C-Reactive Protein 2.54 (<8.01) mg/L Total Protein 7.7 (6.4-8.9) g/dL Albumin 4.7 (3.2-5.2) g/dL Globulin 3.0 (2-4) g/dL Albumin/Globulin Ratio 1.6 (1-3) Lipase 38 (11.0-82.0) U/L Urine Color Yellow Urine Appearance Cloudy Urine pH 6.0 (5-9) Ur Specific [place] 1.013 (1.010-1.030) Urine Protein Negative (Negative) Urine Ketones Trace A (Negative) Urine Blood Negative (Negative) Urine Nitrate Negative (Negative) Urine Bilirubin Negative (Negative) Urine Urobilinogen Negative (Negative) Ur Leukocyte Esterase 2+ A (Negative) Urine WBC (Auto) 3+(>20/hpf) A (Absent) Urine RBC (Auto) Trace(0-2/hpf) (Absent) Ur Squamous Epith Cells Present A (Absent) Urine Bacteria Absent (Absent) Urine Glucose Negative (Negative) Result Diagrams: 03/05/19 16:57 03/05/19 16:57 Lab Statement: Any lab studies that have been ordered have been reviewed, and results considered in the medical decision making process. - Radiology Abdomen XR Radiology Interpretation Completed By: Radiologist Summary of Radiographic Findings: IMPRESSION: Nonobstructive bowel gas pattern. Large amount of stool throughout the colon. Dr. Joyner has reviewed this report. Re-Evaluation - Re-Evaluation First Eval Re-Evaluation Time: 21:25 Change: Improved Comment: Soap suds enema with good effect. Will send patient home with Colace as needed. Patient tolerated ice cream and crackers GIGU Course/Dx - Course Course Of Treatment: 63-year-old male with a history of schizophrenia and constipation presents with constipation. - Physical exam with a soft abdomen. KUB with large stool burden, will try soapsuds enema. - Diagnoses Provider Diagnoses: Constipation Discharge - Sign-Out/Discharge Documenting (check all that apply): Patient Departure - Discharge home Patient Received Moderate/Deep Sedation with Procedure: No - Discharge Plan Condition: Stable Disposition: HOME Prescriptions: Docusate CAP* [Colace Cap*] 100 mg PO DAILY 30 Days #60 cap Patient Education Materials: Constipation (ED) Referrals: Abdulaziz Carranza MD [Primary Care Provider] - Additional Instructions: You were seen in the emergency department for constipation He can take Colace twice a day for constipation. If any studies were not completed at the time of discharge you will be called with the relevant results. Please follow up with your primary care doctor in next 2-3 days and return to emergency department for worsening pain, inability to eat or drink, difficulty going to the bathroom or concerning symptoms. - Billing Disposition and Condition Condition: STABLE Disposition: Home - Attestation Statements Document Initiated by Jagruti: Yes Documenting Scribe: Yodit Nova Provider For Whom Jagruti is Documenting (Include Credential): Daniele Joyner MD Scribe Attestation: IYodit, scribed for Daniele Joyner MD on 03/05/19 at 2150. Scribe Documentation Reviewed: Yes Provider Attestation: The documentation as recorded by the Yodit mercer accurately reflects the service I personally performed and the decisions made by me, Daniele Joyner MD Status of Scribe Document: Viewed
[2019-03-05 22:06] VITALS: BP 137/68
== END 2019-03-05 22:05 | disposition home or self-care (01) ==
LOC: ED 16:10
DX: K59.00 Constipation, unspecified (principal); E11.9 Type 2 diabetes mellitus without complications; I10 Essential (primary) hypertension; K21.9 Gastro-esophageal reflux disease without esophagitis; N17.9 Acute kidney failure, unspecified; N40.0 Benign prostatic hyperplasia without lower urinary tract symptoms; Z88.8 Allergy status to other drugs, medicaments and biological substances; Z72.0 Tobacco use
CPT/HCPCS: 36415; 74018; 80053; 81003; 81015; 83690; 85025; 86140; 87086; 99283

== ENCOUNTER 2019-05-11 14:11 | Emergency (ER) | payer OTHER ==
[2019-05-11] MEDS ORDERED: Acetaminophen TAB* 325 MG PO ONE (14:26)
--- NOTE | 2019-05-11 14:32 | ED ---
Lower Extremity - HPI Summary HPI Summary: Pt is a 63 y/o M presenting to the ED brought in by EMS for generalized LE pain. Per EMS, the pt is from [facility] where he lives. He was trying to go to [facility] with a friend when his friend went to the bathroom and he wandered off. Someone called EMS because they thought he looked disoriented, however EMS states they know him very well and he is at his baseline. The pt complained of leg pain to EMS, so they brought him here. The pt currently states that he became with his friend after getting on the bus to go to [facility]. He complains of LE pain and not getting much sleep at night. He denies any fall or SI/HI. He has some auditory hallucinations that are friendly, but states this is part of his baseline psychosis. - History of Current Complaint Stated Complaint: LOWER LEG PAIN PER EMS Hx Obtained From: Patient Mechanism Of Injury: Unknown Onset of Pain: Days Onset/Duration: Still Present Severity Initially: Mild Severity Currently: None Timing: Constant, Lasting Days Location: Is Diffuse Associated Signs And Symptoms: Positive: Negative Aggravating Factor(s): Nothing Alleviating Factor(s): Nothing Able to Bear Weight: Yes - walked to/from EMS stretcher - Allergies/Home Medications Allergies/Adverse Reactions: Allergies Allergy/AdvReac Type Severity Reaction Status Date / Time benztropine [From Cogentin] Allergy Unknown Verified 05/11/19 14:38 Reaction Details bupropion Allergy Unknown Verified 05/11/19 14:38 Reaction Details carbamazepine Allergy Unknown Verified 05/11/19 14:38 Reaction Details diazepam Allergy See Comment Verified 05/11/19 14:38 fluoxetine Allergy Unknown Verified 05/11/19 14:38 Reaction Details fluphenazine Allergy Unknown Verified 05/11/19 14:38 Reaction Details haloperidol Allergy Unknown Verified 05/11/19 14:38 Reaction Details metformin Allergy Unknown Verified 05/11/19 14:38 Reaction Details thiothixene Allergy Unknown Verified 05/11/19 14:38 Reaction Details trihexyphenidyl Allergy Unknown Verified 05/11/19 14:38 Reaction Details PMH/Surg Hx/FS Hx/Imm Hx Previously Healthy: Yes Endocrine/Hematology History: Reports: Hx Diabetes, Hx Anemia, Other Endocrine/ Hematological Disorders - Impaired fasting glucose Denies: Hx Anticoagulant Therapy, Hx Thyroid Disease Cardiovascular History: Reports: Hx Angina, Hx Hypertension Denies: Hx Pacemaker/ICD Respiratory History: Denies: Hx Asthma, Hx Chronic Obstructive Pulmonary Disease (COPD) GI History: Reports: Hx Gastroesophageal Reflux Disease Denies: Hx Ulcer Comment Only: Other GI Disorders - Chronic constipation History: Reports: Hx Acute Renal Failure - secondary to lithium carbonate, Hx Benign Prostatic Hyperplasia, Hx Kidney Stones, Other Problems/Disorders - Urinary incontinence Denies: Hx Renal Disease Musculoskeletal History: Denies: Hx Gout Sensory History: Reports: Hx Contacts or Glasses Denies: Hx Deafness, Hx Hearing Aid Opthamlomology History: Reports: Hx Contacts or Glasses Neurological History: Reports: Hx Developmental Delay, Hx Headaches, Hx Seizures - seizure d/o Denies: Hx Dementia Psychiatric History: Reports: Hx Depression, Hx Panic Disorder, Hx Inpatient Treatment, Hx Community Mental Health Tx, Hx Schizophrenia, Hx Bipolar Disorder , Hx Suicide Attempt, Hx of Violent Episodes Against Others Denies: Hx Eating Disorder, Hx Substance Abuse - Cancer History Cancer Type, Location and Year: None reported - Surgical History Surgery Procedure, Year, and Place: RIGHT wrist, ring finger on right hand, penis as a baby. - Immunization History Date of Tetanus Vaccine: UNK Date of Influenza Vaccine: Fall 2011 Infectious Disease History: Denies: Hx Hepatitis, Hx Human Immunodeficiency Virus (HIV), History Other Infectious Disease - Family History Known Family History: Positive: Hypertension, Other - Alcoholism - Social History Alcohol Use: None Alcohol Amount: hx of alcohol abuse per pt Hx Substance Use: No Substance Use Type: Reports: None Hx Tobacco Use: Yes Smoking Status (MU): Current Some Day Smoker Type: Cigarettes Amount Used/How Often: 4-5/day Have You Smoked in the Last Year: Yes Review of Systems Positive: Myalgia - LE. Negative: Other - fall Positive: Other - auditory hallucinations All Other Systems Reviewed And Are Negative: Yes Physical Exam - Summary Physical Exam Summary: Constitutional: Well-developed, Well-nourished, Alert. (-) Distressed Skin: Warm, Dry HENT: Normocephalic; Atraumatic Eyes: Conjunctiva normal Neck: Musculoskeletal ROM normal neck. (-) JVD, (-) Stridor, (-) Tracheal deviation Cardio: Rhythm regular, rate normal, Heart sounds normal; Intact distal pulses; Radial pulses are 2+ and symmetric. (-) Murmur Pulmonary/Chest wall: Effort normal. (-) Respiratory distress, (-) Wheezes, (-) Rales Abd: Soft, (-) tenderness, (-) Distension, (-) Guarding, (-) Rebound Musculoskeletal: (-) Edema Lymph: (-) Cervical adenopathy Neuro: Alert, Oriented x3 Psych: Mood and affect Normal Triage Information Reviewed: Yes Vital Signs Reviewed: Yes Procedures - Sedation Patient Received Moderate/Deep Sedation with Procedure: No Lower Extremity Course/Dx - Course Course Of Treatment: Patient is here after getting lost at the [employer] football game. Patient was at [place] in the psychiatric facility. Patient came in via EMS after bystanders called as he looked confused. Per EMS, patient is at his baseline as they see him a lot. The patient complains of chronic thigh pain with nothing new today. Patient had no bony tenderness. Patient did not need any x-rays. Patient was provided Tylenol, food, and a ride back to his house. - Diagnoses Provider Diagnoses: Chronic leg pain, Schizophrenia Discharge ED - Sign-Out/Discharge Documenting (check all that apply): Patient Departure - Discharge Plan Condition: Stable Disposition: HOME Patient Education Materials: Leg Pain (ED) Referrals: Abdulaziz Carranza MD [Primary Care Provider] - Additional Instructions: Please take Tylenol as needed for your pain. Come back to the emergency department for any concerning symptoms. - Billing Disposition and Condition Condition: STABLE Disposition: Home - Attestation Statements Document Initiated by Joaquínibmaxime: Yes Documenting Scribe: Karley Carpenter Provider For Whom Jagruti is Documenting (Include Credential): Wilmar Mendoza MD. Scribe Attestation: Karley Blas, joaquínibed for Wilmar Mendoza MD. on 05/11/19 at 1644. Scribe Documentation Reviewed: Yes Provider Attestation: The documentation as recorded by the joaquínibKarley swartz accurately reflects the service I personally performed and the decisions made by me, Wilmar Mendoza MD. Status of Scribe Document: Viewed
[2019-05-11 15:17] VITALS: BP 128/96
--- OUTSIDE RECORDS SUMMARY | 2019-05-11 15:20 | XMS REPORT | Continuity of Care Document ---
:1955 External Reference #:[id number] Author Name Ted Barcenas, KLEBER Address [address] [place] [address] Problems Active Problems Provider Date Type 2 diabetes mellitus Ted Barcenas, OD Onset: 04/10/2019 Social History Type Date Description Comments Sex Unknown ETOH Use Denies alcohol use Tobacco Use Start: Unknown Light tobacco smoker (10 or fewer cigarettes/day) Smoking Status Reviewed: 04/10/19 Light tobacco smoker (10 or fewer cigarettes/day) Allergies, Adverse Reactions, Alerts Active Allergies Reaction Severity Comments Date Haldol 04/10/2019 Prozac 04/10/2019 Trihexyphenidyl 04/10/2019 Fluphenazine 04/10/2019 Valium 04/10/2019 Tegretol 04/10/2019 Bupropion 04/10/2019 Thiothixene 04/10/2019 Medications Active Medications SIG Qnty Indications Ordering Provider Date Atorvastatin Calcium Unknown 10mg Tablets Divalproex Sodium Unknown 500mg Tablets DR Omeprazole 20mg Unknown Capsules DR Daily-Anali Unknown Tablets Dok 100mg Unknown Capsules QC Milk Of Magnesia Unknown 400mg/5ML Suspension Clozapine 100mg Unknown Tablets Risperidone 4mg Unknown Tablets Lisinopril 10mg Unknown Tablets Glipizide ER Unknown 10mg Tablets ER 24HR Aspirin 81mg Unknown [place] Ibu 800mg Unknown Tablets Metformin HCL ER Unknown 500mg Tablets ER 24HR Immunizations Description No Information Available Vital Signs Description No Information Available Results Description No Information Available Procedures Description No Information Available Medical Devices Description No Information Available Encounters Description No Information Available Assessments Date Code Description Provider 04/10/2019 H25.813 Combined forms of age-related cataract, Ted Narinder, OD bilateral Plan of Treatment No Information Available Functional Status Description No Information Available Mental Status Description No Information Available Referrals Description No Information Available
--- OUTSIDE RECORDS SUMMARY | 2019-05-11 15:20 | XMS REPORT | Summary of Care ---
:1955 Author Organization [facility] Address [address] [place] [address] Care Team Providers Name Role Phone Abdulaziz Carranza MD Primary Care Provider Reason for Visit Reason Comments Abnormal Glucose DM with last A1C above goal range at 7.3. Weight Problem Wants to lose 10 lbs to help improve BG/A1C. Encounter Details Date Type Department Care Team Description 04/18/2019 Office Visit Dennard Yanick Weller, Kaye, Type 2 diabetes mellitus without complication, without long-term current use of insulin (HCC) ( Primary Dx); Medicine RD Hypertriglyceridemia; [address] Essential hypertension; [place], [place] [id number] [place] [address] BMI 29.0-29.9,adult [phone] Allergies Active Allergy Reactions Severity Noted Date Comments Kdc:Benzyl Other 02/25/2014 nightmares Alcohol+Lorazepam+Polyethy kandis Glycol+Propylene Glycol Benztropine 08/20/2009 Ziprasidone Hydrochloride 08/20/2009 Haloperidol Lactate Unknown Reaction 08/20/2009 [place] 08/20/2009 Fd&C Yellow #6-Gabapentin Other 10/10/2014 Fever, fainted Prolixin 08/20/2009 Fluoxetine Hcl 08/20/2009 Shell Fish Unknown Reaction 09/03/2015 Allergic to lobster per patient, but not shrimp, oysters, clams or crab. Carbamazepine 08/20/2009 Chlorpromazine Hcl 08/20/2009 Trazodone 08/20/2009 Diazepam Unknown Reaction 04/03/2015 Bupropion 08/20/2009 Zaleplon 08/20/2009 [place] documented as of this encounter (statuses as of 04/18/2019) Medications Medication Sig Dispensed Refills Start Date End Date Status divalproex sodium Take 1,000 mg by 60 Tab 0 06/23/2015 Active (DEPAKOTE) 500 MG Oral mouth TWICE Tab EC DAILY. 1000 mg in the morning, and 1000 mg at bedtime clozapine (CLOZARIL) Take 700 mg by 60 Tab 0 07/06/2015 Active 100 MG Oral mouth DAILY. 1 TabIndications: in AM, 4 at HS Schizophrenia, unspecified type (HCC) loperamide (IMODIUM) 2 Take 1 Cap by 30 Cap 5 11/10/2016 Active MG Oral Cap mouth FOUR TIMES DAILY NEEDED for diarrhea. naproxen (NAPROSYN) Take 1 Tab by 60 Tab 0 04/12/2018 Active 500 MG Oral mouth TWICE TabIndications: DAILY. Costochondritis magnesium citrate Oral Take 200 mg by 1 Bottle 0 04/12/2018 Active SolutionIndications: mouth DAILY Constipation, NEEDED unspecified (constipation). constipation type risperidone Take 4 mg by 0 Active (RISPERDAL) 4 MG Oral mouth EVERY Tab BEDTIME. docusate sodium Take 1 Cap by 30 Cap 11 08/23/2018 Active (COLACE) 100 MG Oral mouth TWO TIMES Cap DAILY NEEDED (constipation). lisinopril (PRINIVIL, Take 1 Tab by 30 Tab 11 08/30/2018 08/30/2019 Active ZESTRIL) 10 MG Oral mouth DAILY. Tab Take 1 tablet daily. Multiple Vitamin TAKE ONE TABLET 90 Tab 3 10/18/2018 Active (TAB-A-IVETTE) Oral Tab BY MOUTH ONCE DAILY atorvastatin (LIPITOR) TAKE ONE TABLET 90 Tab 3 10/18/2018 Active 20 MG Oral Tab BY MOUTH ONCE DAILY Incontinence Supply 1 Each by Does 60 Each 11/09/2018 Active Disposable Does not not apply route apply Misc DAILY. S/M depends underwear acetaminophen Take 2 Tabs by 90 Tab 5 02/20/2019 Active (TYLENOL) 325 MG Oral mouth THREE Tab TIMES DAILY NEEDED (headache). glipiZIDE (GLUCOTROL TAKE ONE TABLET 30 Tab 5 02/21/2019 Active XL) 10 MG Oral TABLET BY MOUTH ONCE SR 24 HR DAILY Omeprazole delayed rel Take 20 mg by 30 Cap 5 04/03/2019 Active cap 20 MG Oral CAPSULE mouth DAILY. DELAYED RELEASE metFORMIN (GLUCOPHAGE Take 1 Tab by 30 Tab 12 04/05/2019 04/04/2020 Active XR) 500 MG Oral TABLET mouth EVERY SR 24 HR TWENTY-FOUR HOURS. documented as of this encounter (statuses as of 04/18/2019) Active Problems Problem Noted Date Controlled type 2 diabetes mellitus without complication, without 10/05/2018 long-term current use of insulin Parkinsonism, secondary 08/30/2018 Urge incontinence of urine 03/17/2017 Essential hypertension 01/25/2017 Gastroesophageal reflux disease without esophagitis 04/01/2016 BPH (benign prostatic hyperplasia) 12/25/2013 Bipolar disorder 08/20/2009 Overview: [facility] [address] Duran Schizoaffective disorder, bipolar type 08/20/2009 Overview: [facility] admissions 2012- [facility] [address] [facility] admission February 2017 History of tobacco use 08/20/2009 Overview: 5-10 cigarette per day began age 18 Quit spring 2017 documented as of this encounter (statuses as of 04/18/2019) Resolved Problems Problem Noted Date Resolved Date Controlled diabetes mellitus type II without complication 07/09/20152018 Hypertension 08/20/2009 01/25/2017 Anemia 08/20/2009 12/25/2013 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 08/20/2009 12/25/2013 Renal insufficiency 08/20/2009 05/13/2015 Overview: Secondary to lithium documented as of this encounter (statuses as of 04/18/2019) Immunizations Name Administration Dates Next Due Influenza (IM) Preservative Free 06/07/2018, 04/18/2017, 05/02/2016, 10/21/2015, 06/04/2014 PNEUMOCOCCAL POLYSACCHARIDE VACCINE 06/17/2014 Pneumococcal Conjugate(13 Valent) 10/21/2015 TDAP Vaccine 01/21/2016 ZOSTER (ZOSTAVAX) VACCINE 09/17/2014 documented as of this encounter Social History Tobacco Use Types Packs/Day Years Used Date Former Smoker Cigarettes 1 30 Quit: 02/23/2014 Smokeless Tobacco: Never Used Alcohol Use Drinks/Week oz/Week Comments No 0 Standard drinks or equivalent 0.0 Sex Assigned at Date Recorded Not on file Job Start Date Occupation Industry Not on file Not on file Not on file Travel History Travel Start Travel End No recent travel history available. documented as of this encounter Last Filed Vital Signs Vital Sign Reading Time Taken Comments Blood Pressure - - Pulse - - Temperature - - Respiratory Rate - - Oxygen Saturation - - Inhaled Oxygen Concentration - - Weight 86.6 kg (191 lb) 04/18/2019 2:31 PM EDT Height 172.7 cm (5' 8") 04/18/2019 2:31 PM EDT Body Mass Index 29.04 04/18/2019 2:31 PM EDT documented in this encounter Patient Instructions Patient InstructionsKaye Weller, NIELS - 04/18/2019 2:00 PM EDTFollow consistent carbohydrate meal plan, 3-4 carbohydrate choices per meal or 45-60 grams per meal.15-20 grams per snack. Decrease pasta and rice portion. Reduce milk to 8 oz at breakfast and lunch. Include 2-3 servings fruits and vegetables daily. Decrease juice or eliminate to half cup or have tomato juice instead or lite cranberry juice. Have fresh or frozen vegetables and salad with lite saladdressing at dinner. Drink vegetable juice. Less fruit in the morning. Have banana later in the day. Include 25 to 35 grams of fiber per day. High fiber pasta, bread, cereal - oatmeal or raisinbranor plain Cheerios with 2% milk alternate with eggs at breakfast, oatmeal or cream of wheat/bars, beans, peas, corn, potato brown rice, berries, apples and pears kiwi, oats, quinoa, and bulgur. 8 (8 ounce) glasses of water daily. Take water with you when you walk, go to the gym. Use water bottle. Limit snack portions. Have baked chips, Irish or lite yogurt or fruit for snacks. No Fritos and honey buns. Limit chips and choose backed chips and small portion of nuts. Have veggies or wheat thins with hummus or fruit. Limit fat intake - use 1 or 2% milk, low fat cheese, small handful of nuts, peanut butter, use lightsalad dressing. Limit starches at breakfast - half of bagel, yogurt, and banana. Have tuna or sardines more often. Cut back on candy, chips, desserts, Oreo cookiesand donuts!! No more than 4-5 hours between meals and snacks. Try Sensodyne toothpaste for sensitivity. Shopping List: pumpernickel or seeded rye or wheat bread, lite or Irish yogurt, 1% small curd cottage cheese, Powerade Zero, sugar-free butterscotch or chocolate pudding, turkey ham and thin slovenian or mozzarella cheese slices. Weight loss goal: 1 lb per week to reach 180 lbs. Exercise goal: walking at least 20 minutes daily and stairs. Try new activities at the [facility] onceper week - basketball, football or exercise bike. Ride exercise bike in the lounge for 20-30 minutes a few times per week. Follow up visit in 4 months.Electronically signed by Kaye Weller RD at 07/2019 2:37 PM EDT documented in this encounter Progress Notes Kaye Weller RD - 04/18/2019 2:00 PM EDT PATIENT: Natacha Blake : 1955 DATE OF SERVICE: 04/18/2019 REFERRING PRACTITIONER: Abdulaziz Carranza PRIMARY CARE PROVIDER: Abdulaziz Carranza CHIEF COMPLAINT: Chief Complaint Patient presents with Abnormal Glucose DM with last A1C above goal range at 7.3. Weight Problem Wants to lose 10 lbs to help improve BG/A1C. SUBJECTIVE: Natacha is a 63-y.o. male who presents for a follow-up for the diabetes self management training. Lab Results Component Value Date GLYCO 7.3 (H) 02/28/2019 GLYCO 7.1 (H) 11/20/2018 GLYCO 8.6 (H) 07/20/2018 GLYCO 6.8 (H) 03/09/2018 GLYCO 5.3 11/21/2017 Lab Results Component Value Date Cholesterol 154 02/28/2019 Glucose Monitoring: Not testing BG. OTHER CONCERNS: Jay recently had a tooth pulled and is now chewing/eating better. Reviewed patient's AVS from last appointment. Patient has been able to plan ahead for meals. Patient has been able to stop skipping meals. Patient has identified barriers that may limit their ability to follow the meal plan. EXERCISE HABITS: Current exercise: walking 20 minutes, 1-2 time(s) a week. Factors that affect exercise habits: Does not like to walk downtown by himself. He has access to going to the [facility], but has not been going. 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 Personal history of tobacco use 08/20/2009 Renal insufficiency 08/20/2009 Secondary to lithium Schizoaffective disorder (HCC) 08/20/2009 Urinary incontinence 08/20/2009 Past Surgical History: Procedure Laterality Date COLONOSCOPY N/A 11/07/2016 Procedure: Colonoscopy; EGD with biopsies; Surgeon: Emmett Lobato MD; Location: [facility] MAIN OR COLONOSCOPY N/A 12/29/2016 Procedure: COLONOSCOPY; Surgeon: Alonzo Whiting Jr., MD; Location: [facility] MAIN OR EGD N/A 12/29/2016 Procedure: EGD with biopsy x2; Surgeon: Alonzo Whiting Jr., MD; Location : [facility] MAIN OR Social History Socioeconomic History Marital status: Single Spouse name: Not on file Number of children: Not on file Years of education: Not on file Highest education level: Not on file Occupational History Not on file Social Needs Financial resource strain: Not on file Food insecurity: Worry: Not on file Inability: Not on file Transportation needs: Medical: Not on file Non-medical: Not on file Tobacco Use Smoking status: Former Smoker Packs/day: 1.00 Years: 30.00 Pack years: 30.00 Types: Cigarettes Last attempt to quit: 02/23/2014 Years since quittin.1 Smokeless tobacco: Never Used Substance and Sexual Activity Alcohol use: No Alcohol/week: 0.0 standard drinks Drug use: No Sexual activity: Never Lifestyle Physical activity: Days per week: Not on file Minutes per session: Not on file Stress: Not on file Relationships Social connections: Talks on phone: Not on file Gets together: Not on file Attends mosque service: Not on file Active member of club or organization: Not on file Attends meetings of clubs or organizations: Not on file Relationship status: Not on file Intimate partner violence: Fear of current or ex partner: Not on file Emotionally abused: Not on file Physically abused: Not on file Forced sexual activity: Not on file Other Topics Concern Back Care Not Asked Bike Helmet Not Asked Blood Transfusions Not Asked Caffeine Concern Not Asked Exercise Yes Comment: walks most days 1-2 miles Hobby Hazards Not Asked International Travel Not Asked Service Not Asked Occupational Exposure Not Asked Seat Belt Not Asked Self-Exams Not Asked Sleep Concern Not Asked Special Diet No Stress Concern Yes Weight Concern No Social History Narrative Lives alone in [facility] in [facility] On [facility] disability for mental health Never No significant other History reviewed. No pertinent family history. Allergies Allergen Reactions Ativan [Kdc:Benzyl Alcohol+Lorazepam+Polyethylene Glycol+Propylene Glycol ] Other nightmares Benztropine Geodon [Ziprasidone Hydrochloride] Haldol [Haloperidol Lactate] Unknown Reaction [place] Neurontin [Fd&C Yellow #6-Gabapentin] Other Fever, fainted Prolixin Prozac [Fluoxetine Hcl] Shell Fish Unknown Reaction Allergic to lobster per patient, but not shrimp, oysters, clams or crab. Tegretol [Carbamazepine] Thorazine Spansules [Chlorpromazine Hcl] Trazodone Valium [Diazepam] Unknown Reaction Wellbutrin [Bupropion] Zaleplon [place] Current Outpatient Medications Medication Sig acetaminophen (TYLENOL) 325 MG Oral Tab Take 2 Tabs by mouth THREE TIMES DAILY NEEDED (headache). atorvastatin (LIPITOR) 20 MG Oral Tab TAKE ONE TABLET BY MOUTH ONCE DAILY clozapine (CLOZARIL) 100 MG Oral Tab Take 700 mg by mouth DAILY. 1 in AM , 4 at HS divalproex sodium (DEPAKOTE) 500 MG Oral Tab EC Take 1,000 mg by mouth TWICE DAILY. 1000 mg in the morning, and 1000 mg at bedtime docusate sodium (COLACE) 100 MG Oral Cap Take 1 Cap by mouth TWO TIMES DAILY NEEDED (constipation). glipiZIDE (GLUCOTROL XL) 10 MG Oral TABLET SR 24 HR TAKE ONE TABLET BY MOUTH ONCE DAILY Incontinence Supply Disposable Does not apply Misc 1 Each by Does not apply route DAILY. S/M depends underwear lisinopril (PRINIVIL, ZESTRIL) 10 MG Oral Tab Take 1 Tab by mouth DAILY. Take 1 tablet daily. loperamide (IMODIUM) 2 MG Oral Cap Take 1 Cap by mouth FOUR TIMES DAILY NEEDED for diarrhea. magnesium citrate Oral Solution Take 200 mg by mouth DAILY NEEDED ( constipation). metFORMIN (GLUCOPHAGE XR) 500 MG Oral TABLET SR 24 HR Take 1 Tab by mouth EVERY TWENTY-FOUR HOURS. Multiple Vitamin (TAB-A-IVETTE) Oral Tab TAKE ONE TABLET BY MOUTH ONCE DAILY naproxen (NAPROSYN) 500 MG Oral Tab Take 1 Tab by mouth TWICE DAILY. Omeprazole delayed rel cap 20 MG Oral CAPSULE DELAYED RELEASE Take 20 mg by mouth DAILY. risperidone (RISPERDAL) 4 MG Oral Tab Take 4 mg by mouth EVERY BEDTIME. No current facility-administered medications for this visit. VITALS: Ht 5' 8" (1.727 m) Wt 191 lb (86.6 kg) BMI 29.04 kg/m2 Wt Readings from Last 10 Encounters: 04/18/19 191 lb (86.6 kg) 02/05/19 193 lb (87.5 kg) 01/03/19 193 lb (87.5 kg) 12/06/18 192 lb (87.1 kg) 11/27/18 193 lb (87.5 kg) 10/05/18 180 lb (81.6 kg) 08/30/18 180 lb (81.6 kg) 08/02/18 189 lb (85.7 kg) 08/02/18 189 lb (85.7 kg) 07/20/18 186 lb (84.4 kg) IMPRESSION: Natacha has completed some of the above Outcomes Measures from last appointment. He is limiting portions somewhat and his weight is stable, but not doing much physical activity. His last A1C was abovegoal at 7.3. Patient is motivated to reduce carbohydrates/snacking and increase exercise to help improve BG/A1C and promote weight loss. See patient instructions for details for updated recommendations; Patient Instructions Follow consistent carbohydrate meal plan, 3-4 carbohydrate choices per meal or 45-60 grams per meal.15-20 grams per snack. Decrease pasta and rice portion. Reduce milk to 8 oz at breakfast and lunch. Include 2-3 servings fruits and vegetables daily. Decrease juice or eliminate to half cup or have tomato juice instead or lite cranberry juice. Have fresh or frozen vegetables and salad with lite saladdressing at dinner. Drink vegetable juice. Less fruit in the morning. Have banana later in the day. Include 25 to 35 grams of fiber per day. High fiber pasta, bread, cereal - oatmeal or raisinbranor plain Cheerios with 2% milk alternate with eggs at breakfast, oatmeal or cream of wheat/bars, beans, peas, corn, potato brown rice, berries, apples and pears kiwi, oats, quinoa, and bulgur. 8 (8 ounce) glasses of water daily. Take water with you when you walk, go to the gym. Use water bottle. Limit snack portions. Have baked chips, Irish or lite yogurt or fruit for snacks. No Fritos and honey buns. Limit chips and choose backed chips and small portion of nuts. Have veggies or wheat thins with hummus or fruit. Limit fat intake - use 1 or 2% milk, low fat cheese, small handful of nuts, peanut butter, use lightsalad dressing. Limit starches at breakfast - half of bagel, yogurt, and banana. Have tuna or sardines more often. Cut back on candy, chips, desserts, Oreo cookiesand donuts!! No more than 4-5 hours between meals and snacks. Try Sensodyne toothpaste for sensitivity. Shopping List: pumpernickel or seeded rye or wheat bread, lite or Irish yogurt, 1% small curd cottage cheese, Powerade Zero, sugar-free butterscotch or chocolate pudding, turkey ham and thin slovenian or mozzarella cheese slices. Weight loss goal: 1 lb per week to reach 180 lbs. Exercise goal: walking at least 20 minutes daily and stairs. Try new activities at the [facility] onceper week - basketball, football or exercise bike. Ride exercise bike in the lounge for 20-30 minutes a few times per week. Follow up visit in 4 months. TIME SPENT IN SESSION TODAY: Time spent with the patient today, 30 minutes. BARRIERS TO LEARNING/COMPLIANCE: Jay likes to eat fruit and drink juice with breakfast along with cereal and milk, which is too many carbohydrates. He is doing a small amount of exercise, but needs to do more. Author: Kaye Weller, MPH, RD, CDN, CDE 04/18/2019, 16:29 documented in this encounter Plan of Treatment Date Type Specialty Care Team Description 04/24/2019 Office Visit Internal Medicine Abdulaziz Carranza MD [address] [place] [address] 08/19/2019 Office Visit Internal Medicine Kaye Weller RD [address] [place] [address] [phone] Name Type Priority Associated Diagnoses Order Schedule MNT FOLLOW UP EACH 15 Procedures Routine Type 2 diabetes mellitus Ordered: 04/18/2019 MINS without complication, without long-term current use of insulin (HCC) Health Maintenance Due Date Last Done Comments LUNG CANCER SCREENING 2008 ZOSTER IMMUNIZATION SERIES 11/12/2014 09/17/2014 (2 of 3) AAA SCREENING/SURVEILLANCE 2018 FALL RISK ASSESSMENT 2018 Diabetic Eye Exam 09/08/2018 09/08/2017, 09/08/2017 FOOT EXAM 11/21/2018 11/21/2017, 11/21/2017, 11/21/2017, Additional history exists INFLUENZA VACCINE (#1) 2019 06/07/2018, 04/18/2017, 05/02/2016, Additional history exists HEMOGLOBIN A1C 05/31/2019 02/28/2019, 11/20/2018, 07/20/2018, Additional history exists PNEUMOCOCCAL 65+YRS (2 of 2 06/17/2019 10/21/2015, 06/17/2014 - PPSV23) DEPRESSION SCREENING 02/06/2020 02/05/2019 LIPID DISORDER SCREENING 02/29/2020 02/28/2019, 11/20/2018, 10/18/2018, Additional history exists COLONOSCOPY SCREENING 12/29/2021 12/29/2016, 12/29/2016, 11/07/2016, Additional history exists HPV IMMUNIZATION SERIES Aged Out No longer eligible based on patient's age to complete this topic MENINGOCOCCAL VACCINE IMM Aged Out No longer eligible based on patient's age to complete this topic documented as of this encounter Goals Goal Patient Goal Associated Recent Patient-Stated? Author Type Problems Progress Blood Pressure Blood Hypertension 136/86 No [place], < 140/90 Pressure (02/05/2019 Abdulaziz Almendarez, 10:38 AM EDT) Note: Hypertension Care Plan Based on the patient's clinical history and according to JNC 8 guidelines target blood pressure goal is less than 140/90. Based on the patient's last blood pressure of BP: 128/80 mmHg the patient is at at goal. As your provider, it is important that I advise you regarding: your current medications and help you with any challenges you may face taking your medications as directed (ex. instructions, cost, side effects, and interactions). lifestyle changes: exercise, weight reduction and smoking cessation your clinical goals and how you can achieve success: weight reduction, exercise plan and smoking cessation medication management: N/A diet only patient education/self-management tools provided: No To successfully manage my Hypertension I will: monitor my blood pressure daily, understanding that my goal is less than 140/ 90 per my healthcare provider's recommendation. I will schedule an appointment with my provider if consistent abnormal readings greater than 160/100. take medications every day as prescribed by my healthcare provider and if unable to take them I will discuss with my provider. monitor for symptoms of chest pain, chest tightness/pressure, irregular heartbeat, persistent dizziness, radiating arm pain, and neck or jaw pain. If any of these symptoms are noticed I will seek medical attention immediately by calling 911 exercise/walk 30 minutes 6 day(s) per week. If I experience chest pain, chest tightness, or shortness of breath, I will seek medical attention immediately. follow a diet rich in fruits, vegetables, and low-fat dairy products with reduced content of saturated & total fat. I will reduce my sodium intake daily. An example is the DASH diet. To obtain more information please refer to the DASH Eating Plan listed in Educational Resources. record my blood pressure results. [employer] is safe and secure way for you to do this in your medical record online. try to obtain an ideal body weight. My recent weight was Weight: 188 lb ( 85.276 kg). My weight loss goal for my next office visit is 175 lb . limit alcohol consumption. For men two drinks per day and women one drink per day. if currently smoking, will discuss how to quit smoking with my healthcare provider and work towards quitting. Educational Resources: National Heart, Lung, & Blood [place] http://nhlbi.nih.gov/hbp/index.html The DASH Diet Eating Plan http://www.nhlbi.nih.gov/health/health-topics/ topics/dash/ Academy of Nutrition & DIetetics http://eatright.org National Smoking Cessation Site http://smokefree.gov Blood Pressure < Blood Pressure Hypertension 136/86 (02/05/2019 Abdulaziz Saravia 140/90 10:38 AM EDTPeng Almendarez MD Note: Hypertension Care Plan Based on the patient's clinical history and according to JNC 8 guidelines target blood pressure goal is less than 140/90. Based on the patient's last blood pressure of BP: 128/72 mmHg the patient is at at goal. As your provider, it is important that I advise you regarding: your current medications and help you with any challenges you may face taking your medications as directed (ex. instructions, cost, side effects, and interactions). Important lifestyle changes: exercise, weight reduction and smoking cessation your clinical goals and how you can achieve success: weight reduction, exercise plan and smoking cessation medication management: N/A diet only patient education/self-management tools provided: Yes To successfully manage my Hypertension I will: monitor my blood pressure daily, understanding that my goal is less than 140/ 90 per my healthcare provider's recommendation. I will schedule an appointment with my provider if consistent abnormal readings greater than 160/100. take medications every day as prescribed by my healthcare provider and if unable to take them I will discuss with my provider. monitor for symptoms of chest pain, chest tightness/pressure, irregular heartbeat, persistent dizziness, radiating arm pain, and neck or jaw pain. If any of these symptoms are noticed I will seek medical attention immediately by calling 911 exercise/walk 30 minutes 6 day(s) per week. If I experience chest pain, chest tightness, or shortness of breath, I will seek medical attention immediately. follow a diet rich in fruits, vegetables, and low-fat dairy products with reduced content of saturated & total fat. I will reduce my sodium intake daily. An example is the DASH diet. To obtain more information please refer to the DASH Eating Plan listed in Educational Resources. record my blood pressure results. [employer] is safe and secure way for you to do this in your medical record online. try to obtain an ideal body weight. My recent weight was Weight: 191 lb ( 86.637 kg). My weight loss goal for my next office visit is 180 pounds . limit alcohol consumption. For men two drinks per day and women one drink per day. if currently smoking, will discuss how to quit smoking with my healthcare provider and work towards quitting. Educational Resources: National Heart, Lung, & Blood [place] http://nhlbi.nih.gov/hbp/index.html The DASH Diet Eating Plan http://www.nhlbi.nih.gov/health/health-topics/ topics/dash/ Academy of Nutrition & DIetetics http://eatright.org National Smoking Cessation Site http://smokefree.gov Blood Pressure < Blood Pressure 136/86 (02/05/2019 No Estee Denis FNP 140/90 10:38 AM EDT) Note: This is an individualized treatment (blood pressure) goal for Natacha Blake: Displayed above (on the left) is your goal for blood pressure control. Your most recent blood pressure is also shown above, on the right. You should try to achieve blood pressures that are lower than your goal listed above (on the left). Depression screen (PHQ-9) total score < 5 Depression No Estee Denis FNP Note: This is an individualized treatment (depression) goal for Natacha Blake: Displayed above is your goal for a depression screening (PHQ-9) score that would indicate good control of your depression. Glycohemoglobin A1c < 7.0 Diabetes 7.3 (02/28/2019 11:55 No Estee Denis FNP AM EDT) Note: This is an individualized treatment (diabetes control, HgbA1C) goal for Natacha Blake: Displayed above is your progress towards your HgbA1C goal. Your goal is shown above (on the left); your most recent HgbA1C is shown on the right. Note that lower numbers are better. Weight loss vs. 18 mo Lifestyle 2 (04/18/2019 2:31 PM No Estee Denis FNP max (lbs) >= 10 EDT) Note: This is an individualized lifestyle goal for Natacha Blake: Your body mass index (BMI) is more than 30. You should lose weight. A reasonable starting goal is to lose 10 pounds. Displayed above is how many pounds you have lost thus far towards your 10 pound weight loss goal. Keep a regular sleep schedule Lifestyle No Estee Denis FNP Note: This is an individualized lifestyle goal for Natacha Blake: Please maintain a regular sleep schedule. This may help with some symptoms of depression. Keep immunizations current Lifestyle No Estee Denis FNP Note: This is an individualized lifestyle goal for Natacha Blake: Please be sure to keep up-to-date on recommended immunizations. For example, this would include a yearly influenza vaccine. Immunization status can be seen by looking at the Health Maintenance sections of your e[facility], Plan of Care, and any After Visit Summaries. Take all prescribed medications as Self-management No Estee Denis FNP directed Note: This is an individualized self-management goal for Natacha Blake: Please take all prescribed medications as directed. 1. Do not skip doses. If you cannot afford your medications, talk with your doctor. 2. Use a pill reminder system such as a pill box if needed. Your pharmacist can help you with this. 3. Contact your Pharmacy 5 days before your medication runs out. If you cannot take your medications for any reasons, talk with your doctor. 4. Please bring all of your medication bottles and inhalers (or a list of all your medications/inhalers) with you to every visit. Potential barriers to meeting all of your care plan goals will continue to be addressed on an ongoing basis. documented as of this encounter Results Not on filedocumented in this encounter Visit Diagnoses Diagnosis Type 2 diabetes mellitus without complication, without long-term current use of insulin (HCC) - Primary Hypertriglyceridemia Pure hyperglyceridemia Essential hypertension Unspecified essential hypertension BMI 29.0-29.9,adult Body Mass Index 29.0-29.9, adult documented in this encounter Guarantor Name Account Type Relation to Date of Phone Billing Patient Address Natacha Blake Personal/Family 1955 [address] [place], [place] (Work) [id number] documented as of this encounter
--- OUTSIDE RECORDS SUMMARY | 2019-05-11 15:20 | XMS REPORT | Summary of Care ---
:1955 Author Organization [facility] Address [address] [place] [address] Care Team Providers Name Role Phone Abdulaziz Carranza MD Primary Care Provider Reason for Visit Reason Comments Diabetes Last A1C was 7.3 on 02/28/2019. Encounter Details Date Type Department Care Team Description 04/24/2019 Office Visit [place] [facility] Abdulaziz Carranza Essential hypertension (Primary Dx); Jose Almendarez MD Controlled type 2 diabetes mellitus without complication, without long-term current use of insulin (HCC); [address] [facility] Other drug-induced secondary parkinsonism (HCC); [place], [place] [id number] [place] [address] Schizoaffective disorder, bipolar type ([facility]) [phone] Allergies Active Allergy Reactions Severity Noted Date Comments Kdc:Benzyl Other 02/25/2014 nightmares Alcohol+Lorazepam+Polyethy kandis Glycol+Propylene Glycol Benztropine 08/20/2009 Ziprasidone Hydrochloride 08/20/2009 Haloperidol Lactate Unknown Reaction 08/20/2009 [place] 08/20/2009 Fd&C Yellow #6-Gabapentin Other 10/10/2014 Fever, fainted Prolixin 08/20/2009 Fluoxetine Hcl 08/20/2009 Shell Fish Unknown Reaction 09/03/2015 Allergic to lobster per patient, but not shrimp, oysters, clams or crab. Carbamazepine 08/20/2009 Chlorpromazine Hcl 08/20/2009 Trazodone 08/20/2009 Diazepam Unknown Reaction 04/03/2015 Bupropion 08/20/2009 Zaleplon 08/20/2009 [place] documented as of this encounter (statuses as of 04/24/2019) Medications Medication Sig Dispensed Refills Start Date [...] as of this encounter (statuses as of 04/24/2019) Active Problems Problem Noted Date Controlled type 2 diabetes mellitus without complication, without 10/05/2018 long-term current use of insulin Parkinsonism, secondary 08/30/2018 Urge incontinence of urine 03/17/2017 Essential hypertension 01/25/2017 Gastroesophageal reflux disease without esophagitis 04/01/2016 BPH (benign prostatic hyperplasia) 12/25/2013 Bipolar disorder 08/20/2009 Overview: [facility] [address] Schizoaffective disorder, bipolar type 08/20/2009 Overview: 2 [facility] admissions 2012- [facility] [address] [facility] admission February 2017 History of tobacco use 08/20/2009 Overview: 5-10 cigarette per day began age 18 Quit spring 2017 documented as of this encounter (statuses as of 04/24/2019) Resolved Problems Problem Noted Date Resolved Date Controlled diabetes mellitus type II without complication 07/09/20152018 Hypertension 08/20/2009 01/25/2017 Anemia 08/20/2009 12/25/2013 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 08/20/2009 12/25/2013 Renal insufficiency 08/20/2009 05/13/2015 Overview: Secondary to lithium documented as of this encounter (statuses as of 04/24/2019) Immunizations Name Administration Dates Next Due Influenza [...] Sign Reading Time Taken Comments Blood Pressure 132/70 04/24/2019 10:39 AM EDT Pulse 74 04/24/2019 10:39 AM EDT Temperature - - Respiratory Rate - - Oxygen Saturation - - Inhaled Oxygen Concentration - - Weight 86.6 kg (191 lb) 04/24/2019 10:39 AM EDT Height 172.7 cm (5' 8") 04/24/2019 10:39 AM EDT Body Mass Index 29.04 04/24/2019 10:39 AM EDT documented in this encounter Patient Instructions Patient InstructionsAbdulaziz Carranza MD - 04/24/2019 10:40 AM EDTDiabetes mellitus blood test after may 31 continue current medications Get flu shot today You are doing well documented in this encounter Progress Notes Abdulaziz Carranza MD - 04/24/2019 10:40 AM EDT PATIENT: Natacha Blake : 1955 DATE OF SERVICE: 04/24/2019 CHIEF COMPLAINT: Chief Complaint Patient presents with Diabetes Last A1C was 7.3 on 02/28/2019. Subjective HISTORY OF PRESENT ILLNESS: Natacha Blake is a 63-y.o. male. HPI Here for follow up to hypertension diabetes mellitus and cholesterol he feels well no neuropathy Symptoms Lab Results Component Value Date GLYCO 7.3 (H) 02/28/2019 Wt Readings from Last 3 Encounters: 04/24/19 191 lb (86.6 kg) 04/18/19 191 lb (86.6 kg) 02/05/19 193 lb (87.5 kg) he walks daily He lives in [facility] No gastro-intestinal symptoms Patient Active Problem List Diagnosis Bipolar disorder (HCC) Schizoaffective disorder, bipolar type ([facility]) History of tobacco use BPH (benign prostatic hyperplasia) Gastroesophageal reflux disease without esophagitis Essential hypertension Urge incontinence of urine Parkinsonism, secondary (HCC) Controlled type 2 diabetes mellitus without complication, without long- term current use of insulin (HCC) No family history on file. Current Outpatient Medications Medication Sig acetaminophen (TYLENOL) [...] No current facility-administered medications for this visit. Allergies Allergen Reactions Ativan [Kdc:Benzyl Alcohol+Lorazepam+Polyethylene Glycol+Propylene Glycol ] Other nightmares Benztropine Geodon [Ziprasidone Hydrochloride] Haldol [Haloperidol Lactate] Unknown Reaction [place] Neurontin [Fd&C Yellow #6-Gabapentin] Other Fever, fainted Prolixin Prozac [Fluoxetine Hcl] Shell Fish Unknown Reaction Allergic to lobster per patient, but not shrimp, oysters, clams or crab. Tegretol [Carbamazepine] Thorazine Spansules [Chlorpromazine Hcl] Trazodone Valium [Diazepam] Unknown Reaction Wellbutrin [Bupropion] Zaleplon [place] Social History Socioeconomic History Marital status: Single [...] file Gets together: Not on file Attends moravian service: Not on file Active member of [...] No Social History Narrative Lives alone in [facility] in [facility] On [facility] disability for mental health Never No significant other ROS no cardiovascular symptoms no eye symptoms Objective PHYSICAL EXAM: VITALS: BP 132/70 | Pulse 74 | Ht 5' 8" (1.727 m) | Wt 191 lb (86.6 kg) | BMI 29.04 kg/m Body mass index is 29.04 kg/m. Physical Exam S1 and S2 normal, no murmurs, clicks, gallops or rubs. Regular rate and rhythm. Chest is clear; nowheezes or rales. No edema or JVD. Left foot diabetic exam: Visual exam. Foot appears normal without wounds or signs of infection: yes Sensory exam. Patient can feel the monofilament on the foot: yes Pulse exam. A pulse is palpable at either the foot or ankle: yes Right foot diabetic exam: Visual exam. Foot appears normal without wounds or signs of infection: yes Sensory exam. Patient can feel the monofilament on the foot: yes Pulse exam. A pulse is palpable at either the foot or ankle: yes ASSESSMENT / IMPRESSION: ICD-9-CM ICD-10-CM 1. Essential hypertension at goal continue current medications 401.9 I10 2. Controlled type 2 diabetes mellitus without complication, without long-term current use of insulin (HCC) stable continue current medications hemoglobin A1C end of May 250.00 E11.9 3. Other drug-induced secondary parkinsonism (HCC) 332.1 G21.19 E980.5 4. Schizoaffective disorder, bipolar type ([facility]) follow up [facility] 295.70 F25.0 Patient Instructions Diabetes mellitus blood test after may 31 continue current medications Get flu shot today You are doing well Abdulaziz Carranza MD 04/24/2019 11:00 documented in this encounter Plan of Treatment Date Type Specialty Care Team Description 08/19/2019 Office Visit Internal Medicine Kaye Weller, RD [address] [place] [address] [phone] Name Type Priority Associated Diagnoses Order Schedule COMPREHENSIVE METABOLIC Lab Routine 10 Occurrences starting PANEL 04/24/2019 until 04/24/2020 GLYCOHEMOGLOBIN A1C Lab Routine 10 Occurrences starting 04/24/2019 until 04/24/2020 LIPID PROFILE Lab Routine 10 Occurrences starting 04/24/2019 until 04/24/2020 Health Maintenance Due Date Last Done Comments [...] Type Problems Progress Blood Pressure Blood Hypertension 132/70 No [place], < 140/90 Pressure (04/24/2019 Abdulaziz Almendarez, 10:39 AM EDT) Note: Hypertension Care Plan Based [...] Educational Resources: National Heart, Lung, & Blood [place] http://nhlbi.nih.gov/hbp/index.html The DASH Diet Eating Plan http://www.nhlbi.nih.gov/health/health-topics/ topics/dash/ Academy of Nutrition & DIetetics http://eatright.org National Smoking Cessation Site http://smokefree.gov Blood Pressure < Blood Pressure Hypertension 132/70 (04/24/2019 Abdulaziz Saravia 140/90 10:39 AM EDTPeng Almendarez MD Note: Hypertension Care [...] Educational Resources: National Heart, Lung, & Blood [place] http://nhlbi.nih.gov/hbp/index.html The DASH Diet Eating Plan http://www.nhlbi.nih.gov/health/health-topics/ topics/dash/ Academy of Nutrition & DIetetics http://eatright.org National Smoking Cessation Site http://smokefree.gov Blood Pressure < Blood Pressure 132/70 (04/24/2019 No Estee Denis FNP 140/90 10:39 AM EDT) Note: This is an individualized [...] A1c < 7.0 Diabetes 7.3 (02/28/2019 11:55 Estee Crawley FNP AM EDT) Note: This is an individualized treatment (diabetes control, HgbA1C) goal for Natacha Blake: Displayed above is your progress towards your HgbA1C goal. Your goal is shown above (on the left); your most recent HgbA1C is shown on the right. Note that lower numbers are better. Weight loss vs. 18 mo Lifestyle 2 (04/24/2019 10:39 AM No Estee Denis FNP max (lbs) >= [...] filedocumented in this encounter Visit Diagnoses Diagnosis Essential hypertension - Primary Unspecified essential hypertension Controlled type 2 diabetes mellitus without complication, without long-term current use of insulin (HCC) Other drug-induced secondary parkinsonism (HCC) Schizoaffective disorder, bipolar type (HCC) Schizoaffective disorder, unspecified condition documented in this encounter (Home[address] [place], [place] (Work) [id number] documented as of this encounter
== END 2019-05-11 15:07 | disposition home or self-care (01) ==
LOC: ED 14:11
DX: M79.606 Pain in leg, unspecified (principal); G89.29 Other chronic pain; F20.9 Schizophrenia, unspecified; E11.9 Type 2 diabetes mellitus without complications; D64.9 Anemia, unspecified; I10 Essential (primary) hypertension; K21.9 Gastro-esophageal reflux disease without esophagitis; N40.0 Benign prostatic hyperplasia without lower urinary tract symptoms; R62.50 Unspecified lack of expected normal physiological development in childhood; F32.9 Major depressive disorder, single episode, unspecified; F41.0 Panic disorder [episodic paroxysmal anxiety]; F17.210 Nicotine dependence, cigarettes, uncomplicated; Z88.8 Allergy status to other drugs, medicaments and biological substances; Z79.84 Long term (current) use of oral hypoglycemic drugs; Z79.899 Other long term (current) drug therapy
CPT/HCPCS: 99282; A9270-GY

== ENCOUNTER 2019-05-26 17:05 | Emergency (ER) | payer OTHER ==
--- OUTSIDE RECORDS SUMMARY | 2019-05-26 17:28 | XMS REPORT | Summary of Care ---
:1955 Author Organization [facility] Address [address] [place] [address] Care Team Providers Name Role Phone Tere Abdulaziz Almendarez Primary Care Provider Reason for Visit Reason Comments Form Completion Form completion for [facility] home health and medicaid taxis. Encounter Details Date Type Department Care Team Description 05/22/2019 Office Visit [facility] Abdulaziz Carranza Controlled type 2 diabetes mellitus without complication, without long-term current use of insulin ([facility]) (Primary Dx); Jose Almendarez MD Schizoaffective disorder, bipolar type ([facility]); [address] [facility] Bipolar affective disorder, currently manic, mild ([facility]) [place] [address] [place] [address] [phone] Allergies Active Allergy Reactions Severity Noted Date Comments Kdc:Benzyl Other 02/25/2014 nightmares Alcohol+Lorazepam+Polyethy kandis Glycol+Propylene Glycol Benztropine 08/20/2009 Ziprasidone Hydrochloride 08/20/2009 Haloperidol Lactate Unknown Reaction 08/20/2009 [place] 08/20/2009 Fd&C Yellow #6-Gabapentin Other 10/10/2014 Fever, fainted Prolixin 08/20/2009 Fluoxetine Hcl 08/20/2009 Shell Fish Unknown Reaction 09/03/2015 Allergic to lobster per patient, but not shrimp, oysters, clams or crab. Carbamazepine 08/20/2009 Chlorpromazine Hcl 08/20/2009 Trazodone 08/20/2009 Diazepam Unknown Reaction 04/03/2015 Bupropion 08/20/2009 Zaleplon 08/20/2009 [place] documented as of this encounter (statuses as of 05/22/2019) Medications Medication Sig Dispensed Refills Start End Date Status Date divalproex sodium Take 1,000 mg 60 Tab 0 Active (DEPAKOTE) 500 MG by mouth TWICE 5 Oral Tab EC DAILY. 1000 mg in the morning, and 1000 mg at bedtime clozapine (CLOZARIL) Take 700 mg by 60 Tab 0 Active 100 MG Oral mouth DAILY. 1 5 TabIndications: in AM, 4 at HS Schizophrenia, unspecified type (HCC) loperamide (IMODIUM) Take 1 Cap by 30 Cap 5 Active 2 MG Oral Cap mouth FOUR 7 TIMES DAILY NEEDED for diarrhea. naproxen (NAPROSYN) Take 1 Tab by 60 Tab 0 Active 500 MG Oral mouth TWICE 8 TabIndications: DAILY. Costochondritis magnesium citrate Take 200 mg by 1 Bottle 0 Active Oral mouth DAILY 8 SolutionIndications: NEEDED Constipation, (constipation) unspecified . constipation type risperidone Take 4 mg by 0 Active (RISPERDAL) 4 MG mouth EVERY Oral Tab BEDTIME. docusate sodium Take 1 Cap by 30 Cap 11 Active (COLACE) 100 MG Oral mouth TWO 9 Cap TIMES DAILY NEEDED (constipation) . Multiple Vitamin TAKE ONE 90 Tab 3 Active (TAB-A-IVETTE) Oral TABLET BY 9 Tab MOUTH ONCE DAILY Incontinence Supply 1 Each by Does 60 Each 5 Active Disposable Does not not apply 9 apply Misc route DAILY. S/M depends underwear acetaminophen Take 2 Tabs by 90 Tab 5 Active (TYLENOL) 325 MG mouth THREE 9 Oral Tab TIMES DAILY NEEDED (headache). glipiZIDE (GLUCOTROL TAKE ONE 30 Tab 5 Active XL) 10 MG Oral TABLET BY 9 TABLET SR 24 HR MOUTH ONCE DAILY Omeprazole delayed Take 20 mg by 30 Cap 5 Active rel cap 20 MG Oral mouth DAILY. 9 CAPSULE DELAYED RELEASE metFORMIN Take 1 Tab by 30 Tab 12 04/04/20 Active (GLUCOPHAGE XR) 500 mouth EVERY 9 20 MG Oral TABLET SR 24 TWENTY-FOUR HR HOURS. lisinopril TAKE ONE 30 Tab 11 Active (PRINIVIL, ZESTRIL) TABLET BY 9 10 MG Oral Tab MOUTH ONCE DAILY atorvastatin TAKE ONE 30 Tab 4 Active (LIPITOR) 20 MG Oral TABLET BY 9 Tab MOUTH ONCE DAILY lisinopril Take 1 Tab by 30 Tab 11 05/22/20 Discontinued (PRINIVIL, ZESTRIL) mouth DAILY. 9 19 (Provider 10 MG Oral Tab Take 1 tablet Discontinued) daily. documented as of this encounter (statuses as of 05/22/2019) Active Problems Problem Noted Date Controlled type 2 diabetes mellitus without complication, without 10/05/2018 long-term current use of insulin Parkinsonism, secondary 08/30/2018 Urge incontinence of urine 03/17/2017 Essential hypertension 01/25/2017 Gastroesophageal reflux disease without esophagitis 04/01/2016 BPH (benign prostatic hyperplasia) 12/25/2013 Bipolar disorder 08/20/2009 Overview: [facility] [address] Schizoaffective disorder, bipolar type 08/20/2009 Overview: 2 [facility] admissions 2012- [facility] [address] [facility] admission February 2017 History of tobacco use 08/20/2009 Overview: 5-10 cigarette per day began age 18 Quit spring 2017 documented as of this encounter (statuses as of 05/22/2019) Resolved Problems Problem Noted Date Resolved Date Controlled diabetes mellitus type II without complication 07/09/20152018 Hypertension 08/20/2009 01/25/2017 Anemia 08/20/2009 12/25/2013 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 08/20/2009 12/25/2013 Renal insufficiency 08/20/2009 05/13/2015 Overview: Secondary to lithium documented as of this encounter (statuses as of 05/22/2019) Immunizations Name Administration Dates Next Due Influenza (IM) Preservative Free 06/07/2018, 04/18/2017, 05/02/2016, 10/21/2015, 06/04/2014 Influenza Vaccine 65 Yrs + 04/24/2019 PNEUMOCOCCAL POLYSACCHARIDE VACCINE 06/17/2014 Pneumococcal Conjugate(13 Valent) [...] Sign Reading Time Taken Comments Blood Pressure 128/70 05/22/2019 2:18 PM EDT Pulse 64 05/22/2019 2:18 PM EDT Temperature - - Respiratory Rate - - Oxygen Saturation - - Inhaled Oxygen Concentration - - Weight 89.8 kg (198 lb) 05/22/2019 2:18 PM EDT Height 172.7 cm (5' 8") 05/22/2019 2:18 PM EDT Body Mass Index 30.11 05/22/2019 2:18 PM EDT documented in this encounter Patient Instructions Patient InstructionsAbdulaziz Carranza MD - 05/22/2019 2:00 PM EDTForms filled out and signed for taxi and home health help Diabetes mellitus [facility] continue current medicationsElectronically signed by Abdulaziz Carranza MD at 2:30 PM EDT documented in this encounter Progress Notes Abdulaziz Carranza MD - 05/22/2019 2:00 PM EDT [facility] form for home health aid and also medicaid taxi form filled out with patient I spent 15 minutes with the patient, greater than half of this time in direct [id number] counseling addressing the current condition and plan of care. ICD-9-CM ICD-10-CM 1. Controlled type 2 diabetes mellitus without complication, without long-term current use of insulin ([facility]) 250.00 E11.9 2. Schizoaffective disorder, bipolar type ([facility]) 295.70 F25.0 3. Bipolar affective disorder, currently manic, mild ([facility]) 296.41 F31.11 Abdulaziz Carranza MD documented in this encounter Plan of Treatment Date Type Specialty Care Team Description 06/05/2019 Lab Internal Medicine 06/11/2019 Office Visit Internal Medicine Abdulaziz Carranza MD [address] [place] [address] [phone] 08/19/2019 Office Visit Internal Medicine Nithin KayeNIELS [address] [place] [address] [phone] Health Maintenance Due Date Last Done Comments LUNG CANCER SCREENING 2008 ZOSTER IMMUNIZATION SERIES 11/12/2014 09/17/2014 (2 of 3) AAA SCREENING/SURVEILLANCE 2018 FALL RISK ASSESSMENT 2018 FOOT EXAM 11/21/2018 11/21/2017, 11/21/2017, 11/21/2017, Additional history exists HEMOGLOBIN A1C 05/31/2019 02/28/2019, 11/20/2018, 07/20/2018, Additional history exists PNEUMOCOCCAL 65+YRS (2 of 2 06/17/2019 10/21/2015, 06/17/2014 - PPSV23) Diabetic Eye Exam 09/08/2019 09/08/2017, 09/08/2017 DEPRESSION SCREENING 02/06/2020 02/05/2019 LIPID DISORDER SCREENING 04/24/2020 04/24/2019, 02/28/2019, 11/20/2018, Additional history exists COLONOSCOPY SCREENING 12/29/2021 12/29/2016, 12/29/2016, 11/07/2016, Additional history exists INFLUENZA VACCINE Completed 04/24/2019, 06/07/2018, 04/18/2017, Additional history exists HPV IMMUNIZATION SERIES Aged Out No longer eligible based on patient's age to complete this topic MENINGOCOCCAL VACCINE IMM Aged Out No longer eligible based on patient's age to complete this topic documented as of this encounter Goals Goal Patient Goal Associated Recent Patient-Stated? Author Type Problems Progress Blood Pressure Blood Hypertension 128/70 No Tere, < 140/90 Pressure (05/22/2019 Abdulaziz Almendarez, 2:18 PM EDT) Note: Hypertension Care Plan Based on [...] Educational Resources: National Heart, Lung, & Blood [place] http://nhlbi.nih.gov/hbp/index.html The DASH Diet Eating Plan http://www.nhlbi.nih.gov/health/health-topics/ topics/dash/ Academy of Nutrition & DIetetics http://eatright.org National Smoking Cessation Site http://smokefree.gov Blood Pressure < Blood Pressure Hypertension 128/70 (05/22/2019 Abdulaziz Saravia 140/90 2:18 PM EDTPeng Almendarez MD Note: Hypertension Care Plan [...] Educational Resources. record my blood pressure results. [facility] is safe and secure way for you [...] Educational Resources: National Heart, Lung, & Blood [place] http://nhlbi.nih.gov/hbp/index.html The DASH Diet Eating Plan http://www.nhlbi.nih.gov/health/health-topics/ topics/dash/ Academy of Nutrition & DIetetics http://eatright.org National Smoking Cessation Site http://smokefree.gov Blood Pressure < Blood Pressure 128/70 (05/22/2019 No Estee Denis FNP 140/90 2:18 PM EDT) Note: This is an individualized treatment (blood pressure) goal for Natacha Blake: Displayed above (on the left) is your goal for blood pressure control. Your most recent blood pressure is also shown above, on the right. You should try to achieve blood pressures that are lower than your goal listed above (on the left). Depression screen (PHQ-9) total score < 5 Depression Estee Crawley FNP Note: This is an individualized treatment [...] better. Weight loss vs. 18 mo Lifestyle 0 (05/22/2019 2:18 PM No Estee Denis FNP max (lbs) [...] goal. Keep a regular sleep schedule Lifestyle Estee Crawley FNP Note: This is an individualized lifestyle [...] filedocumented in this encounter Visit Diagnoses Diagnosis Controlled type 2 diabetes mellitus without complication, without long-term current use of insulin (HCC) - Primary Schizoaffective disorder, bipolar type (HCC) Schizoaffective disorder, unspecified condition Bipolar affective disorder, currently manic, mild (HCC) Bipolar I disorder, most recent episode (or current) manic, mild documented in this encounter (Home) [address] [place], [place] (Work) [id number] documented as of this encounter
[2019-05-26 18:47] LABS: ABS Eosinophils 0.1 10^3/ul (0-0.6); ABS Lymphocytes 2.1 10^3/ul (1.0-4.8); ABS Monocytes 0.7 10^3/ul (0-0.8); ABS Neutrophils 4.7 10^3/ul (1.5-7.7); Eosinophil % 0.9 %; Hematocrit 37 % (42-52); Hemoglobin 12.7 g/dL (14.0-18.0); Lymphocyte % 27.5 %; Mean Corpuscular HGB Conc 34 g/dL (31-36); Mean Corpuscular Hemoglobin 32 pg (27-31); Mean Corpuscular Volume 94 fL (80-94); Mean Platelet Volume 8.9 fL (7.4-10.4); Nucleated Red Blood Cells % 0.1; Platelet Count 220 10^3/uL (150-450); Red Blood Count 3.97 10^6 /uL (4.18-5.48); Red Cell Distribution Width 13 % (10-15); White Blood Count 7.6 10^3/uL (3.5-10.8)
[2019-05-26 19:04] LABS: Albumin 4.5 g/dL (3.2-5.2); Albumin/Globulin Ratio 1.4 (1-3); BUN/Creatinine Ratio 20.7 (8-20); C Reactive Protein 4.93 mg/L (<8.01); Calcium 9.4 mg/dL (8.6-10.3); EGFR African American 99.9 (>60); EGFR Non-African American 82.6 (>60); Globulin 3.3 g/dL (2-4); Potassium 4.2 mmol/L (3.5-5.0); Total Bilirubin 0.2 mg/dL (0.2-1.0); Total Protein 7.8 g/dL (6.4-8.9)
--- NOTE | 2019-05-26 20:38 | ED ---
GI/ HPI - HPI Summary HPI Summary: 63-year-old male presents to constipation for the past 3 days. He states that 3 days ago he had a bowel movement when it was raining. He states he has not had once since. he admits to abdominal pain. States did vomit once. no nausea. States has been using Colace. Has history of constipation and has not had in a while. He states he has been passing gas. No previous abdominal surgeries. Denies any urinary symptoms. No fevers. - History of Current Complaint Chief Complaint: EDAbdPain Time Seen by Provider: 05/26/19 19:23 Stated Complaint: CONSTIPATION PER PT Pain Intensity: 6 - Additional Pertinent History Primary Care Physician: [id number] - Allergy/Home Medications Allergies/Adverse Reactions: Allergies Allergy/AdvReac Type Severity Reaction Status Date / Time benztropine [From Cogentin] Allergy Unknown Verified 05/26/19 19:23 Reaction Details bupropion Allergy Unknown Verified 05/26/19 19:23 Reaction Details carbamazepine Allergy Unknown Verified 05/26/19 19:23 Reaction Details diazepam Allergy See Comment Verified 05/26/19 19:23 fluoxetine Allergy Unknown Verified 05/26/19 19:23 Reaction Details fluphenazine Allergy Unknown Verified 05/26/19 19:23 Reaction Details haloperidol Allergy Unknown Verified 05/26/19 19:23 Reaction Details metformin Allergy Unknown Verified 05/11/19 14:38 Reaction Details thiothixene Allergy Unknown Verified 05/26/19 19:23 Reaction Details trihexyphenidyl Allergy Unknown Verified 05/26/19 19:23 Reaction Details PMH/Surg Hx/FS Hx/Imm Hx Endocrine/Hematology History: Reports: Hx Diabetes, Hx Anemia, Other Endocrine/ Hematological Disorders - Impaired fasting glucose Denies: Hx Anticoagulant Therapy, Hx Thyroid Disease Cardiovascular History: Reports: Hx Angina, Hx Hypertension Denies: Hx Pacemaker/ICD Respiratory History: Denies: Hx Asthma, Hx Chronic Obstructive Pulmonary Disease (COPD) GI History: Reports: Hx Gastroesophageal Reflux Disease Denies: Hx Ulcer Comment Only: Other GI Disorders - Chronic constipation History: Reports: Hx Acute Renal Failure - secondary to lithium carbonate, Hx Benign Prostatic Hyperplasia, Hx Kidney Stones, Other Problems/Disorders - Urinary incontinence Denies: Hx Renal Disease Musculoskeletal History: Denies: Hx Gout Sensory History: Reports: Hx Contacts or Glasses Denies: Hx Deafness, Hx Hearing Aid Opthamlomology History: Reports: Hx Contacts or Glasses Neurological History: Reports: Hx Developmental Delay, Hx Headaches, Hx Seizures - seizure d/o Denies: Hx Dementia Psychiatric History: Reports: Hx Depression, Hx Panic Disorder, Hx Inpatient Treatment, Hx Community Mental Health Tx, Hx Schizophrenia, Hx Bipolar Disorder , Hx Suicide Attempt, Hx of Violent Episodes Against Others Denies: Hx Eating Disorder, Hx Substance Abuse - Cancer History Cancer Type, Location and Year: None reported - Surgical History Surgery Procedure, Year, and Place: RIGHT wrist, ring finger on right hand, penis as a baby. - Immunization History Date of Tetanus Vaccine: UNK Date of Influenza Vaccine: Fall 2011 Infectious Disease History: No Infectious Disease History: Denies: Hx Hepatitis, Hx Human Immunodeficiency Virus (HIV), History Other Infectious Disease, Traveled Outside the [place] in Last 30 Days - Family History Known Family History: Positive: Hypertension, Other - Alcoholism - Social History Alcohol Use: None Alcohol Amount: hx of alcohol abuse per pt Hx Substance Use: No Substance Use Type: Reports: None Hx Tobacco Use: Yes Smoking Status (MU): Current Some Day Smoker Type: Cigarettes Amount Used/How Often: 4-5/day Have You Smoked in the Last Year: Yes Review of Systems Negative: Fever Negative: Chest Pain Negative: Shortness Of Breath Positive: Abdominal Pain. Negative: Vomiting, Diarrhea, Nausea All Other Systems Reviewed And Are Negative: Yes Physical Exam Triage Information Reviewed: Yes Vital Signs On Initial Exam: Initial Vitals Temp Pulse Resp BP Pulse Ox 98.6 F 110 20 153/91 99 05/26/19 17:07 05/26/19 17:07 05/26/19 17:07 05/26/19 17:07 05/26/19 17:07 Vital Signs Reviewed: Yes Appearance: Positive: Well-Appearing Skin: Positive: Warm, Dry Head/Face: Positive: Normal Head/Face Inspection Eyes: Positive: Normal, Conjunctiva Clear ENT: Positive: Pharynx normal Respiratory/Lung Sounds: Positive: Clear to Auscultation, Breath Sounds Present Cardiovascular: Positive: Normal, RRR Abdomen Description: Positive: Nontender, Soft Bowel Sounds: Positive: Present Musculoskeletal: Positive: Normal Neurological: Positive: Normal Psychiatric: Positive: Normal Procedures - Sedation Patient Received Moderate/Deep Sedation with Procedure: No Diagnostics - Vital Signs Vital Signs Temp Pulse Resp BP Pulse Ox 05/26/19 17:07 98.6 F 110 20 153/91 99 - Laboratory Lab Results: Lab Results 05/26/19 05/26/19 Range/Units 18:39 18:39 WBC 7.6 (3.5-10.8) 10^3/uL RBC 3.97 L (4.18-5.48) 10^6 /uL Hgb 12.7 L (14.0-18.0) g/dL Hct 37 L (42-52) % MCV 94 (80-94) fL MCH 32 H (27-31) pg MCHC 34 (31-36) g/dL RDW 13 (10-15) % Plt Count 220 (150-450) 10^3/uL MPV 8.9 (7.4-10.4) fL Neut % (Auto) 61.7 % Lymph % (Auto) 27.5 % [place] % (Auto) 9.5 % Eos % (Auto) 0.9 % Baso % (Auto) 0.4 % Absolute Neuts (auto) 4.7 (1.5-7.7) 10^3/ul Absolute Lymphs (auto) 2.1 (1.0-4.8) 10^3/ul Absolute Monos (auto) 0.7 (0-0.8) 10^3/ul Absolute Eos (auto) 0.1 (0-0.6) 10^3/ul Absolute Basos (auto) 0.0 (0-0.2) 10^3/ul Absolute Nucleated RBC 0.0 10^3/ul Nucleated RBC % 0.1 Sodium 133 L (135-145) mmol/L Potassium 4.2 (3.5-5.0) mmol/L Chloride 102 (101-111) mmol/L Carbon Dioxide 23 (22-32) mmol/L Anion Gap 8 (2-11) mmol/L BUN 19 (6-24) mg/dL Creatinine 0.92 (0.67-1.17) mg/dL Est GFR ( Amer) 99.9 (>60) Est GFR (Non-Af Amer) 82.6 (>60) BUN/Creatinine Ratio 20.7 H (8-20) Glucose 325 H (70-100) mg/dL Calcium 9.4 (8.6-10.3) mg/dL Total Bilirubin 0.20 (0.2-1.0) mg/dL AST 15 (13-39) U/L ALT 19 (7-52) U/L Alkaline Phosphatase 82 (34-104) U/L C-Reactive Protein 4.93 (<8.01) mg/L Total Protein 7.8 (6.4-8.9) g/dL Albumin 4.5 (3.2-5.2) g/dL Globulin 3.3 (2-4) g/dL Albumin/Globulin Ratio 1.4 (1-3) Lipase 33 (11.0-82.0) U/L Result Diagrams: 05/26/19 18:39 05/26/19 18:39 Lab Statement: Any lab studies that have been ordered have been reviewed, and results considered in the medical decision making process. Re-Evaluation - Re-Evaluation First Eval Re-Evaluation Time: 20:52 Change: Improved Comment: feeling better, had BM GIGU Course/Dx - Course Course Of Treatment: 63-year-old male presents to constipation for the past 3 days. He states that 3 days ago he had a bowel movement when it was raining. He states he has not had once since. he admits to abdominal pain. States did vomit once. no nausea. States has been using Colace. Has history of constipation and has not had in a while. He states he has been passing gas. No previous abdominal surgeries. Denies any urinary symptoms. No fevers. On exam nontender abdomen. X-ray shows stool throughout colon. gave soap la edema with relief. patient had bm in ED and is feeling better. wbc normal. crp normal. will discharge to have continue colace. patient understand and agrees with plan. - Diagnoses Differential Diagnoses - Male: Bowel Obstruction, Urinary Tract Infection, Other - constipation Provider Diagnoses: Constipation Discharge ED - Sign-Out/Discharge Documenting (check all that apply): Patient Departure - Discharge Plan Condition: Good Disposition: HOME Prescriptions: Docusate CAP* [Colace Cap*] 100 mg PO DAILY #20 cap Patient Education Materials: Constipation (ED) Referrals: Abdulaziz Carranza MD [Primary Care Provider] - Additional Instructions: continue colace daily for next couple days, can take up to twice a day for constipation eat plenty of fiber follow up with primary Return to ED if develop any new or worsening symptoms - Billing Disposition and Condition Condition: GOOD Disposition: Home
[2019-05-26 21:22] VITALS: BP 150/93
== END 2019-05-26 21:17 | disposition home or self-care (01) ==
LOC: ED 17:05
DX: K59.00 Constipation, unspecified (principal); Z72.0 Tobacco use; E11.9 Type 2 diabetes mellitus without complications; I10 Essential (primary) hypertension; K21.9 Gastro-esophageal reflux disease without esophagitis; Z87.442 Personal history of urinary calculi; N40.0 Benign prostatic hyperplasia without lower urinary tract symptoms; N17.9 Acute kidney failure, unspecified; F32.9 Major depressive disorder, single episode, unspecified
CPT/HCPCS: 36415; 74019; 80053; 83690; 85025; 86140; 99283

== ENCOUNTER 2019-05-31 20:01 | Emergency (ER) | payer OTHER ==
--- NOTE | 2019-05-31 20:37 | ED ---
Abdominal Pain/Male - HPI Summary HPI Summary: This pt is a 63 Y/O M presenting to [facility] with a CC of bilateral lower abdominal pain that started on 05/28/19 with distension and is currently rated an 8/10 in severity. He states that he has not made a bowel movement since the onset of pain. He states that [employer] he had a large cup of coffee mixed with prune juice. He states that he has had N/V at the onset of his symptoms but states that he does not have those symptoms. He denies any fever, chills, SOB, CP, headaches, and diarrhea. He states no aggravating or alleviating factors. He has a PMHx of diabetes. - History of Current Complaint Chief Complaint: EDAbdPain Stated Complaint: ABD PAIN PER EMS Time Seen by Provider: 05/31/19 20:18 Hx Obtained From: Patient Onset/Duration: Sudden Onset, Lasting Days - 3, Still Present, Worse Since - onset Timing: Constant Severity Initially: Moderate Severity Currently: Severe Pain Intensity: 8 Pain Scale Used: 0-10 Numeric Location: Other - bilateral lower extremities Radiates: No Aggravating Factor(s): Nothing Alleviating Factor(s): Nothing, Position Associated Signs And Symptoms: Positive: Constipation, Nausea, Vomiting. Negative: Fever, Cough, Chest Pain, Diarrhea - Allergies/Home Medications Allergies/Adverse Reactions: Allergies Allergy/AdvReac Type Severity Reaction Status Date / Time benztropine [From Cogentin] Allergy Unknown Verified 05/31/19 20:04 Reaction Details bupropion Allergy Unknown Verified 05/31/19 20:04 Reaction Details carbamazepine Allergy Unknown Verified 05/31/19 20:04 Reaction Details diazepam Allergy See Comment Verified 05/31/19 20:04 fluoxetine Allergy Unknown Verified 05/31/19 20:04 Reaction Details fluphenazine Allergy Unknown Verified 05/31/19 20:04 Reaction Details haloperidol Allergy Unknown Verified 05/31/19 20:04 Reaction Details metformin Allergy Unknown Verified 05/31/19 20:04 Reaction Details thiothixene Allergy Unknown Verified 05/31/19 20:04 Reaction Details trihexyphenidyl Allergy Unknown Verified 05/31/19 20:04 Reaction Details Home Medications: Home Medications Acetaminophen TAB* [Tylenol TAB*] 650 mg PO Q6H PRN 05/31/19 [History Confirmed 05/31/19] Acetaminophen TAB* [Tylenol TAB*] 650 mg PO TID PRN 05/31/19 [History Confirmed 05/31/19] Ibuprofen TAB* [Motrin TAB* 800 MG] 800 mg PO Q6H PRN 05/31/19 [History Confirmed 05/31/19] Magnesium Hydroxide LIQ* [Milk of Magnesia LIQ*] 30 ml PO BID PRN 05/31/19 [ History Confirmed 05/31/19] PMH/Surg Hx/FS Hx/Imm Hx Previously Healthy: Yes Endocrine/Hematology History: Reports: Hx Diabetes, Hx Anemia, Other Endocrine/ Hematological Disorders - Impaired fasting glucose Denies: Hx Anticoagulant Therapy, Hx Thyroid Disease Cardiovascular History: Reports: Hx Angina, Hx Hypertension Denies: Hx Pacemaker/ICD Respiratory History: Denies: Hx Asthma, Hx Chronic Obstructive Pulmonary Disease (COPD) GI History: Reports: Hx Gastroesophageal Reflux Disease Denies: Hx Ulcer Comment Only: Other GI Disorders - Chronic constipation History: Reports: Hx Acute Renal Failure - secondary to lithium carbonate, Hx Benign Prostatic Hyperplasia, Hx Kidney Stones, Other Problems/Disorders - Urinary incontinence Denies: Hx Renal Disease Musculoskeletal History: Denies: Hx Gout Sensory History: Reports: Hx Contacts or Glasses Denies: Hx Deafness, Hx Hearing Aid Opthamlomology History: Reports: Hx Contacts or Glasses Neurological History: Reports: Hx Developmental Delay, Hx Headaches, Hx Seizures - seizure d/o Denies: Hx Dementia Psychiatric History: Reports: Hx Depression, Hx Panic Disorder, Hx Inpatient Treatment, Hx Community Mental Health Tx, Hx Schizophrenia, Hx Bipolar Disorder , Hx Suicide Attempt, Hx of Violent Episodes Against Others Denies: Hx Eating Disorder, Hx Substance Abuse - Cancer History Cancer Type, Location and Year: None reported - Surgical History Surgical History: Yes Surgery Procedure, Year, and Place: RIGHT wrist, ring finger on right hand, penis as a baby. - Immunization History Date of Tetanus Vaccine: UNK Date of Influenza Vaccine: Fall 2011 Immunizations Up to Date: Yes Infectious Disease History: No Infectious Disease History: Denies: Hx Hepatitis, Hx Human Immunodeficiency Virus (HIV), History Other Infectious Disease, Traveled Outside the [place] in Last 30 Days - Family History Known Family History: Positive: Hypertension, Other - Alcoholism - Social History Occupation: Retired Lives: Assisted Living Alcohol Use: None Alcohol Amount: hx of alcohol abuse per pt Hx Substance Use: No Substance Use Type: Reports: None Hx Tobacco Use: Yes Smoking Status (MU): Current Some Day Smoker Type: Cigarettes Amount Used/How Often: 4-5/day Have You Smoked in the Last Year: Yes Review of Systems Positive: Skin Diaphoresis. Negative: Fever, Chills Negative: Chest Pain Negative: Shortness Of Breath Positive: Abdominal Pain - Bilateral lower extemity , Vomiting, Nausea. Negative: Diarrhea Genitourinary: Other - POSITIVE: constipation Negative: Headache All Other Systems Reviewed And Are Negative: Yes Physical Exam - Summary Physical Exam Summary: General: Well-developed, obese male. No acute distress. HEENT: Normocephalic, Atraumatic. Eyes: Conjuctiva normal, PERRL. Ears: TMs within normal limits. Nares: (-) discharge, (-) erythema. Oropharynx: Clear, mucous membranes moist, (-) exudates. Neck: Soft, FROM, (-) lymphadenopathy, (-) thyromegaly, (-) JVD. Cardiovascular: Normal sinus rhythm, (-) murmur. Lungs: Clear to auscultation bilaterally (-) wheezes, (-) rales, (-) rhonchi. Abdomen: Soft, non-tender, non-distended, (-) organomegaly, decreased bowel sounds. Back: (-) CVA tenderness Extremities: No edema. Skin: Warm, dry, (-) rash. Neuro: Alert and oriented x3, no focal deficits. Psychiatric: Mood normal, affect normal. Triage Information Reviewed: Yes Vital Signs On Initial Exam: Initial Vitals Temp Pulse Resp BP Pulse Ox 98.3 F 110 18 143/89 96 05/31/19 20:02 05/31/19 20:02 05/31/19 20:02 05/31/19 20:02 05/31/19 20:02 Vital Signs Reviewed: Yes Procedures - Sedation Patient Received Moderate/Deep Sedation with Procedure: No Diagnostics - Vital Signs Vital Signs Temp Pulse Resp BP Pulse Ox 05/31/19 20:08 111 29 97 05/31/19 20:02 98.3 F 109 24 143/89 97 - Laboratory Result Diagrams: 05/31/19 20:37 05/31/19 20:37 Lab Statement: Any lab studies that have been ordered have been reviewed, and results considered in the medical decision making process. - Radiology Abdomen X-Ray Radiology Interpretation Completed By: ED Physician Summary of Radiographic Findings: Very distended loops of the bowel, no fluid movement. Consistent with constipation. Pending offical review. - CT A/P CT CT Interpretation Completed By: Radiologist Summary of CT Findings: 1. A large amount of stool distends the distal colon. Correlate clinically for. constipation or possible fecal impaction. 2. Other non-emergent findings detailed above. ED physician has reviewed this report. - EKG 2323 Cardiac Rate: NL - 99 BPM EKG Rhythm: Sinus Rhythm ST Segment: Normal Ectopy: None Summary of EKG Findings: NSR at 99 BPM, P waves, QRS complex, and T waves are within normal limits, T waves and intervals are normal, no ischemic changes. This is a normal EKG. Interpreted by Dr. Jain at 2323 05/31/19. Re-Evaluation - Re-Evaluation First Eval Re-Evaluation Time: 02:06 Change: Unchanged Comment: A/P CT showed no obstruction. Pt will receive an Enema to attempt to remove some of the stool. Abdominal Pain Male Course/Dx - Course Course Of Treatment: 63-year-old male with abdominal pain. Severe constipation found on CT scan. Workup otherwise negative. Patient did not have a bowel movement after magnesium citrate. Patient had fleets enema with good results. Patient discharged to home. Advised him to continue Colace twice a day. Plenty of fluids and fiber. - Diagnoses Provider Diagnoses: Constipation Discharge ED - Sign-Out/Discharge Documenting (check all that apply): Patient Departure - discharge - Discharge Plan Condition: Stable Disposition: HOME Patient Education Materials: Constipation (ED) Referrals: Abdulaziz Carranza MD [Primary Care Provider] - 2 Days Additional Instructions: PLEASE FOLLOW UP WITH YOUR PRIMARY CARE PROVIDER IN 1-3 DAYS AND RETURN TO THE EMERGENCY DEPARTMENT FOR ANY NEW OR WORSENING SYMPTOMS. Continue taking Colace. - Billing Disposition and Condition Condition: STABLE Disposition: Home - Attestation Statements Document Initiated by Scribe: Yes Documenting Scribe: Bud Lopez Provider For Whom Scribe is Documenting (Include Credential): Mary Kate Jain MD Scribe Attestation: Bud Blas, scribed for Mary Kate Jain MD on 06/01/19 at 0521. Scribe Documentation Reviewed: Yes Provider Attestation: The documentation as recorded by the scribe, Bud Lopez accurately reflects the service I personally performed and the decisions made by me, Mary Kate Jain MD Status of Jagruti Document: Viewed
[2019-05-31 20:50] LABS: ABS Basophils 0.1 10^3/ul (0-0.2); ABS Eosinophils 0.1 10^3/ul (0-0.6); ABS Lymphocytes 2.2 10^3/ul (1.0-4.8); ABS Monocytes 0.8 10^3/ul (0-0.8); ABS Neutrophils 4.1 10^3/ul (1.5-7.7); Eosinophil % 1.8 %; Hematocrit 36 % (42-52); Hemoglobin 12.1 g/dL (14.0-18.0); Lymphocyte % 29.9 %; Mean Corpuscular HGB Conc 34 g/dL (31-36); Mean Corpuscular Hemoglobin 32 pg (27-31); Mean Corpuscular Volume 94 fL (80-94); Mean Platelet Volume 8.9 fL (7.4-10.4); Nucleated Red Blood Cells % 0.1; Platelet Count 221 10^3/uL (150-450); Red Blood Count 3.79 10^6 /uL (4.18-5.48); Red Cell Distribution Width 13 % (10-15); White Blood Count 7.3 10^3/uL (3.5-10.8)
[2019-05-31 21:05] LABS: Albumin 4.4 g/dL (3.2-5.2); Albumin/Globulin Ratio 1.6 (1-3); BUN/Creatinine Ratio 17.6 (8-20); Calcium 9.3 mg/dL (8.6-10.3); EGFR Non-African American 68.6 (>60); Globulin 2.8 g/dL (2-4); Potassium 4.6 mmol/L (3.5-5.0); Total Bilirubin 0.2 mg/dL (0.2-1.0); Total Protein 7.2 g/dL (6.4-8.9)
[2019-05-31] MEDS ORDERED: NS 0.9% 1000 ML** 1,000 ML IV.FLUID IV ONE (21:16)
[2019-05-31] MEDS ORDERED: Magnesium CITRATE* 300 ML BTL PO ONE (21:21)
[2019-05-31] MEDS ORDERED: NS 0.9% 1000 ML** 1,000 ML IV ONE (22:03)
[2019-05-31 22:08] LABS: Urine Appearance Clear; Urine Bilirubin Negative (Negative); Urine Blood Negative (Negative); Urine Color Amber; Urine Glucose 3+(>=500 mg/dL) (Negative); Urine Ketones Trace (Negative); Urine Nitrite Negative (Negative); Urine Protein Negative (Negative); Urine Specific Gravity 1.017 (1.010-1.030); Urine Urobilinogen Negative (Negative)
[2019-05-31] MEDS ORDERED: Ondansetron INJ* 2 MG/ML VIAL IV ONE (23:28)
[2019-06-01] MEDS ORDERED: Iodixanol* (CONTRAST) 320 MG/ML 100 ML SDV IV ONE (00:19)
[2019-06-01] MEDS ORDERED: Sodium Phosphate ADULT ENEMA* 118 ml bottle PR ONE (02:05)
[2019-06-01 03:34] VITALS: BP 144/99
== END 2019-06-01 03:15 | disposition home or self-care (01) ==
LOC: ED 20:01
DX: K59.00 Constipation, unspecified (principal); E11.9 Type 2 diabetes mellitus without complications; D64.9 Anemia, unspecified; I10 Essential (primary) hypertension; K21.9 Gastro-esophageal reflux disease without esophagitis; N40.0 Benign prostatic hyperplasia without lower urinary tract symptoms; F17.210 Nicotine dependence, cigarettes, uncomplicated; Z87.442 Personal history of urinary calculi; Z79.84 Long term (current) use of oral hypoglycemic drugs; Z79.899 Other long term (current) drug therapy; Z88.8 Allergy status to other drugs, medicaments and biological substances
CPT/HCPCS: 36415; 74018; 74177; 80053; 81003; 83605; 84484; 85025; 93005; 96361; 96374; 99283; A9270-GY; J2405; Q9967

== ENCOUNTER 2019-08-17 19:08 | Emergency (ER) | payer OTHER ==
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
--- OUTSIDE RECORDS SUMMARY | 2019-08-17 19:38 | XMS REPORT ---
:1955 Author Organization [facility] Care Team Providers Name Role Phone SP SCHNEIDER Primary Care Physician Unavailable Allergies, Adverse Reactions, Alerts Allergy Code CodeSystem Reaction Severity Criticality Status Start Substance Date Moderate Medications Medication Medication Medication Start Stop Route Dose Status Fill Code CodeSystem Date Date Instructions omeprazole 19791206 RxNorm 2019-0 oral 20 mg active for 30 2-20 capsule,d day(s) elayed release(D R/EC) divalproex 1691766 RxNorm 20190 2019- oral 500 mg completed for 30 2-28 05-16 tablet,de day(s) layed release (DR/EC) divalproex 3268038 RxNorm 2018-0 2019- oral 500 mg 2 completed Take 2 tablet 5-16 08-14 tablet,de twice a day layed for 30 day(s) release (DR/EC) twice a day clozapine 19741009 RxNorm 2019-0 oral 100 mg active for 28 6-26 tablet day(s) divalproex 9056343 RxNorm 2019-0 2019- oral 500 mg 2 active Take 2 tablet 8-22 11-20 tablet,de twice a day layed for 30 day(s) release (DR/EC) twice a day ibuprofen RxNorm 2019-0 oral 800 mg active for 6 3-29 tablet day(s) clozapine 836146 RxNorm 2019-0 2019- oral 100 mg completed for 28 1-02 06-26 tablet day(s) risperidone 900314 RxNorm 2019-0 2019- oral 4 mg 1 completed Take 1 tablet 4-19 07-18 tablet at at bedtime bedtime for 30 day(s) metformin 311364 RxNorm 2019-0 oral 500 mg active for 30 3-01 tablet day(s) extended release 24 hr glipizide 657892 RxNorm 2019-0 oral 10 mg active for 30 1-24 tablet day(s) extended release 24hr risperidone 208398 RxNorm 2019-0 2019- oral 4 mg 1 active 1 tablet at 7-26 10-24 tablet at bedtime for bedtime 30 day(s) atorvastatin 950610 RxNorm 2019-0 oral 20 mg active for 30 2-13 tablet day(s) aspirin 804584 RxNorm 2019-0 oral 81 mg active for 30 2-13 tablet,ch day(s) ewable risperidone 370541 RxNorm 0 2019- oral 4 mg completed for 30 1-23 04-19 tablet day(s) lisinopril 122602 RxNorm 2019-0 oral 10 mg active for 30 1-24 tablet day(s) Tab-A-Anali RxNorm 2019-0 oral tablet active for 30 1-23 day(s) Problems Problem Name Code CodeSystem Alternate Alternate Start End Status Narrative Code CodeSystem Date Date Schizoaffective 69730746 SNOMED-CT Active disorder, manic 3-22 type Mild cognitive 47556345 SNOMED-CT 0 Active impairment, so 11-02 stated Nicotine 75096996 SNOMED-CT 0 Active dependence, 29 unspecified, uncomplicated Schizoaffective 99771729 SNOMED-CT 20190 Active disorder, manic 3-22 type Relevant diagnostic tests/laboratory data Narrative No Information Procedures Procedure Code CodeSystem Target Date of Status Service Device Device Device Name Site Procedure Delivery Code Name UID Location Psychotherap [id number] SNOMED-CT () 2019-07-18 complete Mental y, 45 04 d Health- minutes with [place] patient [address], [id number] [id number] Psychotherap [id number] SNOMED-CT () 2019-03-14 complete Mental y, 45 04 d Health- minutes with [place] patient [address], [id number] [phone] Psychotherap [id number] SNOMED-CT () 2019-03-28 complete Mental y, 45 04 d Health- minutes with [place] patient [address], [id number] [phone] Psychotherap [id number] SNOMED-CT () 2019-02-04 complete Mental y, 45 04 d Health- minutes with [place], [id number] [id number] Psychotherap [id number] SNOMED-CT () 2018-12-17 complete Mental y, 45 04 d Health- minutes with [place] patient [place] [address] [facility], [place], [place], [id number] [phone] Preventive 638754 SNOMED-CT () 2018-12-03 complete Mental medicine 0 d Health- counseling [place] and/or risk [place] factor [address] [facility] [address], (s) provided [place], to an [place], individual [id number] (separate [id number] procedure); approximatel y 15 minutes Preventive 259143 SNOMED-CT () 2018-11-05 complete Mental medicine 0 d Health- counseling [place] and/or risk [place] factor [address] [facility] [address], (s) provided [place], to [place], individual [id number] (separate [id number] procedure); approximatel y 15 minutes Preventive 520568 SNOMED-CT () 2019-02-27 complete Mental medicine 0 d Health- counseling [place] and/or risk [place] factor [address] [facility] [address], (s) provided [place], to [place], individual [id number] (separate [phone] procedure); approximatel y 15 minutes Preventive 365278 SNOMED-CT () 2019-04-22 complete Mental medicine 0 d Health- counseling [place] and/or risk [place] factor [address] [facility] [address], (s) provided [place], to [place], individual [id number] (separate [id number] procedure); approximatel y 15 minutes Preventive 718502 SNOMED-CT () 2019-05-17 complete Mental medicine 0 d Health- counseling [place] and/or risk [place] factor [address] [facility] [address], (s) provided [place], to [place], individual [id number] (separate [id number] procedure); approximatel y 15 minutes Preventive 515437 SNOMED-CT () 2019-08-05 complete Mental medicine 0 d Health- counseling [place] and/or risk [place] factor [address] [facility] [address], (s) provided [place], to [place], individual [id number] (separate [phone] procedure); approximatel y 15 minutes Preventive 936766 SNOMED-CT () 2019-01-02 complete Mental medicine 1 d Health- counseling [place] and/or risk [address], (s) [facility], to an [place], individual [id number] (separate [phone] procedure); approximatel y 30 minutes Office or 978193 SNOMED-CT () 2019-01-23 complete Mental other 7 d Health- outpatient [place] visit for [address] [place], [facility], of an [place], established [id number] patient, [phone] which requires at least 2 of these 3 villeda components: An expanded problem focused history; An expanded problem focused examination; Medical decision making of low Office or 477820 SNOMED-CT () 2018-11-23 complete Mental other 7 d Health- outpatient [place] visit for [address], of an [place], established [id number] patient, [phone] which requires at least 2 of these 3 villeda components: An expanded problem focused history; An expanded problem focused examination; Medical decision making of low Office or 267954 SNOMED-CT () 2019-04-29 complete Mental other 7 d Health- outpatient [place] visit [facility] [address] [facility] [place], established [id number] patient, [phone] which requires at least 2 of these 3 villeda components: An expanded problem focused history; An expanded problem focused examination; Medical decision making of low Office or 994232 SNOMED-CT () 2019-07-24 complete Mental other 6 d Health- outpatient [place] visit for [address], of an [place], established [id number] patient, [phone] which requires at least 2 of these 3 villeda components: A problem focused history; A problem focused examination; Straightforw miguelangel medical decision making. Counselin SNOMED-CT () 2018-11-14 complete Mental d Health- [place], [id number] [phone] SNOMED-CT () 2018-12-03 complete Mental d Health- [place], [id number] [phone] SNOMED-CT () 2019-01-16 complete Mental d Health[address], [id number] [id number] SNOMED-CT () 2019-01-30 complete Mental d [address], [id number] [phone] SNOMED-CT () 2019-04-04 complete Mental d [address], [id number] [id number] SNOMED-CT () 2019-04-22 complete Mental d [address], [id number] [phone] SNOMED-CT () 2019-03-07 [facility] Mental d [address], [id number] [phone] SNOMED-CT () 2019-05-09 complete Mental d [address], [id number] [id number] SNOMED-CT () 2019-06-03 complete Mental d [address], [id number] [phone] SNOMED-CT () 2019-06-13 [facility] Mental d [address], [id number] [phone] SNOMED-CT () 2019-07-09 [facility] Mental d [address], [id number] [phone] SNOMED-CT () 2019-02-18 [facility] Mental d [address], [id number] [phone] Encounters/Encounter Diagnoses Encounter Encounter Diagnosis Diagnosis Name Diagnosis Date of Service Name Code Code CodeSystem Diagnosis Delivery Location Health [id number] Schizoaffective SNOMED-CT 2019-08-05 Behavioral Monitoring - disorder, manic Health 15 min type Clinic [address] [place] [address], [id number] Vital Signs No Information Social History Element Description Description Start End Code CodeSystem AdditionalInfo Date Date SexAssignedAtBirth Male 1955-1 M AdministrativeGender 2-20 Hospital Discharge Instructions Reason For Referral Medical Equipment FDA Assessments
--- OUTSIDE RECORDS SUMMARY | 2019-08-17 19:38 | XMS REPORT ---
:1955 Author Organization [facility] Care Team Providers Name Role Phone SP SCHNEIDER Primary Care Physician Unavailable Allergies, Adverse Reactions, Alerts Allergy Code CodeSystem Reaction Severity Criticality Status Start Substance Date Moderate Medications Medication Medication Medication Start Stop Route Dose Status Fill Code CodeSystem Date Date Instructions divalproex [id number] RxNorm 2019- 2019- oral 500 mg 2 completed Take 2 tablet 5-16 08-14 tablet,de twice a day layed for 30 day(s) release (DR/EC) twice a day atorvastatin 634013 RxNorm 2019-0 oral 20 mg active for 30 2-13 tablet day(s) lisinopril 958223 RxNorm 2019-0 oral 10 mg active for 30 1-24 tablet day(s) Tab-A-Anali RxNorm 2019-0 oral tablet active for 30 1-23 day(s) omeprazole 143659 RxNorm 2019-0 oral 20 mg active for 30 2-20 capsule,d day(s) elayed release(D R/EC) metformin 440839 RxNorm 2019-0 oral 500 mg active for 30 3-01 tablet day(s) extended release 24 hr aspirin 465816 RxNorm 2019-0 oral 81 mg active for 30 2-13 tablet,ch day(s) ewable risperidone 563586 RxNorm 2018-0 2019- oral 4 mg 1 completed Take 1 tablet 19 07-18 tablet at at bedtime bedtime for 30 day(s) glipizide 553714 RxNorm 2019-0 oral 10 mg active for 30 1-24 tablet day(s) extended release 24hr ibuprofen RxNorm 2019-0 oral 800 mg active for 6 3-29 tablet day(s) clozapine 19741009 RxNorm 2019- 2019- oral 100 mg completed for 28 1- 06-26 tablet day(s) risperidone 528218 RxNorm 2019-0 2019- oral 4 mg 1 active 1 tablet at 7-26 10-24 tablet at bedtime for bedtime 30 day(s) risperidone 621296 RxNorm 2018- oral 4 mg completed for 30 1-23 04-19 tablet day(s) divalproex 3429919 RxNorm 2018- oral 500 mg completed for 30 2- 05-16 tablet,de day(s) layed release (DR/EC) divalproex 9944041 RxNorm 2018- oral 500 mg 2 active Take 2 tablet - 11-20 tablet,de twice a day layed for 30 day(s) release (DR/EC) twice a day clozapine 801485 RxNorm oral 100 mg active for 28 6-26 tablet day(s) Problems Problem Name Code CodeSystem Alternate Alternate Start End Status Narrative Code CodeSystem Date Date Mild cognitive 14056629 SNOMED-CT Active impairment, so 11-02 stated Schizoaffective 48299491 SNOMED-CT Active disorder, manic 10-26 type Nicotine 70904723 SNOMED-CT Active dependence, 11-02 unspecified, uncomplicated Schizoaffective 47301632 SNOMED-CT 0 Active disorder, manic -22 type Relevant diagnostic tests/laboratory data Narrative No Information Procedures Procedure Code CodeSystem Target Date of Status Service Device Device Device Name Site Procedure Delivery Code Name UID Location Psychotherap [id number] SNOMED-CT () 2019-07-18 complete Mental y, 45 04 d Health- minutes with [place] patient [address], [id number] [phone] Psychotherap [id number] SNOMED-CT () 2019-03-14 complete Mental y, 45 04 d Health- minutes with [place] patient [address], [phone] Psychotherap [id number] SNOMED-CT () 2019-03-28 complete Mental y, 45 04 d Health- minutes with [place] patient [address], [id number] [phone] Psychotherap [id number] SNOMED-CT () 2019-02-04 complete Mental y, 45 04 d Health- minutes with [place], [id number] [phone] Psychotherap [id number] SNOMED-CT () 2018-12-17 complete Mental y, 45 04 d Health- minutes with [place] patient [place] [address] [place] [address], [place], [place], [phone] Preventive 745634 SNOMED-CT () 2018-12-03 complete Mental medicine 0 d Health- counseling [place] and/or risk [place] factor [address] [facility] [address], (s) provided [place], to an [place], individual [id number] (separate [phone] procedure); approximatel y 15 minutes Preventive 665166 SNOMED-CT () 2018-11-05 complete Mental medicine 0 d Health- counseling [place] and/or risk [place] factor [address] [facility] [address], (s) provided [place], to [place], individual [phone] (separate [phone] procedure); approximatel y 15 minutes Preventive 435102 SNOMED-CT () 2019-02-27 complete Mental medicine 0 d Health- counseling [place] and/or risk [place] factor [address] [facility] [address], (s) provided [place], to [place], individual [id number] (separate [id number] procedure); approximatel y 15 minutes Preventive 883887 SNOMED-CT () 2019-04-22 complete Mental medicine 0 d Health- counseling [place] and/or risk [place] factor [address] [facility] [address], (s) provided [place], to [place], individual [phone] (separate [id number] procedure); approximatel y 15 minutes Preventive 195851 SNOMED-CT () 2019-05-17 complete Mental medicine 0 d Health- counseling [place] and/or risk [place] factor [address] [facility] [address], (s) provided [place], to [place], individual [phone] (separate [id number] procedure); approximatel y 15 minutes Preventive 199690 SNOMED-CT () 2019-01-02 complete Mental medicine 1 d Health- counseling [place] and/or risk [place] factor [address] [facility] [address] intervention [address], (s) provided [place], to [place], individual [phone] (separate [phone] procedure); approximatel y 30 minutes Office or 372573 SNOMED-CT () 2019-01-23 complete Mental other 7 d Health- outpatient [place] visit for [address], of [facility], established [phone] patient, [phone] which requires at least 2 of these 3 villeda components: An expanded problem focused history; An expanded problem focused examination; Medical decision making of low Office or 125716 SNOMED-CT () 2018-11-23 complete Mental other 7 d Health- outpatient [place] visit for [address], [facility], established [phone] patient, [phone] which requires at least 2 of these 3 villeda components: An expanded problem focused history; An expanded problem focused examination; Medical decision making of low Office or 475912 SNOMED-CT () 2019-04-29 complete Mental other 7 d Health- outpatient [place] visit for [address], of an [place], established [id number] patient, [phone] which requires at least 2 of these 3 villeda components: An expanded problem focused history; An expanded problem focused examination; Medical decision making of low SNOMED-CT () 2018-11-14 complete Mental d [address], [id number] [phone] SNOMED-CT () 2018-12-03 complete Mental d Health[address], [id number] [phone] SNOMED-CT () 2019-01-16 complete Mental d Health[address], [id number] [phone] SNOMED-CT () 2019-01-30 complete Mental d Health[address], [id number] [phone] SNOMED-CT () 2019-04-04 complete Mental d Health[address], [id number] [phone] SNOMED-CT () 2019-04-22 complete Mental d Health[address], [id number] [phone] SNOMED-CT () 2019-03-07 complete Mental d Health[address], [id number] [phone] SNOMED-CT () 2019-05-09 complete Mental d [address], [id number] [phone] SNOMED-CT () 2019-06-03 complete Mental d [address], [id number] [phone] SNOMED-CT () 2019-06-13 complete Mental d [address], [id number] [phone] SNOMED-CT () 2019-07-09 [facility] Mental d [address], [id number] [phone] SNOMED-CT () 2019-02-18 [facility] Mental d [address], [id number] [phone] Encounters/Encounter Diagnoses Encounter Encounter Diagnosis Diagnosis Name Diagnosis Date of Service Name Code Code CodeSystem Diagnosis Delivery Location [facility] [id number] Schizoaffective SNOMED-CT 2019-07-24 Behavioral Established disorder, manic Health patient 10 type Clinic , , Minutes , Vital Signs No Information Social History Element Description Description Start End Code CodeSystem AdditionalInfo Date Date SexAssignedAtBirth Male 3-1 M AdministrativeGender 2-20 Hospital Discharge Instructions Reason For Referral Medical Equipment FDA Assessments
--- OUTSIDE RECORDS SUMMARY | 2019-08-17 19:39 | XMS REPORT | Summary of Care ---
:1955 Author Organization [facility] Address [address] [facility] [place] [address] Care Team Providers Name Role Phone Abdulaziz Carranza Primary Care Provider Reason for Visit Reason Comments Diabetes Follow up. Last A1C was 8.0 on06/17/2019. Encounter Details Date Type Department Care Team Description 06/28/2019 Office Visit [place] [facility] Abdulaziz Carranza, Bipolar affective disorder in remission (HCC) (Primary Dx); Medicine Other drug-induced secondary parkinsonism (HCC); [address] [facility] Controlled type 2 diabetes mellitus without complication, without long-term current use of insulin ([facility]); [place] [address] [place] [address] Essential hypertension [phone] Allergies Active Allergy Reactions Severity Noted Date Comments Kdc:Benzyl Other 02/25/2014 nightmares Alcohol+Lorazepam+Polyethy kandis Glycol+Propylene Glycol Benztropine 08/20/2009 Ziprasidone Hydrochloride 08/20/2009 Haloperidol Lactate Unknown Reaction 08/20/2009 Deep Water 08/20/2009 Fd&C Yellow #6-Gabapentin Other 10/10/2014 Fever, fainted Prolixin 08/20/2009 Fluoxetine Hcl 08/20/2009 Shell Fish Unknown Reaction 09/03/2015 Allergic to lobster per patient, but not shrimp, oysters, clams or crab. Carbamazepine 08/20/2009 Chlorpromazine Hcl 08/20/2009 Trazodone 08/20/2009 Diazepam Unknown Reaction 04/03/2015 Bupropion 08/20/2009 Zaleplon 08/20/2009 Sonata documented as of this encounter (statuses as of 06/28/2019) Medications Medication Sig Dispensed Refills Start End [...] FOUR 7 TIMES DAILY NEEDED for diarrhea. magnesium citrate Take 200 mg by 1 Bottle 0 Active Oral mouth DAILY 8 SolutionIndications: NEEDED Constipation, (constipation) unspecified . constipation type risperidone Take 4 mg by 0 Active (RISPERDAL) 4 MG mouth EVERY Oral Tab BEDTIME. docusate sodium Take 1 Cap by 30 Cap 11 Active (COLACE) 100 MG Oral mouth TWO 9 Cap TIMES DAILY NEEDED (constipation) . Incontinence Supply 1 Each by Does 60 [...] Oral mouth DAILY. 9 CAPSULE DELAYED RELEASE lisinopril TAKE ONE 30 Tab 11 Active (PRINIVIL, ZESTRIL) TABLET BY 9 10 MG Oral Tab MOUTH ONCE DAILY atorvastatin TAKE ONE 30 Tab 4 Active (LIPITOR) 20 MG Oral TABLET BY 9 Tab MOUTH ONCE DAILY Multiple Vitamin TAKE ONE 30 Tab 11 Active (DAILY-IVETTE) Oral TABLET BY 9 Tab MOUTH ONCE DAILY metFORMIN Take 2 Tabs by 180 Tab 3 11/22/201 11/21/20 Active (GLUCOPHAGE XR) 500 mouth EVERY 9 20 MG Oral TABLET SR 24 TWENTY-FOUR HR HOURS. naproxen (NAPROSYN) Take 1 Tab by 60 Tab 0 06/28/20 Discontinued 500 MG Oral mouth TWICE 8 19 (Duplicate TabIndications: DAILY. Order) Costochondritis metFORMIN Take 1 Tab by 30 Tab 12 06/28/20 Discontinued (GLUCOPHAGE XR) 500 mouth EVERY 9 19 (Dose MG Oral TABLET SR 24 TWENTY-FOUR Adjustment) HR HOURS. Multiple Vitamin Take 1 Tab by 90 Tab 3 06/28/20 Discontinued (TAB-A-IVETTE) Oral mouth DAILY. 9 19 (Duplicate Tab Order) documented as of this encounter (statuses as of 06/28/2019) Active Problems Problem Noted Date Controlled type 2 diabetes mellitus without complication, without 10/05/2018 long-term current use of insulin Parkinsonism, secondary 08/30/2018 Urge incontinence of urine 03/17/2017 Essential hypertension 01/25/2017 Gastroesophageal reflux disease without esophagitis 04/01/2016 BPH (benign prostatic hyperplasia) 12/25/2013 Bipolar disorder 08/20/2009 Overview: [facility] Duran Schizoaffective disorder, bipolar type 08/20/2009 Overview: 2 [facility] admissions 2012- [facility] [address] Duran [facility] admission February 2017 History of tobacco use 08/20/2009 Overview: 5-10 cigarette per day began age 18 Quit spring 2017 documented as of this encounter (statuses as of 06/28/2019) Resolved Problems Problem Noted Date Resolved Date Controlled diabetes mellitus type II without complication 07/09/20152018 Hypertension 08/20/2009 01/25/2017 Anemia 08/20/2009 12/25/2013 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 08/20/2009 12/25/2013 Renal insufficiency 08/20/2009 05/13/2015 Overview: Secondary to lithium documented as of this encounter (statuses as of 06/28/2019) Immunizations Name Administration Dates Next Due Influenza (IM) Preservative Free 06/07/2018, 04/18/2017, 05/02/2016, 10/21/2015, 06/04/2014 Influenza Vaccine 65 Yrs + 04/24/2019 PNEUMOCOCCAL POLYSACCHARIDE VACCINE 06/28/2019, 06/17/2014 Pneumococcal Conjugate(13 Valent) 10/21/2015 TDAP Vaccine [...] Sign Reading Time Taken Comments Blood Pressure 132/78 06/28/2019 11:17 AM EST Pulse 67 06/28/2019 11:17 AM EST Temperature - - Respiratory Rate - - Oxygen Saturation - - Inhaled Oxygen Concentration - - Weight 87.5 kg (193 lb) 06/28/2019 11:17 AM EST Height 172.7 cm (5' 8") 06/28/2019 11:17 AM EST Body Mass Index 29.35 06/28/2019 11:17 AM EST documented in this encounter Patient Instructions Patient InstructionsAbdulaziz Carranza MD - 06/28/2019 11:40 AM ESTMetformin xr increase from 500 mg daily to 1000 mg daily new prescription sent in Blood pressure is fine continue lisinopril Pneumonia vaccine booster today Diabetes mellitus blood work 3 months and follow up me 3.5 months You need to use the walker to prevent a fall documented in this encounter Progress Notes Abdulaziz Carranza MD - 06/28/2019 11:40 AM EST PATIENT: Natacha Blake : 1955 DATE OF SERVICE: 06/28/2019 CHIEF COMPLAINT: Chief Complaint Patient presents with Diabetes Follow up. Last A1C was 8.0 on06/17/2019. Subjective HISTORY OF PRESENT ILLNESS: Natacha Blake is a 63-y.o. male. HPI Here for follow up to diabetes mellitus and hypertension no cardiovascular symptoms compliant [facility] no new psych symptoms or admissions He is not on low carbohydrate diet Lab Results Component Value Date GLYCO 8.0 (H) 06/07/2019 Lab Results Component Value Date CHOL 152 06/07/2019 TRIG 307 (H) 06/07/2019 HDL 40 (L) 06/07/2019 LDL 51 06/07/2019 LDLHDLRATIO 1.3 06/07/2019 CHOLHDLRATIO 3.8 06/07/2019 Patient Active Problem List Diagnosis Bipolar disorder ([facility]) Schizoaffective disorder, bipolar type ([facility]) History of tobacco use BPH (benign prostatic hyperplasia) Gastroesophageal reflux disease without esophagitis Essential hypertension Urge incontinence of urine Parkinsonism, secondary ([facility]) Controlled type 2 diabetes mellitus without complication, without long- term current use of insulin ([facility]) Current Outpatient Medications Medication Sig acetaminophen (TYLENOL) [...] lisinopril (PRINIVIL, ZESTRIL) 10 MG Oral Tab TAKE ONE TABLET BY MOUTH ONCE DAILY loperamide (IMODIUM) 2 MG Oral Cap Take 1 Cap by mouth FOUR TIMES DAILY NEEDED for diarrhea. magnesium citrate Oral Solution Take 200 mg by mouth DAILY NEEDED ( constipation). metFORMIN (GLUCOPHAGE XR) 500 MG Oral TABLET SR 24 HR Take 2 Tabs by mouth EVERY TWENTY-FOUR HOURS. Multiple Vitamin (DAILY-IVETTE) Oral Tab TAKE ONE TABLET BY MOUTH ONCE DAILY Omeprazole delayed rel cap 20 MG Oral CAPSULE DELAYED RELEASE Take 20 mg by mouth DAILY. risperidone (RISPERDAL) 4 MG Oral Tab Take 4 mg by mouth EVERY BEDTIME. No current facility-administered medications for this visit. Allergies Allergen Reactions Ativan [Kdc:Benzyl Alcohol+Lorazepam+Polyethylene Glycol+Propylene Glycol ] Other nightmares Benztropine Geodon [Ziprasidone Hydrochloride] Haldol [Haloperidol Lactate] Unknown Reaction Deep Water Neurontin [Fd&C Yellow #6-Gabapentin] Other Fever, fainted [...] Last attempt to quit: 02/23/2014 Years since quittin.3 Smokeless tobacco: Never Used Substance and Sexual Activity Alcohol use: No Alcohol/week: 0.0 standard drinks Drug use: No Sexual activity: Never Lifestyle Physical activity: Days per week: Not on file Minutes per session: Not on file Stress: Not on file Relationships Social connections: Talks on phone: Not on file Gets together: Not on file Attends mandaeism service: Not on file Active member of [...] No Social History Narrative Lives alone in [place] [facility] [place] in [place] On SSI disability for mental health Never No significant other ROS denies eye symptoms no neuropathy Symptoms Objective PHYSICAL EXAM: VITALS: BP 132/78 | Pulse 67 | Ht 5' 8" (1.727 m) | Wt 193 lb (87.5 kg) | BMI 29.35 kg/m Body mass index is 29.35 kg/m. Physical Exam Left foot diabetic exam: Visual exam. Foot [...] at either the foot or ankle: yes S1 and S2 normal, no murmurs, clicks, gallops or rubs. Regular rate and rhythm. Chest is clear; no wheezes or rales. No edema or JVD. Parkinsonian gait with rest tremor ASSESSMENT / IMPRESSION: ICD-9-CM ICD-10-CM 1. Bipolar affective disorder in remission (HCC) 296.80 F31.70 2. Other drug-induced secondary parkinsonism (HCC) he is advised to always use walker when outside and inside to prevent falls 332.1 G21.19 E980.5 3. uncontrolled type 2 diabetes mellitus without complication, without long- term current use of insulin (HCC) Continue glimeperide and increase metformin xr 1000 mg daily hemoglobin A1C three month 250.00 E11.9 4. Essential hypertension at goal continue current medications 401.9 I10 Patient Instructions Metformin xr increase from 500 mg daily to 1000 mg daily new prescription sent in Blood pressure is fine continue lisinopril Pneumonia vaccine booster today Diabetes mellitus blood work 3 months and follow up me 3.5 months You need to use the walker to prevent a fall Abdulaziz Carranza MD 06/28/2019 12:09 documented in this encounter Plan of Treatment Date Type Specialty Care Team Description 08/19/2019 Office Visit Internal Medicine Kaye Weller, NIELS [address] [place] [address] 09/18/2019 Lab Internal Medicine 09/26/2019 Office Visit Internal Medicine Abdulaziz Carranza MD [address] [id number] [phone] Health Maintenance Due Date Last Done Comments LUNG CANCER SCREENING 2008 ZOSTER IMMUNIZATION SERIES 11/12/2014 09/17/2014 (2 of 3) AAA SCREENING/SURVEILLANCE 2018 FALL RISK ASSESSMENT 2018 FOOT EXAM 11/21/2018 11/21/2017, 11/21/2017, 11/21/2017, Additional history exists HEMOGLOBIN A1C 09/07/2019 06/07/2019, 02/28/2019, 11/20/2018, Additional history exists Diabetic Eye Exam 09/08/2019 09/08/2017, 09/08/2017, 09/08/2017, Additional history exists DEPRESSION SCREENING 02/06/2020 02/05/2019 LIPID DISORDER SCREENING 06/07/2020 06/07/2019, 04/24/2019, 02/28/2019, Additional history exists Colonoscopy 12/29/2021 12/29/2016, 12/29/2016, 11/07/2016, Additional history exists INFLUENZA VACCINE Completed 04/24/2019, 06/07/2018, 04/18/2017, Additional history exists PNEUMOCOCCAL 65+YRS Completed 06/28/2019, 10/21/2015, 06/17/2014 HPV IMMUNIZATION SERIES Aged Out No longer eligible based on patient's age to complete this topic MENINGOCOCCAL VACCINE IMM Aged Out No longer eligible based on patient's age to complete this topic documented as of this encounter Goals Goal Patient Goal Associated Recent Patient-Stated? Author Type Problems Progress Blood Pressure Blood Hypertension 132/78 No Tere, < 140/90 Pressure (06/28/2019 Abdulaziz Almendarez, 11:17 AM EST) Note: Hypertension Care Plan Based on the [...] Educational Resources. record my blood pressure results. [email or web address] is safe and secure way for you [...] Educational Resources: National Heart, Lung, & Blood [place] http://nhlbi.nih.gov/hbp/index.html The DASH Diet Eating Plan http://www.nhlbi.nih.gov/health/health-topics/ topics/dash/ Academy of Nutrition & DIetetics http://eatright.org National Smoking Cessation Site http://smokefree.gov Blood Pressure < Blood Pressure Hypertension 132/78 (06/28/2019 Suzette Carranza Abdulaziz 140/90 11:17 AM QUINTIN Almendarez MD Note: Hypertension Care Plan Based [...] Educational Resources: National Heart, Lung, & Blood [place] http://nhlbi.nih.gov/hbp/index.html The DASH Diet Eating Plan http://www.nhlbi.nih.gov/health/health-topics/ topics/dash/ Academy of Nutrition & DIetetics http://eatright.org National Smoking Cessation Site http://smokefree.gov Blood Pressure < Blood Pressure 132/78 (06/28/2019 No Estee Denis FNP 140/90 11:17 AM EST) Note: This is an individualized treatment (blood pressure) goal for Naatcha Blake: Displayed above (on the left) is [...] your depression. Glycohemoglobin A1c < 7.0 Diabetes 8.0 (06/07/2019 11:15 No Estee Denis FNP AM EDT) Note: This is an individualized treatment (diabetes control, HgbA1C) goal for Natacha Blake: Displayed above is your progress towards your HgbA1C goal. Your goal is shown above (on the left); your most recent HgbA1C is shown on the right. Note that lower numbers are better. Weight loss vs. 18 mo Lifestyle 5 (06/28/2019 11:17 AM No Estee Denis FNP max (lbs) >= 10 EST) Note: This is an individualized lifestyle goal [...] filedocumented in this encounter Visit Diagnoses Diagnosis Bipolar affective disorder in remission (HCC) - Primary Other drug-induced secondary parkinsonism (HCC) Controlled type 2 diabetes mellitus without complication, without long-term current use of insulin (HCC) Essential hypertension Unspecified essential hypertension documented in this encounter (Home) [address] [place], [place] (Work) [id number] documented as of this encounter
[2019-08-17 19:59] LABS: ABS Basophils 0.1 10^3/ul (0-0.2); ABS Eosinophils 0.1 10^3/ul (0-0.6); ABS Lymphocytes 1.9 10^3/ul (1.0-4.8); ABS Monocytes 0.7 10^3/ul (0-0.8); ABS Neutrophils 4.5 10^3/ul (1.5-7.7); Eosinophil % 1.6 %; Hematocrit 35 % (42-52); Hemoglobin 11.9 g/dL (14.0-18.0); Lymphocyte % 26.2 %; Mean Corpuscular HGB Conc 34 g/dL (31-36); Mean Corpuscular Hemoglobin 31 pg (27-31); Mean Corpuscular Volume 92 fL (80-94); Mean Platelet Volume 8.9 fL (7.4-10.4); Nucleated Red Blood Cells % 0.1; Platelet Count 189 10^3/uL (150-450); Red Cell Distribution Width 14 % (10-15); White Blood Count 7.3 10^3/uL (3.5-10.8)
[2019-08-17 20:15] LABS: Urine Appearance Clear; Urine Bilirubin Negative (Negative); Urine Blood Negative (Negative); Urine Color Yellow; Urine Glucose 2+(150 mg/dL) (Negative); Urine Ketones 1+ (Negative); Urine Nitrite Negative (Negative); Urine Protein Negative (Negative); Urine Specific Gravity 1.018 (1.010-1.030); Urine Urobilinogen Negative (Negative)
[2019-08-17 20:20] LABS: ALT 17 U/L (7-52); AST 13 U/L (13-39); Albumin 4.6 g/dL (3.2-5.2); Albumin/Globulin Ratio 1.6 (1-3); Alkaline Phosphatase 88 U/L (34-104); Anion Gap 11 mmol/L (2-11); Blood Urea Nitrogen 24 mg/dL (6-24); CO2 Carbon Dioxide 21 mmol/L (22-32); Calcium 9.3 mg/dL (8.6-10.3); Chloride 105 mmol/L (101-111); EGFR African American 103.5 (>60); EGFR Non-African American 85.5 (>60); Globulin 2.9 g/dL (2-4); Glucose 206 mg/dL (70-100); Potassium 4.3 mmol/L (3.5-5.0); Sodium 137 mmol/L (135-145); Total Protein 7.5 g/dL (6.4-8.9)
[2019-08-17 20:28] LABS: Urine Bacteria Absent (Absent); Urine Red Blood Cell Trace(0-2/hpf) (Absent); Urine White Blood Cell 1+(6-10/hpf) (Absent)
[2019-08-17 20:34] LABS: Urine Benzodiazepine Screen None Detected (None Detect); Urine Opiates Screen None Detected (None Detect)
[2019-08-17 20:44] LABS: TSH (Thyroid Stimulating Horm) 2.76 mcIU/mL (0.34-5.60)
[2019-08-17 21:08] LABS: Acetaminophen < 15 mcg/mL; Alcohol < 10 mg/dL (<10); Salicylate < 2.50 mg/dL (<30)
[2019-08-17] MEDS ORDERED: LORazepam INJ* 2 MG/ML 1 ML VIAL IM ONE ×2 (22:55→22:58)
[2019-08-17] MEDS ORDERED: Haloperidol INJ IV/IM* 5 MG/ML AMP IM ONE ×2 (22:55→22:59)
[2019-08-17] MEDS ORDERED: Lorazepam PYXIS KEY PRN ×2 (22:55→22:58)
[2019-08-17] MEDS ORDERED: diPHENhydraMINE IV* 50 MG/ML 1 ml VIAL (BENADRYL) IM ONE (22:57)
--- NOTE | 2019-08-18 02:30 | ED ---
Progress - Progress Note Progress Note: Patient is a sign-out at 02:30 on 08/18/19 from [place]IA Jimenez to Dr. Audie Juarez MD at shift change, pending transfer to another psychiatric facility. Patient requires transfer to another facility as there are no appropriate beds at [facility]. At 03:48, patient fell out of his bed. He has a laceration above the left eye. Laceration repair: 1 cm laceration above the left eyebrow, fairly superficial. Closed with skin adhesive. In the ED course, patient was given Haldol 10 mg IM and Ativan 2 mg IM. Patient is a sign-out at 07:00 on 08/18/[address] Audie Juarez MD to Dr. Perico Welch MD at shift change, pending acceptance and transfer to an appropriate psychiatric facility. Re-Evaluation - Re-Evaluation First Eval Re-Evaluation Time: 03:48 Change: Worse Comment: At 03:48, patient fell out of his bed. He has a laceration above the left eye. Course/Dx - Course Course Of Treatment: Patient is a sign-out at 02:30 on 08/18/19 from ELIA Jimenez to Dr. Audie Juarez MD at shift change, pending transfer to another psychiatric facility. Patient requires transfer to another facility as there are no appropriate beds at [facility]. At 03:48, patient fell out of his bed. He has a laceration above the left eye. Laceration repair: 1 cm laceration above the left eyebrow, fairly superficial. Closed with skin adhesive. In the ED course, patient was given Haldol 10 mg IM and Ativan 2 mg IM. Patient is a sign-out at 07:00 on 08/18/[address] Audie Juarez MD to Dr. Perico Welch MD at shift change, pending acceptance and transfer to an appropriate psychiatric facility. - Diagnoses Provider Diagnoses: Bipolar 1 disorder - Provider Notifications Instructed by Provider To: Transfer Admit/Transition Orders Completed By ED Provider: No Reason For Transfer: No beds available. Discharge ED - Sign-Out/Discharge Documenting (check all that apply): Patient Departure - Transfer, Sign-Out Patient, Receiving Sign-Out Signing out patient TO: Perico Welch - Patient is a sign-out at 07:[address] Audie Juarez MD to Dr. Perico Welch MD at shift change, pending acceptance and transfer to an appropriate psychiatric facility. Receiving patient FROM: Papo Mckeon - Patient is a sign-out at 02:30 on 08/18/19 from ELIA Jimenez to Dr. Audie Juarez MD at shift change, pending transfer to another psychiatric facility. Patient requires transfer to another facility as there are no appropriate beds at [facility]. - Discharge Plan Condition: Good Disposition: TRANS HIGHER LVL OF CARE FAC Referrals: Abdulaziz Carranza MD [Primary Care Provider] - - Attestation Statements Document Initiated by Scribe: Yes Documenting Scribe: Kathleen Small Provider For Whom Scribe is Documenting (Include Credential): Audie Juarez MD Scribe Attestation: Kathleen Blas, scribed for Audie Juarez MD on 08/18/19 at 0650. Status of Scribe Document: Ready Laceration Repair - Laceration Repair 1 Procedure Summary: Laceration Repair Summary: 1 cm laceration above the left eyebrow, fairly superficial. Closed with skin adhesive. Description: Linear Laceration Size After Repair: Length (cm) - 1 1/2 cm Modified For Repair: No Closure Material: Skin Adhesive Suture Of: Skin
--- NOTE | 2019-08-18 07:09 | ED ---
Progress - Progress Note Progress Note: Patient is a sign-out at 07:00 on 08/18/[address] Audie Juarez MD to Dr. Perico Welch MD at shift change, pending acceptance and transfer to an appropriate psychiatric facility. He had no complications during our shift. Re-Evaluation - Re-Evaluation First Eval Re-Evaluation Time: 03:48 Change: Worse Comment: At 03:48, patient fell out of his bed. He has a laceration above the left eye. Course/Dx - Course Course Of Treatment: Patient is a sign-out at 07:00 on 08/18/[address] Audie Juarez MD to Dr. Perico Welch MD at shift change, pending acceptance and transfer to an appropriate psychiatric facility. He had no complications and behaved adequetly during our shift. He was given his chronic medications at 1845. Patient is a sign-out at 1900 on 08/18/[address] Perico Welch MD to Dr. Audie Juarez MD at shift change, pending acceptance and transfer to an appropriate psychiatric facility. - Diagnoses Provider Diagnoses: Bipolar 1 disorder - Provider Notifications Instructed by Provider To: Transfer Admit/Transition Orders Completed By ED Provider: No Reason For Transfer: No beds available. Discharge ED - Sign-Out/Discharge Documenting (check all that apply): Sign-Out Patient, Receiving Sign-Out Signing out patient TO: Audie Juarez Receiving patient FROM: Perico Welch - Discharge Plan Condition: Good Disposition: TRANS HIGHER LVL OF CARE FAC Referrals: Abdulaziz Carranza MD [Primary Care Provider] - - Attestation Statements Document Initiated by Scribe: Yes Documenting Scribe: Bud Lopez Provider For Whom Scribe is Documenting (Include Credential): Perico Welch MD Scribe Attestation: Bud Blas, scribed for Perico Welch MD on 08/18/19 at 1843. Status of Scribe Document: Ready
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
[2019-08-18] MEDS ORDERED: Divalproex DR TAB(*) 500 MG PO ONE (18:43)
[2019-08-18] MEDS ORDERED: glipiZIDE TAB.XL* 5 MG PO ONE (18:43)
[2019-08-18] MEDS ORDERED: Atorvastatin* 20 MG TAB PO ONE (18:43)
[2019-08-18] MEDS ORDERED: metFORMIN* 500 MG TAB PO ONE (18:43)
[2019-08-18] MEDS ORDERED: Lisinopril TAB* 10 MG PO ONE (18:43)
[2019-08-18] MEDS ORDERED: risperiDONE TAB* 2 MG PO ONE (18:43)
[2019-08-18] MEDS ORDERED: CloZAPine TAB* 100 MG TAB PO ONE (18:43)
[2019-08-18] MEDS ORDERED: Omeprazole CAP (NF) 20 MG CAP.DR PO ONE (18:43)
--- NOTE | 2019-08-18 19:37 | ED ---
Progress - Progress Note Progress Note: The patient is a sign-out from Dr. Perico Welch MD, to Dr. Audie Juarez MD, at change of shift at 1900 on 08/18/2019, pending acceptance and transfer to a higher level facility of care for mental health treatment. Patient had no complications during shift. Sign-out to Dr. Joyner at 0700 pending transfer. Re-Evaluation - Re-Evaluation First Eval Re-Evaluation Time: 03:48 Change: Worse Comment: At 03:48, patient fell out of his bed. He has a laceration above the left eye. Course/Dx - Course Course Of Treatment: The patient is a sign-out from Dr. Perico Welch MD, to Dr. Audie Juarez MD, at change of shift at 1900 on 08/18/2019, pending acceptance and transfer to a higher level facility of care for mental health treatment. Patient had no complications during my shift. The patient is a sign- out from Dr. Audie Juarez MD, to Dr. Daniele Joyner MD, at change of shift at 0700 on 08/19/2019, pending mental health transfer. - Diagnoses Provider Diagnoses: Bipolar 1 disorder - Provider Notifications Instructed by Provider To: Transfer Reason For Transfer: No beds available. Discharge ED - Sign-Out/Discharge Documenting (check all that apply): Sign-Out Patient, Receiving Sign-Out Signing out patient TO: Daniele Joyner - Patient is a sign-out to Dr. Daniele Joyner MD, at 0700 on 08/19/2019, pending mental health transfer. Receiving patient FROM: Perico Welch - Patient is a sign-out from Dr. Perico Welch MD, at 1900 on 08/18/2019, pending acceptance and transfer to a higher level facility of care for mental health treatment. - Discharge Plan Condition: Good Disposition: TRANS HIGHER [facility] OF CARE FAC Referrals: Abdulaziz Carranza MD [Primary Care Provider] - - Attestation Statements Document Initiated by Scribe: Yes Documenting Scribe: Talisha Hoang Provider For Whom Scribe is Documenting (Include Credential): Dr. Audie Juarez MD Scribe Attestation: ITalisha, scribed for Dr. Audie Juarez MD on 08/19/19 at 0638. Status of Scribe Document: Ready Procedures - Sedation Patient Received Moderate/Deep Sedation with Procedure: No
[2019-08-19] MEDS ORDERED: Acetaminophen TAB* 325 MG PO ONE (04:34)
--- NOTE | 2019-08-19 07:23 | ED ---
Progress - Progress Note Progress Note: This pt is a sign out to Dr. Joyner from at shift change 0700 2019 pending possible admittance [place] [facility] [place] transfer to another psychiatric facility. Re-Evaluation - Re-Evaluation First Eval Re-Evaluation Time: 03:48 Change: Worse Comment: At 03:48, patient fell out of his bed. He has a laceration above the left eye. Course/Dx - Course Course Of Treatment: This pt is a sign out to Dr. Joyner from at shift change 0700 08/19/2019 pending possible admittance to [facility] or transfer to another psychiatric facility. Per Dr. Sky, Psychiatrist, recommended discharging the pt home after a consult at 0918. He was Dx with bipolar disorder. - Diagnoses Provider Diagnoses: Bipolar 1 disorder - Provider Notifications Discussed Care Of Patient With: Elder Sky Time Discussed With Above Provider: 09:19 Instructed by Provider To: Other - Per Dr. Sky, Psychiatrist, recommended discharging the pt home. Discharge ED - Sign-Out/Discharge Documenting (check all that apply): Patient Departure - discharge - Discharge Plan Condition: Good Disposition: HOME Referrals: Abdulaziz Carranza MD [Primary Care Provider] - - Billing Disposition and Condition Condition: GOOD Disposition: Home - Attestation Statements Document Initiated by Jagruti: Yes Documenting Scribe: Bud Lopez Provider For Whom Jagruti is Documenting (Include Credential): Daniele Joyner MD Scribe Attestation: Bud Blas, scribed for Daniele Joyner MD on 08/19/19 at 0948. Scribe Documentation Reviewed: Yes Provider Attestation: The documentation as recorded by the Bud mercer accurately reflects the service I personally performed and the decisions made by me, Daniele Joyner MD Status of Scribe Document: Viewed
[2019-08-19 08:49] VITALS: BP 128/69
== END 2019-08-19 09:41 | disposition home or self-care (01) ==
LOC: ED 19:08
DX: F31.9 Bipolar disorder, unspecified (principal); S01.112A Laceration without foreign body of left eyelid and periocular area, initial encounter; W06.XXXA Fall from bed, initial encounter; Y92.003 Bedroom of unspecified non-institutional (private) residence as the place of occurrence of the external cause; E11.9 Type 2 diabetes mellitus without complications; D64.9 Anemia, unspecified; I10 Essential (primary) hypertension; K21.9 Gastro-esophageal reflux disease without esophagitis; N40.0 Benign prostatic hyperplasia without lower urinary tract symptoms; R62.50 Unspecified lack of expected normal physiological development in childhood; F20.9 Schizophrenia, unspecified; F17.210 Nicotine dependence, cigarettes, uncomplicated; Z88.8 Allergy status to other drugs, medicaments and biological substances
CPT/HCPCS: 36415; 80053; 80307; 80320; 80329; 81003; 81015; 84443; 85025; 87086; 93005; 99285; A9270-GY; G0480; J1200; J1630; J2060

== ENCOUNTER 2019-08-29 13:14 | Inpatient (IN) | payer OTHER ==
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
[2019-08-29 14:06] LABS: ABS Basophils 0.1 10^3/ul (0-0.2); ABS Eosinophils 0.1 10^3/ul (0-0.6); ABS Lymphocytes 1.6 10^3/ul (1.0-4.8); ABS Monocytes 0.8 10^3/ul (0-0.8); ABS Neutrophils 5.2 10^3/ul (1.5-7.7); Eosinophil % 1.3 %; Hematocrit 35 % (42-52); Hemoglobin 11.5 g/dL (14.0-18.0); Mean Corpuscular HGB Conc 33 g/dL (31-36); Mean Corpuscular Hemoglobin 31 pg (27-31); Mean Corpuscular Volume 94 fL (80-94); Mean Platelet Volume 8.7 fL (7.4-10.4); Platelet Count 221 10^3/uL (150-450); Red Cell Distribution Width 13 % (10-15); White Blood Count 7.8 10^3/uL (3.5-10.8)
[2019-08-29 14:20] LABS: Urine Appearance Clear; Urine Bilirubin Negative (Negative); Urine Blood Negative (Negative); Urine Color Yellow; Urine Glucose 1+(50 mg/dL) (Negative); Urine Ketones Trace (Negative); Urine Nitrite Negative (Negative); Urine Protein Negative (Negative); Urine Specific Gravity 1.017 (1.010-1.030); Urine Urobilinogen Negative (Negative)
[2019-08-29 14:23] LABS: ALT 24 U/L (7-52); AST 17 U/L (13-39); Albumin 4.3 g/dL (3.2-5.2); Albumin/Globulin Ratio 1.6 (1-3); Alkaline Phosphatase 73 U/L (34-104); Anion Gap 10 mmol/L (2-11); BUN/Creatinine Ratio 26.2 (8-20); Blood Urea Nitrogen 22 mg/dL (6-24); CO2 Carbon Dioxide 23 mmol/L (22-32); Calcium 9.3 mg/dL (8.6-10.3); Chloride 105 mmol/L (101-111); EGFR African American 110.6 (>60); EGFR Non-African American 91.4 (>60); Globulin 2.7 g/dL (2-4); Glucose 196 mg/dL (70-100); Potassium 4.7 mmol/L (3.5-5.0); Sodium 138 mmol/L (135-145)
[2019-08-29 14:30] LABS: Acetaminophen < 15 mcg/mL; Alcohol < 10 mg/dL (<10); Salicylate < 2.50 mg/dL (<30)
[2019-08-29 14:36] LABS: Urine Benzodiazepine Screen None Detected (None Detect); Urine Opiates Screen None Detected (None Detect)
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
--- OUTSIDE RECORDS SUMMARY | 2019-08-29 14:45 | XMS REPORT | Summary of Care ---
:1955 Author Organization [facility] Address [address] [facility] [place] [address] Care Team Providers Name Role Phone Abdulaziz Carranza Erickson Primary Care Provider Reason for Visit Reason Comments Follow Up ER f/u, pt was seen at [facility] with a fall from the bed. Encounter Details Date Type Department Care Team Description 08/22/2019 Office Visit [facility] Simon Wayne Schizoaffective disorder, bipolar type (HCC) (Primary Dx); ELIA Nichole Bipolar affective disorder in remission (HCC); [address] [facility] Laceration of head without complication, [place] [address] [place] [address] [phone] Allergies Active Allergy Reactions Severity Noted Date Comments Kdc:Benzyl Other 02/25/2014 nightmares Alcohol+Lorazepam+Polyethy kandis Glycol+Propylene Glycol Benztropine 08/20/2009 Ziprasidone Hydrochloride 08/20/2009 Haloperidol Lactate Unknown Reaction 08/20/2009 [place] 08/20/2009 Fd&C Yellow #6-Gabapentin Other 10/10/2014 Fever, fainted Prolixin 08/20/2009 Fluoxetine Hcl 08/20/2009 Shell Fish Unknown Reaction 09/03/2015 Allergic to lobster per patient, but not shrimp, oysters, clams or crab. Carbamazepine 08/20/2009 Chlorpromazine Hcl 08/20/2009 Trazodone 08/20/2009 Diazepam Unknown Reaction 04/03/2015 Bupropion 08/20/2009 Zaleplon 08/20/2009 [place] documented as of this encounter (statuses as of 08/22/2019) Medications Medication Sig Dispensed Refills Start Date [...] as of this encounter (statuses as of 08/22/2019) Active Problems Problem Noted Date Controlled type 2 diabetes mellitus without complication, without 10/05/2018 long-term current use of insulin Parkinsonism, secondary 08/30/2018 Urge incontinence of urine 03/17/2017 Essential hypertension 01/25/2017 Gastroesophageal reflux disease without esophagitis 04/01/2016 BPH (benign prostatic hyperplasia) 12/25/2013 Bipolar disorder 08/20/2009 Overview: [facility] Dr Duran Schizoaffective disorder, bipolar type 08/20/2009 Overview: 2 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 08/20/2009 12/25/2013 Renal insufficiency 08/20/2009 05/13/2015 Overview: Secondary to lithium documented as of this encounter (statuses as of 08/22/2019) Immunizations Name Administration Dates Next Due Influenza [...] Sign Reading Time Taken Comments Blood Pressure 135/80 08/22/2019 1:06 PM EST Pulse 100 08/22/2019 1:06 PM EST Temperature 36.6 08/22/2019 1:06 PM EST C (97.9 F) Respiratory Rate - - Oxygen Saturation 98% 08/22/2019 1:06 PM EST Inhaled Oxygen Concentration - - Weight 86.2 kg (190 lb) 08/22/2019 1:06 PM EST Height 172.1 cm (5' 7.75") 08/22/2019 1:06 PM EST Body Mass Index 29.1 08/22/2019 1:06 PM EST documented in this encounter Patient Instructions Patient InstructionsSimon Wayne PA - 08/22/2019 1:00 PM ESTThe cut above your eye is healing well. Make sure you are continuing to clean your face, wash your face to reduce the risk of infection. Follow up with me as needed. Your next appointment with Dr. Carranza is 09/25/2019 documented in this encounter Progress Notes Simon Wayne PA - 08/22/2019 1:00 PM EST PATIENT: Natacha Blake : 1955 DATE OF SERVICE: 08/22/2019 CHIEF COMPLAINT: Chief Complaint Patient presents with Follow Up ER f/u, pt was seen at [facility] with a fall from the bed. Subjective HISTORY OF PRESENT ILLNESS: Natacha Blake is a 64-y.o. male. Natacha presents the office after discharge from the emergency room yesterday for a laceration due to falling out of bed during an argument. Patient has a history of bipolar disorder. He was seen by psychiatry in the emergency room and was subsequently determined to be safe for discharge. Since then his mood has been improved, but patient is currently having a decreased in control for his schizoaffective disorder. Patient suffered a laceration over the left eyebrow, but it did not require sutures. He denies warmth or erythema. As for the schizoaffective disorder, patient has not been well controlled; which may have led him tofall out of bed. 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 No pertinent family history. Current Outpatient Medications Medication Sig acetaminophen (TYLENOL) [...] [Ziprasidone Hydrochloride] Haldol [Haloperidol Lactate] Unknown Reaction [place] Neurontin [Fd&C Yellow #6-Gabapentin] Other Fever, fainted [...] file Gets together: Not on file Attends religion service: Not on file Active member of [...] No Social History Narrative Lives alone in [facility] disability for mental health Never No significant other REVIEW OF SYSTEMS: Review of Systems Constitutional: Negative for fever, malaise/fatigue and weight loss. Neurological: Negative for dizziness, focal weakness and headaches. Could not assess better ROS, patient was routinely tangential. Objective PHYSICAL EXAM: VITALS: BP 135/80 (BP Location: Left arm, Patient Position: Sitting) | Pulse 100 | Temp 97.9 F (36.6 C) (Tympanic) | Ht 5' 7.75" (1.721 m) | Wt 190 lb (86.2 kg) | SpO2 98% | BMI 29.10 kg/m Body mass index is 29.1 kg/ m. Physical Exam Vitals signs and nursing note reviewed. Constitutional: General: He is not in acute distress. Appearance: Normal appearance. Neurological: Mental Status: He is alert. Psychiatric: Comments: Patient is in a pleasant mood. Patient is tangential with significant delusions, such as being in contact with the president of [email or web address] ASSESSMENT / IMPRESSION: ICD-9-CM ICD-10-CM 1. Schizoaffective disorder, bipolar type ([facility]) 295.70 F25.0 2. Bipolar affective disorder in remission ([facility]) 296.80 F31.70 3. Laceration of head without complication, initial encounter 873.8 S01.91XA Laceration is going to improve well, continue to wash face with gentle soap and the wound will heal with time. Patient lives in a mental health custodial, and is safe for discharge home. [facility] bipolar and schizoaffective disorder. He does not display homicidal or suicidal ideation. Author: ELIA Waller 08/22/2019 16:24 documented in this encounter Plan of Treatment Date Type Specialty Care Team Description 09/18/2019 Lab Internal Medicine 09/25/2019 Office Visit Internal Medicine Abdulaziz Carranza MD [address] [place] [address] [phone] 12/16/2019 Office Visit Internal Medicine Kaye [address] [place] [address] [phone] Health Maintenance Due Date Last Done Comments LUNG CANCER SCREENING 2008 ZOSTER IMMUNIZATION SERIES 11/12/2014 09/17/2014 (2 of 3) AAA SCREENING/SURVEILLANCE 2018 FOOT EXAM 11/21/2018 11/21/2017, 11/21/2017, 11/21/2017, Additional history exists HEMOGLOBIN A1C 09/07/2019 06/07/2019, 02/28/2019, 11/20/2018, Additional history exists Diabetic Eye Exam 09/08/2019 09/08/2017, 09/08/2017, 09/08/2017, Additional history exists DEPRESSION SCREENING 02/06/2020 02/05/2019 LIPID DISORDER SCREENING 06/07/2020 06/07/2019, 04/24/2019, 02/28/2019, Additional history exists FALL RISK ASSESSMENT 08/22/2020 08/22/2019, 08/22/2019 Colonoscopy 12/29/2021 12/29/2016, 12/29/2016, 11/07/2016, Additional history [...] Type Problems Progress Blood Pressure Blood Hypertension 135/80 No [place], < 140/90 Pressure (08/22/2019 Abdulaziz Almendarez, 1:06 PM EST) Note: Hypertension Care Plan Based on [...] Educational Resources. record my blood pressure results. [facility] is safe and secure way for you [...] Educational Resources: National Heart, Lung, & Blood Sophia http://nhlbi.nih.gov/hbp/index.html The DASH Diet Eating Plan http://www.nhlbi.nih.gov/health/health-topics/ topics/dash/ Academy of Nutrition & DIetetics http://eatright.org National Smoking Cessation Site http://smokefree.gov Blood Pressure < Blood Pressure Hypertension 135/80 (08/22/2019 Abdulaziz Saravia 140/90 1:06 PM QUINTIN Almendarez MD Note: Hypertension Care Plan [...] Educational Resources: National Heart, Lung, & Blood Sophia http://nhlbi.nih.gov/hbp/index.html The DASH Diet Eating Plan http://www.nhlbi.nih.gov/health/health-topics/ topics/dash/ Academy of Nutrition & DIetetics http://eatright.org National Smoking Cessation Site http://smokefree.gov Blood Pressure < Blood Pressure 135/80 (08/22/2019 No Estee Denis FNP 140/90 1:06 PM EST) Note: This is an individualized treatment [...] Weight loss vs. 18 mo Lifestyle 8 (08/22/2019 1:06 PM No Estee Denis FNP max (lbs) [...] filedocumented in this encounter Visit Diagnoses Diagnosis Schizoaffective disorder, bipolar type (HCC) Schizoaffective disorder, unspecified condition Bipolar affective disorder in remission (HCC) Laceration of head without complication, initial encounter documented in this encounter (Home) [address] [place], [place] (Work) [id number] documented as of this encounter
[2019-08-29 14:46] LABS: TSH (Thyroid Stimulating Horm) 1.52 mcIU/mL (0.34-5.60)
[2019-08-29] MEDS ORDERED: clonazePAM TAB(*) 1 MG PO ONE (16:54)
[2019-08-29] MEDS ORDERED: Al Hydrox/Mg Hydrox/Simet LIQ* 30 ML UDC PO PRN (18:05)
[2019-08-29] MEDS ORDERED: Magnesium Hydroxide LIQ* 30 ML UDC PO PRN (18:08)
[2019-08-29] MEDS: CloZAPine TAB* 100 MG TAB PO SCH (21:08)
[2019-08-29] MEDS: Divalproex DR TAB(*) 500 MG PO SCH (21:08)
[2019-08-29] MEDS: Docusate CAP* 100 MG PO PRN (21:09)
[2019-08-29] MEDS: risperiDONE TAB* 2 MG PO SCH (21:09)
[2019-08-29] MEDS ORDERED: metFORMIN* 1,000 MG TAB PO ONE (22:00)
[2019-08-30] MEDS: Metformin ER (NF) 500 MG TAB PO SCH (08:01)
[2019-08-30 08:10] LABS: HDL Cholesterol 37.4 mg/dL
[2019-08-30] MEDS ORDERED: metFORMIN* 1,000 MG TAB PO ONE (09:00)
[2019-08-30] MEDS: Lisinopril TAB* 10 MG PO SCH (09:13)
[2019-08-30] MEDS: Vitamin THERAPEUTIC TAB PO SCH (09:13)
[2019-08-30] MEDS: Pantoprazole TAB * 40 MG TAB PO SCH (09:13)
[2019-08-30] MEDS: Atorvastatin* 20 MG TAB PO SCH (09:13)
[2019-08-30] MEDS: glipiZIDE TAB.XL* 5 MG PO SCH (09:13)
[2019-08-30] MEDS: Acetaminophen TAB* 325 MG PO PRN (11:01)
[2019-08-30] MEDS: Divalproex DR TAB(*) 500 MG PO SCH ×2 (12:26→20:33)
[2019-08-30] MEDS: Atropine 1% (ORAL/SL)* 15 ML BTL SL PRN (17:57)
[2019-08-30] MEDS: CloZAPine TAB* 100 MG TAB PO SCH (20:33)
[2019-08-30] MEDS: risperiDONE TAB* 2 MG PO SCH (20:33)
--- NOTE | 2019-08-30 20:37 | HP ---
PSYCHIATRIC HISTORY AND PHYSICAL: DATE OF ADMISSION: 08/29/19 JUSTIFICATION FOR ADMISSION: The patient is in need of 24-hour supervision and care secondary to agitated psychotic behavior. CHIEF COMPLAINT: "Hey there, Dr. Sky where you have been all my life." HISTORY OF PRESENT ILLNESS: The patient is a 64-year-old single white male with a history of schizoaffective disorder, bipolar type, and recurrent admissions here on the behavioral health unit who was brought in by the police on a 9.41 due to agitated combative behavior against staff and peers at the [facility] where he resides. The patient apparently had a recent change in his medications. For collateral information, I spoke with his psychiatrist, Dr. Elliott Duran at the [facility], who indicated that approximately 2 weeks ago, he removed the a.m. dose of [place] [employer]'s 100 mg clozapine. The reason for this was due to side effects of sialorrhea and hyperglycemia. Unfortunately, Natacha despite remaining on high dose clozapine at night as well as adjunctive risperidone and twice daily Depakote quickly decompensated. He was apparently endorsing auditory hallucinations and agitation towards others. Although he was initially calm and cooperative in our emergency room, he quickly verbally escalated became physical posturing. Security was notified on 2 separate occasions and the patient required stat medications to settle the patient's behavior. When I meet with him, he is distractible, hyperverbal, quite manic. He has been making racist statements on the unit and upsetting peers. It does appear that he warrants inpatient treatment at this time. PAST PSYCHIATRIC HISTORY: The patient has between 15 and 20 total psychiatric hospitalizations mostly here at [facility], the most recent being in June 2018 under the service of Dr. Sky. He is currently a clozapine patient through the [facility] where he sees Dr. Elliott Duran. In the past, he does have a history of self-abuse and overdose having overdosed on Haldol in . He is currently receiving residential services through [facility] and has a cma there by the name of Audie. SUBSTANCE ABUSE HISTORY: The patient used to have an extensive alcohol abuse tendency, although he denies using for close to 25 years. He does smoke cigarettes and occasional pipe tobacco. He denies illicit drug use. PAST MEDICAL HISTORY: Significant for hyperlipidemia, hypertension, urinary incontinence, benign prostatic hypertrophy, gastroesophageal reflux disease, and uzh-pvatnfh-oqoctiksw diabetes mellitus. OUTPATIENT MEDICATIONS: Include: 1. Metformin extended release 1000 mg p.o. daily. 2. Clozapine 400 mg nightly. 3. Tylenol as needed for pain. 4. Glucotrol XL 10 mg daily. 5. Lisinopril 10 mg daily. 6. Ibuprofen 800 mg as needed for pain. 7. Risperdal 4 mg q.h.s. 8. Milk of mag as needed for constipation. 9. Colace 100 mg twice daily as needed for constipation. 10. Prilosec 20 mg p.o. daily. 11. Multivitamin 1 tablet daily. 12. Depakote 1000 mg p.o. b.i.d. 13. Lipitor 20 mg p.o. daily. ALLERGIES: The patient is allergic to FLUPHENAZINE, FLUOXETINE, DIAZEPAM, BUPROPION, and BENZTROPINE. FAMILY HISTORY: He tells me that he has bipolar disorder on both sides of his family. SOCIAL HISTORY: The patient is from [place], [place]. Graduated from [employer] in [facility]. He states that he had 45 credits at the [employer], but never did finish his associate's degree. He has no history of service, apparently getting sick with his mental illness in his early 20s. He has been mostly chronically unemployed and living on social security and disability benefits. Currently, he is resident at [facility] on [address] in the [facility]. He has never been . He has no children. 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 He denies any history of past incarcerations. REVIEW OF SYSTEMS: Negative for headaches or double vision. He denied sore throat, cough, chest pain, difficulty breathing. He denied abdominal pain, nausea, vomiting, diarrhea, or constipation. He denies difficulty ambulating, rashes, enlarged lymph nodes, fevers, changes in weight. He does indicate that he had some difficulty with urinary incontinence. PHYSICAL EXAMINATION VITAL SIGNS: Blood pressure 130/88, heart rate 96, respiratory rate 14, temperature is 98.6 degrees Fahrenheit, and oxygen saturations are 100% on room air. HEENT: Head is normocephalic, atraumatic. NECK: Supple. CHEST: Clear to auscultation bilaterally. CARDIAC: Reveals normal heart sounds. ABDOMEN: Soft and nontender. MUSCULOSKELETAL: Reveals no sign of edema. NEUROLOGICAL: He is grossly intact with no focal deficits. SKIN: Warm and dry. DIAGNOSTIC STUDIES/LAB DATA: Demonstrate mild anemia with hemoglobin of 11.5, hematocrit of 35. CBC is otherwise normal. Complete metabolic panels within normal limits with the exception of glucose, which is markedly elevated at 196. His TSH is normal at 1.52. Urinalysis reveals trace protein and 1+ glucose. Valproic acid level is mildly high therapeutic at 114. Urine drug screen is negative for all substances tested. MENTAL STATUS EXAMINATION: The patient is an aging white male, wearing a Byron sweatshirt and tracy long underwear bottoms who appears to be somewhat unkempt, smelling slightly of urine. He is cooperative with poor boundaries as evidenced by improper touching of this clinician albeit in a good-natured manner. There are times when he becomes very loud singing fragmented songs. Speech is pressured, over productive. Mood appears to be manic with a labile affect. Thought processes are nonsequential and disorganized at times with an elevated rate. Thought content reveals grandiosity as well as delusions of persecution. He is denying suicidal or homicidal ideations. He denies visual hallucinations, but does suggest that he is hearing voices. Insight and judgment appeared to be grossly impaired given his agitated behavior. Cognitively, he is awake and alert with what would seem to be a low to average intellect by virtue of his educational history and vocabulary. DIAGNOSES: [place] I: Schizoaffective disorder, bipolar type. [place] II: Deferred. IMPRESSION: The patient is a 64-year-old single white disabled male with a history of schizoaffective disorder, bipolar type and multiple previous psychiatric admissions, who arrives on a 9.41 due to agitated behavior at his custodial. The patient continued to be assaultive here in the emergency room requiring stat medications and hospitalization here on the [facility]. It is clear that this decompensation followed a recent reduction in his daily clozapine dose. PLAN: The patient is admitted to the adult behavioral health unit where he will be placed on q.15-minute checks for his own safety. I will reinstate clozapine in the morning at normal 100 mg dose and continue all of his other medications as currently prescribed. I note that he is not receiving atropine drops for sialorrhea and I will institute these at the dose of 2 drops under his tongue for excessive drooling. We will be reaching out to [facility] as well as [facility] for further collateral information and to [facility] social support. [id number]/[facility] #: [id number] LUIS
[2019-08-31] MEDS: Atropine 1% (ORAL/SL)* 15 ML BTL SL PRN ×5 (01:47→18:04)
[2019-08-31] MEDS: Acetaminophen TAB* 325 MG PO PRN ×2 (07:05→11:22)
[2019-08-31] MEDS: Divalproex DR TAB(*) 500 MG PO SCH ×2 (08:49→21:21)
[2019-08-31] MEDS: glipiZIDE TAB.XL* 5 MG PO SCH (08:49)
[2019-08-31] MEDS: Pantoprazole TAB * 40 MG TAB PO SCH (08:49)
[2019-08-31] MEDS: Atorvastatin* 20 MG TAB PO SCH (08:49)
[2019-08-31] MEDS: CloZAPine TAB* 100 MG TAB PO SCH ×2 (08:50→21:21)
[2019-08-31] MEDS: Vitamin THERAPEUTIC TAB PO SCH (08:50)
[2019-08-31] MEDS: Lisinopril TAB* 10 MG PO SCH (08:50)
[2019-08-31] MEDS: Metformin ER (NF) 500 MG TAB PO SCH (08:51)
[2019-08-31] MEDS ORDERED: metFORMIN* 500 MG TAB PO SCH (12:43)
[2019-08-31] MEDS: risperiDONE TAB* 2 MG PO SCH (21:22)
[2019-09-01] MEDS: Atropine 1% (ORAL/SL)* 15 ML BTL SL PRN ×4 (05:30→17:00)
[2019-09-01] MEDS: Acetaminophen TAB* 325 MG PO PRN (06:40)
[2019-09-01] MEDS: Divalproex DR TAB(*) 500 MG PO SCH ×2 (08:47→20:50)
[2019-09-01] MEDS: Lisinopril TAB* 10 MG PO SCH (08:48)
[2019-09-01] MEDS: glipiZIDE TAB.XL* 5 MG PO SCH (08:48)
[2019-09-01] MEDS: Pantoprazole TAB * 40 MG TAB PO SCH (08:48)
[2019-09-01] MEDS: CloZAPine TAB* 100 MG TAB PO SCH ×2 (08:48→20:49)
[2019-09-01] MEDS: Atorvastatin* 20 MG TAB PO SCH (08:49)
[2019-09-01] MEDS: Vitamin THERAPEUTIC TAB PO SCH (08:49)
[2019-09-01] MEDS: Docusate CAP* 100 MG PO PRN (10:53)
--- NOTE | 2019-09-01 13:40 | PN ---
Subjective - Subjective Date of Service: 09/01/19 Subjective: Natacha c/o constipation and of a sty. He reports that his sialorrhea has improved on the atropine drops. He denies any bothersome psychiatric complaints or other side effects from meds. Per staff, he is adherent to unit's routines. Objective - General Observations Appearance: Unkempt Appears Stated Age: Yes Stature: WNL Posture: WNL Eye Contact: Average Behavior/Activity: WNL - Interaction Observations Attitude Towards Examiner: Cooperative Stated Mood: Euthymic Affect: Full Speech Pattern/Tone: Appropriate, Normal Volume Thought Process: Disorganized, Circumstantial, Over Inclusive Thought Content: Grandiose Delusion Type: Grandeur - Cognitive Function Orientation: A&O x 4 Level of Consciousness: Alert Cognition: WNL Estimated Intelligence: Normal Judgment Within Normal Limits: No Ability to Make Reasonable Decisions: Mildly Impaired - Medication Compliance Cooperative with Inpatient Medication Regimen: Yes - Group Participation Participates in Group Activities: Yes Assessment - Assessment Merits Inpatient Hospitalization: For Ongoing Evaluation, Consolidate Improvements, For Discharge Planning Plan - Treatment Plan Medications: Current Medications Acetaminophen (Tylenol Tab*) 650 mg PO Q4H PRN PRN Reason: for pain; or Temp >101 F Last Admin: 09/01/19 06:40 Dose: 650 mg Al Hydrox/Mg Hydrox/Simethicone (Maalox Plus*) 30 ml PO Q4H PRN PRN Reason: INDIGESTION Atorvastatin Calcium (Lipitor*) 20 mg PO DAILY [facility] Last Admin: 09/01/19 08:49 Dose: 20 mg Atropine Sulfate (Atropine 1% (Oral/Sl)*) 2 drop SL Q2H PRN PRN Reason: drooling Last Admin: 09/01/19 13:21 Dose: 2 drop Clozapine (Clozapine Tab*) 400 mg PO BEDTIME [facility] Last Admin: 08/31/19 21:21 Dose: 400 mg Clozapine (Clozapine Tab*) 100 mg PO DAILY [facility] Last Admin: 09/01/19 08:48 Dose: 100 mg Divalproex Sodium (Depakote Dr Tab(*)) 1,000 mg PO BID [facility] Last Admin: 09/01/19 08:47 Dose: 1,000 mg Docusate Sodium (Colace Cap*) 100 mg PO BID PRN PRN Reason: CONSTIPATION Last Admin: 09/01/19 10:53 Dose: 100 mg Glipizide (Glucotrol Xl*) 10 mg PO DAILY [facility] Last Admin: 09/01/19 08:48 Dose: 10 mg Lisinopril (Prinivil Tab*) 10 mg PO DAILY [facility] Last Admin: 09/01/19 08:48 Dose: 10 mg Magnesium Hydroxide (Milk Of Magnesia Liq*) 30 ml PO Q12H PRN PRN Reason: CONSTIPATION Metformin HCl (Glucophage*) 500 mg PO QAM [facility] Last Admin: 09/01/19 08:49 Dose: 500 mg Multivitamins (Theragran Tab*) 1 tab PO DAILY [facility] Last Admin: 09/01/19 08:49 Dose: 1 tab Pantoprazole Sodium (Protonix Tab*) 40 mg PO DAILY [facility] Last Admin: 09/01/19 08:48 Dose: 40 mg Risperidone (Risperdal*) 4 mg PO BEDTIME [facility] Last Admin: 08/31/19 21:22 Dose: 4 mg
--- NOTE | 2019-09-01 13:46 | PN ---
Subjective - Subjective Date of Service: 09/01/19 Subjective: Lisandra c/o constipation and of a sty. He reports that his sialorrhea has improved on the atropine drops. He denies any bothersome psychiatric complaints or other side effects from meds. Per staff, he is adherent to unit's routines. Objective - General Observations Appears Stated Age: Yes Stature: Overweight Posture: WNL Eye Contact: Average Behavior/Activity: WNL - Interaction Observations Attitude Towards Examiner: Cooperative Stated Mood: Expansive Affect: Bright Speech Pattern/Tone: Clear, Appropriate, Normal Volume Thought Process: Coherent, Goal Directed Perception: WNL Thought Content: WNL Hallucination Type: None Delusion Type: Grandeur - Cognitive Function Orientation: A&O x 4 Level of Consciousness: Alert Estimated Intelligence: Normal Judgment Within Normal Limits: No Ability to Make Reasonable Decisions: Mildly Impaired - Medication Compliance Cooperative with Inpatient Medication Regimen: Yes - Group Participation Participates in Group Activities: Yes Assessment - Assessment Merits Inpatient Hospitalization: For Ongoing Evaluation, Consolidate Improvements, For Discharge Planning Inpatient DSM-V Dx: F25.0 Clinical Impression: Lisandra is stabilizing in this structured setting. Plan - Plan Treatment Plan: Name: LISANDRA MENDOZA Birthdate: 1955 [id number] Continued Medication Management: Continue Outpt Medication Medications: Current Medications Acetaminophen (Tylenol Tab*) 650 mg PO Q4H PRN PRN Reason: for pain; or Temp >101 F Last Admin: 09/01/19 06:40 Dose: 650 mg Al Hydrox/Mg Hydrox/Simethicone (Maalox Plus*) 30 ml PO Q4H PRN PRN Reason: INDIGESTION Atorvastatin Calcium (Lipitor*) 20 mg PO DAILY [facility] Last Admin: 09/01/19 08:49 Dose: 20 mg Atropine Sulfate (Atropine 1% (Oral/Sl)*) 2 drop SL Q2H PRN PRN Reason: drooling Last Admin: 09/01/19 13:21 Dose: 2 drop Clozapine (Clozapine Tab*) 400 mg PO BEDTIME [facility] Last Admin: 08/31/19 21:21 Dose: 400 mg Clozapine (Clozapine Tab*) 100 mg PO DAILY [facility] Last Admin: 09/01/19 08:48 Dose: 100 mg Divalproex Sodium (Depakote Dr Tab(*)) 1,000 mg PO BID [facility] Last Admin: 09/01/19 08:47 Dose: 1,000 mg Docusate Sodium (Colace Cap*) 100 mg PO BID PRN PRN Reason: CONSTIPATION Last Admin: 09/01/19 10:53 Dose: 100 mg Glipizide (Glucotrol Xl*) 10 mg PO DAILY [facility] Last Admin: 09/01/19 08:48 Dose: 10 mg Lisinopril (Prinivil Tab*) 10 mg PO DAILY [facility] Last Admin: 09/01/19 08:48 Dose: 10 mg Magnesium Hydroxide (Milk Of Magnesia Liq*) 30 ml PO Q12H PRN PRN Reason: CONSTIPATION Metformin HCl (Glucophage*) 500 mg PO QAM [facility] Last Admin: 09/01/19 08:49 Dose: 500 mg Multivitamins (Theragran Tab*) 1 tab PO DAILY [facility] Last Admin: 09/01/19 08:49 Dose: 1 tab Pantoprazole Sodium (Protonix Tab*) 40 mg PO DAILY [facility] Last Admin: 09/01/19 08:48 Dose: 40 mg Risperidone (Risperdal*) 4 mg PO BEDTIME [facility] Last Admin: 08/31/19 21:22 Dose: 4 mg - Discharge Plan Discharge Plan: Outpatient Follow Up Outpatient Program: [facility]
[2019-09-01] MEDS: risperiDONE TAB* 2 MG PO SCH (20:50)
[2019-09-02] MEDS: Atropine 1% (ORAL/SL)* 15 ML BTL SL PRN ×2 (06:35→08:34)
[2019-09-02 08:12] VITALS: BP 137/69
[2019-09-02] MEDS: Divalproex DR TAB(*) 500 MG PO SCH (08:29)
[2019-09-02] MEDS: Vitamin THERAPEUTIC TAB PO SCH (08:29)
[2019-09-02] MEDS: Pantoprazole TAB * 40 MG TAB PO SCH (08:30)
[2019-09-02] MEDS: Lisinopril TAB* 10 MG PO SCH (08:30)
[2019-09-02] MEDS: Atorvastatin* 20 MG TAB PO SCH (08:30)
[2019-09-02] MEDS: CloZAPine TAB* 100 MG TAB PO SCH (08:30)
[2019-09-02] MEDS: glipiZIDE TAB.XL* 5 MG PO SCH (08:31)
[2019-09-02] MEDS: Docusate CAP* 100 MG PO PRN (08:53)
[2019-09-02] MEDS ORDERED: PTO: Metformin ER (NF) 500 MG TAB PO SCH (09:00)
--- NOTE | 2019-09-02 22:37 | DS ---
DISCHARGE SUMMARY: DATE OF ADMISSION: 08/29/19 DATE OF DISCHARGE: 09/02/19 DISCHARGE DIAGNOSES: As follows: Trosper I: Schizoaffective disorder, bipolar type. Trosper II: Deferred. CONDITION AT THE TIME OF DISCHARGE: Improved. The patient has demonstrated no further acts of aggression or agitation over the weekend. He has been calm, cooperative, active in the milieu, going to groups and maintaining his behavior without provoking others. He denies suicidal or homicidal ideations and we feel that he is back to his baseline. The patient has followup appointments established with both his therapist and psychiatrist at [facility] and we see no further justification for inpatient treatment at this time. MENTAL STATUS EXAM: At the time of discharge, the patient is an ageing white male, wearing a T-shirt and an Tibersoft jacket. He is fairly clean, although, I noticed that he is drooling somewhat. He is cooperative with fair boundaries, good natured, easy to establish a rapport with. Speech is somewhat rambling and over productive, although this is his baseline. Mood appears to be euthymic with a full affect. Thought process are somewhat nonsequential, slightly disorganized, also his baseline. Thought content is significant for his desire to be discharged from the hospital. He is denying suicidal or homicidal ideations. He denies auditory or visual hallucinations. Insight and judgment are fair given his willingness to take medications and follow up with outpatient services. Cognitively, he is awake and alert with what would appear to be low to average intellect by virtue of his educational history and vocabulary. LABORATORY DATA: Comprehensive metabolic testing was performed on 08/30/19 revealing hemoglobin A1c that was elevated at 8.0%, triglycerides 309, cholesterol 148, LDL cholesterol 49, HDL cholesterol 37.4. DISCHARGE INSTRUCTIONS TO THE PATIENT: As follows: Part A. Medications: 1. Risperdal 4 mg p.o. q.h.s. 2. Glucotrol XL 10 mg daily. 3. Prilosec 20 mg daily. 4. Multivitamin 1 tablet daily. 5. Metformin extended release 1000 mg p.o. q.a.m. 6. Milk of magnesia 30 mL as needed for constipation. 7. Lisinopril 10 mg daily. 8. Colace 100 mg twice daily as needed for constipation. 9. Depakote 1000 mg p.o. b.i.d. 10. Clozapine 100 mg in the morning and 400 mg in the evening. 11. Atropine 1% oral solution 2 drops sublingually every 2 hours as needed for sialorrhea. 12. Lipitor 20 mg p.o. daily. 13. Tylenol 650 mg every 6 hours as needed for pain. Please note that this patient is on 2 different antipsychotic medications. This is due to the need for augmentation of clozapine therapy with risperidone. Part B. Diet: He is on a diabetic diet. Part C. Activities: As tolerated. The patient is a smoker who is declining the offer of continued nicotine replacement therapy at this time, choosing to continue smoking. We did provide him with [facility] toll-free quitline which is [phone]. There are no laboratory or diagnostic studies pending at the time of discharge. Part D. Followup care: The patient will see his psychiatrist, Dr. Elliott Duran on , 09/05/19 at 2:30 p.m. at the [facility]. He also sees a therapist at the clinic named Federico Menendez on Monday, 10/24 at 10:15 a.m. Part E. Substance abuse followup is nonapplicable. Part F. Disposition: The patient is returning to his home at [facility] , here in [place]. HOSPITAL COURSE: Part A. Reason for admission: The patient is a 64-year-old single white male with a history of schizoaffective disorder,bipolar type, and recurrent admissions here on the behavioral health unit, who was brought in by the police on a 9.41 due to agitated combative behavior against staff and peers at the [facility] where he resides. The patient apparently had a recent change in medications. For collateral information, I spoke with his psychiatrist, Dr. Elliott Duran at the [facility], who indicated that approximately 2 weeks ago, he removed the a.m. dose of Natacha's 100 mg clozapine. The reason for this was due to side effects of sialorrhea and hyperglycemia. Unfortunately, Natacha despite remaining on high doses of clozapine in the evening as well as adjunctive risperidone and twice daily Depakote quickly decompensated. He was apparently endorsing auditory hallucinations and agitation towards others. Although, he was initially calm and cooperative in our emergency room, he quickly verbally escalated becoming physical posturing and threatening. Security was notified on 2 separate occasions and the patient required stat medications to settle his behavior. When I met with him, he was distractible, hyperverbal, and quite manic. He has been making racist statements on the unit and upsetting peers. It does appear that he warrants inpatient treatment at this time. Part B. Psychiatric treatment rendered: The patient was placed on q.15 minute checks for his own safety and his a.m. dose of clozapine 100 mg p.o. q.a.m. was resumed. We continued all of his other medications including Depakote, nightly clozapine, and risperidone, all unchanged. With the resumption of the morning dose of clozapine, his behavior quickly returned to baseline, which is somewhat distractible and hyper verbal, but typically good natured and cooperative. The patient was safe on all checks through the weekend and we felt that he was back to a safe level of functioning, so that he could receive treatment in a less restrictive setting. He was agreeable with discharge and we notified the [facility] and made appropriate followups with [facility]. At this time, Natacha has improved and is back to his old self and we wish him the best for safe and healthy future. [id number]/CPS #: [id number] LUIS
== END 2019-09-02 11:30 | disposition home or self-care (01) | DRG 750 ==
LOC: ED 13:14 → BSU 18:05
PROVIDERS: ADMIT Psychiatry & Neurology Psychiatry; ATTEND Psychiatry & Neurology Psychiatry
DX: F25.0 Schizoaffective disorder, bipolar type (principal); E78.5 Hyperlipidemia, unspecified; I10 Essential (primary) hypertension; N40.1 Benign prostatic hyperplasia with lower urinary tract symptoms; R32 Unspecified urinary incontinence; K21.9 Gastro-esophageal reflux disease without esophagitis; F41.0 Panic disorder [episodic paroxysmal anxiety]; F17.210 Nicotine dependence, cigarettes, uncomplicated; K11.7 Disturbances of salivary secretion; E11.9 Type 2 diabetes mellitus without complications; Z88.8 Allergy status to other drugs, medicaments and biological substances; Z56.0 Unemployment, unspecified; Z79.899 Other long term (current) drug therapy; Z79.84 Long term (current) use of oral hypoglycemic drugs
CPT/HCPCS: 36415; 80053; 80061; 80164; 80307; 80320; 80329; 81003; 83036; 84443; 85025; 99222; 99231; 99238; 99283; A9270-GY; G0480

== ENCOUNTER 2019-10-19 13:48 | Emergency (ER) | payer OTHER ==
[2019-10-19] MEDS ORDERED: Nitroglycerin TAB 0.4 MG* 0.4 MG TAB SL ONE (13:54)
--- OUTSIDE RECORDS SUMMARY | 2019-10-19 13:54 | XMS REPORT ---
:1955 Author Organization [facility] Care Team Providers Name Role Phone SP SCHNEIDER Primary Care Physician Unavailable Allergies, Adverse Reactions, Alerts Allergy Code CodeSystem Reaction Severity Criticality Status Start Substance Date Moderate Medications Medication Medication Medication Start Stop Route Dose Status Fill Code CodeSystem Date Date Instructions clozapine 19741009 RxNorm 2019-0 oral 100 mg active for 28 6-26 tablet day(s) divalproex 5293774 RxNorm 2019-0 2019- oral 500 mg completed for 30 2-28 05-16 tablet,de day(s) layed release (DR/EC) ibuprofen RxNorm 2019-0 oral 800 mg active for 6 3-29 tablet day(s) glipizide 344064 RxNorm 2019-0 oral 10 mg active for 30 1-24 tablet day(s) extended release 24hr risperidone 132593 RxNorm 2018- oral 4 mg 1 active 1 tablet at 0-25 tablet at bedtime for bedtime 30 day(s) clozapine 19741009 RxNorm 2019-0 2019- oral 100 mg completed for 28 1-02 06-26 tablet day(s) omeprazole 123354 RxNorm 2019-0 oral 20 mg active for 30 2-20 capsule,d day(s) elayed release(D R/EC) lisinopril 147610 RxNorm 2019-0 oral 10 mg active for 30 1-24 tablet day(s) Tab-A-Anali RxNorm 2019-0 oral tablet active for 30 1-23 day(s) divalproex 0235248 RxNorm 2019-0 2019- oral 500 mg 2 completed Take 2 tablet 5-16 08-14 tablet,de twice a day layed for 30 day(s) release (DR/EC) twice a day divalproex 1739754 RxNorm 2019-1 oral 500 mg 2 active Take 2 tablet 1-21 tablet,de twice a day layed for 30 day(s) release (DR/EC) twice a day metformin 582789 RxNorm 2019-0 oral 500 mg active for 30 3-01 tablet day(s) extended release 24 hr atorvastatin 126576 RxNorm 2019-0 oral 20 mg active for 30 2-13 tablet day(s) divalproex 4374090 RxNorm 2019- 2019- oral 500 mg 2 completed Take 2 tablet 8-22 11-20 tablet,de twice a day layed for 30 day(s) release (DR/EC) twice a day risperidone 080446 RxNorm 2019- oral 4 mg completed for 30 1-23 04-19 tablet day(s) aspirin 805812 RxNorm 2019-0 oral 81 mg active for 30 2-13 tablet,ch day(s) ewable risperidone 179940 RxNorm 2018- 2019- oral 4 mg 1 completed Take 1 tablet 4-19 07-18 tablet at at bedtime bedtime for 30 day(s) risperidone 239643 RxNorm 2018- 2019- oral 4 mg 1 completed 1 tablet at 7-26 10-24 tablet at bedtime for bedtime 30 day(s) Problems Problem Name Code CodeSystem Alternate Alternate Start End Status Narrative Code CodeSystem Date Date Schizoaffective 20187915 SNOMED-CT Active disorder, manic 3-22 type Nicotine 99640936 SNOMED-CT 0 Active dependence, 3-29 unspecified, uncomplicated Mild cognitive 78589335 SNOMED-CT 2018-0 Active impairment, so 3-29 stated Schizoaffective 54599745 SNOMED-CT 0 Active disorder, manic 3-22 type Relevant diagnostic tests/laboratory data Narrative No Information Procedures Procedure Code CodeSystem Target Date of Status Service Device Device Device Name Site Procedure Delivery Code Name UID Location Preventive 399357 SNOMED-CT () 2018-11-05 complete Mental medicine 0 d Health- counseling [facility] and/or [address], (s) provided [place], individual [id number] (separate [id number] procedure); approximatel y 15 minutes SNOMED-CT () 2018-11-14 complete Mental d Health- [address], [id number] [phone] Office [place] [id number] SNOMED-CT () 2018-11-23 complete Mental other 7 d Health- outpatient [facility] visit for [address], [facility], of an [place], established [id number] patient, [phone] which requires at least 2 of these 3 villeda components: An expanded problem focused history; An expanded problem focused examination; Medical decision making of low SNOMED-CT () 2018-12-03 complete Mental d Health- [facility], [id number] [id number] Preventive 463050 SNOMED-CT () 2018-12-03 complete Mental medicine 0 d Health- counseling [facility] and/or [address], (s) provided [place], to an [place], individual [id number] (separate [id number] procedure); approximatel y 15 minutes Psychotherap [id number] SNOMED-CT () 2018-12-17 complete Mental y, 45 04 d Health- minutes with [facility] patient [address], [id number] [id number] Preventive 123405 SNOMED-CT () 2019-01-02 complete Mental medicine 1 d Health- counseling [facility] and/or [address], (s) provided [place], to [place], individual [id number] (separate [id number] procedure); approximatel y 30 minutes SNOMED-CT () 2019-01-16 complete Mental d Health- [facility], [id number] [phone] Office or [id number] SNOMED-CT () 2019-01-23 complete Mental other 7 d Health- outpatient [facility] visit for [address], [facility], [place], established [id number] patient, [phone] which requires at least 2 of these 3 villeda components: An expanded problem focused history; An expanded problem focused examination; Medical decision making of low SNOMED-CT () 2019-01-30 complete Mental d Health- [facility], [id number] [phone] Psychotherap [id number] SNOMED-CT () 2019-02-04 complete Mental y, 45 04 d Health- minutes with [facility] patient [address], [id number] [phone] SNOMED-CT () 2019-02-18 complete Mental d Health- [facility], [id number] [phone] Preventive 011183 SNOMED-CT () 2019-02-27 complete Mental medicine 0 d Health- counseling [facility] and/or risk [address], (s) provided [place], to [place], individual [id number] (separate [id number] procedure); approximatel y 15 minutes SNOMED-CT () 2019-03-07 complete Mental d Health- [facility], [id number] [phone] Psychotherap [id number] SNOMED-CT () 2019-03-14 complete Mental y, 45 04 d Health- minutes with [facility] patient [address], [id number] [phone] Psychotherap [id number] SNOMED-CT () 2019-03-28 complete Mental y, 45 04 d Health- minutes with [facility] patient [address], [id number] [phone] SNOMED-CT () 2019-04-04 complete Mental d Health- [facility], [id number] [phone] SNOMED-CT () 2019-04-22 complete Mental d Health- [facility], [id number] [phone] Preventive 455030 SNOMED-CT () 2019-04-22 complete Mental medicine 0 d Health- counseling [facility] and/or risk [address], (s) provided [place], to [place], individual [phone] (separate [id number] procedure); approximatel y 15 minutes Office or [id number] SNOMED-CT () 2019-04-29 complete Mental other 7 d Health- outpatient [facility] visit for [address], management [place], of an [place], established [phone] patient, [id number] which requires at least 2 of these 3 villeda components: An expanded problem focused history; An expanded problem focused examination; Medical decision making of low SNOMED-CT () 2019-05-09 complete Mental d Health- [address], [id number] [phone] Preventive 872870 SNOMED-CT () 2019-05-17 complete Mental medicine 0 d Health- counseling [facility] and/or risk [address], (s) provided [place], to [place], individual [id number] (separate [id number] procedure); approximatel y 15 minutes SNOMED-CT () 2019-06-03 complete Mental d Health- [address], [id number] [id number] SNOMED-CT () 2019-06-13 complete Mental d Health- [address], [id number] [phone] SNOMED-CT () 2019-07-09 complete Mental d Health- [address], [id number] [phone] Psychotherap [id number] SNOMED-CT () 2019-07-18 complete Mental y, 45 04 d Health- minutes with [facility] patient [address], [id number] [phone] Office or [id number] SNOMED-CT () 2019-07-24 complete Mental other 6 d Health- outpatient [facility] visit for [address], of an [place], established [phone] patient, [phone] which requires at least 2 of these 3 villeda components: A problem focused history; A problem focused examination; Straightforw miguelangel medical decision making. Counselin Preventive 881954 SNOMED-CT () 2019-08-05 complete Mental medicine 0 d Health- counseling [facility] and/or risk [address], (s) provided [place], to an [place], individual [phone] (separate [id number] procedure); approximatel y 15 minutes Psychotherap [id number] SNOMED-CT () 2019-08-20 complete Mental y, 45 04 d Health- minutes with [facility] patient [address], [id number] [id number] SNOMED-CT () 2019-08-29 complete Mental d Health- [facility], [id number] [phone] Office or [id number] SNOMED-CT () 2019-09-05 complete Mental other 7 d Health- outpatient [facility] visit for [facility] the [facility], management [place], of an [place], established [phone] patient, [phone] which requires at least 2 of these 3 villeda components: An expanded problem focused history; An expanded problem focused examination; Medical decision making of low Preventive 858531 SNOMED-CT () 2019-09-17 complete Mental medicine 0 d Health- counseling [facility] and/or risk [address], (s) provided [place], to an [place], individual [phone] (separate [id number] procedure); approximatel y 15 minutes Encounters/Encounter Diagnoses Encounter Encounter Diagnosis Diagnosis Name Diagnosis Date of Service Name Code Code CodeSystem Diagnosis Delivery Location [place] [id number] Schizoaffective SNOMED-CT 2019-09-17 Behavioral Monitoring - disorder, manic Health 15 min type Clinic [address] [place] [address], [phone] Vital Signs No Information Social History Element Description Description Start End Code CodeSystem AdditionalInfo Date Date SexAssignedAtBirth Male 1954- M AdministrativeGender 2-20 Hospital Discharge Instructions Reason For Referral Medical Equipment FDA Assessments
--- OUTSIDE RECORDS SUMMARY | 2019-10-19 13:54 | XMS REPORT | Continuity of Care Document ---
:1955 External Reference #:[id number] Author Name Toni Jameson M.D. Address [address] [address] Care Team Providers Name Role Phone Shon TAYLOR,Colton - Manager [place] Care Team Information Medical Social Worker [phone] Problems Active Problems Provider Date Type 2 diabetes mellitus Ted Barcenas, OD Onset: 04/10/2019 Social History Type Date Description Comments Sex Unknown ETOH Use Denies alcohol use Tobacco Use Start: Unknown Light tobacco smoker (10 or fewer cigarettes/day) Smoking Status Reviewed: 10/10/19 Light tobacco smoker (10 or fewer cigarettes/day) Allergies, Adverse Reactions, Alerts Active Allergies Reaction Severity Comments Date Haldol 04/10/2019 Prozac 04/10/2019 Trihexyphenidyl 04/10/2019 Fluphenazine 04/10/2019 Valium 04/10/2019 Tegretol 04/10/2019 Bupropion 04/10/2019 Thiothixene 04/10/2019 Medications Active Medications SIG Qnty Indications Ordering Provider Date Ocusoft Lid Scrub Plus apply to Right 60units Ted Barcenas, OD 2018 Outer Eyelid Pads twice per day x 4 weeks Atorvastatin Calcium Unknown 10mg Tablets Divalproex Sodium Unknown 500mg Tablets DR Omeprazole Unknown 20mg Capsules DR Daily-Anali Unknown Tablets Dok Unknown 100mg Capsules QC Milk Of Magnesia Unknown 400mg/5ML Suspension Clozapine Unknown 100mg Tablets Risperidone Unknown 4mg Tablets Lisinopril Unknown 10mg Tablets Glipizide ER Unknown 10mg Tablets ER 24HR Aspirin Unknown 81mg Chewtabs Ibu Unknown 800mg Tablets Metformin HCL ER Unknown 500mg Tablets ER 24HR History Medications Maxitrol apply 08/10" 3.500gm Ted Barcenas, OD 04/20/2019 - 3.5-11138-7.1 ribbon to right 06/11/2019 Ointment lower outer lid tid x 1 week, then d/c Immunizations Description No Information Available Vital Signs Date Vital Result Comment 04/10/2019 1:33pm Intraocular Pressure Right Eye 17 mmHg Intraocular Pressure Left Eye 17 mmHg Results Description No Information Available Procedures Date Code Description Status 10/10/2019 00886 Excision Lesion Eyelid Completed Medical Devices Description No Information Available Encounters Type Date Location Provider Dx Diagnosis Office Visit 06/11/2019 Main Office Ted Barcenas, OD D23.112 Other benign 11:00a neoplasm skin/ right lower eyelid, inc canthus Assessments Date Code Description Provider 10/10/2019 D23.112 Other benign neoplasm of skin of right lower Toni Jameson M.D. eyelid, including canthus 06/11/2019 D23.112 Other benign neoplasm of skin of right lower Ted Barcenas, OD eyelid, including canthus Plan of Treatment Future Appointment(s):10/17/2019 3:30 pm - Toni Jameson M.D. at Main [facility]9110/10/2019 - Toni Jameson M.D.D23.112 Other benign neoplasm of skin of right lower eyelid, including canthusFollow up:1 wk f/u Functional Status Description No Information Available Mental Status Description No Information Available Referrals Description No Information Available
--- OUTSIDE RECORDS SUMMARY | 2019-10-19 13:54 | XMS REPORT ---
:1955 Author Organization [facility] Care Team Providers Name Role Phone SP SCHNEIDER Primary Care Physician Unavailable Allergies, Adverse Reactions, Alerts Allergy Code CodeSystem Reaction Severity Criticality Status Start Substance Date Moderate Medications Medication Medication Medication Start Stop Route Dose Status Fill Code CodeSystem Date Date Instructions divalproex 4165793 RxNorm 2019 oral 500 mg 2 active Take 2 tablet 1-21 tablet,de twice a day layed for 30 day(s) release (DR/EC) twice a day divalproex 5624929 RxNorm 20190 2019- oral 500 mg 2 completed Take 2 tablet 5-16 08-14 tablet,de twice a day layed for 30 day(s) release (DR/EC) twice a day glipizide 143306 RxNorm 2019-0 oral 10 mg active for 30 1-24 tablet day(s) extended release 24hr Tab-A-Anali RxNorm 2019-0 oral tablet active for 30 1-23 day(s) divalproex 0319139 RxNorm 2019-0 2019- oral 500 mg 2 completed Take 2 tablet 8-22 11-20 tablet,de twice a day layed for 30 day(s) release (DR/EC) twice a day ibuprofen RxNorm 2019-0 oral 800 mg active for 6 3-29 tablet day(s) divalproex 1678627 RxNorm 2019-0 2019- oral 500 mg completed for 30 2-28 05-16 tablet,de day(s) layed release (DR/EC) aspirin 733585 RxNorm 2019-0 oral 81 mg active for 30 2-13 tablet,ch day(s) ewable clozapine 19741009 RxNorm 2019-0 2019- oral 100 mg completed for 28 1-02 06-26 tablet day(s) metformin 982746 RxNorm 2019-0 oral 500 mg active for 30 3-01 tablet day(s) extended release 24 hr omeprazole 286640 RxNorm 2019-0 oral 20 mg active for 30 2-20 capsule,d day(s) elayed release(D R/EC) risperidone 354949 RxNorm 2018- 2019- oral 4 mg 1 completed Take 1 tablet 4-19 07-18 tablet at at bedtime bedtime for 30 day(s) risperidone 560538 RxNorm 2019-0 2019- oral 4 mg completed for 30 1-23 04-19 tablet day(s) risperidone 525759 RxNorm 2019- oral 4 mg 1 active 1 tablet at 0-25 tablet at bedtime for bedtime 30 day(s) atorvastatin 406906 RxNorm 2019-0 oral 20 mg active for 30 2-13 tablet day(s) lisinopril 015825 RxNorm 2019-0 oral 10 mg active for 30 1-24 tablet day(s) risperidone 203320 RxNorm 2019-0 2019- oral 4 mg 1 completed 1 tablet at 7-26 10-24 tablet at bedtime for bedtime 30 day(s) clozapine 563379 RxNorm 2019-0 oral 100 mg active for 28 6-26 tablet day(s) Problems Problem Name Code CodeSystem Alternate Alternate Start End Status Narrative Code CodeSystem Date Date Nicotine 22860325 SNOMED-CT 2019-0 Active dependence, 3- unspecified, uncomplicated Schizoaffective 56330322 SNOMED-CT 2019-0 Active disorder, manic 3-22 type Mild cognitive 81039532 SNOMED-CT 2019-0 Active impairment, so 3-29 stated Schizoaffective 20976509 SNOMED-CT 2019-0 Active disorder, manic 3-22 type Relevant diagnostic tests/laboratory data Narrative No Information Procedures Procedure Code CodeSystem Target Date of Status Service Device Device Device Name Site Procedure Delivery Code Name UID Location Preventive [id number] SNOMED-CT () 2018-11-05 complete Mental medicine 0 d Health- counseling [facility] and/or [address], (s) provided [place], to an [place], individual [id number] (separate [id number] procedure); approximatel y 15 minutes SNOMED-CT () 2018-11-14 complete Mental d Health- [address], [id number] [phone] Office [place] [id number] SNOMED-CT () 2018-11-23 complete Mental other 7 d Health- outpatient [facility] visit for [address], [facility], of an [place], established [id number] patient, [phone] which requires at least 2 of these 3 villeda components: An expanded problem focused history; An expanded problem focused examination; Medical decision making of low SNOMED-CT () 2018-12-03 complete Mental d Health- [facility], [id number] [phone] Preventive 611591 SNOMED-CT () 2018-12-03 complete Mental medicine 0 d Health- counseling [facility] and/or [address], (s) provided [place], to an [place], individual [id number] (separate [id number] procedure); approximatel y 15 minutes Psychotherap 383344 SNOMED-CT () 2018-12-17 complete Mental y, 45 04 d Health- minutes with [facility] patient [address], [id number] [phone] Preventive [id number] SNOMED-CT () 2019-01-02 complete Mental medicine 1 d Health- counseling [facility] and/or [address], (s) provided [place], to an [place], individual [id number] (separate [id number] procedure); approximatel y 30 minutes SNOMED-CT () 2019-01-16 complete Mental d Health- [facility], [id number] [phone] Office or [id number] SNOMED-CT () 2019-01-23 complete Mental other 7 d Health- outpatient [facility] visit for [address], [facility], of an [place], established [id number] patient, [phone] which requires at least 2 of these 3 villeda components: An expanded problem focused history; An expanded problem focused examination; Medical decision making of low SNOMED-CT () 2019-01-30 complete Mental d Health- [facility], [id number] [phone] Psychotherap [id number] SNOMED-CT () 2019-02-04 complete Mental y, 45 04 d Health- minutes with [facility] patient [address], [id number] [phone] SNOMED-CT () 2019-02-18 complete Mental d Health- [facility], [id number] [phone] Preventive 849838 SNOMED-CT () 2019-02-27 complete Mental medicine 0 d Health- counseling [facility] and/or risk [address], (s) provided [place], to [place], individual [id number] (separate [id number] procedure); approximatel y 15 minutes SNOMED-CT () 2019-03-07 complete Mental d Health- [facility], [id number] [phone] Psychotherap [id number] SNOMED-CT () 2019-03-14 complete Mental y, 45 04 d Health- minutes with [facility] patient [address], [id number] [phone] Psychotherap 696365 SNOMED-CT () 2019-03-28 complete Mental y, 45 04 d Health- minutes with [facility] patient [address], [phone] SNOMED-CT () 2019-04-04 complete Mental d Health- [facility], [id number] [phone] SNOMED-CT () 2019-04-22 complete Mental d Health- [facility], [phone] Preventive 116955 SNOMED-CT () 2019-04-22 complete Mental medicine 0 d Health- counseling [facility] and/or risk [address], (s) provided [place], to [place], individual [id number] (separate [id number] procedure); approximatel y 15 minutes Office or [id number] SNOMED-CT () 2019-04-29 complete Mental other 7 d Health- outpatient [facility] visit for [address], management [place], of [place], established [id number] patient, [phone] which requires at least 2 of these 3 villeda components: An expanded problem focused history; An expanded problem focused examination; Medical decision making of low SNOMED-CT () 2019-05-09 complete Mental d Health- [address], [phone] Preventive 569074 SNOMED-CT () 2019-05-17 complete Mental medicine 0 d Health- counseling [facility] and/or risk [address], (s) provided [place], to [place], individual [id number] (separate [phone] procedure); approximatel y 15 minutes SNOMED-CT () 2019-06-03 complete Mental d Health- [address], [id number] [phone] SNOMED-CT () 2019-06-13 complete Mental d Health- [address], [id number] [phone] SNOMED-CT () 2019-07-09 complete Mental d Health- [address], [id number] [phone] Psychotherap 303815 SNOMED-CT () 2019-07-18 complete Mental y, 45 04 d Health- minutes with [facility] patient [address], [phone] [phone] Office or [id number] SNOMED-CT () 2019-07-24 complete Mental other 6 d Health- outpatient [facility] visit for [address], of an [place], established [id number] patient, [phone] which requires at least 2 of these 3 villeda components: A problem focused history; A problem focused examination; Straightforw miguelangel medical decision making. Counselin Preventive [phone] SNOMED-CT () 2019-08-05 complete Mental medicine 0 d Health- counseling [facility] and/or risk [address], (s) provided [place], to an [place], individual [id number] (separate [id number] procedure); approximatel y 15 minutes Psychotherap 197680 SNOMED-CT () 2019-08-20 complete Mental y, 45 04 d Health- minutes with [facility] patient [address], [id number] [phone] SNOMED-CT () 2019-08-29 complete Mental d Health- [address], [id number] [phone] Office or [id number] SNOMED-CT () 2019-09-05 complete Mental other 7 d Health- outpatient [facility] visit for [address], [facility], of [place], established [id number] patient, [phone] which requires at least 2 of these 3 villeda components: An expanded problem focused history; An expanded problem focused examination; Medical decision making of low Encounters/Encounter Diagnoses Encounter Name Encounter Diagnosis Diagnosis Name Diagnosis Date of Service Code Code CodeSystem Diagnosis Delivery Location Psychotherapy - [id number] Schizoaffective SNOMED-CT 2019-09-09 Behavioral Individual 30 disorder, manic Health min type Clinic , , , Vital Signs No Information Social History Element Description Description Start End Code CodeSystem AdditionalInfo Date Date SexAssignedAtBirth Male 1954- M AdministrativeGender 2-20 Hospital Discharge Instructions Reason For Referral Medical Equipment FDA Assessments
--- OUTSIDE RECORDS SUMMARY | 2019-10-19 13:54 | XMS REPORT ---
:1955 Author Organization [facility] Care Team Providers Name Role Phone SP SCHNEIDER Primary Care Physician Unavailable Allergies, Adverse Reactions, Alerts Allergy Code CodeSystem Reaction Severity Criticality Status Start Substance Date Moderate Medications Medication Medication Medication Start Stop Route Dose Status Fill Code CodeSystem Date Date Instructions clozapine 19741009 RxNorm 2019-0 oral 100 mg active for 28 6-26 tablet day(s) divalproex 1326131 RxNorm 2019- oral 500 mg 2 completed Take 2 tablet 5-16 08-14 tablet,de twice a day layed for 30 day(s) release (DR/EC) twice a day risperidone 450067 RxNorm 2019- oral 4 mg 1 completed 1 tablet at 7-26 10-24 tablet at bedtime for bedtime 30 day(s) clozapine 19741009 RxNorm 2019- oral 100 mg completed for 28 1-02 06-26 tablet day(s) risperidone 884600 RxNorm 2018-08 oral 4 mg 1 active 1 tablet at 0-25 tablet at bedtime for bedtime 30 day(s) divalproex 7402531 RxNorm 2018-08 oral 500 mg 2 active Take 2 tablet 1-21 tablet,de twice a day layed for 30 day(s) release (DR/EC) twice a day divalproex 1886557 RxNorm 0 2019- oral 500 mg completed for 30 2-28 05-16 tablet,de day(s) layed release (DR/EC) glipizide 966738 RxNorm 2019-0 oral 10 mg active for 30 1-24 tablet day(s) extended release 24hr lisinopril 362889 RxNorm 2019-0 oral 10 mg active for 30 1-24 tablet day(s) risperidone 525109 RxNorm 0 2019- oral 4 mg completed for 30 1-23 04-19 tablet day(s) omeprazole 763455 RxNorm 2019-0 oral 20 mg active for 30 2-20 capsule,d day(s) elayed release(D R/EC) divalproex 9350634 RxNorm 2019-0 2019- oral 500 mg 2 completed Take 2 tablet 8-22 11-20 tablet,de twice a day layed for 30 day(s) release (DR/EC) twice a day atorvastatin 781689 RxNorm 2019-0 oral 20 mg active for 30 2-13 tablet day(s) aspirin 202549 RxNorm 2019-0 oral 81 mg active for 30 2-13 tablet,ch day(s) ewable metformin 272722 RxNorm 2019-0 oral 500 mg active for 30 3-01 tablet day(s) extended release 24 hr ibuprofen 656401 RxNorm 2019-0 oral 800 mg active for 6 3-29 tablet day(s) Tab-A-Anali RxNorm 2019-0 oral tablet active for 30 1-23 day(s) risperidone 944564 RxNorm 2019-0 2019- oral 4 mg 1 completed Take 1 tablet 419 07-18 tablet at at bedtime bedtime for 30 day(s) Problems Problem Name Code CodeSystem Alternate Alternate Start End Status Narrative Code CodeSystem Date Date Nicotine 12603475 SNOMED-CT 2019-0 Active dependence, 11-02 unspecified, uncomplicated Schizoaffective 35113321 SNOMED-CT 2019-0 Active disorder, manic 3-22 type Mild cognitive 35084178 SNOMED-CT 2019-0 Active impairment, so 3 stated Schizoaffective 75064069 SNOMED-CT 2019-0 Active disorder, manic 3-22 type Relevant diagnostic tests/laboratory data Narrative No Information Procedures Procedure Code CodeSystem Target Date of Status Service Device Device Device Name Site Procedure Delivery Code Name UID Location Preventive 475710 SNOMED-CT () 2018-11-05 complete Mental medicine 0 d Health- counseling [facility] and/or [place] [address] [facility], (s) provided [place], to [place], individual [id number] (separate [id number] procedure); approximatel y 15 minutes Preventive 108986 SNOMED-CT () 2018-12-03 complete Mental medicine 0 d Health- counseling [facility] and/or risk [place] [address] [facility], (s) provided [place], to [place], individual [id number] (separate [id number] procedure); approximatel y 15 minutes SNOMED-CT () 2019-02-18 complete Mental d Health- [address], [id number] [phone] SNOMED-CT () 2019-05-09 complete Mental d Health[address], [id number] [phone] SNOMED-CT () 2019-09-09 complete Mental d Health- [address], [id number] [phone] SNOMED-CT () 2019-04-22 complete Mental d Health[address], [id number] [phone] Preventive 266370 SNOMED-CT () 2019-08-05 complete Mental medicine 0 d Health- counseling [facility] and/or [address], (s) provided [place], [place], individual [id number] (separate [id number] procedure); approximatel y 15 minutes Psychotherap 197032 SNOMED-CT () 2019-03-28 complete Mental y, 45 04 d Health- minutes with [address], [id number] [phone] SNOMED-CT () 2019-01-16 complete Mental d Health[address], [id number] [phone] SNOMED-CT () 2019-06-03 complete Mental d Health- [address], [id number] [phone] Psychotherap 214236 SNOMED-CT () 2019-08-20 complete Mental y, 45 04 d Health- minutes with [address], [id number] [phone] SNOMED-CT () 2018-11-14 complete Mental d Health- [address], [id number] [phone] SNOMED-CT () 2019-07-09 complete Mental d Health- [address], [id number] [phone] SNOMED-CT () 2019-04-04 complete Mental d Health[address], [id number] [phone] Psychotherap 743730 SNOMED-CT () 2019-07-18 complete Mental y, 45 04 d Health- minutes with [address], [id number] [phone] Preventive 934708 SNOMED-CT () 2019-04-22 complete Mental medicine 0 d Health- counseling [facility] and/or risk [place] factor [address] [place] [address], (s) provided [place], to [place], individual [id number] (separate [id number] procedure); approximatel y 15 minutes Preventive 393237 SNOMED-CT () 2019-09-17 complete Mental medicine 0 d Health- counseling [facility] and/or risk [address], (s) provided [place], [place], individual [id number] (separate [id number] procedure); approximatel y 15 minutes SNOMED-CT () 2019-01-30 complete Mental d Health[address], [id number] [phone] SNOMED-CT () 2018-12-03 complete Mental d Health[address], [id number] [phone] Preventive 792248 SNOMED-CT () 2019-01-02 complete Mental medicine 1 d Health- counseling [facility] and/or risk [address], (s) provided [place], [place], [place] [id number] (separate [id number] procedure); approximatel y 30 minutes Psychotherap 470441 SNOMED-CT () 2019-02-04 complete Mental y, 45 04 d Health- minutes with [address], [id number] [phone] SNOMED-CT () 2019-03-07 complete Mental d Health[address], [phone] Office or [id number] SNOMED-CT () 2019-09-05 complete Mental other 7 d Health- outpatient [facility] visit for [address], [facility], of [place], established [id number] patient, [phone] which requires at least 2 of these 3 villeda components: An expanded problem focused history; An expanded problem focused examination; Medical decision making of [facility] Psychotherap 871191 SNOMED-CT () 2019-10-01 complete Mental y, 45 04 d Health- minutes with [facility] patient [address], [id number] [phone] SNOMED-CT () 2019-08-29 complete Mental d Health- [facility] [address], [id number] [phone] Office or 353237 SNOMED-CT () 2019-04-29 complete Mental other 7 d Health- outpatient [facility] visit for [address], of [place], established [id number] patient, [phone] which requires at least 2 of these 3 villeda components: An expanded problem focused history; An expanded problem focused examination; Medical decision making of [facility] Office or [id number] SNOMED-CT () 2019-01-23 complete Mental other 7 d Health- outpatient [facility] visit for [address], of [place], established [id number] patient, [phone] which requires at least 2 of these 3 villeda components: An expanded problem focused history; An expanded problem focused examination; Medical decision making of low SNOMED-CT () 2019-06-13 complete Mental d Health- [facility], [id number] [phone] Preventive 125531 SNOMED-CT () 2019-02-27 complete Mental medicine 0 d Health- counseling [facility] and/or risk [address], (s) provided [place], to [place], individual [id number] (separate [id number] procedure); approximatel y 15 minutes Office or 077210 SNOMED-CT () 2019-07-24 complete Mental other 6 d Health- outpatient [facility] visit for [address], of [place], established [id number] patient, [phone] which requires at least 2 of these 3 villeda components: A problem focused history; A problem focused examination; Straightforw miguelangel medical decision making. Counselin Psychotherap 976302 SNOMED-CT () 2019-03-14 complete Mental y, 45 04 d Health- minutes with [facility] patient [address], [id number] [phone] Preventive 938330 SNOMED-CT () 2019-05-17 complete Mental medicine 0 d Health- counseling [facility] and/or risk [address], (s) provided [place], to an [facility] individual [id number] (separate [id number] procedure); approximatel y 15 minutes Office or 250604 SNOMED-CT () 2018-11-23 complete Mental other 7 d Health- outpatient [facility] visit for [address], [place], [place], established [id number] patient, [phone] which requires at least 2 of these 3 villeda components: An expanded problem focused history; An expanded problem focused examination; Medical decision making of low Psychotherap 434762 SNOMED-CT () 2018-12-17 complete Mental y, 45 04 d Health- minutes with [facility] patient [address], [phone] Encounters/Encounter Diagnoses Encounter Name Encounter Diagnosis Diagnosis Name Diagnosis Date of Service Code Code CodeSystem Diagnosis Delivery Location Psychotherapy - 95041 [id number] Schizoaffective SNOMED-CT 2019-10-01 Behavioral Individual 30 disorder, manic Health min type Clinic [address] [place] [address], [id number] Vital Signs No Information Social History Element Description Description Start End Code CodeSystem AdditionalInfo Date Date SexAssignedAtBirth Male 3-1 M AdministrativeGender 2-20 Hospital Discharge Instructions Reason For Referral Medical Equipment FDA Assessments
--- OUTSIDE RECORDS SUMMARY | 2019-10-19 13:54 | XMS REPORT ---
:1955 Author Organization [facility] Care Team Providers Name Role Phone SP SCHNEIDER Primary Care Physician Unavailable Allergies, Adverse Reactions, Alerts Allergy Code CodeSystem Reaction Severity Criticality Status Start Substance Date Moderate Medications Medication Medication Medication Start Stop Route Dose Status Fill Code CodeSystem Date Date Instructions lisinopril 672341 RxNorm 2019-0 oral 10 mg active for 30 1-24 tablet day(s) clozapine 19741009 RxNorm 2019-0 oral 100 mg active for 28 6-26 tablet day(s) omeprazole 19791206 RxNorm 2019-0 oral 20 mg active for 30 2-20 capsule,d day(s) elayed release(D R/EC) ibuprofen RxNorm 2019-0 oral 800 mg active for 6 3-29 tablet day(s) metformin 832856 RxNorm 2019-0 oral 500 mg active for 30 3-01 tablet day(s) extended release 24 hr atorvastatin 096456 RxNorm 2019-0 oral 20 mg active for 30 2-13 tablet day(s) divalproex 0367148 RxNorm 2019-0 2019- oral 500 mg 2 completed Take 2 tablet 8-22 11-20 tablet,de twice a day layed for 30 day(s) release (DR/EC) twice a day glipizide 965647 RxNorm 2019-0 oral 10 mg active for 30 1-24 tablet day(s) extended release 24hr divalproex 9937007 RxNorm 2019-0 2019- oral 500 mg completed for 30 2-28 05-16 tablet,de day(s) layed release (DR/EC) risperidone 258581 RxNorm 2019-0 2019- oral 4 mg 1 completed Take 1 tablet 4-19 07-18 tablet at at bedtime bedtime for 30 day(s) aspirin 699195 RxNorm 2019-0 oral 81 mg active for 30 2-13 tablet,ch day(s) ewable divalproex 3064714 RxNorm 2019- oral 500 mg 2 completed Take 2 tablet 5-16 08-14 tablet,de twice a day layed for 30 day(s) release (DR/EC) twice a day Tab-A-Anali RxNorm 2019-0 oral tablet active for 30 1-23 day(s) risperidone 167644 RxNorm 2019 oral 4 mg 1 active 1 tablet at 0-25 tablet at bedtime for bedtime 30 day(s) divalproex 3580610 RxNorm 2018-08 oral 500 mg 2 active Take 2 tablet 1-21 tablet,de twice a day layed for 30 day(s) release (DR/EC) twice a day clozapine 404220 RxNorm 2019- oral 100 mg completed for 28 1- 06-26 tablet day(s) risperidone 059601 RxNorm 2018- 2019- oral 4 mg completed for 30 08-29 04-19 tablet day(s) risperidone 897794 RxNorm 2019- oral 4 mg 1 completed 1 tablet at 7-26 10-24 tablet at bedtime for bedtime 30 day(s) Problems Problem Name Code CodeSystem Alternate Alternate Start End Status Narrative Code CodeSystem Date Date Nicotine 17340400 SNOMED-CT Active dependence, 11-02 unspecified, uncomplicated Schizoaffective 19800904 SNOMED-CT 2018-0 Active disorder, manic 3-22 type Mild cognitive 36175384 SNOMED-CT 0 Active impairment, so 11-02 stated Schizoaffective 46600146 SNOMED-CT 0 Active disorder, manic 3-22 type Relevant diagnostic tests/laboratory data Narrative No Information Procedures Procedure Code CodeSystem Target Date of Status Service Device Device Device Name Site Procedure Delivery Code Name UID Location Psychotherap [id number] SNOMED-CT () 2019-07-18 complete Mental y, 45 04 d Health- minutes with Nohemi patient [address], [id number] [id number] Psychotherap [id number] SNOMED-CT () 2019-03-14 complete Mental y, 45 04 d Health- minutes with Nohemi patient [address], [id number] [id number] Psychotherap [id number] SNOMED-CT () 2019-03-28 complete Mental y, 45 04 d Health- minutes with Andrew patient [address], [id number] [id number] Psychotherap [id number] SNOMED-CT () 2019-08-20 complete Mental y, 45 04 d Health- minutes with Andrew patient [address], [id number] [id number] Psychotherap [id number] SNOMED-CT () 2019-02-04 complete Mental y, 45 04 d Health- minutes with Nohemi patient [address], [id number] [phone] Psychotherap [id number] SNOMED-CT () 2018-12-17 complete Mental y, 45 04 d Health- minutes with Andrew patient [address], [id number] [phone] Preventive 655028 SNOMED-CT () 2018-12-03 complete Mental medicine 0 d Health- counseling [place] and/or risk [place] factor [address], (s) provided [place], to an MD, individual [phone] (separate [id number] procedure); approximatel y 15 minutes Preventive 391950 SNOMED-CT () 2018-11-05 complete Mental medicine 0 d Health- counseling Andrew and/or risk [place] factor [address], (s) provided [place], to an MD, individual [id number] (separate [id number] procedure); approximatel y 15 minutes Preventive 496699 SNOMED-CT () 2019-02-27 complete Mental medicine 0 d Health- counseling [place] and/or risk [place] factor [address], (s) provided [place], to an MD, individual [id number] (separate [id number] procedure); approximatel y 15 minutes Preventive 752660 SNOMED-CT () 2019-04-22 complete Mental medicine 0 d Health- counseling [place] and/or risk [place] factor [address], (s) provided [place], to an MD, individual [id number] (separate [id number] procedure); approximatel y 15 minutes Preventive 941266 SNOMED-CT () 2019-08-05 complete Mental medicine 0 d Health- counseling Andrew and/or risk [place] factor [address], (s) provided [place], to an MD, individual [id number] (separate [id number] procedure); approximatel y 15 minutes Preventive 252569 SNOMED-CT () 2019-05-17 complete Mental medicine 0 d Health- counseling Andrew and/or risk [place] factor [address], (s) provided [place], to an MD, individual [phone] (separate [id number] procedure); approximatel y 15 minutes Preventive 187992 SNOMED-CT () 2019-01-02 complete Mental medicine 1 d Health- counseling [place] and/or risk [place] factor [address], (s) provided [place], to an MD, individual [id number] (separate [id number] procedure); approximatel y 30 minutes Office or [id number] SNOMED-CT () 2019-01-23 complete Mental other 7 d Health- outpatient Andrew visit for [address] [facility] [phone] patient, [id number] which requires at least 2 of these 3 villeda components: An expanded problem focused history; An expanded problem focused examination; Medical decision making of low Office or 467929 SNOMED-CT () 2018-11-23 complete Mental other 7 d Health- outpatient Andrew visit for [address] [facility], established [id number] patient, [id number] which requires at least 2 of these 3 villeda components: An expanded problem focused history; An expanded problem focused examination; Medical decision making of low Office or 601971 SNOMED-CT () 2019-04-29 complete Mental other 7 d Health- outpatient Nohemi visit for [address] [facility], established [id number] patient, [phone] which requires at least 2 of these 3 villeda components: An expanded problem focused history; An expanded problem focused examination; Medical decision making of low Office or [id number] SNOMED-CT () 2019-07-24 complete Mental other 6 d Health- outpatient Nohemi visit for [address] [facility], established [id number] patient, [phone] which requires at least 2 of these 3 villeda components: A problem focused history; A problem focused examination; Straightforw miguelangel medical decision making. Henri SNOMED-CT () 2018-11-14 complete Mental d [address], [id number] [phone] SNOMED-CT () 2018-12-03 complete Mental d [address], [id number] [phone] SNOMED-CT () 2019-01-16 complete Mental d [address], [id number] [id number] SNOMED-CT () 2019-01-30 [facility] Mental d [address], [id number] [phone] SNOMED-CT () 2019-04-04 [facility] Mental d [address], [id number] [phone] SNOMED-CT () 2019-04-22 [facility] Mental d [address], [id number] [phone] SNOMED-CT () 2019-03-07 [facility] Mental d [address], [id number] [id number] SNOMED-CT () 2019-05-09 [facility] Mental d [address], [id number] [phone] SNOMED-CT () 2019-06-03 complete Mental d [address], [id number] [id number] SNOMED-CT () 2019-06-13 complete Mental d [address], [id number] [id number] SNOMED-CT () 2019-07-09 [facility] Mental d [address], [id number] [phone] SNOMED-CT () 2019-02-18 [facility] Mental d [address], [id number] [phone] Encounters/Encounter Diagnoses Encounter Name Encounter Diagnosis Diagnosis Name Diagnosis Date of Service Code Code CodeSystem Diagnosis Delivery Location Psychotherapy - [id number] Schizoaffective SNOMED-CT 2019-08-20 Behavioral Individual 30 disorder, manic Health min [facility] [address] [place], [place], [phone] Vital Signs No Information Social History Element Description Description Start End Code CodeSystem AdditionalInfo Date Date SexAssignedAtBirth Male 3-1 M AdministrativeGender 2-20 Hospital Discharge Instructions Reason For Referral Medical Equipment FDA Assessments
--- OUTSIDE RECORDS SUMMARY | 2019-10-19 13:54 | XMS REPORT | Summary of Care ---
:1955 Author Organization [facility] Address [address] [place] [address] Care Team Providers Name Role Phone Abdulaziz Carranza Primary Care Provider Reason for Visit Reason Comments Diabetes Follow up. Last A1C was 7.9 on 09/18/2019. Encounter Details Date Type Department Care Team Description 09/25/2019 Office Visit [place] [facility] [place] Abdulaziz Controlled type 2 diabetes mellitus without complication, without long-term current use of insulin (HCC) (Primary Dx); Jose Almendarez MD Essential hypertension; [address] Gastroesophageal reflux disease without esophagitis; [place] [address] [place] [address] Other drug-induced secondary parkinsonism (HCC) [phone] Allergies Active Allergy Reactions Severity Noted Date Comments Kdc:Benzyl Other 02/25/2014 nightmares Alcohol+Lorazepam+Polyethy kandis Glycol+Propylene Glycol Benztropine 08/20/2009 Ziprasidone Hydrochloride 08/20/2009 Haloperidol Lactate Unknown Reaction 08/20/2009 [place] 08/20/2009 Fd&C Yellow #6-Gabapentin Other 10/10/2014 Fever, fainted Prolixin 08/20/2009 Fluoxetine Hcl 08/20/2009 Shell Fish Unknown Reaction 09/03/2015 Allergic to lobster per patient, but not shrimp, oysters, clams or crab. Carbamazepine 08/20/2009 Chlorpromazine Hcl 08/20/2009 Trazodone 08/20/2009 Diazepam Unknown Reaction 04/03/2015 Bupropion 08/20/2009 Zaleplon 08/20/2009 [place] documented as of this encounter (statuses as of 09/25/2019) Medications Medication Sig Dispensed Refills Start Date End Date Status divalproex sodium Take 1,000 mg 60 Tab 0 06/23/2015 Active (DEPAKOTE) 500 MG by mouth TWICE Oral Tab EC DAILY. 1000 mg in the morning, and 1000 mg at bedtime clozapine Take 700 mg by 60 Tab 0 07/06/2015 Active (CLOZARIL) 100 MG mouth DAILY. 1 Oral in AM, 4 at HS TabIndications: Schizophrenia, unspecified type (HCC) loperamide Take 1 Cap by 30 Cap 5 11/10/2016 Active (IMODIUM) 2 MG mouth FOUR Oral Cap TIMES DAILY NEEDED for diarrhea. magnesium citrate Take 200 mg by 1 Bottle 0 04/12/2018 Active Oral mouth DAILY SolutionIndication NEEDED s: Constipation, (constipation) unspecified . constipation type risperidone Take 4 mg by 0 Active (RISPERDAL) 4 MG mouth EVERY Oral Tab BEDTIME. docusate sodium Take 1 Cap by 30 Cap 11 08/23/2018 Active (COLACE) 100 MG mouth TWO Oral Cap TIMES DAILY NEEDED (constipation) . Omeprazole delayed Take 20 mg by 30 Cap 5 04/03/2019 Active rel cap 20 MG Oral mouth DAILY. CAPSULE DELAYED RELEASE lisinopril TAKE ONE 30 Tab 11 04/24/2019 Active (PRINIVIL, TABLET BY ZESTRIL) 10 MG MOUTH ONCE Oral Tab DAILY atorvastatin TAKE ONE 30 Tab 4 04/24/2019 Active (LIPITOR) 20 MG TABLET BY Oral Tab MOUTH ONCE DAILY Multiple Vitamin TAKE ONE 30 Tab 11 05/30/2019 Active (DAILY-IVETTE) Oral TABLET BY Tab MOUTH ONCE DAILY Incontinence 1 Each by Does 60 Each 5 07/03/2019 Active Supply Disposable not apply Does not apply route DAILY. Misc S/M depends underwear acetaminophen Take 2 Tabs by 90 Tab 5 08/27/2019 Active (TYLENOL) 325 MG mouth THREE Oral Tab TIMES DAILY NEEDED (headache). glipiZIDE Take 1 Tab by 30 Tab 5 08/30/2019 Active (GLUCOTROL XL) 10 mouth DAILY. MG Oral TABLET SR 24 HR metFORMIN HCL 1000 Take 1 Tab by 60 Tab 5 09/25/2019 Active MG Oral Tab mouth TWO 1 TIMES DAILY WITH MEALS. metFORMIN Take 2 Tabs by 180 Tab 3 06/28/2019 Discontinued (GLUCOPHAGE XR) mouth EVERY 0 (Provider 500 MG Oral TABLET TWENTY-FOUR Discontinued) SR 24 HR HOURS. documented as of this encounter (statuses as of 09/25/2019) Active Problems Problem Noted Date Controlled type 2 diabetes mellitus without complication, without 10/05/2018 long-term current use of insulin Parkinsonism, secondary 08/30/2018 Urge incontinence of urine 03/17/2017 Essential hypertension 01/25/2017 Gastroesophageal reflux disease without esophagitis 04/01/2016 BPH (benign prostatic hyperplasia) 12/25/2013 Bipolar disorder 08/20/2009 Overview: [facility] [address] Schizoaffective disorder, bipolar type 08/20/2009 Overview: 2 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 12/25/2013 Renal insufficiency 08/20/2009 05/13/2015 Overview: Secondary to lithium documented as of this encounter (statuses as of 09/25/2019) Immunizations Name Administration Dates Next Due Influenza [...] Assigned at Date Recorded Not on file documented as of this encounter Last Filed Vital Signs Vital Sign Reading Time Taken Comments Blood Pressure 124/70 09/25/2019 10:25 AM EST Pulse 68 09/25/2019 10:25 AM EST Temperature - - Respiratory Rate - - Oxygen Saturation - - Inhaled Oxygen Concentration - - Weight 85.7 kg (189 lb) 09/25/2019 10:25 AM EST Height 172.1 cm (5' 7.75") 09/25/2019 10:25 AM EST Body Mass Index 28.95 09/25/2019 10:25 AM EST documented in this encounter Patient Instructions Patient InstructionsAbdulaziz Carranza MD - 09/25/2019 10:40 AM ESTDiabetes mellitus not controlled stop metformin xr Use metformin 1000 mg twice daily Diabetes mellitus blood work three month Follow up me 3.5 month documented in this encounter Progress Notes Abdulaziz Carranza MD - 09/25/2019 10:40 AM EST PATIENT: Natacha Blake : 1955 DATE OF SERVICE: 09/25/2019 CHIEF COMPLAINT: Chief Complaint Patient presents with ? Diabetes Follow up. Last A1C was 7.9 on 09/18/2019. Subjective HISTORY OF PRESENT ILLNESS: Natacha Blake is a 64-y.o. male. HPI Here for follow up diabetes mellitus he is not on low carbohydrate diet he eats erratically he does not check finger stick at all he is compliant with medication Wt Readings from Last 3 Encounters: 09/25/19 189 lb (85.7 kg) 08/22/19 190 lb (86.2 kg) 08/19/19 190 lb (86.2 kg) Lab Results Component Value Date GLYCO 7.9 (H) 09/18/2019 no diabetes mellitus related symptoms Patient Active Problem List Diagnosis ? Bipolar disorder (HCC) ? Schizoaffective disorder, bipolar type (HCC) ? History of tobacco use ? BPH (benign prostatic hyperplasia) ? Gastroesophageal reflux disease without esophagitis ? Essential hypertension ? Urge incontinence of urine ? Parkinsonism, secondary (HCC) ? Controlled type 2 diabetes mellitus without complication, without long- term current use of insulin (HCC) No family history on file. Current Outpatient Medications Medication Sig ? acetaminophen (TYLENOL) 325 MG Oral Tab Take 2 Tabs by mouth THREE TIMES DAILY NEEDED (headache). ? atorvastatin (LIPITOR) 20 MG Oral Tab TAKE ONE TABLET BY MOUTH ONCE DAILY ? clozapine (CLOZARIL) 100 MG Oral Tab Take 700 mg by mouth DAILY. 1 in AM , 4 at HS ? divalproex sodium (DEPAKOTE) 500 MG Oral Tab EC Take 1,000 mg by mouth TWICE DAILY. 1000 mg in the morning, and 1000 mg at bedtime ? docusate sodium (COLACE) 100 MG Oral Cap Take 1 Cap by mouth TWO TIMES DAILY NEEDED (constipation). ? glipiZIDE (GLUCOTROL XL) 10 MG Oral TABLET SR 24 HR Take 1 Tab by mouth DAILY. ? Incontinence Supply Disposable Does not apply Misc 1 Each by Does not apply route DAILY. S/Mdepends underwear ? lisinopril (PRINIVIL, ZESTRIL) 10 MG Oral Tab TAKE ONE TABLET BY MOUTH ONCE DAILY ? loperamide (IMODIUM) 2 MG Oral Cap Take 1 Cap by mouth FOUR TIMES DAILY NEEDED for diarrhea. ? magnesium citrate Oral Solution Take 200 mg by mouth DAILY NEEDED ( constipation). ? metFORMIN HCL 1000 MG Oral Tab Take 1 Tab by mouth TWO TIMES DAILY WITH MEALS. ? Multiple Vitamin (DAILY-IVETTE) Oral Tab TAKE ONE TABLET BY MOUTH ONCE DAILY ? Omeprazole delayed rel cap 20 MG Oral CAPSULE DELAYED RELEASE Take 20 mg by mouth DAILY. ? risperidone (RISPERDAL) 4 MG Oral Tab Take 4 mg by mouth EVERY BEDTIME. No current facility-administered medications for this visit. Allergies Allergen Reactions ? Ativan [Kdc:Benzyl Alcohol+Lorazepam+Polyethylene Glycol+Propylene Glycol] Other nightmares ? Benztropine ? Geodon [Ziprasidone Hydrochloride] ? Haldol [Haloperidol Lactate] Unknown Reaction ? [place] ? Neurontin [Fd&C Yellow #6-Gabapentin] Other Fever, fainted ? Prolixin ? Prozac [Fluoxetine Hcl] ? Shell Fish Unknown Reaction Allergic to lobster per patient, but not shrimp, oysters, clams or crab. ? Tegretol [Carbamazepine] ? Thorazine Spansules [Chlorpromazine Hcl] ? Trazodone ? Valium [Diazepam] Unknown Reaction ? Wellbutrin [Bupropion] ? Derick Carrington Social History Socioeconomic History ? Marital status: Single Spouse name: Not on file ? Number of children: Not on file ? Years of education: Not on file ? Highest education level: Not on file Occupational History ? Not on file Social Needs ? Financial resource strain: Not on file ? Food insecurity Worry: Not on file Inability: Not on file ? Transportation needs Medical: Not on file Non-medical: Not on file Tobacco Use ? Smoking status: Former Smoker Packs/day: 1.00 Years: 30.00 Pack years: 30.00 Types: Cigarettes Last attempt to quit: 02/23/2014 Years since quittin.5 ? Smokeless tobacco: Never Used Substance and Sexual Activity ? Alcohol use: No Alcohol/week: 0.0 standard drinks ? Drug use: No ? Sexual activity: Never Lifestyle ? Physical activity Days per week: Not on file Minutes per session: Not on file ? Stress: Not on file Relationships ? Social connections Talks on phone: Not on file Gets together: Not on file Attends zoroastrian service: Not on file Active member of club or organization: Not on file Attends meetings of clubs or organizations: Not on file Relationship status: Not on file ? Intimate partner violence Fear of current or ex partner: Not on file Emotionally abused: Not on file Physically abused: Not on file Forced sexual activity: Not on file Other Topics Concern ? Back Care Not Asked ? Bike Helmet Not Asked ? Blood Transfusions Not Asked ? Caffeine Concern Not Asked ? Exercise Yes Comment: walks most days 1-2 miles ? Hobby Hazards Not Asked ? International Travel Not Asked ? Service Not Asked ? Occupational Exposure Not Asked ? Seat Belt Not Asked ? Self-Exams Not Asked ? Sleep Concern Not Asked ? Special Diet No ? Stress Concern Yes ? Weight Concern No Social History Narrative Lives alone in [facility] group housing in [facility] On [facility] disability for mental health Never No significant other ROS no gastro-intestinal symptoms no cardiovascular symptoms Objective PHYSICAL EXAM: VITALS: BP 124/70 | Pulse 68 | Ht 5' 7.75" (1.721 m) | Wt 189 lb (85.7 kg) | BMI 28.95 kg/m Body mass index is 28.95 kg/m. Physical Exam S1 and S2 normal, [...] yes ASSESSMENT / IMPRESSION: ICD-9-CM ICD-10-CM 1. Controlled type 2 diabetes mellitus without complication, without long-term current use of insulin (HCC) goal hemoglobin A1C 7% stop xr metformin Use metformin 1000 mg immediate release Twice daily Continue glipizide hemoglobin A1C 3 month 250.00 E11.9 2. Essential hypertension at goal continue current medications 401.9 I10 3. Gastroesophageal reflux disease without esophagitis continue current medications 530.81 K21.9 4. Other drug-induced secondary parkinsonism (HCC) 332.1 G21.19 E980.5 Patient Instructions Diabetes mellitus not controlled stop metformin xr Use metformin 1000 mg twice daily Diabetes mellitus blood work three month Follow up me 3.5 month Abdulaziz Carranza MD 09/25/2019 10:58 documented in this encounter Plan of Treatment Date Type Specialty Care Team Description 12/16/2019 Office Visit Internal Medicine [address] [place] [address] [phone] 12/25/2019 Lab Internal Medicine 01/01/2020 Office Visit Internal Medicine Abdulaziz Carranza MD [address] [place] [address] [phone] Health Maintenance Due Date Last Done Comments LUNG CANCER SCREENING 2008 ZOSTER IMMUNIZATION SERIES 11/12/2014 09/17/2014 (2 of 3) AAA SCREENING/SURVEILLANCE 2018 Diabetic Eye Exam 09/08/2018 09/08/2017, 09/08/2017, 09/08/2017, Additional history exists FOOT EXAM 11/21/2018 11/21/2017, 11/21/2017, 11/21/2017, Additional history exists HEMOGLOBIN A1C 12/17/2019 09/18/2019, 06/07/2019, 02/28/2019, Additional history exists DEPRESSION SCREENING 02/06/2020 02/05/2019 FALL RISK ASSESSMENT 08/22/2020 08/22/2019, 08/22/2019 LIPID DISORDER SCREENING 09/18/2020 09/18/2019, 06/07/2019, 04/24/2019, Additional history exists Colonoscopy 12/29/2021 12/29/2016, 12/29/2016, [...] Type Problems Progress Blood Pressure Blood Hypertension 124/70 No [place], < 140/90 Pressure (09/25/2019 Abdulaziz Almendarez, 10:25 AM EST) Note: Hypertension Care Plan Based [...] Educational Resources: National Heart, Lung, & Blood [place] http://nhlbi.nih.gov/hbp/index.html The DASH Diet Eating Plan http://www.nhlbi.nih.gov/health/health-topics/ topics/dash/ Academy of Nutrition & DIetetics http://eatright.org National Smoking Cessation Site http://smokefree.gov Blood Pressure < Blood Pressure Hypertension 124/70 (09/25/2019 Abdulaziz Saravia 140/90 10:25 AM QUINTIN Almendarez MD Note: Hypertension Care [...] Educational Resources. record my blood pressure results. [email or web address] is safe and secure way for you [...] Educational Resources: National Heart, Lung, & Blood [place] http://nhlbi.nih.gov/hbp/index.html The DASH Diet Eating Plan http://www.nhlbi.nih.gov/health/health-topics/ topics/dash/ Academy of Nutrition & DIetetics http://eatright.org National Smoking Cessation Site http://smokefree.gov Blood Pressure < Blood Pressure 124/70 (09/25/2019 No Estee Denis FNP 140/90 10:25 AM EST) Note: This is an individualized [...] your depression. Glycohemoglobin A1c < 7.0 Diabetes 7.9 (09/18/2019 1:10 No Estee Denis FNP PM EST) Note: This is an individualized treatment (diabetes control, HgbA1C) goal for Natacha Blake: Displayed above is your progress towards your HgbA1C goal. Your goal is shown above (on the left); your most recent HgbA1C is shown on the right. Note that lower numbers are better. Weight loss vs. 18 mo Lifestyle 9 (09/25/2019 10:25 AM No Estee Denis FNP max (lbs) [...] insulin (HCC) Essential hypertension Unspecified essential hypertension Gastroesophageal reflux disease without esophagitis Esophageal reflux Other drug-induced secondary parkinsonism (HCC) documented in this encounter (Home) [address] [place], [place] (Work) [id number] documented as of this encounter
[2019-10-19] MEDS ORDERED: Aspirin 81 mg CHEW TAB* 81 MG TAB.CHEW PO ONE (13:59)
--- NOTE | 2019-10-19 14:05 | ED ---
HPI Chest Pain - HPI Summary HPI Summary: 64yo WM h/o DM, HTN, schizoaffective do, BIPOLAR do, P/W LEFT SIDED chest pressure x few hours associated with nausea, diaphoresis and pallor, denies h/o SD - History of Current Complaint Time Seen by Provider: 10/19/19 13:51 Hx Obtained From: Patient Hx From Patient Unobtainable Due To: Other Timing: Constant Initial Severity: Moderate Current Severity: Moderate Chest Pain Location: Upper Sternal, Left Anterior Chest Pain Radiates To:: Arm Aggravating Factor(s): Nothing Alleviating Factor(s): Nothing Associated Signs and Symptoms: Positive: Chest Pain, Shortness of Breath, Nausea - Additional Pertinent History Primary Care Physician: CHETNA - Allergy/Home Medications Allergies/Adverse Reactions: Allergies Allergy/AdvReac Type Severity Reaction Status Date / Time benztropine [From Cogentin] Allergy Unknown Verified 10/19/19 13:58 Reaction Details bupropion Allergy Unknown Verified 10/19/19 13:58 Reaction Details carbamazepine Allergy Unknown Verified 10/19/19 13:58 Reaction Details diazepam Allergy See Comment Verified 10/19/19 13:58 fluoxetine Allergy Unknown Verified 10/19/19 13:58 Reaction Details fluphenazine Allergy Unknown Verified 10/19/19 13:58 Reaction Details haloperidol Allergy Unknown Verified 10/19/19 13:58 Reaction Details metformin Allergy Unknown Verified 10/19/19 13:58 Reaction Details thiothixene Allergy Unknown Verified 10/19/19 13:58 Reaction Details trihexyphenidyl Allergy Unknown Verified 10/19/19 13:58 Reaction Details Home Medications: Home Medications Acetaminophen TAB* [Tylenol TAB*] 650 mg PO Q6H PRN #30 tab 09/02/19 [Rx Confirmed 09/05/19] Atorvastatin* [Lipitor 20 MG*] 20 mg PO DAILY #30 tab 09/02/19 [Rx Confirmed ] Atropine 1% (ORAL/SL)* 2 drop SL Q2H PRN #1 btl 09/02/19 [Rx Confirmed 09/05/19] CloZAPine TAB* 100 mg PO DAILY #30 tab 09/02/19 [Rx Confirmed 09/05/19] CloZAPine TAB* 400 mg PO BEDTIME #120 tab 09/02/19 [Rx Confirmed 09/05/19] Divalproex DR TAB(*) [Depakote DR TAB(*)] 1,000 mg PO BID #120 tab. 09/02/19 [ Rx Confirmed 09/05/19] Docusate CAP* [Colace Cap*] 100 mg PO BID PRN #60 cap 09/02/19 [Rx Confirmed ] Lisinopril TAB* [Prinivil TAB 10 MG*] 10 mg PO DAILY #30 tab 09/02/19 [Rx Confirmed 09/05/19] Magnesium Hydroxide LIQ* [Milk of Magnesia LIQ*] 30 ml PO Q12H PRN #1 bottle [Rx Confirmed 09/05/19] Multivitamins/Minerals TAB* [Theragran/minerals TAB*] 1 tab PO DAILY #30 tab [Rx Confirmed 09/05/19] Omeprazole CAP (NF) [Prilosec CAP* 20 MG] 20 mg PO DAILY #30 cap. 09/02/19 [ Rx Confirmed 09/05/19] glipiZIDE TAB.XL* [Glucotrol Xl*] 10 mg PO DAILY #60 tab.xl 09/02/19 [Rx Confirmed 09/05/19] risperiDONE TAB* [Risperdal*] 4 mg PO BEDTIME #60 tab 09/02/19 [Rx Confirmed ] Metformin ER (NF) 1,000 mg PO BID 10/19/19 [History Confirmed 10/19/19] PMH/Surg Hx/FS Hx/Imm Hx Previously Healthy: Yes Endocrine/Hematology History: Reports: Hx Diabetes, Hx Anemia, Other Endocrine/ Hematological Disorders - Impaired fasting glucose Denies: Hx Anticoagulant Therapy, Hx Thyroid Disease Cardiovascular History: Reports: Hx Angina, Hx Hypertension Denies: Hx Pacemaker/ICD Respiratory History: Denies: Hx Asthma, Hx Chronic Obstructive Pulmonary Disease (COPD) GI History: Reports: Hx Gastroesophageal Reflux Disease Denies: Hx Ulcer Comment Only: Other GI Disorders - Chronic constipation History: Reports: Hx Acute Renal Failure - secondary to lithium carbonate, Hx Benign Prostatic Hyperplasia, Hx Kidney Stones, Other Problems/Disorders - Urinary incontinence Denies: Hx Renal Disease Musculoskeletal History: Denies: Hx Gout Sensory History: Denies: Hx Contacts or Glasses, Hx Deafness, Hx Hearing Aid Opthamlomology History: Denies: Hx Contacts or Glasses Neurological History: Reports: Hx Developmental Delay, Hx Headaches, Hx Seizures - seizure d/o Denies: Hx Dementia Psychiatric History: Reports: Hx Depression, Hx Panic Disorder, Hx Inpatient Treatment, Hx Community Mental Health Tx, Hx Schizophrenia, Hx Bipolar Disorder , Hx Suicide Attempt, Hx of Violent Episodes Against Others Denies: Hx Eating Disorder, Hx Post Traumatic Stress Disorder, Hx Substance Abuse - Cancer History Cancer Type, Location and Year: None reported - Surgical History Surgery Procedure, Year, and Place: RIGHT wrist, ring finger on right hand, penis as a baby. - Immunization History Date of Tetanus Vaccine: UNK Date of Influenza Vaccine: Fall 2011 Infectious Disease History: Denies: Hx Hepatitis, Hx Human Immunodeficiency Virus (HIV), History Other Infectious Disease, Traveled Outside the in Last 30 Days - Family History Known Family History: Positive: Hypertension, Other - Alcoholism - Social History Occupation: Unemployed Lives: [facility] Alcohol Use: None Alcohol Amount: hx of alcohol abuse per pt Hx Substance Use: No Substance Use Type: Reports: None Hx Tobacco Use: Yes Smoking Status (MU): Current Some Day Smoker Type: Cigarettes Amount Used/How Often: 4-5/day Have You Smoked in the Last Year: Yes Review of Systems Constitutional: Negative Eyes: Negative ENT: Negative Positive: Chest Pain Positive: Shortness Of Breath Positive: Nausea. Negative: Vomiting Genitourinary: Negative Musculoskeletal: Negative Skin: Negative Neurological/Mental Status: Negative Psychological: Normal All Other Systems Reviewed And Are Negative: Yes Physical Exam - Summary Physical Exam Summary: Vital Signs Reviewed: Yes Gen: pale, SOB, diaphorestic Eye Exam: Normal Eyes: Positive: Conjunctiva Clear ENT: Normal ENT inspection Neck: Supple Respiratory: Lungs clear, Normal breath sounds. Negative: Crackles, Rhonchi, Stridor, Wheezing Cardiovascular Exam: tachycardic Abdomen: NT/ND Musculoskeletal Exam: Normal Neurological Exam: Normal Psychological Exam: Normal Skin Exam: Normal Triage Information Reviewed: Yes Vital Signs Reviewed: Yes Appearance: Positive: Ill-Appearing Chest Pain Course/Dx - Course Assessment/Plan: EKG with less than 1mm ST depressions in lateral leads V4-6 and with rather classic cardiac CP signs with RF of DM and HTN, called ALS and transferred pt to [facility] for r/o ACS - Chest Pain Differential Diagnosis/HQI/PQRI: Acute SD, ACS, Angina, CHF - Diagnoses Provider Diagnoses: Chest pain at rest Discharge ED - Sign-Out/Discharge Documenting (check all that apply): Patient Departure All imaging exams completed and their final reports reviewed: No Studies - Discharge Plan Condition: Guarded Disposition: TRANS HIGHER LVL OF CARE FAC Referrals: Abdulaziz Carranza MD [Primary Care Provider] - - Billing Disposition and Condition Condition: GUARDED Disposition: Trans Higher Lvl of Care Fac
[2019-10-19 14:12] VITALS: BP 119/63
[2019-10-20] MEDS ORDERED: Aspirin 81 mg CHEW TAB* 81 MG TAB.CHEW PO SCH (09:00)
== END 2019-10-19 14:19 | disposition short-term general hospital (02) ==
LOC: UCEAST 13:48
DX: R07.89 Other chest pain (principal); R11.0 Nausea; E11.9 Type 2 diabetes mellitus without complications; I10 Essential (primary) hypertension; F31.9 Bipolar disorder, unspecified; F17.210 Nicotine dependence, cigarettes, uncomplicated; Z88.8 Allergy status to other drugs, medicaments and biological substances; Z79.899 Other long term (current) drug therapy; Z79.84 Long term (current) use of oral hypoglycemic drugs
CPT/HCPCS: 93005; 99213; A9270-GY; G0463

== ENCOUNTER 2019-10-19 14:45 | Observation (INO) | payer OTHER ==
--- NOTE | 2019-10-19 15:05 | ED ---
HPI Chest Pain - HPI Summary HPI Summary: 64-year-old male with a significant past medical history of type 2 diabetes mellitus, hypertension, angina, acute renal failure due to lithium, psychosis presents to the emergency department today with a complaint of 2 out of 10 substernal chest pressure. Patient was sent to the emergency department from [facility]. Patient at this time is in no acute distress and is resting comfortably in the hospital stretcher. Patient states his pain began approximately 3 hours ago while eating lunch. Pain was not associated with exertion. Patient states he has associated tingling in his bilateral hands but no shortness of breath, abdominal pain, jaw pain, lightheadedness. Patient denies alcohol use or smoking. Patient is otherwise well and denies fever, abdominal pain, shortness of breath, nausea, vomiting, diarrhea, rash, diaphoresis. Patient was given sublingual nitroglycerin as well as aspirin prior to arrival. - History of Current Complaint Chief Complaint: EDChestPainROMI Time Seen by Provider: 10/19/19 14:55 Hx Obtained From: Patient Onset/Duration: Started Hours Ago Timing: Constant Initial Severity: Mild Current Severity: Mild Pain Intensity: 2 Pain Scale Used: 0-10 Numeric Chest Pain Location: Mid Sternal Chest Pain Radiates: No Character: Pressure/Squeezing Aggravating Factor(s): Nothing Alleviating Factor(s): Nothing Associated Signs and Symptoms: Positive: Chest Pain, Numbness. Negative: Shortness of Breath, Fever, Lightheadedness, Nausea, Cough, Abdominal Pain, Vomiting, Wheezing, Nasal Congestion, URI - Additional Pertinent History Primary Care Physician: [id number] - Allergy/Home Medications Allergies/Adverse Reactions: Allergies Allergy/AdvReac Type Severity Reaction Status Date / Time benztropine [From Cogentin] Allergy Unknown Verified 10/19/19 13:58 Reaction Details bupropion Allergy Unknown Verified 10/19/19 13:58 Reaction Details carbamazepine Allergy Unknown Verified 10/19/19 13:58 Reaction Details diazepam Allergy See Comment Verified 10/19/19 13:58 fluoxetine Allergy Unknown Verified 10/19/19 13:58 Reaction Details fluphenazine Allergy Unknown Verified 10/19/19 13:58 Reaction Details haloperidol Allergy Unknown Verified 10/19/19 13:58 Reaction Details metformin Allergy Unknown Verified 10/19/19 13:58 Reaction Details thiothixene Allergy Unknown Verified 10/19/19 13:58 Reaction Details trihexyphenidyl Allergy Unknown Verified 10/19/19 13:58 Reaction Details Home Medications: Home Medications Acetaminophen TAB* [Tylenol TAB*] 650 mg PO Q6H PRN #30 tab 09/02/19 [Rx Confirmed 10/19/19] Atorvastatin* [Lipitor 20 MG*] 20 mg PO DAILY #30 tab 09/02/19 [Rx Confirmed ] Atropine 1% (ORAL/SL)* 2 drop SL Q2H PRN #1 btl 09/02/19 [Rx Confirmed 10/19/19] CloZAPine TAB* 100 mg PO DAILY #30 tab 09/02/19 [Rx Confirmed 10/19/19] CloZAPine TAB* 400 mg PO BEDTIME #120 tab 09/02/19 [Rx Confirmed 10/19/19] Divalproex DR TAB(*) [Depakote TAB(*)] 1,000 mg PO BID #120 tab. 09/02/19 [ Rx Confirmed 10/19/19] Docusate CAP* [Colace Cap*] 100 mg PO BID PRN #60 cap 09/02/19 [Rx Confirmed ] Lisinopril TAB* [Prinivil TAB 10 MG*] 10 mg PO DAILY #30 tab 09/02/19 [Rx Confirmed 10/19/19] Magnesium Hydroxide LIQ* [Milk of Magnesia LIQ*] 30 ml PO Q12H PRN #1 bottle [Rx Confirmed 10/19/19] Multivitamins/Minerals TAB* [Theragran/minerals TAB*] 1 tab PO DAILY #30 tab [Rx Confirmed 10/19/19] Omeprazole CAP (NF) [Prilosec CAP* 20 MG] 20 mg PO DAILY #30 cap.dr 09/02/19 [ Rx Confirmed 10/19/19] glipiZIDE TAB.XL* [Glucotrol Xl*] 10 mg PO DAILY #60 tab.xl 09/02/19 [Rx Confirmed 10/19/19] risperiDONE TAB* [Risperdal*] 4 mg PO BEDTIME #60 tab 09/02/19 [Rx Confirmed ] Metformin ER (NF) 1,000 mg PO BID 10/19/19 [History Confirmed 03/14/20] PMH/Surg Hx/FS Hx/Imm Hx Endocrine/Hematology History: Reports: Hx Diabetes, Hx Anemia, Other Endocrine/ Hematological Disorders - Impaired fasting glucose Denies: Hx Anticoagulant Therapy, Hx Thyroid Disease Cardiovascular History: Reports: Hx Angina, Hx Hypertension Denies: Hx Pacemaker/ICD Respiratory History: Denies: Hx Asthma, Hx Chronic Obstructive Pulmonary Disease (COPD) GI History: Reports: Hx Gastroesophageal Reflux Disease Denies: Hx Ulcer Comment Only: Other GI Disorders - Chronic constipation History: Reports: Hx Acute Renal Failure - secondary to lithium carbonate, Hx Benign Prostatic Hyperplasia, Hx Kidney Stones, Other Problems/Disorders - Urinary incontinence Denies: Hx Renal Disease Musculoskeletal History: Denies: Hx Gout Sensory History: Denies: Hx Contacts or Glasses, Hx Deafness, Hx Hearing Aid Opthamlomology History: Denies: Hx Contacts or Glasses Neurological History: Reports: Hx Developmental Delay, Hx Headaches, Hx Seizures - seizure d/o Denies: Hx Dementia Psychiatric History: Reports: Hx Depression, Hx Panic Disorder, Hx Inpatient Treatment, Hx Community Mental Health Tx, Hx Schizophrenia, Hx Bipolar Disorder , Hx Suicide Attempt, Hx of Violent Episodes Against Others Denies: Hx Eating Disorder, Hx Post Traumatic Stress Disorder, Hx Substance Abuse - Cancer History Cancer Type, Location and Year: None reported - Surgical History Surgery Procedure, Year, and Place: RIGHT wrist, ring finger on right hand, penis as a baby. - Immunization History Date of Tetanus Vaccine: UNK Date of Influenza Vaccine: Fall 2011 Infectious Disease History: No Infectious Disease History: Denies: Hx Hepatitis, Hx Human Immunodeficiency Virus (HIV), History Other Infectious Disease, Traveled Outside the [place] in Last 30 Days - Family History Known Family History: Positive: Hypertension, Other - Alcoholism - Social History Alcohol Use: None Alcohol Amount: hx of alcohol abuse per pt Hx Substance Use: No Substance Use Type: Reports: None Hx Tobacco Use: Yes Smoking Status (MU): Current Some Day Smoker Type: Cigarettes Amount Used/How Often: 4-5/day Have You Smoked in the Last Year: Yes Review of Systems Constitutional: Negative Eyes: Negative ENT: Negative Positive: Chest Pain Respiratory: Negative Gastrointestinal: Negative Positive: no symptoms reported Musculoskeletal: Negative Skin: Negative Neurological/Mental Status: Negative Psychological: Normal All Other Systems Reviewed And Are Negative: Yes Physical Exam Triage Information Reviewed: Yes Vital Signs On Initial Exam: Initial Vitals Temp Pulse Resp BP Pulse Ox 98.7 F 104 21 121/74 96 10/19/19 14:47 10/19/19 14:47 10/19/19 14:47 10/19/19 14:47 10/19/19 14:47 Vital Signs Reviewed: Yes Appearance: Positive: Well-Appearing, No Pain Distress, Well-Nourished Skin: Positive: Warm, Skin Color Reflects Adequate Perfusion Eyes: Positive: EOMI, GALINDO ENT: Positive: Hearing grossly normal Respiratory/Lung Sounds: Positive: Clear to Auscultation, Breath Sounds Present Cardiovascular: Positive: RRR, S1, S2 Abdomen Description: Positive: Nontender, Soft Bowel Sounds: Positive: Present Musculoskeletal: Positive: Strength/ROM Intact Neurological: Positive: Sensory/Motor Intact, Alert, Oriented to Person Place, Time, Normal Gait, Facial Symmetry, Speech Normal Psychiatric: Positive: Normal, Affect/Mood Appropriate AVPU Assessment: Alert Procedures - Sedation Patient Received Moderate/Deep Sedation with Procedure: No Diagnostics - Vital Signs Vital Signs Temp Pulse Resp BP Pulse Ox 10/19/19 14:47 98.7 F 104 21 121/74 96 - Laboratory Result Diagrams: 10/19/19 15:08 10/19/19 15:08 Lab Statement: Any lab studies that have been ordered have been reviewed, and results considered in the medical decision making process. Chest Pain Course/Dx - Course Course Of Treatment: Patient was evaluated in the emergency department today for chest pain. Vitals noted stable. EKG was done at [facility] WHICH SHOWED NO EVIDENCE OF STEMI. Sinus tachycardia at a rate of 113 bpm. Normal axis, NM, QT interval. Minimal ST depression in lead V4, V5. No significant EKG changes when compared to prior done on 08/17/2019. Laboratory studies returned showing no significant leukocytosis however there was noted chronic anemia with an H&H of 11.1/33. BUS and was elevated at 27. Considering patient was mildly tachycardic he is likely dehydrated and will be given IV fluid replacement. Blood glucose returned at 195. Initial troponin is 0.00. Serial troponins will be repeated for evaluation of cardiac risk. HEART Score: 5. Hospitalist, Dr. Bustillos was consulted at 1551 for admission and disposition of the patient for further workup of chest pain. Hospitalist, Dr. Bustillos agreed to admit patient to [facility] for chest pain. - Chest Pain Differential Diagnosis/HQI/PQRI: Acute TX, ACS, Angina, Chest Wall - Diagnoses Provider Diagnoses: Atypical chest pain - Provider Notifications Discussed Care Of Patient With: Robert Bustillos - agreed to admit patient to hospital for further evaluation of chest pain due to heart score 5 Time Discussed With Above Provider: 15:51 Instructed by Provider To: Admit As Inpatient Discharge ED - Sign-Out/Discharge Documenting (check all that apply): Patient Departure - Discharge Plan Condition: Stable Disposition: ADMITTED TO [facility] Referrals: Abdulaziz Carranza MD [Primary Care Provider] - - Billing Disposition and Condition Condition: STABLE Disposition: Admitted to [facility] - Attestation Statements Provider Attestation: I was available for consult. This patient was seen by the [facility]. The patient was not presented to, seen by, or examined by me. Wilmar Mendoza MD
[2019-10-19 15:23] LABS: ABS Eosinophils 0.1 10^3/ul (0-0.6); ABS Lymphocytes 1.6 10^3/ul (1.0-4.8); ABS Neutrophils 6.3 10^3/ul (1.5-7.7); Eosinophil % 1.2 %; Hematocrit 33 % (42-52); Hemoglobin 11.1 g/dL (14.0-18.0); Lymphocyte % 17.4 %; Mean Corpuscular HGB Conc 34 g/dL (31-36); Mean Corpuscular Hemoglobin 32 pg (27-31); Mean Corpuscular Volume 94 fL (80-94); Mean Platelet Volume 8.7 fL (7.4-10.4); Platelet Count 227 10^3/uL (150-450); Red Blood Count 3.51 10^6 /uL (4.18-5.48); Red Cell Distribution Width 14 % (10-15); White Blood Count 9.1 10^3/uL (3.5-10.8)
[2019-10-19] MEDS ORDERED: NS 0.9% 1000 ML** 1,000 ML IV ONE (15:36)
[2019-10-19 15:42] LABS: Albumin 3.9 g/dL (3.2-5.2); Albumin/Globulin Ratio 1.5 (1-3); BUN/Creatinine Ratio 30.7 (8-20); Calcium 9.1 mg/dL (8.6-10.3); EGFR African American 104.8 (>60); EGFR Non-African American 86.6 (>60); Globulin 2.6 g/dL (2-4); Potassium 4.7 mmol/L (3.5-5.0); Total Bilirubin 0.3 mg/dL (0.2-1.0); Total Protein 6.5 g/dL (6.4-8.9)
[2019-10-19] MEDS ORDERED: Magnesium Hydroxide LIQ* 30 ML UDC PO PRN (17:00)
[2019-10-19] MEDS ORDERED: Docusate CAP* 100 MG PO PRN (17:00)
[2019-10-19] MEDS ORDERED: Acetaminophen TAB* 325 MG PO PRN (17:00)
[2019-10-19] MEDS ORDERED: Atropine 1% (ORAL/SL)* 15 ML BTL SL PRN (17:00)
[2019-10-19] MEDS ORDERED: Ondansetron ODT TAB* 4 MG SL PRN (17:01)
[2019-10-19] MEDS ORDERED: Aspirin TAB* 325 MG PO ONE (17:13)
[2019-10-19 19:01] LABS: Influenza A Molecular Negative (Negative); Influenza B Molecular Negative (Negative)
--- NOTE | 2019-10-19 20:24 | HP ---
CC: Dr. Carranza * [facility] MEDICINE HISTORY AND PHYSICAL: DATE OF ADMISSION: 10/19/19 PRIMARY CARE PHYSICIAN: Dr. Carranza. ATTENDING PHYSICIAN: Dr. Robert Bustillos * (dictation provided by Brenda Clark NP ). CHIEF COMPLAINT: Chest pain. HISTORY OF PRESENT ILLNESS: Mr. Blake is a 64-year-old male with past medical history of schizoaffective bipolar disorder, hypertension, diabetes, previous smoker who presents to the hospital today with concern for chest pain. Mr. Blake states he has been in his normal state of health with no complaints. He lives [facility] [place] [facility]. Today at lunchtime, he was sitting up eating lunch when he developed sudden chest pain, it radiated across his chest, he said it was quite severe. He ultimately called EMS and was brought to the hospital. He states that his pain has improved significantly and it is about a 2/10 but is still present. He denies any shortness of breath. He has been up ambulating in the emergency room without difficulty. He denies any nausea, vomiting, diarrhea, or abdominal pain. He denies cough. In the emergency room, Mr. Blake had labs, which showed a troponin, which was 0.00. He had an EKG which showed some suggestion of depressions in V4 through V6 but this is unchanged from previous. Chest x-ray is pending. PAST MEDICAL HISTORY: 1. Type 2 diabetes, [id number]. 2. Hypertension. 3. Previous smoker. 4. Schizoaffective disorder with bipolar disorder. 5. Hyperlipidemia. 6. Cognitive impairment. 7. History of urinary incontinence. 8. BPH. MEDICATIONS: 1. Lisinopril 10 mg p.o. daily. 2. Docusate 100 mg p.o. b.i.d. p.r.n. 3. Divalproex ER 1000 mg p.o. b.i.d. 4. Clozapine 100 mg p.o. in the morning and 400 mg at bedtime. 5. Atropine oral solution 2 drops sublingually q.2 hours as needed. 6. Atorvastatin 20 mg p.o. daily. 7. Acetaminophen 650 mg p.o. q.6 hours p.r.n. 8. Risperdal 4 mg p.o. at bedtime. 9. Glipizide XL 10 mg p.o. daily. 10. Omeprazole 20 mg p.o. daily. 11. Multivitamin with mineral 1 tab p.o. daily. 12. Metformin ER 1000 mg p.o. b.i.d. 13. Magnesium hydroxide 30 mL p.o. q.12 hours p.r.n. ALLERGIES: To BENZTROPINE, BUPROPION, CARBAMAZEPINE, DIAZEPAM, FLUOXETINE, FLUPHENAZINE, HALOPERIDOL, METFORMIN, THIOTHIXENE, and TRIHEXYPHENIDYL. I will note that despite the stated allergy, he is on metformin and this was confirmed with him. SOCIAL HISTORY: He is a resident at [place]. He is a former smoker, now just smokes only a pipe. He denies alcohol use. He lives at [place]. His uncle is his healthcare proxy. FAMILY HISTORY: The patient does note that the patient has bipolar disorder on both sides of his family. REVIEW OF SYSTEMS: A 14-point review of systems was completed with Mr. Blake and all those not mentioned above were negative. PHYSICAL EXAMINATION GENERAL: Mr. Blake is lying in the bed. He is in no acute distress. VITAL SIGNS: Temperature 98.7, pulse rate 104, respiratory rate 21, O2 saturation 96% on room air, blood pressure 121/74. LUNGS: Clear to auscultation bilaterally with no accessory muscle use and good aeration. HEART: S1, S2. No murmur, rub, or gallop. Regular. ABDOMEN: Soft, nontender with bowel sounds positive x4. NEURO: He is alert. He is oriented x3. He moves all extremities equally. There is no facial asymmetry or focal weakness. Extraocular movements are intact. EXTREMITIES: No cyanosis or edema. SKIN: Intact. DIAGNOSTIC STUDIES/LAB DATA: WBC 9.1, hemoglobin 11.1, hematocrit 33, platelet count 227. Sodium 136, potassium 4.7, chloride 104, serum bicarbonate 22, BUN 27, creatinine 0.88, glucose 195. Chest x-ray is pending. EKG again showed sinus rhythm with no change or evidence of ischemia. ASSESSMENT: Mr. Blake is a 64-year-old male with past medical history of hypertension, hyperlipidemia, diabetes, and smoking who presents to the hospital today with concern for chest pain. Our plans are for observation in the hospital for the followin. Chest pain. The patient will have troponins x3. He will have EKGs with each troponin, will be monitoring for chest pain and treating as needed. He will have aspirin daily. He will continue with his atorvastatin. As he does not have any ischemic changes and his troponin is negative, no further treatment is indicated at this point, we will adjust that based on the clinical course. 2. Type 2 diabetes. Plan to hold glipizide and metformin. He will have blood glucoses q.a.c. with lispro sliding scale and a consistent carbohydrate diet. 3. Hypertension. Plan to continue lisinopril. 4. Schizoaffective disorder with bipolar. Plan to continue all home medications and these were verified with the patient today. 5. DVT prophylaxis with SCDs. 6. Code status is full code. TIME SPENT: Approximately 60 minutes was spent on the admission of this patient , more than half that time was spent with the patient at bedside reviewing the events leading up to this hospitalization, performing the physical examination, and reviewing my plan of care. BRENDA CLARK, ANNABEL [id number]/CPS #: [id number] LUIS
[2019-10-19] MEDS: CloZAPine TAB* 100 MG TAB PO SCH (21:51)
[2019-10-19] MEDS: Divalproex DR TAB(*) 500 MG PO SCH (21:52)
[2019-10-19] MEDS: risperiDONE TAB* 2 MG PO SCH (21:53)
[2019-10-20] MEDS: Divalproex DR TAB(*) 500 MG PO SCH ×2 (08:53→19:49)
[2019-10-20] MEDS: Lisinopril TAB* 10 MG PO SCH (08:53)
[2019-10-20] MEDS: Multivitamins/Minerals TAB PO SCH (08:53)
[2019-10-20] MEDS: Atorvastatin* 20 MG TAB PO SCH (08:53)
[2019-10-20] MEDS: Pantoprazole TAB * 40 MG TAB PO SCH (08:53)
[2019-10-20] MEDS: CloZAPine TAB* 100 MG TAB PO SCH ×2 (08:54→19:49)
--- NOTE | 2019-10-20 15:12 | PN ---
Subjective Date of Service: 10/20/19 Interval History: Patient seen awake, alert no fever. no chills. complains of chest pain this morning 08/16. otherwise no events. EKG and Trop unremarkable. He has known history of schizo-affective disorder, Unfortunately, poor historian unable to reliably evaluate his chest pain characteristic. He seems resting comfortably during my interview but is complaining of chest pain and discomfort. Past Medical History: Unchanged from Admission Objective Active Medications: Acetaminophen (Tylenol Tab*) 650 mg PO Q6H PRN PRN Reason: PAIN-MODERATE/TEMP >/= 100.4 Last Admin: 10/19/19 21:52 Dose: 650 mg Atorvastatin Calcium (Lipitor*) 20 mg PO DAILY [facility] Last Admin: 10/20/19 08:53 Dose: 20 mg Atropine Sulfate (Atropine 1% (Oral/Sl)*) 2 drop SL Q2H PRN PRN Reason: drooling Last Admin: 10/19/19 22:00 Dose: 2 drp Clozapine (Clozapine Tab*) 100 mg PO DAILY [facility] Last Admin: 10/20/19 08:54 Dose: 100 mg Clozapine (Clozapine Tab*) 400 mg PO BEDTIME [facility] Last Admin: 10/19/19 21:51 Dose: 400 mg Divalproex Sodium (Depakote Dr Tab(*)) 1,000 mg PO BID [facility] Last Admin: 10/20/19 08:53 Dose: 1,000 mg Docusate Sodium (Colace Cap*) 100 mg PO BID PRN PRN Reason: CONSTIPATION Lisinopril (Prinivil Tab*) 10 mg PO DAILY [facility] Last Admin: 10/20/19 08:53 Dose: 10 mg Magnesium Hydroxide (Milk Of Magnesia Liq*) 30 ml PO Q12H PRN PRN Reason: CONSTIPATION Multivitamins/Minerals (Theragran/Minerals Tab*) 1 tab PO DAILY [facility] Last Admin: 10/20/19 08:53 Dose: 1 tab Ondansetron HCl (Zofran Odt Tab*) 4 mg SL Q6H PRN PRN Reason: NAUSEA/VOMITING Pantoprazole Sodium (Protonix Tab*) 40 mg PO DAILY [facility] Last Admin: 10/20/19 08:53 Dose: 40 mg Risperidone (Risperdal*) 4 mg PO BEDTIME [facility] Last Admin: 10/19/19 21:53 Dose: 4 mg Vital Signs - 8 hr 10/20/19 10/20/19 10/20/19 07:15 08:00 11:15 Temperature 97.9 F 98.0 F Pulse Rate 81 96 Respiratory 20 20 16 Rate Blood Pressure 136/69 120/67 (mmHg) O2 Sat by Pulse 96 98 Oximetry Oxygen Devices in Use Now: None Appearance: awake, alert oriented to self only Eyes: No Scleral Icterus, PERRLA Ears/Nose/Mouth/Throat: NL Teeth, Lips, Gums, Mucous Membranes Moist, - - drooling Neck: NL Appearance and Movements; NL JVP, Trachea Midline Respiratory: Symmetrical Chest Expansion and Respiratory Effort, Clear to Auscultation Cardiovascular: NL Sounds; No Murmurs; No JVD, - - + 1 edema Abdominal: NL Sounds; No Tenderness; No Distention Result Diagrams: 10/19/19 15:08 10/19/19 15:08 Assess/Plan/Problems-Billing Assessment: 64 y/o male poor historian with his history of Scizoaffective disorder admitted for chest pain. -09/16 . - Patient Problems (1) Chest pain Current Visit: Yes Status: Acute Code(s): R07.9 - CHEST PAIN, UNSPECIFIED SNOMED Code(s): 17296335 Comment: - given his poor history and unreliable history will proceed with Echo and Nuclear stress test in am - Lipitor 20 mg HS, Aspirin 81 mg Daily. will add lopressor 25 mg HS (2) Bipolar affective, manic, severe w/ psych Current Visit: No Status: Acute Code(s): F31.2 - BIPOLAR DISORD, CRNT EPISODE MANIC SEVERE W PSYCH FEATURES SNOMED Code(s): 799455762 Comment: -Stable -Continue clozapine and risperidal (3) DM type 2 (diabetes mellitus, type 2) Current Visit: No Status: Chronic Priority: Medium Comment: - Will place him on SS and coverage (4) Seizure disorder Current Visit: No Status: Chronic Priority: Medium Code(s): G40.909 - EPILEPSY, UNSP, NOT INTRACTABLE, WITHOUT STATUS EPILEPTICUS SNOMED Code(s): 572734533 Comment: - continuer Depakote BID at 1000 mg - Check level in am (5) DVT prophylaxis Current Visit: No Status: Acute Priority: Medium Code(s): SIG4084 - SNOMED Code(s): 463693880 Comment: -On heparin SQq8
[2019-10-20] MEDS ORDERED: Dextrose 50% Syringe 50 ML* 25 GM/50 ML SYRINGE IV PUSH PRN (15:28)
[2019-10-20] MEDS: Insulin LISPRO* 1 UNITS UNIT SUBCUT SCH ×2 (16:21→21:40)
[2019-10-20] MEDS: risperiDONE TAB* 2 MG PO SCH (19:50)
[2019-10-20] MEDS ORDERED: Metoprolol Succinate XL TAB* 25 MG PO SCH (21:00)
[2019-10-20] MEDS: Heparin VIAL(*) 5000 UNITS/ML VIAL (FIVE THOUSAND) SUBCUT SCH (21:44)
[2019-10-21] MEDS: Heparin VIAL(*) 5000 UNITS/ML VIAL (FIVE THOUSAND) SUBCUT SCH ×2 (05:00→13:40)
[2019-10-21 06:04] LABS: ABS Eosinophils 0.2 10^3/ul (0-0.6); ABS Lymphocytes 1.8 10^3/ul (1.0-4.8); ABS Monocytes 0.8 10^3/ul (0-0.8); ABS Neutrophils 4.6 10^3/ul (1.5-7.7); Eosinophil % 3.3 %; Hematocrit 33 % (42-52); Lymphocyte % 24.3 %; Mean Corpuscular HGB Conc 34 g/dL (31-36); Mean Corpuscular Hemoglobin 31 pg (27-31); Mean Corpuscular Volume 93 fL (80-94); Mean Platelet Volume 8.6 fL (7.4-10.4); Nucleated Red Blood Cells % 0.1; Platelet Count 257 10^3/uL (150-450); Red Blood Count 3.52 10^6 /uL (4.18-5.48); Red Cell Distribution Width 13 % (10-15); White Blood Count 7.6 10^3/uL (3.5-10.8)
[2019-10-21 06:22] LABS: Albumin 3.6 g/dL (3.2-5.2); Albumin/Globulin Ratio 1.2 (1-3); BUN/Creatinine Ratio 29.4 (8-20); Calcium 8.9 mg/dL (8.6-10.3); EGFR African American 109.1 (>60); EGFR Non-African American 90.2 (>60); Globulin 2.9 g/dL (2-4); Indirect Bilirubin 0.1 mg/dL (0.3-1.0); Magnesium 2.3 mg/dL (1.9-2.7); Phosphorus 3.5 mg/dL (2.5-5.0); Potassium 4.6 mmol/L (3.5-5.0); Total Bilirubin 0.2 mg/dL (0.2-1.0); Total Protein 6.5 g/dL (6.4-8.9)
[2019-10-21] MEDS ORDERED: LORazepam INJ* 2 MG/ML 1 ML VIAL ONE (07:36)
[2019-10-21] MEDS ORDERED: Lorazepam PYXIS KEY ONE ×2 (07:36→09:31)
[2019-10-21] MEDS: Insulin LISPRO* 1 UNITS UNIT SUBCUT SCH ×2 (07:37→12:29)
[2019-10-21] MEDS ORDERED: Aspirin EC TAB* 81 MG TAB.EC PO SCH (09:00)
[2019-10-21] MEDS: Multivitamins/Minerals TAB PO SCH (11:03)
[2019-10-21] MEDS: Atorvastatin* 20 MG TAB PO SCH (11:03)
[2019-10-21] MEDS: Divalproex DR TAB(*) 500 MG PO SCH (11:04)
[2019-10-21] MEDS: Pantoprazole TAB * 40 MG TAB PO SCH (11:04)
[2019-10-21] MEDS: Lisinopril TAB* 10 MG PO SCH (11:05)
[2019-10-21] MEDS: CloZAPine TAB* 100 MG TAB PO SCH (11:06)
[2019-10-21] MEDS ORDERED: Regadenoson* 0.4 MG/5 ML SYRINGE ONE (11:21)
--- NOTE | 2019-10-21 11:34 | ECHO ---
*[facility]* [place] [address] Fax #: [phone] Transthoracic Echocardiogram Patient: Natacha Blake : 1955 Study Date: 10/21/2019 Age: 64 Gender: M HR: 80 bpm Height: 67 in /170.2 cm BSA: 2.02 m^2 Weight: 198.6 lb /90.3 kg BMI: 31.2 kg/m^2 *Retail Event And Sales Assistant: * Kathleen Ibanez [facility] *Referring Physician: * Edsno WeirReading Physician: * Dominguez Cruz MD Indications: Chest Pain, unspecified. History: Risk factors: Hypertension. Diabetes mellitus. Dyslipidemia. Conclusions Summary: - Left ventricle: Systolic function is normal. The estimated ejection fraction is 55-60%. Wall motion is normal; there are no regional wall motion abnormalities. - Right ventricle: Systolic function is normal. - Mitral valve: There is no significant regurgitation. - Aortic valve: There is no evidence of stenosis. - Tricuspid valve: There is no significant regurgitation. - Pulmonary arteries: Systolic pressure can not be accurately estimated. - Study data: No prior study is available for comparison. Study data: Transthoracic echocardiogram. Procedure: Transthoracic echocardiography was performed. Image quality was adequate. Complete 2D, spectral Doppler, and color flow Doppler. Location: Bedside. Patient status: Inpatient. Patient room number: 444 01. No prior study is available for comparison. Rhythm: Normal sinus rhythm. Findings Left ventricle: The cavity size is normal. Wall thickness is normal. Systolic function is normal. The estimated ejection fraction is 55-60%. Wall motion is normal; there are no regional wall motion abnormalities. There is no consistent Doppler evidence of clinically significant diastolic dysfunction. Right ventricle: The cavity size is normal. Systolic function is normal. Left atrium: The atrium is normal in size. Right atrium: The atrium is normal in size. Mitral valve: The leaflets are normal thickness. There is no evidence of stenosis. There is no significant regurgitation. Aortic valve: The valve is trileaflet. The leaflets are mildly thickened. There is no evidence of stenosis. There is no significant regurgitation. Tricuspid valve: The leaflets are normal thickness. There is no evidence of stenosis. There is no significant regurgitation. Pulmonic valve: The leaflets are normal thickness. There is no evidence of stenosis. There is trace regurgitation. Aorta: The aortic root appears normal. The aortic arch appears normal. Pericardium: There is no significant pericardial effusion. Pulmonary arteries: Systolic pressure can not be accurately estimated. Systemic veins: Inferior vena cava: The vessel is normal in size. There is (>= 50%) respiratory change in the IVC dimension. Measurements Left ventricle Value Ref Aortic valve Value Ref GABE, LAX 4.8 cm 4.2 - 5.8 Chioma diam, ED 2.2 cm ---- ESD, LAX 2.8 cm 2.5 - 4.0 Peak v, S 0.93 m/sec ---- FS, LAX 42 % 25 - 43 VTI, S 17.6 cm ---- PW, ED, LAX 0.9 cm 0.6 - 1.0 Mean grad, S 2.0 mm Hg ---- E', lat chioma, TDI (L) 8.7 cm/sec >=10.0 Peak grad, S 3.0 mm Hg ---- E/e', lat chioma, 7 TDI Mitral valve Value Ref E', med chioma, TDI (L) 6.8 cm/sec >=7.0 Peak E 0.6 m/sec ---- E/e', med chioma, 9 Peak A 0.77 m/sec -- -- TDI Decel time 140 ms ---- E', avg, TDI 7.8 cm/sec Peak E/A ratio 0.8 -- -- E/e', avg, TDI 8 <=14 Pulmonic valve Value Ref LVOT Value Ref Peak v, S 0.64 m/sec ---- Peak elo, S 0.82 m/sec Peak grad, S 2.0 mm Hg ---- Mean grad, S 1 mm Hg Aortic root Value Ref Ventricular septum Value Ref Root diam 2.8 cm <4.2 IVS, ED 0.9 cm 0.6 - 1.0 Root max diam, ED 2.8 cm <4.2 Right ventricle Value Ref Ascending aorta Value Ref GABE, LAX 2.6 cm AAo AP diam, S 2.9 cm ---- GABE minor ax, A4C 3.2 cm 1.9 - 3.5 AAo AP diam/bsa, S 1.4 cm/m^2 ---- mid Aortic arch Value Ref Left atrium Value Ref Arch diam 2.7 cm ---- AP dim, ES 3.00 cm 3.00 - 4.00 Decending aorta Value Ref ML dim, A4C 3.9 cm Nelly peak elo 0.73 m/sec ---- SI dim, A4C 4.0 cm Vol/bsa, ES, A/L 21 ml/m^2 16 - 34 Inferior vena cava Value Ref Diam 1.6 cm ---- Right atrium Value Ref SI dim, ES 4.2 cm 3.4 - 5.3 ML dim, ES, A4C 3.6 cm 2.6 - 4.4 Estimated RAP 8 mm Hg Legend: (L) and (H) bayron values outside specified reference range. Prepared and electronically signed by Dominguez Cruz MD 10/21/2019 11:34
[2019-10-21 14:51] VITALS: BP 115/70
--- NOTE | 2019-10-21 22:52 | DS ---
CC: Dr. Abdulaziz Carranza.* DISCHARGE SUMMARY: DATE OF ADMISSION: 10/19/19. DATE OF DISCHARGE: 10/21/19. PROVIDER: Kirsty Taveras NP. ATTENDING PHYSICIAN WHILE IN THE HOSPITAL: Dr. Weir * (dictated by Kirsty Taveras NP). PRIMARY CARE PROVIDER: Dr. Abdulaziz Carranza. PRIMARY DIAGNOSIS: Atypical chest pain. SECONDARY DIAGNOSES: 1. Schizoaffective with bipolar disorder. 2. Diabetes mellitus 2. 3. Hyperlipidemia. 4. Cognitive impairment. 5. Urinary incontinence. 6. BPH. PERTINENT STUDIES WHILE IN THE HOSPITAL: Chest x-ray. Impression: No radiographic evidence for acute cardiopulmonary abnormality on this portable chest x-ray. EKG sinus rhythm, normal P axis, rate 60 to 99, normal EKG. Nuclear medicine myocardial multi resting. Impression: No definite fixed or reversible perfusion defects. Assessment: The patient is lower risk based on imaging criteria from ACC/AHA 2002 guideline update for management of the patient's chronic stable angina, table 23, non-invasive risk stratification. Transthoracic echocardiogram: Left ventricular systolic function is normal. The estimated ejection fraction is 55% to 60%. Wall motion is normal. There are no regional wall motion abnormalities. Right ventricular systolic function is normal. Mitral valve, there is no significant regurgitation. Aortic valve, there is no evidence of stenosis. Tricuspid valve, there is no significant regurgitation. Pulmonary artery systolic pressure cannot be accurately estimated. Study data, no prior study available for comparison. Pertinent lab valves, troponin 0.00 x2 readings. Influenza A and influenza B both negative. HISTORY OF PRESENT ILLNESS/HOSPITAL COURSE: Mr. Blake is a 64-year-old male with a past medical history of schizoaffective bipolar disorder, hypertension, diabetes, previous smoker, who presented to the hospital on 10/19/19 for complaints of sudden onset of chest pain that radiated across his chest today at lunchtime in the senior living that he lives. The patient reported it was quite severe but pain improved to 2/10, but remained present. The patient reports that the chest pain has remained present throughout his stay in the hospital. The patient was initially tachycardiac while in the ER. The patient was started on metoprolol succinate XL 25 mg tabs on 10/20/19. The patient responded well to medications. The patient's heart rate normalized from 104 to mid 80s consistently. The patient remains normotensive on this new medication. Chest x-ray was negative for cardiomegaly or infiltrates in the lungs. Troponin levels remained 0.00 and EKG remained normal sinus rhythm, also transthoracic echocardiogram found the patient with ejection fraction of 55 % to 60% and no abnormal heart motions. No further concern for cardiac origination of chest pain. Other causes of chest pain in the differential included reflux or hiatal hernia. Because the chest pain was atypical and the patient was tolerating metoprolol well, but chest pain did not completely resolve, consideration of GI nature was included related to a possible hiatal hernia or other cause of reflux. So, the patient was started on the omeprazole and the patient is tolerating omeprazole well. PHYSICAL EXAMINATION: On exam, the patient is alert and oriented x4 with no focal neurological deficits. Heart has regular rate, rhythm without murmurs, rubs or gallops. The patient is absent of any edema in lower extremities. The patient does have +2 pulses bilaterally, pedal and +2 pulses bilateral radial. The patient's abdomen is soft, nontender to palpation. Bowel sounds positive x4 quadrants. Physical exam is otherwise benign. Mr. Blake is stable for discharge. Most recent vital signs are 98.3 temp, 84 for pulse, 14 respirations, 99% on room air, 135/67 for blood pressure. DISCHARGE MEDICATIONS: Changed medications: 1. Aspirin enteric coated tablets 81 mg p.o. daily x30 days. 2. Metoprolol succinate XL tab 25 mg p.o. at bedtime x30 days. 3. Omeprazole capsules 20 mg p.o. b.i.d. x30 days. Continued home medications: 1. Acetaminophen 650 mg p.o. q.6 hours as needed for pain or temperature. 2. Atorvastatin 20 mg p.o. daily. 3. Atropine 1% 2 drops sublingually every 2 hours as needed for drooling. 4. Clozapine 100 mg tabs p.o. daily. 5. Clozapine tabs 400 mg p.o. at bedtime. 6. Divalproex DR tab 1000 mg p.o. b.i.d. 7. Docusate capsules 100 mg p.o. b.i.d. as needed for constipation. 8. Lisinopril 10 mg p.o. daily. 9. Magnesium hydroxide 30 mL p.o. every 12 hours as needed for constipation. 10. Multivitamin 1 tab p.o. daily. 11. Risperidone 4 mg p.o. at bedtime. 12. Glipizide tab XL 10 mg p.o. daily. 13. Metformin 1000 mg p.o. b.i.d. DISCHARGE PLAN: Mr. Olivares will be discharged home. Activity will be as tolerated. Diet will be resumed as normal, diabetic diet. Medications are as noted above. The patient will start taking 81 mg of aspirin daily. Metoprolol as ordered and omeprazole as ordered. The patient will follow up with primary care provider in one month to evaluate progress on new medications and for purposes of reordering medications for the patient. The patient instructed to return to the ER if he experiences any chest pain or develops any shortness of breath, dizziness, weakness or other the concerning symptoms. DISCHARGE CONDITION: Stable. DISCHARGE DISPOSITION: Home. This is a summarized report of medical history and hospital stay. For further details, please see the entire medical record. TIME SPENT: Approximately 45 minutes on this discharge. KIRSTY TAVERAS, ANNABEL [id number]/CPS #: [id number] LUIS
== END 2019-10-21 15:30 | disposition home or self-care (01) ==
LOC: ED 14:45 → MEDTELE 16:57
PROVIDERS: ADMIT Internal Medicine; ATTEND Internal Medicine
DX: R07.89 Other chest pain (principal); F25.0 Schizoaffective disorder, bipolar type; E11.9 Type 2 diabetes mellitus without complications; E78.5 Hyperlipidemia, unspecified; G31.84 Mild cognitive impairment of uncertain or unknown etiology; N40.1 Benign prostatic hyperplasia with lower urinary tract symptoms; I10 Essential (primary) hypertension; I20.9 Angina pectoris, unspecified; N39.498 Other specified urinary incontinence; G40.909 Epilepsy, unspecified, not intractable, without status epilepticus; Z79.82 Long term (current) use of aspirin; Z79.899 Other long term (current) drug therapy; Z79.84 Long term (current) use of oral hypoglycemic drugs; Z88.8 Allergy status to other drugs, medicaments and biological substances; F17.210 Nicotine dependence, cigarettes, uncomplicated
CPT/HCPCS: 36415; 71045; 78452; 80048; 80053; 80076; 80164; 83735; 84100; 84484; 85025; 93005; 93017; 93306; 96360; 96361; 96372; 99284; A9270-GY; A9502; G0378; J1644; J2060; J2785

== ENCOUNTER 2019-10-22 13:33 | Emergency (ER) | payer OTHER ==
--- NOTE | 2019-10-22 14:07 | ED ---
Adult Trauma - HPI Summary HPI Summary: 64 year old male presents with headache neck pain and back pain today. He states that he was leaning down and ended up falling and hitting his head. He states he's had pretty severe pain in his neck. C-collar was placed by EMS. He denies any loss consciousness. He states after he fell. He denies any nausea or vomiting. He has aspirin. He denies any chest shortness breath. No change in vision. No hip pain. He was just started on a daily aspirin. fall was a mechanical fall. patient is poor historian. - History of Current Complaint Chief Complaint: EDFall Stated Complaint: FALL- NECK PAIN PER EMS Time Seen by Provider: 10/22/19 13:46 Pain Intensity: 5 - Additional Pertinent History Primary Care Physician: CHETNA - Allergy/Home Medications Allergies/Adverse Reactions: Allergies Allergy/AdvReac Type Severity Reaction Status Date / Time benztropine [From Cogentin] Allergy Unknown Verified 10/22/19 13:55 Reaction Details bupropion Allergy Unknown Verified 10/22/19 13:55 Reaction Details carbamazepine Allergy Unknown Verified 10/22/19 13:55 Reaction Details diazepam Allergy See Comment Verified 10/22/19 13:55 fluoxetine Allergy Unknown Verified 10/22/19 13:55 Reaction Details fluphenazine Allergy Unknown Verified 10/22/19 13:55 Reaction Details haloperidol Allergy Unknown Verified 10/22/19 13:55 Reaction Details metformin Allergy Unknown Verified 10/22/19 13:55 Reaction Details thiothixene Allergy Unknown Verified 10/22/19 13:55 Reaction Details trihexyphenidyl Allergy Unknown Verified 10/22/19 13:55 Reaction Details Home Medications: Home Medications Atorvastatin* [Lipitor 20 MG*] 20 mg PO DAILY #30 tab 09/02/19 [Rx Confirmed ] CloZAPine TAB* 400 mg PO BEDTIME #120 tab 09/02/19 [Rx Confirmed 10/22/19] Divalproex DR TAB(*) [Depakote DR TAB(*)] 1,000 mg PO BID #120 tab. 09/02/19 [ Rx Confirmed 10/22/19] Docusate CAP* [Colace Cap*] 100 mg PO BID PRN #60 cap 09/02/19 [Rx Confirmed ] Lisinopril TAB* [Prinivil TAB 10 MG*] 10 mg PO DAILY #30 tab 09/02/19 [Rx Confirmed 10/22/19] Multivitamins/Minerals TAB* [Theragran/minerals TAB*] 1 tab PO DAILY #30 tab [Rx Confirmed 10/22/19] glipiZIDE TAB.XL* [Glucotrol Xl*] 10 mg PO DAILY #60 tab.xl 09/02/19 [Rx Confirmed 10/22/19] risperiDONE TAB* [Risperdal*] 4 mg PO BEDTIME #60 tab 09/02/19 [Rx Confirmed ] Metformin ER (NF) 1,000 mg PO BID 10/19/19 [History Confirmed 10/22/19] Acetaminophen TAB* [Tylenol TAB*] 650 mg PO TID PRN 10/22/19 [History Confirmed 10/22/19] CloZAPine TAB* 100 mg PO QAM 10/22/19 [History Confirmed 10/22/19] Lidocaine PATCH 5%* [Lidoderm 5% Patch*] 1 patch TRANSDERM DAILY #6 patch [Rx] Loperamide CAP* [Imodium CAP*] 2 mg PO QID PRN 10/22/19 [History Confirmed 10/21] Magnesium CITRATE* [Citrate of Magnesia*] 200 mg PO DAILY PRN 10/22/19 [History Confirmed 10/22/19] Omeprazole CAP (NF) [Prilosec CAP* 20 MG] 20 mg PO DAILY 10/22/19 [History Confirmed 10/22/19] PMH/Surg Hx/FS Hx/Imm Hx Endocrine/Hematology History: Reports: Hx Diabetes, Hx Anemia, Other Endocrine/ Hematological Disorders - Impaired fasting glucose Denies: Hx Anticoagulant Therapy, Hx Thyroid Disease Cardiovascular History: Reports: Hx Angina, Hx Hypercholesterolemia, Hx Hypertension Denies: Hx Pacemaker/ICD Respiratory History: Denies: Hx Asthma, Hx Chronic Obstructive Pulmonary Disease (COPD) GI History: Reports: Hx Gastroesophageal Reflux Disease Denies: Hx Ulcer Comment Only: Other GI Disorders - Chronic constipation History: Reports: Hx Acute Renal Failure - secondary to lithium carbonate, Hx Benign Prostatic Hyperplasia, Hx Kidney Stones, Other Problems/Disorders - Urinary incontinence Denies: Hx Renal Disease Musculoskeletal History: Denies: Hx Gout Sensory History: Reports: Hx Cataracts, Hx Contacts or Glasses - did not bring Denies: Hx Deafness, Hx Hearing Aid Opthamlomology History: Reports: Hx Cataracts, Hx Contacts or Glasses - did not bring Neurological History: Reports: Hx Developmental Delay, Hx Headaches, Hx Seizures - seizure d/o Denies: Hx Dementia Psychiatric History: Reports: Hx Depression, Hx Panic Disorder, Hx Inpatient Treatment, Hx Community Mental Health Tx, Hx Schizophrenia, Hx Bipolar Disorder , Hx Suicide Attempt, Hx of Violent Episodes Against Others Denies: Hx Eating Disorder, Hx Post Traumatic Stress Disorder, Hx Substance Abuse - Cancer History Cancer Type, Location and Year: None reported - Surgical History Surgery Procedure, Year, and Place: RIGHT wrist, ring finger on right hand, penis as a baby. - Immunization History Date of Tetanus Vaccine: UNK Date of Influenza Vaccine: Fall 2011 Infectious Disease History: No Infectious Disease History: Denies: Hx Hepatitis, Hx Human Immunodeficiency Virus (HIV), History Other Infectious Disease, Traveled Outside the in Last 30 Days - Family History Known Family History: Positive: Hypertension, Other - Alcoholism - Social History Alcohol Use: None Alcohol Amount: hx of alcohol abuse per pt Hx Substance Use: No Substance Use Type: Reports: None Hx Tobacco Use: Yes Smoking Status (MU): Former Smoker Type: Cigarettes Amount Used/How Often: 4-5/day Have You Smoked in the Last Year: Yes Review of Systems Negative: Fever Negative: Chest Pain Negative: Shortness Of Breath Positive: Myalgia - neck and back Positive: Headache All Other Systems Reviewed And Are Negative: Yes Physical Exam Triage Information Reviewed: Yes Vital Signs On Initial Exam: Initial Vitals Temp Pulse Resp BP Pulse Ox 98.3 F 103 17 113/67 96 10/22/19 13:46 10/22/19 13:46 10/22/19 13:46 10/22/19 13:46 10/22/19 13:46 Vital Signs Reviewed: Yes Appearance: Positive: Well-Appearing Skin: Positive: Warm, Dry Head/Face: Positive: Normal Head/Face Inspection Eyes: Positive: Normal, Conjunctiva Clear ENT: Positive: Pharynx normal Respiratory/Lung Sounds: Positive: Clear to Auscultation, Breath Sounds Present Cardiovascular: Positive: Normal, RRR Musculoskeletal: Positive: Limited @ - neck, Other - tenderness to neck, thoracic and lower back Neurological: Positive: Sensory/Motor Intact, Alert, Oriented to Person Place, Time, CN Intact II-III, Other - contusion back of head Psychiatric: Positive: Normal - Michael Coma Scale Best Eye Response: 4 - Spontaneous Best Motor Response: 6 - Obeys Commands Best Verbal Response: 5 - Oriented Coma Scale Total: 15 Procedures - Sedation Patient Received Moderate/Deep Sedation with Procedure: No Diagnostics - Vital Signs Vital Signs Temp Pulse Resp BP Pulse Ox 10/22/19 13:46 98.3 F 103 17 113/67 96 - Laboratory Lab Statement: Any lab studies that have been ordered have been reviewed, and results considered in the medical decision making process. - CT brain CT Interpretation Completed By: Radiologist Summary of CT Findings: IMPRESSION: 1. No acute intracranial abnormality. 2. Mild chronic small vessel ischemic disease is likely. 3. Mild cerebral volume loss. neck CT Interpretation Completed By: Radiologist Summary of CT Findings: IMPRESSION: 1. No cervical spine fracture or traumatic malalignment. 2. Acquired osseous fusion of the C6-C7 vertebral bodies. 3. Varying degrees of multilevel spondylosis with at least mild osseous encroachment of the spinal canal at C6-C7. thoracic CT Interpretation Completed By: Radiologist Summary of CT Findings: IMPRESSION: DEGENERATIVE DISC DISEASE. NO ACUTE OSSEOUS INJURY TO THE THORACIC SPINE. lumbar CT Interpretation Completed By: Radiologist Summary of CT Findings: IMPRESSION: 1. DEGENERATIVE DISC DISEASE AND OSTEOARTHRITIS. 2. THERE IS NEUROFORAMINAL NARROWING DESCRIBED ABOVE. THERE IS NO OSSEOUS CENTRAL CANAL STENOSIS. 3. NO ACUTE OSSEOUS INJURY TO THE LUMBAR SPINE Adult Trauma Course/Dx - Course Course Of Treatment: 64 year old male presents with headache neck pain and back pain today. He states that he was leaning down and ended up falling and hitting his head. He states he's had pretty severe pain in his neck. C-collar was placed by EMS. He denies any loss consciousness. He states after he fell. He denies any nausea or vomiting. He has aspirin. He denies any chest shortness breath. No change in vision. No hip pain. He was just started on a daily aspirin. On exam has normal neuro exam. Tenderness of neck, thoracic and lumbar back. Neurovascular intact. CT brain show no bleed. CT neck, thoracic, and lumbar no fracture. will discharge with lidoderm patch. told to place ice. told follow up with primary. patient understand and agrees with plan. - Diagnoses Differential Diagnosis/HQI/PQRI: Positive: Contusion(s), Fracture, Other Provider Diagnoses: Fall, Head injury, Neck pain, Back pain Discharge ED - Sign-Out/Discharge Documenting (check all that apply): Patient Departure - Discharge Plan Condition: Good Disposition: HOME Prescriptions: Lidocaine PATCH 5%* [Lidoderm 5% Patch*] 1 patch TRANSDERM DAILY #6 patch Patient Education Materials: Head Injury (ED), Neck Pain (ED) Referrals: Abdulaziz Carranza MD [Primary Care Provider] - Additional Instructions: Apply lidocaine patches to area for up to 12 hours in one 24 hour period Use Tylenol for pain every 6 hours ice/heat area, move as much as possible Follow up with primary within 5 days Return to ED if develop any new or worsening symptoms - Billing Disposition and Condition Condition: GOOD Disposition: Home
[2019-10-22] MEDS ORDERED: Lidocaine PATCH 5%* 1 PATCH TRANSDERM ONE (15:07)
[2019-10-22] MEDS ORDERED: Acetaminophen TAB* 325 MG PO ONE (15:07)
[2019-10-22 16:01] VITALS: BP 133/83
[2019-10-22] MEDS ORDERED: Lidocaine Patch REMOVE* 1 NOTE MISC SCH (21:00)
== END 2019-10-22 15:25 | disposition home or self-care (01) ==
LOC: ED 13:33
DX: M54.2 Cervicalgia (principal); M54.9 Dorsalgia, unspecified; E11.9 Type 2 diabetes mellitus without complications; E78.00 Pure hypercholesterolemia, unspecified; I10 Essential (primary) hypertension; K21.9 Gastro-esophageal reflux disease without esophagitis; N17.9 Acute kidney failure, unspecified; F32.9 Major depressive disorder, single episode, unspecified; Z87.891 Personal history of nicotine dependence; Z91.81 History of falling
CPT/HCPCS: 70450; 72125; 72128; 72131; 99282; A9270-GY

== ENCOUNTER 2019-11-27 15:09 | Emergency (ER) | payer OTHER ==
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
--- OUTSIDE RECORDS SUMMARY | 2019-11-27 16:17 | XMS REPORT | Continuity of Care Document ---
:1955 External Reference #:[id number] Author Name Edson Weir M.D. (transmitted by agent of provider Cady Beltran) Address [address] [place] [address] Care Team Providers Name Role Phone Abdulaziz Carranza MD - Internal Care Team Information Banquet Lead [phone] Medicine Problems Active Problems Provider Date Dizziness and giddiness Servando Urena MD Onset: 05/23/2018 Social History Type Date Description Comments Sex Unknown ETOH Use Denies alcohol use Tobacco Use Start: Unknown Occasionally Recreational Drug Use Denies Drug Use Smoking Status Reviewed: 10/26/18 Occasionally Exercise Type/Frequency Exercises rarely Allergies, Adverse Reactions, Alerts Active Allergies Reaction Severity Comments Date Benztropine 06/08/2018 Bupropion 06/08/2018 Carbamazepine 06/08/2018 Diazepam 06/08/2018 Fluoxetine 06/08/2018 Fluphenazine 06/08/2018 Metformin 06/08/2018 Thiothixene 06/08/2018 Trihexyphenidyl 06/08/2018 Haldol 06/08/2018 Fluphenazine 10/26/2018 Sigourney 10/26/2018 Flomax 10/26/2018 Trazodone 10/26/2018 Medications Active Medications SIG Qnty Indications Ordering Provider Date Docusate Sodium take 1 capsules by Abeba Dang 05/25/2018 100mg mouth twice daily ANNABEL Burton Capsules as needed Multivitamin Men Take 1 tablet by Abeba Dang 05/25/2018 mouth one time a ANNABEL Burton Tablets day Aspirin Adult Low Take 1 tablet by Abeba Dang 05/25/2018 Dose mouth one time ANNABEL Burton 81mg Tablets DR daily Divalproex Sodium ER Take 2 tablets by Abeba Dang 05/25/2018 mouth two times ANNABEL Burton 500mg Tablets ER daily for BiPolar 24HR Atorvastatin Calcium Take 1 tablets by Abeba Dang 05/25/2018 mouth in the ANNABEL Burton 20mg Tablets evening Omeprazole Take 1 tablet by Abeba Dang 05/25/2018 20mg mouth daily at ANNABEL Burton Capsules DR bedtime Clozapine Take 1 tablet by Abeba Dang 05/25/2018 100mg mouth in the ANNABEL Burton Tablets Dispers morning daily Risperdal Take 1 tablet by Abeba Dang 05/25/2018 4mg Tablets mouth at bedtime ANNABEL Burton daily for Bipolar Milk Of Magnesia Take 30 ml by mouth Abeba Dang 05/25/2018 every 12 hours as ANNABEL Burton 400mg/5ML Suspension needed for Constipation Once Daily 1 by mouth every Unknown Tablets day Mapap take 2 tablets by Unknown 325mg Tablets mouth every 6 hours as needed for pain or fever Clozapine 4 tabs by mouth in Unknown 100mg the evening Tablets Lisinopril 1 by mouth every Unknown 10mg day Tablets Metformin HCL ER 1 by mouth every Unknown (Mod) day 500mg Tablets ER 24HR Glipizide ER 1 by mouth every Unknown 10mg day Tablets ER 24HR Immunizations Description No Information Available Vital Signs Date Vital Result Comment 10/26/2018 2:30pm Height 68 inches 5'8" Weight 193.25 lb Heart Rate 100 /min BP Systolic Sitting 132 mmHg BP Diastolic Sitting 80 mmHg Respiratory Rate 18 /min BMI (Body Mass Index) 29.4 kg/m2 Results Description No Information Available Procedures Date Code Description Status 10/21/2019 00792 ECHO Transthorasic Realtime 2D W Doppler & Color Flow Hosp Completed 10/21/2019 51506 Treadmill Interp/Report Only Completed 10/21/2019 25005 Stress Test Supervsn W/Out I/R Completed Medical Devices Description No Information Available Encounters Type Date Location Provider Dx Diagnosis Office Visit 10/21/2019 [facility] Rodrick Poe NP R07.9 Chest pain, 12:51p Assoc,pc unspecified Hospitalists Office Visit 10/19/2019 [facility] Brenda Clark N.sEmer. R07.9 Chest pain, 12:50p Assoc,pc unspecified Hospitalists Assessments Date Code Description Provider 10/21/2019 R07.9 Chest pain, unspecified Rodrick Poe NP 10/21/2019 R07.9 Chest pain, unspecified Dominguez Cruz M.D. 10/20/2019 R07.9 Chest pain, unspecified Edson Weir M.D. 10/20/2019 E11.9 Type 2 diabetes mellitus without Edson Weir M.D. complications 10/19/2019 R07.9 Chest pain, unspecified Brenda Clark N.P. Plan of Treatment 10/26/2018 - Edwin Adam M.D.R26.9 Unspecified abnormalities of gait and mobilityFollow up:[facility] at [facility] Tremor, unspecified Functional Status Description No Information Available Mental Status Description No Information Available Referrals Description No Information Available
--- OUTSIDE RECORDS SUMMARY | 2019-11-27 16:17 | XMS REPORT | Continuity of Care Document ---
:1955 External Reference #:[id number] Author Name Dominguze Cruz M.D. (transmitted by agent of provider Selin Storey) Address 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 Medicine Problems Active Problems Provider Date Dizziness [...] 06/08/2018 Trihexyphenidyl 06/08/2018 Haldol 06/08/2018 Fluphenazine 10/26/2018 Platinum 10/26/2018 Flomax 10/26/2018 Trazodone 10/26/2018 Medications Active [...] Available Procedures Date Code Description Status 10/21/2019 30094 ECHO Transthorasic Realtime 2D W Doppler & Color Flow Hosp Completed 10/21/2019 25439 Treadmill Interp/Report Only Completed 10/21/2019 31773 Stress Test Supervsn W/Out I/R Completed Medical Devices Description No Information Available Encounters Description No Information Available Assessments Date Code Description Provider 10/21/2019 R07.9 Chest pain, unspecified Dominguez Cruz M.D. Plan of Treatment 10/26/2018 - Edwin Adam M.D.R26.9 Unspecified abnormalities of gait and mobilityFollow up:follow up at [facility] Tremor, unspecified Functional Status Description No Information Available Mental Status Description No Information Available Referrals Description No Information Available
--- OUTSIDE RECORDS SUMMARY | 2019-11-27 16:17 | XMS REPORT | Continuity of Care Document ---
:1955 External Reference #:[id number] Author Name Rich Fair M.D. 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 Medicine Problems Active Problems Provider Date Dizziness [...] 06/08/2018 Trihexyphenidyl 06/08/2018 Haldol 06/08/2018 Fluphenazine 10/26/2018 Perkins 10/26/2018 Flomax 10/26/2018 Trazodone 10/26/2018 Medications Active [...] Available Procedures Date Code Description Status 10/21/2019 95824 ECHO Transthorasic Realtime 2D W Doppler & Color Flow Hosp Completed 10/21/2019 41175 Treadmill Interp/Report Only Completed 10/21/2019 06475 Stress Test Supervsn W/Out I/R Completed 10/20/2019 13917 EKG, Interpretation Only Completed Medical Devices Description No Information Available Encounters Type Date Location Provider Dx Diagnosis Office Visit 10/21/2019 [facility] Rodrick Poe NP R07.9 Chest pain, 12:51p Assoc,pc unspecified Hospitalists Office Visit 10/19/2019 [facility] Brendaalexia Clark N.P. R07.9 Chest pain, 12:50p Assoc,pc unspecified Hospitalists Assessments Date Code Description Provider 10/21/2019 R07.9 Chest pain, unspecified Rodrick Poe NP 10/21/2019 R07.9 Chest pain, unspecified Dominguez Cruz M.D. 10/20/2019 R07.9 Chest pain, unspecified Rich Fair M.D. 10/20/2019 R07.9 Chest pain, unspecified Edson [...]
--- OUTSIDE RECORDS SUMMARY | 2019-11-27 16:17 | XMS REPORT | Continuity of Care Document ---
:1955 External Reference #:[id number] Demographics Mobile Phone [phone] Preferred Language Unknown Marital Status Unknown Mormon Affiliation Unknown Race Unknown Ethnic Group Unknown Author Name Joseph Huizar MD (transmitted by agent of provider Britt Bowen) Address [address] [place] [address] Problems Active Problems Provider Date Dysphagia Joseph Huizar MD Onset: 11/21/2019 Social History Type Date Description Comments Sex Unknown Allergies, Adverse Reactions, Alerts Description No Information Available Medications Description No Information Available Immunizations Description No Information Available Vital Signs Description No Information Available Results Description No Information Available Procedures Description No Information Available Medical Devices Description No Information Available Encounters Type Date Location Provider Dx Diagnosis Office Visit 11/21/2019 Joseph Gray R13.10 Dysphagia, 2:15p 08-07-2019 unspecified Assessments Date Code Description Provider 11/21/2019 R13.10 Dysphagia, unspecified Joseph Huizar MD Plan of Treatment 11/21/2019 - Joseph Huizar MDR13.10 Dysphagia, unspecifiedComments:Patient with symptoms of dysphagia no progressive weight loss. Multiple medication difficult evaluation without endoscopy and barium esophagram. He lives in a home with multiple disabled individuals my suspicion and recommendation is since he is not losing weight there is no evidence of neoplasm that we should wait until some of the risk from the pandemic is reduced. For further evaluation Functional Status Description No Information Available Mental Status Description No Information Available Referrals Description No Information Available
--- OUTSIDE RECORDS SUMMARY | 2019-11-27 16:17 | XMS REPORT | Summary of Care ---
:1955 Author Organization [facility] Address [address] [place] [address] Care Team Providers Name Role Phone Abdulaziz Carranza Primary Care Provider Colton Menendez-Attributed Pcp Reason for Referral Refer to Department Only (Routine) Status Reason Specialty Diagnoses / Referred By Referred To Procedures Contact Contact Pending Review Physical Therapy Diagnoses Gait disorder Abdulaziz Carranza MD [address] [place] [address] Reason for Visit Reason Comments Check Up paper work for dss to be filled out Diabetic Outreach due for foot exam , eye exam and A1C 7.9 last labs were 07/2020 Encounter Details Date Type Department Care Team Description 11/27/2019 Office Visit [place] [facility] Abdulaziz Carranza Diabetes mellitus without complication (HCC) (Primary Dx); Jose Almendarez MD Schizoaffective disorder, bipolar type (HCC); [facility] [address] Controlled type 2 diabetes mellitus without complication, without long-term current use of insulin (HCC); [place] [address] Essential hypertension; [phone] Gait disorder Allergies Active Allergy Reactions Severity Noted Date Comments Kdc:Benzyl Other 02/25/2014 nightmares Alcohol+Lorazepam+Polyethy kandis Glycol+Propylene Glycol Benztropine 08/20/2009 Ziprasidone Hydrochloride 08/20/2009 Haloperidol Lactate Unknown Reaction 08/20/2009 [place] 08/20/2009 Fd&C Yellow #6-Gabapentin Other 10/10/2014 Fever, fainted Prolixin 08/20/2009 Fluoxetine Hcl 08/20/2009 Shell Fish Unknown Reaction 09/03/2015 Allergic to lobster per patient, but not shrimp, oysters, clams or crab. Carbamazepine 08/20/2009 Chlorpromazine Hcl 08/20/2009 Trazodone 08/20/2009 Diazepam Unknown Reaction 04/03/2015 Bupropion 08/20/2009 Zaleplon 08/20/2009 [place] documented as of this encounter (statuses as of 11/27/2019) Medications Medication Sig Dispensed Refills Start End Date Status Date divalproex sodium Take 1,000 mg 60 Tab 0 Active (DEPAKOTE) 500 MG by mouth 5 Oral Tab EC TWICE DAILY. 1000 mg in the morning, and 1000 mg at bedtime clozapine (CLOZARIL) Take 700 mg 60 Tab 0 Active 100 MG Oral by mouth 5 TabIndications: DAILY. 1 in Schizophrenia, AM, 4 at HS unspecified type (HCC) loperamide (IMODIUM) Take 1 Cap by 30 Cap 5 Active 2 MG Oral Cap mouth FOUR 7 TIMES DAILY NEEDED for diarrhea. magnesium citrate Take 200 mg 1 Bottle 0 Active Oral by mouth 8 SolutionIndications: DAILY Constipation, NEEDED unspecified (constipation constipation type ). risperidone Take 4 mg by 0 Active (RISPERDAL) 4 MG Oral mouth EVERY Tab BEDTIME. docusate sodium Take 1 Cap by 30 Cap 11 Active (COLACE) 100 MG Oral mouth TWO 9 Cap TIMES DAILY NEEDED (constipation ). Incontinence Supply 1 Each by 60 Each 5 Active Disposable Does not Does not 9 apply Misc apply route DAILY. S/M depends underwear acetaminophen Take 2 Tabs 90 Tab 5 Active (TYLENOL) 325 MG Oral by mouth 0 Tab THREE TIMES DAILY NEEDED (headache). glipiZIDE (GLUCOTROL Take 1 Tab by 30 Tab 5 Active XL) 10 MG Oral TABLET mouth DAILY. 0 SR 24 HR metFORMIN HCL 1000 MG Take 1 Tab by 60 Tab 5 09/24/19 Active Oral Tab mouth TWO 0 21 TIMES DAILY WITH MEALS. atorvastatin Take 1 Tab by 30 Tab 11 Active (LIPITOR) 20 MG Oral mouth DAILY. 0 Tab Multiple Vitamin Take 1 Tab by 30 Tab 11 Active (DAILY-IVETTE) Oral Tab mouth DAILY. 0 Aspirin 81 MG Oral Take 1 Tab by 30 Tab 11 Active Tab mouth DAILY. 0 metoprolol succinate Take 1 Tab by 30 Tab 0 Active (TOPROL XL) 25 MG mouth DAILY. 0 Oral TABLET SR 24 HR Omeprazole delayed Take 1 Cap by 30 Cap 5 Active rel cap 20 MG Oral mouth DAILY. 0 CAPSULE DELAYED RELEASEIndications: Gastroesophageal reflux disease without esophagitis lisinopril (PRINIVIL, Take 1 Tab by 90 Tab 5 11/27/19 Active ZESTRIL) 20 MG Oral mouth DAILY. 0 21 Tab lisinopril (PRINIVIL, TAKE ONE 30 Tab 11 11/27/19 Discontinued ZESTRIL) 10 MG Oral TABLET BY 9 20 (Provider Tab MOUTH ONCE Discontinued) DAILY aspirin 81 MG Oral 0 11/27/19 Discontinued Chew Tab 0 20 (Duplicate Order) documented as of this encounter (statuses as of 11/27/2019) Active Problems Problem Noted Date Controlled type 2 diabetes mellitus without complication, without 10/05/2018 long-term current use of insulin Parkinsonism, secondary 08/30/2018 Urge incontinence of urine 03/17/2017 Essential hypertension 01/25/2017 Gastroesophageal reflux disease without esophagitis 04/01/2016 BPH (benign prostatic hyperplasia) 12/25/2013 Bipolar disorder 08/20/2009 Overview: [facility] Schizoaffective disorder, bipolar type 08/20/2009 Overview: 2 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 08/20/2009 12/25/2013 Renal insufficiency 08/20/2009 05/13/2015 Overview: Secondary to lithium documented as of this encounter (statuses as of 11/27/2019) Immunizations Name Administration Dates Next Due Influenza (IM) Preservative Free 06/07/2018, 04/18/2017, 05/02/2016, 10/21/2015, 06/04/2014 Influenza Vaccine 65 Yrs + 04/24/2019 PNEUMOCOCCAL POLYSACCHARIDE VACCINE 06/28/2019, 06/17/2014 Pneumococcal Conjugate(13 Valent) 10/21/2015 TDAP Vaccine 01/21/2016 ZOSTER (ZOSTAVAX) VACCINE 09/17/2014 documented as of this encounter Social History Tobacco Use Types Packs/Day Years Used Date Former Smoker Cigarettes 09 05 Quit: 02/23/2014 Smokeless Tobacco: Never Used Alcohol Use Drinks/Week oz/Week Comments No 0 Standard drinks or equivalent 0.0 Sex Assigned at Date Recorded Not on file COVID-19 Exposure Response Date Recorded In the last month, have you been in contact with No / Unsure 11/26/2019 11:24 AM EDT someone who was confirmed or suspected to have Coronavirus / COVID-19? documented as of this encounter Last Filed Vital Signs Vital Sign Reading Time Taken Comments Blood Pressure 148/82 11/27/2019 11:25 AM EDT Pulse 104 11/27/2019 11:11 AM EDT Temperature 36.7 11/27/2019 11:11 AM C (98.1 EDT F) Respiratory Rate - - Oxygen Saturation 98% 11/27/2019 11:11 AM EDT Inhaled Oxygen Concentration - - Weight 87.5 kg (192 lb 12.8 oz) 11/27/2019 11:11 AM EDT Height 170.2 cm (5' 7") 11/27/2019 11:11 AM EDT Body Mass Index 30.2 11/27/2019 11:11 AM EDT documented in this encounter Patient Instructions Patient InstructionsAbdulaziz Carranza MD - 11/27/2019 11:00 AM EDTBlood pressure not at goal increase lisinopril 20 mg once daily in pm Diabetes mellitus stable continue current medications physical therapy [facility] for gait evaluation referral given Follow up Jose RODRIGEZ one month for hypertension and diabetes mellitus follow up documented in this encounter Progress Notes Abdulaziz Carranza MD - 11/27/2019 11:00 AM EDT PATIENT: Natacha Blake : 1955 DATE OF SERVICE: 11/27/2019 CHIEF COMPLAINT: Chief Complaint Patient presents with ? Check Up paper work for dss to be filled out ? Diabetic Outreach due for foot exam , eye exam and A1C 7.9 last labs were 09/18/2019 Subjective HISTORY OF PRESENT ILLNESS: Natacha Blake is a 64-y.o. male. 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[employer] [facility] form for home care filled out and faxed in Labs reviewed Lab Results Component Value Date GLYCO 7.9 (H) 09/18/2019 HDLLSM9WLA 9.1 07/06/2018 Lab Results Component Value Date NA 136 09/18/2019 K 4.6 09/18/2019 CL 103 09/18/2019 CO2 23 09/18/2019 GLUCOSE 151 (H) 09/18/2019 BUN 20 09/18/2019 CREATININE 0.8 09/18/2019 CALCIUM 9.8 09/18/2019 TP 7.7 09/18/2019 ALBUMIN 4.5 09/18/2019 AST 28 09/18/2019 ALT 40 09/18/2019 ALK 85 09/18/2019 TBILI 0.3 09/18/2019 EGFR >60 09/18/2019 BP Readings from Last 3 Encounters: 11/27/19 (!) 148/82 09/25/19 124/70 08/22/19 135/80 patient and care worker note increasing balance and gait issues several minor falls he has drug induced parkinson's disease no new focal neuro defcits noted he has wheeled walker at home but never uses it No diabetes mellitus related symptoms Patient Active Problem [...] mouth THREE TIMES DAILY NEEDED (headache). ? Aspirin 81 MG Oral Tab Take 1 Tab by mouth DAILY. ? atorvastatin (LIPITOR) 20 MG Oral Tab Take 1 Tab by mouth DAILY. ? clozapine (CLOZARIL) 100 MG Oral Tab [...] DAILY. S/Mdepends underwear ? lisinopril (PRINIVIL, ZESTRIL) 20 MG Oral Tab Take 1 Tab by mouth DAILY. ? loperamide (IMODIUM) 2 MG Oral Cap Take 1 Cap by mouth FOUR TIMES DAILY NEEDED for diarrhea. ? magnesium citrate Oral Solution Take 200 mg by mouth DAILY NEEDED ( constipation). ? metFORMIN HCL 1000 MG Oral Tab Take 1 Tab by mouth TWO TIMES DAILY WITH MEALS. ? metoprolol succinate (TOPROL XL) 25 MG Oral TABLET SR 24 HR Take 1 Tab by mouth DAILY. ? Multiple Vitamin (DAILY-IVETTE) Oral Tab Take 1 Tab by mouth DAILY. ? Omeprazole delayed rel cap 20 MG Oral CAPSULE DELAYED RELEASE Take 1 Cap by mouth DAILY. ? risperidone (RISPERDAL) 4 MG Oral Tab Take 4 mg by mouth EVERY BEDTIME. No current facility-administered medications for this visit. Allergies Allergen Reactions ? Ativan [Kdc:Benzyl Alcohol+Lorazepam+Polyethylene Glycol+Propylene Glycol] Other nightmares ? Benztropine ? Geodon [Ziprasidone Hydrochloride] ? Haldol [Haloperidol Lactate] Unknown Reaction ? [place] ? Neurontin [Fd&C Yellow #6-Gabapentin] Other Fever, [...] Last attempt to quit: 02/23/2014 Years since quittin.7 ? Smokeless tobacco: Never Used Substance and Sexual Activity ? Alcohol use: No Alcohol/week: 0.0 standard drinks ? Drug use: No ? Sexual activity: Never Lifestyle ? Physical activity Days per week: Not on file Minutes per session: Not on file ? Stress: Not on file Relationships ? Social connections Talks on phone: Not on file Gets together: Not on file Attends [employer] service: Not on file Active member of [...] No Social History Narrative Lives alone in [facility] group housing in [facility] On [facility] disability for mental health Never No significant other ROS denies cardiovascular symptoms and no neuropathy Symptoms feet Objective PHYSICAL EXAM: VITALS: BP (!) 148/82 | Pulse 104 | Temp 98.1 F (36.7 C) | Ht 5' 7" (1.702 m) | Wt 192 lb 12.8 oz (87.5 kg) | SpO2 98% | BMI 30.20 kg/m Body mass index is 30.2 kg/m. Physical Exam There is trace bilateral ankle edema with no tenderness to palpation, erythema , or heat to the touch. Left foot diabetic exam: Visual exam. Foot [...] wheezes or rales. No edema or JVD. ASSESSMENT / IMPRESSION: ICD-9-CM ICD-10-CM 1. Diabetes mellitus without complication ([facility]) goal hemoglobin A1C 8% continue current medications hemoglobin A1C 1-2 months see dietitian 250.00 E11.9 2. Schizoaffective disorder, bipolar type ([facility]) 295.70 F25.0 4. Essential hypertension not at goal continue metoprolol increase lisinopril 20 follow up one month 401.9 I10 5. Gait disorder physical therapy referral for assistive devices possible quad cane at [facility] 781.2 R26.9 REFER TO PHYSICAL THERAPY / REHAB Patient Instructions Blood pressure not at goal increase lisinopril 20 mg once daily in pm Diabetes mellitus stable continue current medications physical therapy referrral [facility] for gait evaluation referral given Follow up Jose RODRIGEZ one month for hypertension and diabetes mellitus follow up Abdulaziz Carranza MD 11/27/2019 11:35 documented in this encounter Plan of Treatment Date Type Specialty Care Team Description 12/16/2019 Office Visit Internal Medicine Kaye [address] [place] [address] [phone] 12/25/2019 Lab Internal Medicine 01/09/2020 Office Visit Internal Medicine Abdulaziz Carranza MD [address] [place] [address] [phone] Name Type Priority Associated Diagnoses Order Schedule REFER TO PHYSICAL THERAPY Referral Routine Gait disorder Ordered: 2019 / REHAB Health Maintenance Due Date Last Done Comments CT Colonography 1955 Cologuard 1955 FIT/FOBT 1955 Sigmoidoscopy 1955 LUNG CANCER SCREENING 2008 ZOSTER IMMUNIZATION SERIES 11/12/2014 09/17/2014 (2 of 3) AAA SCREENING/SURVEILLANCE 2018 Diabetic Eye Exam 09/08/2018 09/08/2017, 09/08/2017, 09/08/2017, Additional history exists FOOT EXAM 11/21/2018 11/21/2017, 11/21/2017, 11/21/2017, Additional history exists HEMOGLOBIN A1C 12/17/2019 09/18/2019, 06/07/2019, 02/28/2019, Additional history exists DEPRESSION SCREENING 02/06/2020 02/05/2019 FALL RISK ASSESSMENT 08/22/2020 08/22/2019, 08/22/2019 LIPID DISORDER SCREENING 10/29/2020 10/30/2019, 09/18/2019, 06/07/2019, Additional history exists Colonoscopy 12/29/2021 12/29/2016, 12/29/2016, 11/07/2016, Additional history exists Colorectal Cancer Screening 12/29/2021 DTaP/Tdap/Td Vaccines (2 - 01/20/2026 01/21/2016 Tdap) [...] Type Problems Progress Blood Pressure Blood Hypertension 148/82 No [place], < 140/90 Pressure (11/27/2019 Abdulaziz Almendarez, 11:25 AM EDT) Note: Hypertension Care Plan Based [...] Educational Resources: National Heart, Lung, & Blood Rheems http://nhlbi.nih.gov/hbp/index.html The DASH Diet Eating Plan http://www.nhlbi.nih.gov/health/health-topics/ topics/dash/ Academy of Nutrition & DIetetics http://eatright.org National Smoking Cessation Site http://smokefree.gov Blood Pressure < Blood Pressure Hypertension 148/82 (11/27/2019 Abdulaziz Saravia 140/90 11:25 AM EDTPeng Almendarez MD Note: Hypertension Care [...] Educational Resources: National Heart, Lung, & Blood Rheems http://nhlbi.nih.gov/hbp/index.html The DASH Diet Eating Plan http://www.nhlbi.nih.gov/health/health-topics/ topics/dash/ Academy of Nutrition & DIetetics http://eatright.org National Smoking Cessation Site http://smokefree.gov Blood Pressure < Blood Pressure 148/82 (11/27/2019 No Estee Denis FNP 140/90 11:25 AM EDT) Note: This is an individualized [...] better. Weight loss vs. 18 mo Lifestyle 5.2 (11/27/2019 11:11 AM No Estee Denis FNP max (lbs) [...] filedocumented in this encounter Visit Diagnoses Diagnosis Diabetes mellitus without complication (HCC) Type II or unspecified type diabetes mellitus without mention of complication, not stated as uncontrolled Schizoaffective disorder, bipolar type (HCC) Schizoaffective disorder, unspecified condition Controlled type 2 diabetes mellitus without complication, without long-term current use of insulin (HCC) Essential hypertension Unspecified essential hypertension Gait disorder Abnormality of gait documented in this encounter (Home) [address] [place], [place] (Work) [address] documented as of this encounter
--- OUTSIDE RECORDS SUMMARY | 2019-11-27 16:17 | XMS REPORT | Continuity of Care Document ---
:1955 External Reference #:[id number] Demographics Mobile Phone [phone] Preferred Language Unknown Marital Status Unknown Rastafarian Affiliation Unknown Race Unknown Ethnic Group Unknown Author Name Joseph Huizar MD (transmitted by agent of provider Maite Mitchell) Address [address] [place] [address] Problems Description No Information Available Social History Type Date Description Comments Sex Unknown Allergies, Adverse Reactions, Alerts Description No Information Available Medications Description No Information Available Immunizations Description No Information Available Vital Signs Description No Information Available Results Description No Information Available Procedures Description No Information Available Medical Devices Description No Information Available Encounters Description No Information Available Assessments Description No Information Available Plan of Treatment No Information Available Functional Status Description No Information Available Mental Status Description No Information Available Referrals Description No Information Available
--- OUTSIDE RECORDS SUMMARY | 2019-11-27 16:17 | XMS REPORT | Continuity of Care Document ---
:1955 External Reference #:[id number] Author Name Brenda Clark N.P. 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 Administrator [phone] Medicine Problems Active Problems Provider Date Dizziness [...] 06/08/2018 Trihexyphenidyl 06/08/2018 Haldol 06/08/2018 Fluphenazine 10/26/2018 [place] 10/26/2018 Flomax 10/26/2018 Trazodone 10/26/2018 Medications Active [...] by Abeba Dang 05/25/2018 mouth two times [place], PRIMER CHARGER 500mg Tablets ER daily for BiPolar 24HR Atorvastatin Calcium Take 1 tablets by Abeba Dang 05/25/2018 mouth in the [place]he[place], PRIMER CHARGER 20mg Tablets evening Omeprazole Take 1 tablet by Abeba Dang 05/25/2018 20mg mouth daily at [place], ANNABEL Capsules DR bedtime Clozapine Take 1 tablet by Abeba Dang 05/25/2018 100mg mouth in the [place], ANNABEL Tablets Dispers morning daily Risperdal Take 1 [...] Available Procedures Date Code Description Status 10/21/2019 88201 ECHO Transthorasic Realtime 2D W Doppler & Color Flow Hosp Completed 10/21/2019 45661 Treadmill Interp/Report Only Completed 10/21/2019 40831 Stress Test Supervsn W/Out I/R Completed Medical Devices Description No Information Available Encounters Type Date Location Provider Dx Diagnosis Office Visit 10/21/2019 [facility] Rodrick Poe NP R07.9 Chest pain, 12:51p Assoc,pc unspecified Hospitalists Office Visit 10/19/2019 [facility] Brenda Clark N.Esmer. R07.9 Chest pain, 12:50p Assoc,pc unspecified Hospitalists [...]
--- OUTSIDE RECORDS SUMMARY | 2019-11-27 16:17 | XMS REPORT | Continuity of Care Document ---
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 Medicine Problems Active Problems Provider Date Dizziness [...] 06/08/2018 Trihexyphenidyl 06/08/2018 Haldol 06/08/2018 Fluphenazine 10/26/2018 [place] 10/26/2018 Flomax 10/26/2018 Trazodone 10/26/2018 Medications Active [...] Available Procedures Date Code Description Status 10/21/2019 19054 ECHO Transthorasic Realtime 2D W Doppler & Color Flow Hosp Completed 10/21/2019 42742 Treadmill Interp/Report Only Completed 10/21/2019 43274 Stress Test Supervsn W/Out I/R Completed Medical Devices Description No Information Available Encounters Type Date Location Provider Dx Diagnosis Office Visit 10/21/2019 [facility] Rodrick Poe NP R07.9 Chest pain, 12:51p Assoc,pc unspecified Hospitalists Office Visit 10/19/2019 [facility] Brenda Clark N.P. R07.9 Chest pain, 12:50p Assoc,pc unspecified Hospitalists Assessments Date Code Description Provider 10/21/2019 R07.9 Chest pain, unspecified Rodrick Poe, ANNABEL 10/21/2019 R07.9 Chest pain, unspecified Dominguez Cruz [...]
[2019-11-27 18:14] VITALS: BP 161/108
== END 2019-11-27 18:13 | disposition home or self-care (01) ==
LOC: ED 15:09
DX: F25.9 Schizoaffective disorder, unspecified (principal); N17.9 Acute kidney failure, unspecified; N40.0 Benign prostatic hyperplasia without lower urinary tract symptoms; Z87.891 Personal history of nicotine dependence; K21.9 Gastro-esophageal reflux disease without esophagitis; R62.50 Unspecified lack of expected normal physiological development in childhood; Z87.442 Personal history of urinary calculi; Z79.899 Other long term (current) drug therapy; Z88.8 Allergy status to other drugs, medicaments and biological substances
CPT/HCPCS: 99285

== ENCOUNTER 2019-12-06 19:08 | Inpatient (IN) ==
[~2019-12-06 19:08] MED LIST changes: -Acetaminophen TAB* 325 MG PO ONE; +Al Hydrox/Mg Hydrox/Simet LIQ 30 ML UDC PO PRN
[2019-12-06 19:51] LABS: ABS Basophils 0.1 10^3/ul (0-0.2); ABS Eosinophils 0.1 10^3/ul (0-0.6); ABS Lymphocytes 2.5 10^3/ul (1.0-4.8); ABS Monocytes 0.7 10^3/ul (0-0.8); Eosinophil % 1.8 %; Hematocrit 33 % (42-52); Hemoglobin 11.4 g/dL (14.0-18.0); Lymphocyte % 31.2 %; Mean Corpuscular HGB Conc 35 g/dL (31-36); Mean Corpuscular Hemoglobin 33 pg (27-31); Mean Corpuscular Volume 94 fL (80-94); Mean Platelet Volume 8.3 fL (7.4-10.4); Platelet Count 267 10^3/uL (150-450); Red Blood Count 3.49 10^6 /uL (4.18-5.48); Red Cell Distribution Width 13 % (10-15); White Blood Count 8.1 10^3/uL (3.5-10.8)
[2019-12-06 20:10] LABS: ALT 23 U/L (7-52); AST 17 U/L (13-39); Albumin 4.2 g/dL (3.2-5.2); Albumin/Globulin Ratio 1.6 (1-3); Alkaline Phosphatase 62 U/L (34-104); Anion Gap 7 mmol/L (2-11); BUN/Creatinine Ratio 26.4 (8-20); Blood Urea Nitrogen 28 mg/dL (6-24); CO2 Carbon Dioxide 25 mmol/L (22-32); Calcium 9.6 mg/dL (8.6-10.3); Chloride 105 mmol/L (101-111); EGFR African American 84.6 (>60); EGFR Non-African American 69.9 (>60); Globulin 2.7 g/dL (2-4); Glucose 130 mg/dL (70-100); Sodium 137 mmol/L (135-145); Total Protein 6.9 g/dL (6.4-8.9)
[2019-12-06 20:44] LABS: Urine Appearance Clear; Urine Bilirubin Negative (Negative); Urine Blood Negative (Negative); Urine Color Yellow; Urine Glucose Negative (Negative); Urine Ketones Trace (Negative); Urine Nitrite Negative (Negative); Urine Protein Negative (Negative); Urine Specific Gravity 1.015 (1.010-1.030); Urine Urobilinogen Negative (Negative)
[2019-12-06 20:48] LABS: Acetaminophen < 15 mcg/mL; Alcohol, S < 10 mg/dL (<10); Salicylate < 2.50 mg/dL (<30)
[2019-12-06 21:03] LABS: TSH (Thyroid Stimulating Horm) 2.58 mcIU/mL (0.34-5.60)
[2019-12-06 21:24] LABS: Urine Benzodiazepine Screen None Detected (None Detect); Urine Opiates Screen None Detected (None Detect)
[2019-12-06] MEDS ORDERED: Magnesium CITRATE LIQ 300 ML BTL PO PRN (23:15)
[2019-12-06] MEDS ORDERED: Nicotine GUM 2MG FRUIT FLAVOR PO PRN (23:15)
[2019-12-07] MEDS: LORazepam 1 mg TAB (*) PO PRN ×2 (00:10→17:30)
[2019-12-07] MEDS: Vitamin THERAPEUTIC TAB PO SCH (08:38)
[2019-12-07] MEDS: Divalproex DR 500 mg TAB(*) PO SCH ×2 (08:38→19:53)
[2019-12-07] MEDS: Lidocaine PATCH 5% PATCH TRANSDERM SCH (08:42)
[2019-12-07] MEDS: Lidocaine Patch REMOVE PATCH PATCH OFF SCH (20:14)
[2019-12-08 06:46] LABS: HDL Cholesterol 34.4 mg/dL
[2019-12-08] MEDS: Lidocaine PATCH 5% PATCH TRANSDERM SCH (08:34)
[2019-12-08] MEDS: Divalproex DR 500 mg TAB(*) PO SCH ×2 (08:36→20:29)
[2019-12-08] MEDS: Vitamin THERAPEUTIC TAB PO SCH (08:36)
[2019-12-08] MEDS: Atropine 1% (ORAL/SL) 15 ML BTL SL PRN ×3 (14:14→20:32)
[2019-12-08] MEDS: LORazepam 1 mg TAB (*) PO PRN (17:23)
[2019-12-08] MEDS: Lidocaine Patch REMOVE PATCH PATCH OFF SCH (20:34)
[2019-12-09] MEDS: LORazepam 1 mg TAB (*) PO PRN (01:38)
[2019-12-09] MEDS: Atropine 1% (ORAL/SL) 15 ML BTL SL PRN ×2 (08:00→16:48)
[2019-12-09] MEDS: Vitamin THERAPEUTIC TAB PO SCH (09:02)
[2019-12-09] MEDS: Divalproex DR 500 mg TAB(*) PO SCH ×2 (09:03→21:30)
[2019-12-09] MEDS: Lidocaine PATCH 5% PATCH TRANSDERM SCH (09:06)
[2019-12-09] MEDS: Lidocaine Patch REMOVE PATCH PATCH OFF SCH (21:42)
[2019-12-10 07:52] VITALS: BP 134/68
[2019-12-10] MEDS: Divalproex DR 500 mg TAB(*) PO SCH (08:50)
[2019-12-10] MEDS: Vitamin THERAPEUTIC TAB PO SCH (08:50)
[2019-12-10] MEDS: Lidocaine PATCH 5% PATCH TRANSDERM SCH (08:52)
[2019-12-10] MEDS: Atropine 1% (ORAL/SL) 15 ML BTL SL PRN (10:47)
== END 2019-12-10 11:10 | disposition home or self-care (01) | DRG 750 ==
LOC: ED 19:08 → BSU 12-07 00:36
PROVIDERS: ADMIT Psychiatry & Neurology Psychiatry; ATTEND Psychiatry & Neurology Psychiatry

== ENCOUNTER 2020-07-14 22:26 | Observation (INO) ==
[2020-07-15] MEDS ORDERED: NS 0.9% 1000 ml BAG 1,000 ML IV ONE (01:07)
[2020-07-15 01:26] LABS: ABS Basophils 0.1 10^3/ul (0-0.2); ABS Eosinophils 0.4 10^3/ul (0-0.6); ABS Lymphocytes 2.6 10^3/ul (1.0-4.8); ABS Neutrophils 6.5 10^3/ul (1.5-7.7); Eosinophil % 3.7 %; Hematocrit 33 % (42-52); Hemoglobin 11.2 g/dL (14.0-18.0); Lymphocyte % 24.8 %; Mean Corpuscular HGB Conc 34 g/dL (31-36); Mean Corpuscular Hemoglobin 32 pg (27-31); Mean Corpuscular Volume 94 fL (80-94); Mean Platelet Volume 8.7 fL (7.4-10.4); Platelet Count 283 10^3/uL (150-450); Red Blood Count 3.49 10^6 /uL (4.18-5.48); Red Cell Distribution Width 14 % (10-15); White Blood Count 10.6 10^3/uL (3.5-10.8)
[2020-07-15 01:44] LABS: ALT 12 U/L (7-52); AST 10 U/L (13-39); Albumin 3.9 g/dL (3.2-5.2); Albumin/Globulin Ratio 1.3 (1-3); Alkaline Phosphatase 69 U/L (34-104); Anion Gap 10 mmol/L (2-11); Blood Urea Nitrogen 35 mg/dL (6-24); CO2 Carbon Dioxide 21 mmol/L (22-32); Calcium 8.8 mg/dL (8.6-10.3); Chloride 105 mmol/L (101-111); EGFR African American 69.9 (>60); EGFR Non-African American 57.8 (>60); Globulin 3.1 g/dL (2-4); Glucose 159 mg/dL (70-100); Magnesium 1.8 mg/dL (1.9-2.7); Potassium 4.6 mmol/L (3.5-5.0); Sodium 136 mmol/L (135-145)
[2020-07-15 02:00] LABS: Alcohol, S < 10 mg/dL (<10)
[2020-07-15 02:15] LABS: TSH Ultra Thyroid Stim Horm 2.28 mcIU/mL (0.34-5.60)
[2020-07-15] MEDS ORDERED: Iodixanol (CONTRAST) 320 MG/ML 100 ML SDV IV ONE (03:19)
[2020-07-15 04:40] LABS: Urine Appearance Clear; Urine Bilirubin Negative (Negative); Urine Blood Negative (Negative); Urine Color Yellow; Urine Glucose Negative (Negative); Urine Ketones Trace (Negative); Urine Nitrite Negative (Negative); Urine Protein Negative (Negative); Urine Specific Gravity 1.045 (1.010-1.030); Urine Urobilinogen Negative (Negative)
[2020-07-15] MEDS ORDERED: Dextrose 50% Syringe 50 ml 25 GM/50 ML SYRINGE IV PUSH PRN (05:33)
[2020-07-15] MEDS ORDERED: NS 0.9% 1000 ml BAG 1,000 ML IV SCH (07:30)
[2020-07-15] MEDS: Multivitamins/Minerals TAB PO SCH (07:31)
[2020-07-15] MEDS ORDERED: Enoxaparin 40 MG/0.4 ML SYR SUBCUT SCH ×2 (09:00→10:00)
[2020-07-15] MEDS ORDERED: Enoxaparin 80 MG/0.8 ML SYR SUBCUT ONE (19:00)
[2020-07-15] MEDS ORDERED: GLIPIZIDE 10 MG PO SCH (21:00)
[2020-07-16 06:27] LABS: ABS Eosinophils 0.4 10^3/ul (0-0.6); ABS Lymphocytes 1.9 10^3/ul (1.0-4.8); ABS Monocytes 0.8 10^3/ul (0-0.8); Eosinophil % 5.4 %; Hematocrit 31 % (42-52); Hemoglobin 10.2 g/dL (14.0-18.0); Lymphocyte % 26.5 %; Mean Corpuscular HGB Conc 33 g/dL (31-36); Mean Corpuscular Hemoglobin 31 pg (27-31); Mean Corpuscular Volume 93 fL (80-94); Mean Platelet Volume 8.7 fL (7.4-10.4); Nucleated Red Blood Cells % 0.1; Platelet Count 266 10^3/uL (150-450); Red Blood Count 3.31 10^6 /uL (4.18-5.48); Red Cell Distribution Width 14 % (10-15); White Blood Count 7.1 10^3/uL (3.5-10.8)
[2020-07-16 06:48] LABS: BUN/Creatinine Ratio 26.7 (8-20); Calcium 8.3 mg/dL (8.6-10.3); EGFR African American 102.2 (>60); EGFR Non-African American 84.4 (>60); Potassium 4.5 mmol/L (3.5-5.0)
[2020-07-16] MEDS: Multivitamins/Minerals TAB PO SCH (09:15)
[2020-07-16] MEDS: Enoxaparin 80 MG/0.8 ML SYR SUBCUT SCH (17:56)
[2020-07-17] MEDS: Enoxaparin 80 MG/0.8 ML SYR SUBCUT SCH (05:19)
[2020-07-17] MEDS: Multivitamins/Minerals TAB PO SCH (10:08)
[2020-07-17 12:25] VITALS: BP 101/53
== END 2020-07-17 13:30 | disposition home or self-care (01) ==
LOC: ED 22:26 → MEDTELE 22:26 → MED 07-15 12:59
PROVIDERS: ADMIT Internal Medicine; ATTEND Internal Medicine

== ENCOUNTER 2020-07-18 15:08 | Inpatient (IN) ==
[2020-07-18 16:05] LABS: ABS Basophils 0.1 10^3/ul (0-0.2); ABS Eosinophils 0.4 10^3/ul (0-0.6); ABS Monocytes 0.7 10^3/ul (0-0.8); ABS Neutrophils 5.4 10^3/ul (1.5-7.7); Eosinophil % 5.3 %; Hematocrit 31 % (42-52); Hemoglobin 10.6 g/dL (14.0-18.0); Lymphocyte % 13.5 %; Mean Corpuscular HGB Conc 34 g/dL (31-36); Mean Corpuscular Hemoglobin 32 pg (27-31); Mean Corpuscular Volume 93 fL (80-94); Mean Platelet Volume 8.5 fL (7.4-10.4); Platelet Count 252 10^3/uL (150-450); Red Blood Count 3.36 10^6 /uL (4.18-5.48); Red Cell Distribution Width 14 % (10-15); White Blood Count 7.6 10^3/uL (3.5-10.8)
[2020-07-18 16:23] LABS: Albumin 3.8 g/dL (3.2-5.2); Albumin/Globulin Ratio 1.3 (1-3); BUN/Creatinine Ratio 29.2 (8-20); Calcium 9.1 mg/dL (8.6-10.3); EGFR African American 103.5 (>60); EGFR Non-African American 85.5 (>60); Magnesium 2.1 mg/dL (1.9-2.7); Potassium 4.9 mmol/L (3.5-5.0); Total Bilirubin 0.2 mg/dL (0.2-1.0); Total Protein 6.8 g/dL (6.4-8.9)
[2020-07-18] MEDS ORDERED: Dextrose 50% Syringe 50 ml 25 GM/50 ML SYRINGE IV PUSH PRN (16:39)
[2020-07-18 17:01] LABS: C Reactive Protein 31.98 mg/L (<8.01)
[2020-07-18 17:14] LABS: TSH Ultra Thyroid Stim Horm 2.07 mcIU/mL (0.34-5.60)
[2020-07-19 15:49] LABS: Urine Appearance Clear; Urine Bilirubin Negative (Negative); Urine Blood Negative (Negative); Urine Color Yellow; Urine Glucose 1+(50 mg/dL) (Negative); Urine Ketones Trace (Negative); Urine Nitrite Negative (Negative); Urine Protein Negative (Negative); Urine Specific Gravity 1.015 (1.010-1.030); Urine Urobilinogen Negative (Negative)
[2020-07-22 13:01] VITALS: BP 115/75
== END 2020-07-22 14:13 | DRG 58 ==
LOC: ED 15:08 → MED 17:29 → MEDTELE 07-19 16:35
PROVIDERS: ADMIT Internal Medicine; ATTEND Internal Medicine